=== PATIENT | female | born 1945 | race Caucasian/White ===

== ENCOUNTER 2020-11-26 17:57 | Inpatient (IN) ==
[2020-11-26] MEDS ORDERED: SODIUM CHLORIDE 0.9% 500 ML IV STA (19:08)
--- NOTE | 2020-11-26 19:15 | Emergency Department Note ---
Impression & Plan Abdominal pain, Diverticulitis, Colonic diverticular abscess, Perforated diverticulum ED Provider Note NAME: AWA ROMERO AGE: 75 SEX: F : 1945 ARRIVES VIA: Walk-In INFORMANT: Patient, ED PROVIDER(S): Ramana Quiñones MD Chief Complaint: Abdominal pain HPI: Patient does present concern for abdominal pain. The patient states that it might have began last evening but really seem to notice it this morning. The patient describes it in the lower abdomen as well as in the left lower quadrant achy in nature nonradiating. The patient denies any fevers or chills. The patient has any nausea or vomiting. The patient states that she had a bowel movement several days ago but denies any blood in the stools. The patient has been passing flatus. The patient did not take anything for pain at home. Patient denies any dysuria or hematuria. Patient denies history of kidney stones. The patient denies any recent surgeries or procedures. The patient does state that she has a prior history of diverticulitis and this does feel similar. ROS: See HPI for pertinent positives and negatives. A total of 10 systems were reviewed and otherwise negative. Past medical history: See below Surgical history: See below Social history: See below Physical Exam: GENERAL: Wearing a mask. NAD, non-toxic. EYE EXAM: Normal conjunctiva. PERRL, no anisocoria and EOM's grossly intact w/o pain. NECK: Supple, no nuchal rigidity, no adenopathy, non-tender. No signs of meningismus. LUNGS: Clear to auscultation. Normal chest wall mechanics. HEART: NSR, no MRG. ABDOMEN: Abdomen soft, lower abdominal discomfort most prominent in the left lower quadrant, no peritonitis, normo-active bowel sounds, no masses, no rebound or guarding. BACK: No CVA TTP. SKIN: No rashes and no bruising. UPPER EXTREMITIES: Upper extremities are grossly normal. LOWER EXTREMITIES: Grossly normal, no edema. NEURO EXAM: A&O x3, cranial nerves II-XII grossly intact, normal speech, moves all 4 extremities on command w/o issue. Differential diagnoses: Appendicitis, ovarian cyst, ovarian torsion, ectopic , TOA, PID, infections, diverticulitis, UTI, obstruction, mesenteric ischemia, aortic pathology, inflammatory bowel disease, renal colic, PUD, pancreatitis, biliary pathology, hernia, volvulus, constipation, as well as other pathologies. Course: Patient was seen and evaluated the bedside. Full history physical exam was p erformed. Imaging Studies: See below Cardiac monitoring: An order was placed for continuous cardiac monitoring. The monitor shows a rate of 82 with sinus rhythm. MDM: Patient was seen due to concern for abdominal pain. Blood work is obtained along with CT abdomen pelvis. Patient declined any pain medication. The patient does have a small diverticular abscess with associated diverticular per foration. The patient is not peritonitic afebrile with a normal white count. The patient was started on Zosyn and blood cultures were drawn. I did speak the on-call general surgeon Dr. Hernandez who did evaluate the patient the bedside. I did speak the on-call hospitalist Dr. Hager and the patient was admitted to the medicine service. Past Med/Surg History Medical History (Updated 11/26/20 @ 22:19 by Ramana Quiñones MD) Diverticulitis HX Pancreatitis HX Urinary tract infection HX Surgical History History of cholecystectomy History of colonoscopy History of esophagogastroduodenoscopy (EGD) History of right cataract surgery S/P tubal ligation Family History Mother Colon cancer Social History Smoking Status: Never smoker Second Hand Exposure: No; Hx Alcohol Use: No Hx Substance Use: No Preferred Language: Kazakh Communication Ability: Effective Pastry Mixer Required: No Beliefs That Will Affect Care: None Current Living Situation: Spouse Feels Safe at Home: Yes Assistive Devices: Glasses and Hearing Aid - Bilateral Allergies Allergies Allergy/AdvReac Type Severity Reaction Status Date / Time propoxyphene Allergy Unknown ITCHING,THROAT Verified 11/26/20 20:04 SWELLING oxycodone AdvReac Mild DROWSY Verified 11/26/20 20:04 Home Meds Home Medications Medication Instructions Recorded Confirmed dorzolamide-timolol 1 drp OPB BID #0 08/06/09 11/26/20 calcium carbonate 400 mg PO PM #0 02/11/15 11/26/20 cholecalciferol (vitamin D3) 1,000 unit PO PM #0 tab 02/11/15 11/26/20 docusate sodium [Dulcolax Stool 100 mg PO DAILY PRN #0 02/11/15 11/26/20 Softener (dss)] fluticasone propionate [24 Hour 2 spray INTRANASAL DAILY PRN 30 02/11/15 11/26/20 Allergy Relief] Days #16 g lysine 1,000 mg PO DAILY PRN #0 02/11/15 11/26/20 diclofenac sodium 1 g TOPICAL QID PRN 06/30/19 11/26/20 Results & Data (ED) Vital Signs Vital Signs - 24 hr 11/26/20 18:11 Temperature 37.3 C Temperature Source Oral Pulse Rate 82 Respiratory Rate 19 Respiratory Effort / Characteristics Non-Labored Respiratory Depth Normal Blood Pressure 165/88 H Blood Pressure Mean 113 Pulse Oximetry 96 Oxygen Delivery Method Room Air Sepsis Recent Fever Within 48 Hours No Sepsis New/Unexplained Change in Mental Status No Sepsis Action Taken by Nursing No Action Required Home Medications Current Medication List: was personally reviewed by me Laboratory Data Attestation: I reviewed the patient's lab results. Result diagrams: 11/26/20 19:16 11/26/20 19:16 Lab Results 11/26/20 11/26/20 11/26/20 Range/Units 19:16 19:16 19:16 WBC 10.42 (4.8-10.8) K/uL RBC 5.04 (4.2-5.4) M/uL Hgb 14.9 (12.0-16.0) g/dL Hct 44.3 (37-47) % MCV 87.9 (80-100) fL MCH 29.6 (25-34) pg MCHC 33.6 (32-36) g/dL RDW Std Deviation 44.4 (36.4-46.3) fL RDW Coeff of Adán 13.7 (11.5-14.5) % Plt Count 202 (130-400) K/uL MPV 10.3 (7.4-10.4) fL Immature Gran % (Auto) 0.2 % Neut % (Auto) 72.8 % Lymph % (Auto) 18.2 % [place] % (Auto) 8.4 % Eos % (Auto) 0.3 % Baso % (Auto) 0.1 % Neut # (Auto) 7.58 H (1.4-6.5) K/uL Lymph # (Auto) 1.90 (1.2-3.4) K/uL [place] # (Auto) 0.88 H (0.11-0.59) K/uL Eos # (Auto) 0.03 (0-0.5) K/uL Baso # (Auto) 0.01 (0-0.2) K/uL Immature Gran # (Auto) 0.02 (0.00-0.02) K/uL Sodium 142 (136-145) mmol/L Potassium 3.6 (3.5-5.1) mmol/L Chloride 109 H (98-107) mmol/L Carbon Dioxide 28 (21-32) mmol/L Anion Gap 5.0 (3-11) BUN 16 (7-18) mg/dl Creatinine 1.02 (0.6-1.2) mg/dl Est Cr Clr Drug Dosing 49.5 ml/min Est GFR ( Amer) 62.3 ml/min Est GFR (Non-Af Amer) 53.8 ml/min BUN/Creatinine Ratio 15.5 (10-20) Glucose 102 H (70-99) mg/dl Calcium 8.8 (8.5-10.1) mg/dl Total Bilirubin 1.8 H (0.2-1) mg/dl AST 18 (15-37) U/L ALT 20 (12-78) U/L Alkaline Phosphatase 68 (45-117) U/L Total Protein 7.8 (6.4-8.2) gm/dl Albumin 3.4 (3.4-5.0) gm/dl Globulin 4.4 H (2.5-4.0) gm/dl Albumin/Globulin Ratio 0.8 L (0.9-2) Lipase 118 (73-393) U/L Urine Color [place] Urine Appearance Clear (Clear) Urine pH 5.0 (4.5-7.5) Ur Specific [place] 1.023 (1.000-1.030) Urine Protein Negative (Negative) Urine Glucose (UA) Negative (Negative) Urine Ketones Trace H (Negative) Urine Blood 1+ H (Negative) Urine Nitrite Negative (Negative) Urine Bilirubin Negative (Negative) Urine Urobilinogen Negative (Negative) Ur Leukocyte Esterase Trace H (Negative) Urine WBC (Auto) 1-5 (0-5) /hpf Urine RBC (Auto) 0-4 (0-4) /hpf U Hyaline Cast (Auto) 1-5 (0-5) /lpf U Epithel Cells (Auto) 10-20 H (0-5) /lpf Urine Bacteria (Auto) Negative (Negative) COVID-19 Eval Order 11/26/20 Range/Units 21:37 WBC (4.8-10.8) K/uL RBC (4.2-5.4) M/uL Hgb (12.0-16.0) g/dL Hct (37-47) % MCV (80-100) fL MCH (25-34) pg MCHC (32-36) g/dL RDW Std Deviation (36.4-46.3) fL RDW Coeff of Adán (11.5-14.5) % Plt Count (130-400) K/uL MPV (7.4-10.4) fL Immature Gran % (Auto) % Neut % (Auto) % Lymph % (Auto) % [place] % (Auto) % Eos % (Auto) % Baso % (Auto) % Neut # (Auto) (1.4-6.5) K/uL Lymph # (Auto) (1.2-3.4) K/uL [place] # (Auto) (0.11-0.59) K/uL Eos # (Auto) (0-0.5) K/uL Baso # (Auto) (0-0.2) K/uL Immature Gran # (Auto) (0.00-0.02) K/uL Sodium (136-145) mmol/L Potassium (3.5-5.1) mmol/L Chloride (98-107) mmol/L Carbon Dioxide (21-32) mmol/L Anion Gap (3-11) BUN (7-18) mg/dl Creatinine (0.6-1.2) mg/dl Est Cr Clr Drug Dosing ml/min Est GFR ( Amer) ml/min Est GFR (Non-Af Amer) ml/min BUN/Creatinine Ratio (10-20) Glucose (70-99) mg/dl Calcium (8.5-10.1) mg/dl Total Bilirubin (0.2-1) mg/dl AST (15-37) U/L ALT (12-78) U/L Alkaline Phosphatase (45-117) U/L Total Protein (6.4-8.2) gm/dl Albumin (3.4-5.0) gm/dl Globulin (2.5-4.0) gm/dl Albumin/Globulin Ratio (0.9-2) Lipase (73-393) U/L Urine Color Urine Appearance (Clear) Urine pH (4.5-7.5) Ur Specific [place] (1.000-1.030) Urine Protein (Negative) Urine Glucose (UA) (Negative) Urine Ketones (Negative) Urine Blood (Negative) Urine Nitrite (Negative) Urine Bilirubin (Negative) Urine Urobilinogen (Negative) Ur Leukocyte Esterase (Negative) Urine WBC (Auto) (0-5) /hpf Urine RBC (Auto) (0-4) /hpf U Hyaline Cast (Auto) (0-5) /lpf U Epithel Cells (Auto) (0-5) /lpf Urine Bacteria (Auto) (Negative) COVID-19 Eval Order Covid19 at [facility] Administered Medications Discontinued Medications Sodium Chloride (Nss) 500 mls @ 999 mls/hr IV .Q31M STA Stop: 11/26/20 19:38 Last Infusion: 11/26/20 20:32 Dose: 0 mls/hr Documented by: [id number] Admin: 11/26/20 19:16 Dose: 999 mls/hr Documented by: [id number] Ioversol (Optiray 320 100ml) 87 ml IV ONCE ONE Stop: 11/26/20 20:31 Last Admin: 11/26/20 20:30 Dose: 87 ml Documented by: [id number] Imaging Data Radiologist's Impression: Abdomen/Pelvis CT 11/26/20 19:[address] WITH IV CONTRAST CT DOSE: 843.27 mGy.cm HISTORY: Left lower quadrant/lower abdominal pain. TECHNIQUE: Multiaxial CT images of the abdomen and pelvis were performed following the use of intravenous contrast. A dose lowering technique was utilized adhering to the principles of ALARA. COMPARISON STUDY: Abdomen and pelvis CT 08/26/2019. FINDINGS: Bibasilar linear densities consistent with subsegmental atelectasis. No suspicious lytic or blastic osseous lesions. Cholecystectomy. A 4 mm hypodense lesion within the left hepatic lobe. This remains stable and likely represents a cyst. The spleen, right adrenal gland, and pancreas are un remarkable. Stable subcentimeter hypodense lesions within the right kidney with the largest measuring 9 mm. These are technically too small to characterize. Stable 5.4 cm left renal cyst. Stable 1.3 cm left adrenal gland nodule. 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 Mild calcified plaque within the normal caliber abdominal aorta. Subcentimeter retroperitoneal lymph nodes do not meet CT criteria for pathologic involvement. The bladder is unremarkable. There are few punctate calcifications within the uterus, unchanged. Moderate thickening of the proximal sigmoid colon with an inflamed diverticulum and a small developing pericolonic absces s/microperforation. This measures 1.9 cm and is best seen on image 307. There is associated pericolonic fat stranding. Findings are consistent with an acute sigmoid diverticulitis. No bowel obstruction. Normal appendix. IMPRESSION: 1. Acute sigmoid diverticulitis with an associated 1.9 cm focal perforation/developing abscess. Follow-up colonoscopy recommended once the diverticulitis have resolved to exclude the less likely possibility of an un derlying colonic lesion. 2. No evidence for bowel obstruction. 3. Additional findings as described above. ACT 112: Negative or not required by law. Electronically signed by: Cj De La Vega M.D. 11/26/2020 8:50 PM Discharge Plan Visit Data Chief Complaint: GI Assessment Stated Complaint: DIVERTICULITIS ED Provider: Ramana Quiñones Discharge Problem: Abdominal pain, Diverticulitis, Colonic diverticular abscess, Perforated diverticulum Forms Stand Alone Forms: [employer] Prescriptions Prescriptions: No Action dorzolamide-timolol 22.3-6.8 mg/mL Drops 1 drp OPB BID Qty: 0 RF: 0 lysine 1,000 mg Tablet 1,000 mg PO DAILY PRN (Reason: Cold Sores) Qty: 0 RF: 0 calcium carbonate 400 mg calcium (1,000 mg) Tablet,Chewable 400 mg PO PM Qty: 0 RF: 0 docusate sodium [Dulcolax Stool Softener (dss)] 100 mg Capsule 100 mg PO DAILY PRN (Reason: Constipation) Qty: 0 RF: 0 fluticasone propionate [24 Hour Allergy Relief] 50 mcg/actuation Steward,Suspension 2 spray INTRANASAL DAILY PRN (Reason: Allergy Symptoms) 30 Days Qty: 16 RF: 5 cholecalciferol (vitamin D3) 1,000 unit Capsule 1,000 unit PO PM Qty: 0 RF: 0 diclofenac sodium 1 % gel 1 g TOPICAL QID PRN (Reason: Pain) RF: 0 Discharge Problem: Abdominal pain Qualifiers: Abdominal location: lower abdomen, unspecified Qualified Code(s): R10.30 - Lower abdominal pain, unspecified
[2020-11-26 19:31] LABS: Basophils # (auto) 0.01 K/uL (0-0.2); Basophils % (auto) 0.1 %; Eosinophils # (auto) 0.03 K/uL (0-0.5); Eosinophils % (auto) 0.3 %; Hematocrit (blood only) 44.3 % (37-47); Hemoglobin 14.9 g/dL (12.0-16.0); Immature Granulocytes # (auto) 0.02 K/uL (0.00-0.02); Immature Granulocytes % (auto) 0.2 %; Lymphocytes % (auto) 18.2 %; Mean Corpuscular Hemoglobin 29.6 pg (25-34); Mean Corpuscular Hgb Conc 33.6 g/dL (32-36); Mean Corpuscular Volume 87.9 fL (80-100); Mean Platelet Volume 10.3 fL (7.4-10.4); Monocytes # (auto) 0.88 K/uL (0.11-0.59); Monocytes % (auto) 8.4 %; Neutrophils # (auto) 7.58 K/uL (1.4-6.5); Neutrophils % (auto) 72.8 %; Platelet Count 202 K/uL (130-400); RDW Coefficient of Variation 13.7 % (11.5-14.5); RDW Standard Deviation 44.4 fL (36.4-46.3); Red Blood Count 5.04 M/uL (4.2-5.4); White Blood Count 10.42 K/uL (4.8-10.8)
[2020-11-26 19:35] LABS: Appearance Urine Clear (Clear); Bacteria Urine Automated Negative (Negative); Bilirubin Urine Negative (Negative); Blood Urine 1+ (Negative); Color Urine Orange; Glucose Urine UA Negative (Negative); Ketones Urine Trace (Negative); Leukocyte Esterase Urine Trace (Negative); Nitrite Urine Negative (Negative); Protein Urine Negative (Negative); RBC Urine Automated 0-4 /hpf (0-4); Specific Gravity Urine 1.023 (1.000-1.030); Urobilinogen Urine Negative (Negative)
[2020-11-26 19:44] LABS: Albumin Level 3.4 gm/dl (3.4-5.0); BUN Creatinine Ratio 15.5 (10-20); Calcium 8.8 mg/dl (8.5-10.1); Creatinine Clr Calc Pharmacy 49.5 ml/min; Est GFR (African American) 62.3 ml/min; Est GFR (Non-African American) 53.8 ml/min; Potassium 3.6 mmol/L (3.5-5.1)
[2020-11-26 19:47] LABS: Albumin Globulin Ratio 0.8 (0.9-2); Bilirubin,Total 1.8 mg/dl (0.2-1); Globulin 4.4 gm/dl (2.5-4.0); Total Protein 7.8 gm/dl (6.4-8.2)
[2020-11-26] MEDS ORDERED: OPTIRAY 320 100ml IV ONE (20:30)
--- NOTE | 2020-11-26 20:51 | CT Scan Report ---
ABDOMEN AND PELVIS CT WITH IV CONTRAST CT DOSE: 843.27 mGy.cm HISTORY: Left lower quadrant/lower abdominal pain. TECHNIQUE: Multiaxial CT images of the abdomen and pelvis were performed following the use of intrave nous contrast. A dose lowering technique was utilized adhering to the principles of ALARA. COMPARISON STUDY: Abdomen and pelvis CT 08/26/2019. FINDINGS: Bibasilar linear densities consistent with subsegmental atelectasis. No suspicious lytic or blastic osseous lesions. Cholecystectomy. A 4 mm hypodense lesion within the left hepatic lobe. This remains stable and likely represents a cyst. The spleen, right adrenal gland, and pancreas are unrem arkable. Stable subcentimeter hypodense lesions within the right kidney with the largest measuring 9 mm. These are technically too small to characterize. Stable 5.4 cm left renal cyst. Stable 1.3 cm lef t adrenal gland nodule. 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 Mild calcified plaque within the normal caliber abdominal aorta. Subcentimeter retro peritoneal lymph nodes do not meet CT criteria for pathologic involvement. The bladder is unremarkabl e. There are few punctate calcifications within the uterus, unchanged. Moderate thickening of the pro ximal sigmoid colon with an inflamed diverticulum and a small developing pericolonic abscess/microper foration. This measures 1.9 cm and is best seen on image 307. There is associated pericolonic fat str anding. Findings are consistent with an acute sigmoid diverticulitis. No bowel obstruction. Normal ap pendix. IMPRESSION: 1. Acute sigmoid diverticulitis with an associated 1.9 cm focal perforation/developing abscess. Follo w-up colonoscopy recommended once the diverticulitis have resolved to exclude the less likely possibi lity of an underlying colonic lesion. 2. No evidence for bowel obstruction. 3. Additional findings as described above. ACT 112: Negative or not required by law. Electronically signed by: Cj De La Vega M.D. 11/26/2020 8:50 PM
[2020-11-26] MEDS ORDERED: PIPERACILL/TAZOBAC CONSULT ACTIVE PRN (20:54)
[2020-11-26] MEDS ORDERED: PIPERACILLIN/TAZOBACTAM 4.5 GM in DEXTROSE 5% 100 ML IV ONE (20:54)
[2020-11-26] MEDS ORDERED: PIPERACILLIN/TAZOBACTAM 4.5 GM/120 ML BAG IV ONE (21:45)
--- NOTE | 2020-11-26 22:12 | Surgery Consultation ---
Date of Consultation November 26, 2020 Assessment & Plan (1) Diverticulitis of intestine with abscess: pt is a 75 year-old female who presents to Er with one day history abdominal pain, IMP: Acute sigmoid diverticulitis with an associated 1.9 cm focal perforation/developing abscess plan, no surgery indication now, recommend: medicine team will admit pt to hospital , conservative treatment first, NPO, IV fluid, iv antibiotic, control pain, repeat labs in morning, will F/U thanks, Present on Admission?: Yes History of Present Illness History of Present Illness Chief Complaint: Abdominal pain HPI: Patient does present concern for abdominal pain. The patient states that it might have began last evening but really seem to notice it this morning. The patient describes it in the lower abdomen as well as in the left lower quadrant achy in nature nonradiating. The patient denies any fevers or chills. The patient has any nausea or vomiting. The patient states that she had a bowel movement several days ago but denies any blood in the stools. The patient has been passing flatus. The patient did not take anything for pain at home. Patient denies any dysuria or hematuria. Patient denies history of kidney stones. The patient denies any recent surgeries or procedures. The patient does state that she has a prior history of diverticulitis and this does feel si milar. I ( Sharyn Hernandez MD ) got a call for consult diverticulitis, I reviewed pt's H/P, labs, CT scan with pt and her , pt has no significant abdominal pain now, ROS: See HPI for pertinent positives and negatives. A total of 10 systems were reviewed and otherwise negative. Past medical history: See below Surgical history: See below Social history: See below Allergies Allergy/AdvReac Type Severity Reaction Status Date / Time propoxyphene Allergy Unknown ITCHING,THROAT Verified 11/26/20 20:04 SWELLING oxycodone AdvReac Mild DROWSY Verified 11/26/20 20:04 Home Medications Medication Instructions Recorded Confirmed Type dorzolamide-timolol 1 drp OPB BID #0 08/06/09 11/26/20 History calcium carbonate 400 mg PO PM #0 02/11/15 11/26/20 History cholecalciferol (vitamin D3) 1,000 unit PO PM #0 tab 02/11/15 11/26/20 History docusate sodium [Dulcolax Stool 100 mg PO DAILY PRN #0 02/11/15 11/26/20 History Softener (dss)] fluticasone propionate [24 Hour 2 spray INTRANASAL DAILY PRN 30 02/11/15 11/26/20 History Allergy Relief] Days #16 g lysine 1,000 mg PO DAILY PRN #0 02/11/15 11/26/20 History diclofenac sodium 1 g TOPICAL QID PRN 06/30/19 11/26/20 History Patient History Medical History (Updated 11/26/20 @ 22:13 by Sharyn Hernandez MD) Diverticulitis HX Pancreatitis HX Urinary tract infection HX Surgical History History of cholecystectomy History of colonoscopy History of esophagogastroduodenoscopy (EGD) History of right cataract surgery S/P tubal ligation Family History Mother Colon cancer Social History Smoking Status: Never smoker Second Hand Exposure: No; Hx Alcohol Use: No Hx Substance Use: No Preferred Language: Wolof Communication Ability: Effective Water Resource Consultant Required: No Beliefs That Will Affect Care: None Current Living Situation: Spouse Feels Safe at Home: Yes Assistive Devices: Glasses and Hearing Aid - Bilateral Review of Systems Review of Systems: All systems reviewed & are unremarkable except as noted in HPI & below Constitutional: as per Subjective / HPI Eyes: as per Subjective / HPI Ear, Nose, Mouth, Throat: as per Subjective / HPI Respiratory: as per Subjective / HPI Cardiovascular: as per Subjective / HPI Gastrointestinal: as per Subjective / HPI diverticulitis, abdominal pain Genitourinary: as per Subjective / HPI S/P tube ligation, UTI Musculoskeletal: as per Subjective / HPI Integumentary: as per Subjective / HPI Neurologic: as per Subjective / HPI Psychiatric: as per Subjective / HPI Endocrine: as per Subjective / HPI Hematologic / Lymphatic: as per Subjective / HPI Physical Exam Constitutional: WD/WN, vitals as above well developed and well nourished Eyes: PERRL, conjunctivae normal, anicteric sclerae ENMT: external ear and nose normal, oropharynx normal Neck: trachea midline, no thyromegaly Respiratory: normal respiratory effort, lungs clear to auscultation normal respiratory effort Cardiovascular: RRR, no murmur, no edema Rate/Rhythm: regular rate and regular rhythm Gastrointestinal (Abdomen): normal bowel sounds, soft, nontender, no hepatosplenomegaly Percussion/Palpation: abdomen soft NT, ND, BS + Musculoskeletal: no cyanosis or clubbing, extremities motor strength 5/5 Skin: no rashes, warm and dry Neurologic: awake Psychiatric: Orientation: alert and oriented x 3 Results & Data ([facility]) Vital Signs (Past 12 Hours) Vital Signs Temp Pulse Resp BP Pulse Ox 11/26/20 18:11 37.3 C 82 19 165/88 H 96 Laboratory Results Abnormal lab results 11/26/20 11/26/20 11/26/20 Range/Units 19:16 19:16 19:16 Neut # (Auto) 7.58 H (1.4-6.5) K/uL [place] # (Auto) 0.88 H (0.11-0.59) K/uL Chloride 109 H (98-107) mmol/L Glucose 102 H (70-99) mg/dl Total Bilirubin 1.8 H (0.2-1) mg/dl Globulin 4.4 H (2.5-4.0) gm/dl Albumin/Globulin Ratio 0.8 L (0.9-2) Urine Ketones Trace H (Negative) Urine Blood 1+ H (Negative) Ur Leukocyte Esterase Trace H (Negative) U Epithel Cells (Auto) 10-20 H (0-5) /lpf Diagnostic Findings ABDOMEN AND PELVIS CT WITH IV CONTRAST CT DOSE: 843.27 mGy.cm HISTORY: Left lower quadrant/lower abdominal pain. TECHNIQUE: Multiaxial CT images of the abdomen and pelvis were performed following the use of intravenous contrast. A dose lowering technique was utilized adhering to the principles of ALARA. COMPARISON STUDY: Abdomen and pelvis CT 08/26/2019. FINDINGS: Bibasilar linear densities consistent with subsegmental atelectasis. No suspicious lytic or blastic osseous lesions. Cholecystectomy. A 4 mm hypodense lesion within the left hepatic lobe. This remains stable and likely represents a cyst. The spleen, right adrenal gland, and pancreas are unremarkable. Stable subcentimeter hypodense lesions within the right kidney with the largest measuring 9 mm. These are technically too small to characterize. Stable 5.4 cm left renal cyst. Stable 1.3 cm left adrenal gland nodule. 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 Mild calcified plaque within the normal caliber abdominal aorta. Subcentimeter retroperitoneal lymph nodes do not meet CT criteria for pathologic involvement. The bladder is unremarkable. There are few punctate calcifications within the uterus, unchanged. Moderate thickening of the proximal sigmoid colon with an inflamed diverticulum and a small developing pericolonic abscess/microperforation. This measures 1.9 cm and is best seen on image 307. There is associated pericolonic fat stranding. Findings are consistent with an acute sigmoid diverticulitis. No bowel obstruction. Normal appendix. IMPRESSION: 1. Acute sigmoid diverticulitis with an associated 1.9 cm focal perforation/developing abscess. Follow-up colonoscopy recommended once the diverticulitis have resolved to exclude the less likely possibility of an underlying colonic lesion. 2. No evidence for bowel obstruction. 3. Additional findings as described above.
[2020-11-27] MEDS ORDERED: DICLOFENAC SOD 1% GEL 100 GM TUBE EXT PRN (01:02)
[2020-11-27] MEDS ORDERED: MoRPHine SULFATE 2 MG/ML CARP IV PRN (01:02)
[2020-11-27] MEDS ORDERED: DOCUSATE SODIUM 100 MG CAP PO PRN (01:02)
[2020-11-27] MEDS ORDERED: ONDANSETRON INJ 2 MG/ML 2 ML VIAL IV PRN (01:02)
[2020-11-27] MEDS ORDERED: ACETAMINOPHEN 325 MG TAB PO PRN (01:02)
[2020-11-27] MEDS ORDERED: FLUTICASONE PROPIONATE NA SPR 16 GM BTL PRN (01:02)
[2020-11-27] MEDS: D5W AND NSS 1,000 ML IV SCH ×3 (01:48→16:36)
[2020-11-27] MEDS: PIPERACILLIN/TAZOBACTAM 3.375 GM in DEXTROSE 5% 100 ML IV SCH ×3 (03:55→20:26)
[2020-11-27 05:37] LABS: Basophils # (auto) 0.02 K/uL (0-0.2); Basophils % (auto) 0.3 %; Eosinophils # (auto) 0.04 K/uL (0-0.5); Eosinophils % (auto) 0.5 %; Hematocrit (blood only) 40.3 % (37-47); Hemoglobin 13.6 g/dL (12.0-16.0); Immature Granulocytes # (auto) 0.02 K/uL (0.00-0.02); Immature Granulocytes % (auto) 0.3 %; Lymphocytes # (auto) 1.95 K/uL (1.2-3.4); Lymphocytes % (auto) 26.5 %; Mean Corpuscular Hemoglobin 29.4 pg (25-34); Mean Corpuscular Hgb Conc 33.7 g/dL (32-36); Mean Platelet Volume 9.9 fL (7.4-10.4); Monocytes # (auto) 0.68 K/uL (0.11-0.59); Monocytes % (auto) 9.2 %; Neutrophils # (auto) 4.65 K/uL (1.4-6.5); Neutrophils % (auto) 63.2 %; Platelet Count 175 K/uL (130-400); RDW Coefficient of Variation 13.5 % (11.5-14.5); RDW Standard Deviation 43.3 fL (36.4-46.3); Red Blood Count 4.63 M/uL (4.2-5.4); White Blood Count 7.36 K/uL (4.8-10.8)
[2020-11-27 05:56] LABS: Calcium 8.1 mg/dl (8.5-10.1); Creatinine Clr Calc Pharmacy 45.1 ml/min; Est GFR (African American) 55.6 ml/min; Magnesium 2.2 mg/dl (1.8-2.4); Potassium 3.4 mmol/L (3.5-5.1)
--- NOTE | 2020-11-27 05:56 | History and Physical Report ---
DATE OF ADMISSION: 11/26/2020 CHIEF COMPLAINT: Abdominal pain. HISTORY OF PRESENT ILLNESS: This is a 75-year-old female with past medical history significant for hyperlipidemia, vitamin D deficiency, degenerative joint disease, primary open angle glaucoma, who presents with abdominal pain of 1-day duration and found to have diverticulitis. The patient says currently pain is under control. Denies any diarrhea, constipation, or blood in stools or black stools. No hematuria, no burning micturition. No chest pain, no shortness of breath. No cough. Has some runny nose today. No sore throat, no headache, no blurred vision, no ear aches. The patient had COVID vaccine and she was diagnosed with COVID today. Lives with her . Denies any COVID exposure. The patient is somewhat drowsy. ALLERGIES: DARVON, PERCOCET. PAST MEDICAL HISTORY: As mentioned above. PAST SURGICAL HISTORY: Colonoscopy, EGDs with endoscopic ultrasound, laparoscopic cholecystectomy, ligation of oviducts, drainage of the right breast cyst. MEDICATIONS: The patient is on calcium carbonate 400 mg p.o. p.m., vitamin D 1000 units p.o. p.m., diclofenac sodium 1 gram topically q.i.d. p.r.n., Dulcolax 100 mg p.o. daily p.r.n., dorzolamide, timolol 1 drop ophthalmic b.i.d., Flonase p.r.n., lysine 1000 mg p.o. daily p.r.n. FAMILY HISTORY: Significant for father had nasopharyngeal and lung cancer and heart disorder, mother had colon cancer. SOCIAL HISTORY: . No smoking. Alcohol socially. No drug use. REVIEW OF SYSTEMS: As per HPI. Rest of the review of systems negative. PHYSICAL EXAMINATION: GENERAL: The patient is of moderate build, not in acute distress. VITAL SIGNS: Temperature 37.1, pulse 86, respiratory rate 18, blood pressure 132/83, oxygen 90% on room air. HEENT: Pupils equal, round, and reactive to light. Oral mucosa moist. NECK: No JVD. No neck masses. CARDIOVASCULAR: S1, S2 heard, regular rate and rhythm. No murmur, no gallop. RESPIRATORY SYSTEM: Normal AP diameter. No accessory muscle use. No wheezing, no crackles. ABDOMEN: Soft, bowel sounds present, nontender. No distention. CENTRAL NERVOUS SYSTEM: Cranial nerves II-XII grossly intact, nonfocal. EXTREMITIES: No edema, no erythema. LABORATORY DATA: WBC 10.4, hemoglobin 14.9, hematocrit 44.3, platelets 202. Sodium 142, potassium 3.6, chloride 109, bicarbonate 28, BUN 16, creatinine 1.02, serum glucose 102, calcium 8.8, total bilirubin 1.8, AST 18, ALT 20, alkaline phosphatase 68, lipase 118. Urinalysis positive for trace blood. SARS-CoV-2 PCR positive. IMAGING DATA: CT of abdomen and pelvis, acute sigmoid colitis with an associated 1.9 cm focal perforation, developing abscess. Followup colonoscopy recommended. No evidence of bowel obstruction. ASSESSMENT AND PLAN: This is a 75-year-old female who presents with abdominal pain, found to have acute diverticulitis. 1. Acute sigmoid diverticulitis with possible developing abscess: Surgery was consulted. N.p.o., IV fluids, IV antiemetics, IV Zosyn, monitor in the medical floor. 2. COVID positive: The patient is currently asymptomatic, had COVID vaccine. Will follow chest x-ray, follow the labs and inflammatory markers. 3. Glaucoma: On eyedrops. 4. Deep venous thrombosis prophylaxis: We will place on Lovenox. DISPOSITION: Closely monitor in the medical floor. Level 1 full code. Expect to discharge home and follow up with family doctor. REANN
[2020-11-27 06:01] LABS: C Reactive Protein 7.17 mg/dl (0-0.29); Troponin I 0.039 ng/ml (0-0.045)
[2020-11-27 06:48] LABS: D Dimer 910 ug/L FEU (0-500)
[2020-11-27] MEDS ORDERED: POTASSIUM CHLORIDE CRTAB 20 MEQ TABCR PO STA (07:17)
[2020-11-27] MEDS: ENOXAPARIN INJ 40 MG/0.4 ML SYR SQ SCH (07:55)
[2020-11-27] MEDS: DORZOLAMIDE/TIMOLOL 22.3/6.8MG/ML 10 ML BTL OPB SCH ×2 (07:56→20:27)
--- NOTE | 2020-11-27 09:13 | XRay Report ---
SINGLE VIEW CHEST CLINICAL HISTORY: Covid. FINDINGS: An AP, portable, upright chest radiograph is compared to study dated 09/13/2014. Correlation is made with abdominal CT dated 11/26/2020. The heart is top normal for projection. There is mild ath erosclerotic calcification of the thoracic aorta. The pulmonary vasculature is noncongested. Scarring /atelectasis is noted at the lung bases. No airspace consolidation or large pleural effusion is ident ified. No pneumothorax is seen. The skeletal structures are osteopenic. The bony thorax is grossly in tact. IMPRESSION: No acute cardiopulmonary abnormality. ACT 112: Negative or not required by law. Electronically signed by: Gallo Luna M.D. 11/27/2020 9:12 AM
--- NOTE | 2020-11-27 10:20 | Hospitalist Progress Note ---
Date of Service November 27, 2020 Assessment & Plan (1) Colonic diverticular abscess: (2) Perforated diverticulum: (3) Diverticulitis of intestine with abscess: (4) Abdominal pain: (5) COVID-19 vaccine administered: Advance diet to full liquids, continue abx, COVID isolation, no Symptoms, DC IVFs, DDimer elevated, but not SOB and COVID Pos Labs Checked DC IVFs Home 1-2 days on PO abx when abd pain gone and tolerating diet ROS-No Headache, No Visual Changes, No Nausea, No Vomiting, No Fever, No Chills, No Neck Pain or Stiffness, No Chest Pain, No Palpitations, No SOB, No CALIXTO, No Cough, No Sputum, No Wheezing, No Abdominal Pain, No Diarrhea, No Hematemesis, N o Hemoptysis, No Unexpected Weight Loss, No Flank pain, No Melena, No Hematochezia, No Frequency, No Urgency, No Burning, No Hematuria, No Rashes, No Diaphoresis. Appetite is Normal Physical Exam Gen-AAO x 3, NAD, Afebrile Head-NCAT, EOMI, PERRLA, Anicteric Sclera, No Posterior Pharyngeal Erythema Neck-Supple, No JVD, No Thyromegaly, No Masses, No LAD, No Bruits Lungs-Clear to Auscultation Bilaterally, No Rales, No Rhonchi, No Wheezing, No Crepitus Chest-No S4, +S1, +S2, No S3, No Murmurs, No Rubs, No Gallops, No Ectopy Abdomen-Soft, Bowel Sounds Present, Non Tender, Non Distended, No Hepatomegaly, No Splenomegaly, No Palpable Masses, No Rebound, No Rigidity, No Guarding Musculoskeletal-Full Range of Motion Bilaterally, No CVAT Extremities-No Cyanosis, No Clubbing, No Edema Nuero-Cranial Nerves II-XII grossly intact, Motor WNL, DTRs WNL, Strength WNL, Non Focal Psych-Normal Mood Admission and Anticipated Discharge Date Admission Date: November 26, 2020 Results & Data Results & Data ([facility]) Vital Signs (Past 12 Hours) Vital Signs Temp Pulse Resp BP BP Pulse Ox 11/27/20 09:08 36.7 C 68 16 136/78 94 11/27/20 01:05 37.1 C 86 18 132/83 90
--- NOTE | 2020-11-27 11:31 | Progress Note ---
Date of Service F/U diverticulitis with abscess, pt is doing fine, no abdominal pain, no fever, no diarrhea, November 27, 2020 Assessment & Plan (1) Diverticulitis of intestine with abscess: pt is a 75 year-old female who presents to [facility] with one day history abdominal pain, IMP: Acute sigmoid diverticulitis with an associated 1.9 cm focal perforation/developing abscess plan, no surgery indication now, recommend: medicine team will admit pt to hospital , conservative treatment first, NPO, IV fluid, iv antibiotic, control pain, repeat labs in morning, will F/U thanks, 11/27/2020 11:29AM F/U diverticulitis with abscess, pt is doing fine, clear diet continue IV antibiotic, possible discharge tomorrow, if pt tolerated diet, pt needs to F/U GI doctor for colonoscopy if discharge pt, will F/u Admission and Anticipated Discharge Date Admission Date: November 26, 2020 Review of Systems Constitutional: as per Subjective / HPI Eyes: as per Subjective / HPI Ear, Nose, Mouth, Throat: as per Subjective / HPI Respiratory: as per Subjective / HPI Cardiovascular: as per Subjective / HPI Gastrointestinal: as per Subjective / HPI diverticulitis, abdominal pain Genitourinary: as per Subjective / HPI S/P tube ligation, UTI Musculoskeletal: as per Subjective / HPI Integumentary: as per Subjective / HPI Neurologic: as per Subjective / HPI Psychiatric: as per Subjective / HPI Endocrine: as per Subjective / HPI Hematologic / Lymphatic: as per Subjective / HPI Physical Exam Constitutional: WD/WN, vitals as above well developed and well nourished Eyes: PERRL, conjunctivae normal, anicteric sclerae ENMT: external ear and nose normal, oropharynx normal Neck: trachea midline, no thyromegaly Respiratory: normal respiratory effort, lungs clear to auscultation normal respiratory effort Cardiovascular: RRR, no murmur, no edema Rate/Rhythm: regular rate and regular rhythm Gastrointestinal (Abdomen): normal bowel sounds, soft, nontender, no hepatosplenomegaly Percussion/Palpation: abdomen soft Musculoskeletal: no cyanosis or clubbing, extremities motor strength 5/5 Skin: no rashes, warm and dry Neurologic: awake Psychiatric: Orientation: alert and oriented x 3 Results & Data ([facility]) Vital Signs (Past 12 Hours) Vital Signs Temp Pulse Resp BP BP Pulse Ox 11/27/20 09:08 36.7 C 68 16 136/78 94 11/27/20 01:05 37.1 C 86 18 132/83 90 Laboratory Results Abnormal lab results 11/26/20 11/26/20 11/26/20 Range/Units 19:16 19:16 19:16 Neut # (Auto) 7.58 H (1.4-6.5) K/uL [place] # (Auto) 0.88 H (0.11-0.59) K/uL D-Dimer (0-500) ug/L FEU Potassium (3.5-5.1) mmol/L Chloride 109 H (98-107) mmol/L Anion Gap (3-11) Glucose 102 H (70-99) mg/dl Calcium (8.5-10.1) mg/dl Total Bilirubin 1.8 H (0.2-1) mg/dl C-Reactive Protein (0-0.29) mg/dl Globulin 4.4 H (2.5-4.0) gm/dl Albumin/Globulin Ratio 0.8 L (0.9-2) Urine Ketones Trace H (Negative) Urine Blood 1+ H (Negative) Ur Leukocyte Esterase Trace H (Negative) U Epithel Cells (Auto) 10-20 H (0-5) /lpf SARS-CoV-2 (PCR) (Negative) 11/26/20 11/27/20 11/27/20 Range/Units 21:37 05:27 05:27 Neut # (Auto) (1.4-6.5) K/uL [place] # (Auto) 0.68 H (0.11-0.59) K/uL D-Dimer (0-500) ug/L FEU Potassium 3.4 L (3.5-5.1) mmol/L Chloride 112 H (98-107) mmol/L Anion Gap 1.0 L (3-11) Glucose 135 H (70-99) mg/dl Calcium 8.1 L (8.5-10.1) mg/dl Total Bilirubin (0.2-1) mg/dl C-Reactive Protein 7.17 H (0-0.29) mg/dl Globulin (2.5-4.0) gm/dl Albumin/Globulin Ratio (0.9-2) Urine Ketones (Negative) Urine Blood (Negative) Ur Leukocyte Esterase (Negative) U Epithel Cells (Auto) (0-5) /lpf SARS-CoV-2 (PCR) POSITIVE A* (Negative) 11/27/20 Range/Units 05:27 Neut # (Auto) (1.4-6.5) K/uL [place] # (Auto) (0.11-0.59) K/uL D-Dimer 910 H* (0-500) ug/L FEU Potassium (3.5-5.1) mmol/L Chloride (98-107) mmol/L Anion Gap (3-11) Glucose (70-99) mg/dl Calcium (8.5-10.1) mg/dl Total Bilirubin (0.2-1) mg/dl C-Reactive Protein (0-0.29) mg/dl Globulin (2.5-4.0) gm/dl Albumin/Globulin Ratio (0.9-2) Urine Ketones (Negative) Urine Blood (Negative) Ur Leukocyte Esterase (Negative) U Epithel Cells (Auto) (0-5) /lpf SARS-CoV-2 (PCR) (Negative)
[2020-11-27] MEDS ORDERED: CALCIUM CARBONATE 1250MG TAB PO SCH (21:00)
[2020-11-27] MEDS ORDERED: CHOLECALCIFEROL 1,000 UNITS 25 MCG TAB PO SCH (21:00)
[2020-11-28] MEDS: D5W AND NSS 1,000 ML IV SCH (00:17)
[2020-11-28] MEDS: PIPERACILLIN/TAZOBACTAM 3.375 GM in DEXTROSE 5% 100 ML IV SCH (04:50)
[2020-11-28 08:12] LABS: Hematocrit (blood only) 42.3 % (37-47); Hemoglobin 14.3 g/dL (12.0-16.0); Mean Corpuscular Hgb Conc 33.8 g/dL (32-36); Mean Corpuscular Volume 88.7 fL (80-100); Mean Platelet Volume 10.1 fL (7.4-10.4); Platelet Count 211 K/uL (130-400); RDW Coefficient of Variation 13.5 % (11.5-14.5); RDW Standard Deviation 44.5 fL (36.4-46.3); Red Blood Count 4.77 M/uL (4.2-5.4); White Blood Count 4.53 K/uL (4.8-10.8)
--- NOTE | 2020-11-28 08:42 | Discharge Summary ---
Date of Service November 28, 2020 Admission HPI Per Admitting Provider 75-year-old female with past medical history significant for hyperlipidemia, vitamin D deficiency, degenerative joint disease, primary open angle glaucoma, who presents with abdominal pain of 1-day duration and found to have diverticulitis. The patient says currently pain is under control. Denies any diarrhea, constipation, or blood in stools or black stools. No hematuria, no burning micturition. No chest pain, no shortness of breath. No cough. Has some runny nose today. No sore throat, no headache, no blurred vision, no ear aches. The patient had COVID vaccine and she was diagnosed with COVID today. Lives with her . Denies any COVID exposure. The patient is somewhat drowsy. Admission Exam Per Admitting Provider PHYSICAL EXAMINATION: GENERAL: The patient is of moderate build, not in acute distress. VITAL SIGNS: Temperature 37.1, pulse 86, respiratory rate 18, blood pressure 132/83, oxygen 90% on room air. HEENT: Pupils equal, round, and reactive to light. Oral mucosa moist. NECK: No JVD. No neck masses. CARDIOVASCULAR: S1, S2 heard, regular rate and rhythm. No murmur, no gallop. RESPIRATORY SYSTEM: Normal AP diameter. No accessory muscle use. No wheezing, no crackles. ABDOMEN: Soft, bowel sounds present, nontender. No distention. CENTRAL NERVOUS SYSTEM: Cranial nerves II-XII grossly intact, nonfocal. EXTREMITIES: No edema, no erythema. Principal Diagnosis (1) Colonic diverticular abscess: (2) Perforated diverticulum: (3) Diverticulitis of intestine with abscess: (4) Abdominal pain: (5) COVID-19 vaccine administered: Discharge Exam See Below Discharge Data Allergies Allergy/AdvReac Type Severity Reaction Status Date / Time propoxyphene Allergy Unknown ITCHING,THROAT Verified 11/26/20 20:04 SWELLING oxycodone AdvReac Mild DROWSY Verified 11/26/20 20:04 Consultations 11/26/20 20:59 ED Decision to Admit Stat 11/27/20 01:02 Consult General Surgery Routine Ordered Studies 11/26/20 19:08 CT abd pelvis IV con only Stat Current Diagnoses Diverticulitis of large intestine with perforation and abscess without bleeding (11/26/20) Diverticulitis of intestine, part unspecified, with perforation and abscess without bleeding (11/26/20) Unspecified abdominal pain (11/26/20) Encounter for immunization (11/26/20) Allergies propoxyphene Allergy (Unknown, Verified 11/26/20 20:04) ITCHING,THROAT SWELLING oxycodone Adverse Reaction (Mild, Verified 11/26/20 20:04) DROWSY Height/Weight/Isolation Height 5 ft 4 in Weight 82.4 kg Isolation Type COVID Precautions,Airborne Precautions Chemistry 11/26/20 11/27/20 19:16 05:27 Sodium 142 141 Potassium 3.6 3.4 L Chloride 109 H 112 H Carbon Dioxide 28 28 Anion Gap 5.0 1.0 L BUN 16 11 Creatinine 1.02 1.12 Glucose 102 H 135 H Urinalysis 11/26/20 19:16 Urine Color [place] Urine Appearance Clear Urine pH 5.0 Ur Specific [place] 1.023 Urine Protein Negative Urine Glucose (UA) Negative Urine Ketones Trace H Urine Blood 1+ H Urine Nitrite Negative Urine Bilirubin Negative Microbiology 11/26/20 21:35 Blood Aerobic Blood Culture - Preliminary No growth in Aerobic bottle after 24 hours. 11/26/20 21:35 Blood Anaerobic Blood Culture - Final 11/26/20 21:27 Blood Aerobic Blood Culture - Preliminary No growth in Aerobic bottle after 24 hours. 11/26/20 21:27 Blood Anaerobic Blood Culture - Preliminary No growth in Anaerobic bottle after 24 hours. Hospital Course (1) Colonic diverticular abscess: (2) Perforated diverticulum: (3) Diverticulitis of intestine with abscess: (4) Abdominal pain: (5) COVID-19 vaccine administered: Patient was on IV Zosyn, will DC today on Levaquin and Flagyl x 10 days Labs Checked Home today on PO abx ROS-No Headache, No Visual Changes, No Nausea, No Vomiting, No Fever, No Chills, No Neck Pain or Stiffness, No Chest Pain, No Palpitations, No SOB, No CALIXTO, No Cough, No Sputum, No Wheezing, Minimal Abdominal Pain, No Diarrhea, No Hematemesis, No Hemoptysis, No Unexpected Weight Loss, No Flank pain, No Melena, No Hematochezia, No Frequency, No Urgency, No Burning, No Hematuria, No Rashes, No Diaphoresis. Appetite is Normal Physical Exam Gen-AAO x 3, NAD, Afebrile Head-NCAT, EOMI, PERRLA, Anicteric Sclera, No Posterior Pharyngeal Erythema Neck-Supple, No JVD, No Thyromegaly, No Masses, No LAD, No Bruits Lungs-Clear to Auscultation Bilaterally, No Rales, No Rhonchi, No Wheezing, No Crepitus Chest-No S4, +S1, +S2, No S3, No Murmurs, No Rubs, No Gallops, No Ectopy Abdomen-Soft, Bowel Sounds Present, Non Tender, Non Distended, No Hepatomegaly, No Splenomegaly, No Palpable Masses, No Rebound, No Rigidity, No Guarding Musculoskeletal-Full Range of Motion Bilaterally, No CVAT Extremities-No Cyanosis, No Clubbing, No Edema Nuero-Cranial Nerves II-XII grossly intact, Motor WNL, DTRs WNL, Strength WNL, Non Focal Psych-Normal Mood Total Time Total Time Spent Total Time Spent (In Minutes): 45 mins Total Time Includes: Examination of the Patient, Discharge Planning, Medication Reconciliation and Communication With Other Providers Discharge Plan Discharge Items Patient Disposition: Home - Self-Care Reason For Visit: ABDOMINAL PAIN Discharge Diagnosis: (1) Colonic diverticular abscess: (2) Perforated diverticulum: (3) Diverticulitis of intestine with abscess: (4) Abdominal pain: (5) COVID-19 vaccine administered: Condition on Discharge: Good Health Concerns: Abd pain increasing, not keeping PO meds down Activity: Resume your previous activity Lifting: Gradually increase as tolerated Bathing: No limitations Sexual Activity: When tolerated Exercise/Sports: Gradually increase as tolerated Driving/Machine Use: No limitations Weightbearing: Full weightbearing Non-emergency contact: Primary Care Provider Call non-emergency contact if: you have any medication questions Follow-up/Referrals: Giovanni Torres DO [Primary Care Provider] - Diet: Regular Addtl Attending Provider Instructions: None Addtl Metal Forger'S Assistant Provider Instructions: General Surgery discharge instructions/Recommendations: You will need colonoscopy in 8 weeks after acute phase of diverticulitis has healed Recommend low fiber diet while in acute phase and then high fiber diet after colonoscopy Take entire course of antibiotics as directed Pending Studies at Discharge: No Stand-Alone Forms: My [employer], Smoking Cessation Medications and DC Order Prescriptions: New acetaminophen 325 mg Tablet 650 mg PO Q4H PRN (Reason: fever or pain) Qty: 90 RF: 0 metronidazole 500 mg tablet 500 mg PO BID 10 Days Qty: 20 RF: 0 ciprofloxacin HCl [Cipro] 500 mg tablet 500 mg PO Q12H Qty: 20 RF: 0 Continued dorzolamide-timolol 22.3-6.8 mg/mL Drops 1 drp OPB BID Qty: 0 RF: 0 lysine 1,000 mg Tablet 1,000 mg PO DAILY PRN (Reason: Cold Sores) Qty: 0 RF: 0 calcium carbonate 400 mg calcium (1,000 mg) Tablet,Chewable 400 mg PO PM Qty: 0 RF: 0 docusate sodium [Dulcolax Stool Softener (dss)] 100 mg Capsule 100 mg PO DAILY PRN (Reason: Constipation) Qty: 0 RF: 0 fluticasone propionate [24 Hour Allergy Relief] 50 mcg/actuation [place],Suspension 2 spray INTRANASAL DAILY PRN (Reason: Allergy Symptoms) 30 Days Qty: 16 RF: 5 cholecalciferol (vitamin D3) 1,000 unit Capsule 1,000 unit PO PM Qty: 0 RF: 0 diclofenac sodium 1 % gel 1 g TOPICAL QID PRN (Reason: Pain) RF: 0 Discharge Orders: Discharge Order (Routine); Ordered 11/28/20 Ordered By: Luis Camarillo Admission Data Admit Date/Time: 11/26/20 23:37 Attending Provider: Luis Camarillo Admit Provider: Juventino Hager Primary Care Provider: Giovanni Torres Other Providers: Juventino Hager ; Sharyn Hernandez
[2020-11-28] MEDS: DORZOLAMIDE/TIMOLOL 22.3/6.8MG/ML 10 ML BTL OPB SCH (08:52)
[2020-11-28] MEDS: ENOXAPARIN INJ 40 MG/0.4 ML SYR SQ SCH (08:52)
[2020-11-28 08:57] LABS: BUN Creatinine Ratio 7.1 (10-20); Calcium 8.9 mg/dl (8.5-10.1); Creatinine Clr Calc Pharmacy 48.1 ml/min; Est GFR (African American) 60.2 ml/min; Est GFR (Non-African American) 51.9 ml/min; Potassium 3.8 mmol/L (3.5-5.1)
== END 2020-11-28 11:29 | disposition home or self-care (01) | DRG 391 ==
LOC: ED 17:57 → 3W 23:37

== ENCOUNTER 2023-06-23 17:03 | Inpatient (IN) ==
[2023-06-23] MEDS ORDERED: SODIUM CHLORIDE 0.9% 1,000 ML IV ONE (17:34)
--- NOTE | 2023-06-23 17:45 | Emergency Department Note ---
Impression & Plan Hypoxia, Acute confusion, Nausea vomiting and diarrhea ED Provider Note NAME: AWA ROMERO AGE: 78 SEX: F : 1945 ARRIVES VIA: Ambulance INFORMANT: daughter ED PROVIDER(S): José Winston DO CHIEF COMPLAINT: weak HPI: Patient is a 78-year-old female who presents to the ER pleasantly demented with daughter at bedside for weakness. Patient denies any headache or change in vision. No chest pain or shortness of breath. No nausea, vomiting, or diarrhea. Patient was found by EMS to be hypoxic. She was having some nausea and vomiting earlier today. Daughter notes otherwise she is a little less interactive than usual. ADDITIONAL HISTORY OBTAINED: Per HPI Chronic Medical/Social Conditions Affecting Care: Per HPI PAST MEDICAL HISTORY:See Below PAST SURGICAL HISTORY:See Below FAMILY HISTORY:See Below SOCIAL HISTORY:See Below HOME MEDICATIONS:See Below ALLERGIES:See Below VITALS:See Below PHYSICAL EXAMINATION: GENERAL: Sitting up in bed, alert, well appearing, well nourished, no distress, non-toxic EYE EXAM: normal conjunctiva. PERRL and EOM's grossly intact. OROPHARYNX: no exudate, no erythema, lips, buccal mucosa, and tongue normal and mucous membranes are moist NECK: supple, no nuchal rigidity, no adenopathy, non-tender LUNGS: Clear to auscultation. Normal chest wall mechanics HEART: no murmurs, S1 normal and S2 normal ABDOMEN: abdomen soft, non-tender, normo-active bowel sounds, no masses, no rebound or guarding. BACK: Back is symmetrical on inspection and there is no deformity, no midline tenderness, no CVA tenderness. SKIN: no rashes and no bruising UPPER EXTREMITIES: upper extremities are grossly normal. LOWER EXTREMITIES: No pitting edema. NEURO EXAM: Oriented to person and place but not year, cranial nerves II-XII grossly intact, normal speech, no weakness of arms, no weakness of legs. No drift. Finger to nose intact. Gross sensation intact. MEDICAL DECISION MAKING: Patient is a 78-year-old female who presents ER for above-stated complaint. IV was established blood work was obtained. Labs show no significant leukocytosis or anemia. BMP was fairly unremarkable. LFTs bilirubin was unremarkable. Troponin was negative at 4.8. UA was unremarkable. Viral panel was negative. Chest x-ray with subtle opacities at the bases. CT abdomen pelvis showed no acute pathology but infectious versus pulmonary edema at the base of the lungs. With her history I do favor this likely pulmonary edema. I did cover with IV Rocephin. She was given a dose of Lasix. Discussed with family at bedside. She is DNR/DNI. She will be admitted for further workup. Patient remained on 2 L nasal cannula due to the hypoxia at 88% on room air while in the ER. Consults/Care Managements Discussions: Per MDM Triage Nursing notes reviewed. Limited review of prior medical records performed Vital Signs: reviewed and remarkable for htn Differential diagnosis: Differential diagnoses includes but is not limited to toxic, metabolic, infectious, traumatic, cardiac, neurologic, hematologic, psychiatric and inflammatory etiologies. ER treatment provided: See below Diagnostics interpreted by me include EKG and cardiac monitoring as listed below: -Cardiac Monitoring: An order was placed for continuous cardiac monitoring. The monitor shows a rate of 100 with [] rhythm. -ECG: Sinus rhythm rate of 93 PVC QTc 450 -Laboratory studies:Interpreted by me as stated above in MDM and shown below. Imaging studies: Xrays: As interpreted by me: Portable AP upright 1 view of the chest shows subtle bilateral infiltrates at the bases CTs show: CT abdomen pelvis was unremarkable Procedures:none Critical Care: I have personally spent 31 minutes of critical care time in the direct management of this patient. This includes bedside care, interpretation of diagnostic studies, and testing, discussion with consultants, patient, and family members, and other required patient management activities. This 31 minutes is in excess of all separately billable procedures. Past Med/Surg History Medical History (Updated 06/23/23 @ 22:14 by José Winston DO) Urinary tract infection HX Pancreatitis HX Diverticulitis HX Surgical History History of right cataract surgery History of esophagogastroduodenoscopy (EGD) History of colonoscopy History of cholecystectomy S/P tubal ligation Family History Mother Colon cancer Social History Smoking Status: Never smoker Second Hand Exposure: No; Do You Dip or Chew Tobacco: No; Hx Alcohol Use: No Hx Substance Use: No Preferred Language: Mexican Communication Ability: Effective Employment Counselor Required: No Beliefs That Will Affect Care: None Current Living Situation: Spouse Feels Safe at Home: Yes Assistive Devices: None Allergies Allergies Allergy/AdvReac Type Severity Reaction Status Date / Time propoxyphene Allergy Severe ITCHING,THROAT Verified 06/23/23 20:59 SWELLING oxycodone AdvReac Intermediate ITCHING/ARIA Verified 06/23/23 20:59 WSY Home Meds Home Medications Medication Instructions Recorded Confirmed dorzolamide 22.3 mg-timolol 6.8 1 drp OPB BID ##0 08/06/09 06/23/23 mg/mL eye drops fluticasone propionate 50 2 spray intranasal DAILY Allergy 02/11/15 06/23/23 mcg/actuation nasal Symptoms 30 days #16 grams spray,suspension (24 Hour Allergy Relief) diclofenac sodium 1 % topical gel 1 g topical BID PRN Pain 06/30/19 06/23/23 Lactobacil.acidophilus-Bifido.animalis 1 cap PO DAILY 06/23/23 06/23/23 5 billion cell sprinkle capsule (Probiotic) aripiprazole 2 mg tablet 2 mg PO QAM 06/23/23 06/23/23 azelastine 137 mcg (0.1 %) nasal 1 spray intranasal BID 06/23/23 06/23/23 spray aerosol benzonatate 100 mg capsule 200 mg PO TID PRN Cough 06/23/23 06/23/23 calcium carbonate 600 mg-vitamin 1 tab PO DAILY 06/23/23 06/23/23 D3 10 mcg (400 unit) tablet (Calcium 600 + D(3)) chlorhexidine gluconate 0.12 % 15 ml PO BID 06/23/23 06/23/23 mouthwash cyanocobalamin (vitamin B-12) 1,000 mcg sublingual DAILY 06/23/23 06/23/23 1,000 mcg sublingual tablet donepezil 10 mg tablet 10 mg PO QDD 06/23/23 06/23/23 doxycycline hyclate 100 mg capsule 100 mg PO BID 06/23/23 06/23/23 fluoride (sodium) 1.1 % dental 1 applic dental BID 06/23/23 06/23/23 cream (Sodium Fluoride 5000 Plus) furosemide 20 mg tablet (Lasix) 20 mg PO DAILY 06/23/23 06/23/23 loratadine 10 mg tablet (Claritin) 10 mg PO DAILY 06/23/23 06/23/23 lorazepam 0.5 mg tablet 0.5 mg PO TID PRN Agitation 06/23/23 06/23/23 lysine 500 mg tablet 500 mg PO DAILY 06/23/23 06/23/23 melatonin 1 mg/mL oral liquid 2 mg PO HS 06/23/23 06/23/23 memantine 10 mg tablet 10 mg PO BID 06/23/23 06/23/23 montelukast 10 mg tablet 10 mg PO DAILY 06/23/23 06/23/23 (Singulair) nystatin 100,000 unit/gram topical 1 applic topical TID 06/23/23 06/23/23 powder ondansetron HCl 4 mg tablet 4 mg PO Q6H PRN NAUSEA/VOMITING 06/23/23 06/23/23 oxybutynin chloride 10 mg 10 mg PO QAM 06/23/23 06/23/23 tablet,extended release 24 hr quetiapine 25 mg tablet 25 mg PO HS 06/23/23 06/23/23 Results & Data (ED) Vital Signs Vital Signs - 24 hr 06/23/23 17:10 06/23/23 17:10 06/23/23 17:10 Temperature 37.1 C 37.1 C Temperature Source Oral Oral Pulse Rate 100 H Pulse Rate [Apical] 100 H Respiratory Rate 21 21 Blood Pressure 147/87 H Blood Pressure [Right Arm] 147/87 H Blood Pressure Mean 107 Blood Pressure Mean [Right Arm] 107 Pulse Oximetry 88 L 88 L 92 Oxygen Delivery Method Room Air Room Air Nasal Cannula Oxygen Flow Rate 2 Sepsis Recent Fever Within 48 Hours No Sepsis New/Unexplained Change in Mental Status N/A Sepsis Action Taken by Nursing No Action Required Oxygen Flow Rate - Titration 2 Pulse Oximetry Post Tiitration 92 06/23/23 17:19 06/23/23 18:48 06/23/23 18:48 Temperature Temperature Source Pulse Rate 100 H 102 H Pulse Rate [Apical] 102 H Respiratory Rate 20 Blood Pressure Blood Pressure [Right Arm] Blood Pressure Mean Blood Pressure Mean [Right Arm] Pulse Oximetry 92 92 Oxygen Delivery Method Nasal Cannula Nasal Cannula Oxygen Flow Rate 2 2 Sepsis Recent Fever Within 48 Hours Sepsis New/Unexplained Change in Mental Status Sepsis Action Taken by Nursing Oxygen Flow Rate - Titration Pulse Oximetry Post Tiitration 06/23/23 20:20 06/23/23 21:18 06/23/23 22:00 Temperature Temperature Source Pulse Rate 96 H Pulse Rate [Apical] 99 H 63 Respiratory Rate 22 18 Blood Pressure Blood Pressure [Right Arm] 121/93 115/63 Blood Pressure Mean Blood Pressure Mean [Right Arm] 102 80 Pulse Oximetry 89 L 96 Oxygen Delivery Method Room Air Oxygen Flow Rate Sepsis Recent Fever Within 48 Hours Sepsis New/Unexplained Change in Mental Status Sepsis Action Taken by Nursing Oxygen Flow Rate - Titration Pulse Oximetry Post Tiitration Laboratory Data 06/23/23 17:12 06/23/23 18:28 Lab Results 06/23/23 06/23/23 06/23/23 Range/Units 17:12 18:28 18:51 WBC 5.74 (4.8-10.8) K/ul RBC 5.20 (4.20-5.40) M/uL Hgb 15.2 (12.0-16.0) g/dl Hct 46.1 (37.0-47.0) % MCV 88.7 (80.0-100.0) fL MCH 29.2 (25.0-34.0) pg MCHC 33.0 (32.0-36.0) g/dL RDW Std Deviation 49.1 H (36.4-46.3) fL RDW Coeff of Adán 15.1 H (11.5-14.5) % Plt Count 160 (130-400) K/uL MPV 11.1 (9.4-12.4) fL Immature Gran % (Auto) 0.5 % Neut % (Auto) 75.7 % Lymph % (Auto) 12.9 % Early % (Auto) 10.3 % Eos % (Auto) 0.3 % Baso % (Auto) 0.3 % Neut # (Auto) 4.34 (1.40-6.50) K/uL Lymph # (Auto) 0.74 L (1.20-3.40) K/uL Early # (Auto) 0.59 (0.11-0.59) K/uL Eos # (Auto) 0.02 (0.00-0.50) K/uL Baso # (Auto) 0.02 (0.00-0.20) K/uL Immature Gran # (Auto) 0.03 (0.01-0.20) K/uL Sodium 138 (136-145) mmol/L Potassium TNP 3.8 Chloride 107 (98-107) mmol/L Carbon Dioxide 22 (21-32) mmol/L Anion Gap 9 (3-11) BUN 29 H (6-23) mg/dl Creatinine 1.08 (0.6-1.2) mg/dl Est Cr Clr Drug Dosing 48.3 ml/min Est GFR ( Amer) 56.9 ml/min Est GFR (Non-Af Amer) 49.1 ml/min BUN/Creatinine Ratio 26.9 H (10-20) Glucose 115 H (70-99(Fasting)) mg/dl Calcium 8.5 L (8.6-10.3) mg/dl Total Bilirubin 0.9 (0.2-1.0) mg/dl AST TNP 18 ALT 13 (7-52) U/L Alkaline Phosphatase 50 (34-104) U/L Troponin I High Sens 4.8 (0-14) pg/ml Total Protein 7.1 (6.0-8.3) gm/dl Albumin 3.8 (3.4-5.0) gm/dl Globulin 3.3 (2.5-4.0) gm/dl Albumin/Globulin Ratio 1.2 (0.9-2) Lipase 41 (11-82) U/L Urine Color Dark Yellow Urine Appearance Clear (Clear) Urine pH 5.0 (4.5-7.5) Ur Specific Carlton 1.024 (1.000-1.030) Urine Protein Negative (Negative) Urine Glucose (UA) Negative (Negative) Urine Ketones Negative (Negative) Urine Blood Negative (Negative) Urine Nitrite Negative (Negative) Urine Bilirubin Negative (Negative) Urine Urobilinogen Negative (Negative) Ur Leukocyte Esterase Negative (Negative) Adenovirus (PCR) (NotDetected) B. pertussis DNA (PCR) (NotDetected) B.parapertussis DNA PCR (NotDetected) C. pneumoniae DNA (PCR) (NotDetected) Coronavirus OC43 (PCR) (NotDetected) Coronavirus HKU1 (PCR) (NotDetected) Coronavirus 229E (PCR) (NotDetected) SARS-CoV-2 (PCR) (NotDetected) Coronavirus NL63 (PCR) (NotDetected) Human Metapneumovir PCR (NotDetected) Influenza Type A (PCR) (NotDetected) Influenza Type B (PCR) (NotDetected) M. pneumoniae (PCR) (NotDetected) Parainfluenza 1 (PCR) (NotDetected) Parainfluenza 2 (PCR) (NotDetected) Parainfluenza 3 (PCR) (NotDetected) Parainfluenza 4 (PCR) (NotDetected) RSV (PCR) (NotDetected) Entero/Rhino (PCR) (NotDetected) 06/23/23 06/23/23 Range/Units 20:35 21:41 WBC (4.8-10.8) K/ul RBC (4.20-5.40) M/uL Hgb (12.0-16.0) g/dl Hct (37.0-47.0) % MCV (80.0-100.0) fL MCH (25.0-34.0) pg MCHC (32.0-36.0) g/dL RDW Std Deviation (36.4-46.3) fL RDW Coeff of Adán (11.5-14.5) % Plt Count (130-400) K/uL MPV (9.4-12.4) fL Immature Gran % (Auto) % Neut % (Auto) % Lymph % (Auto) % Early % (Auto) % Eos % (Auto) % Baso % (Auto) % Neut # (Auto) (1.40-6.50) K/uL Lymph # (Auto) (1.20-3.40) K/uL Early # (Auto) (0.11-0.59) K/uL Eos # (Auto) (0.00-0.50) K/uL Baso # (Auto) (0.00-0.20) K/uL Immature Gran # (Auto) (0.01-0.20) K/uL Sodium (136-145) mmol/L Potassium Chloride (98-107) mmol/L Carbon Dioxide (21-32) mmol/L Anion Gap (3-11) BUN (6-23) mg/dl Creatinine (0.6-1.2) mg/dl Est Cr Clr Drug Dosing ml/min Est GFR ( Amer) ml/min Est GFR (Non-Af Amer) ml/min BUN/Creatinine Ratio (10-20) Glucose (70-99(Fasting)) mg/dl Calcium (8.6-10.3) mg/dl Total Bilirubin (0.2-1.0) mg/dl AST ALT (7-52) U/L Alkaline Phosphatase (34-104) U/L Troponin I High Sens 5.1 (0-14) pg/ml Total Protein (6.0-8.3) gm/dl Albumin (3.4-5.0) gm/dl Globulin (2.5-4.0) gm/dl Albumin/Globulin Ratio (0.9-2) Lipase (11-82) U/L Urine Color Urine Appearance (Clear) Urine pH (4.5-7.5) Ur Specific Carlton (1.000-1.030) Urine Protein (Negative) Urine Glucose (UA) (Negative) Urine Ketones (Negative) Urine Blood (Negative) Urine Nitrite (Negative) Urine Bilirubin (Negative) Urine Urobilinogen (Negative) Ur Leukocyte Esterase (Negative) Adenovirus (PCR) Not Detected (NotDetected) B. pertussis DNA (PCR) Not Detected (NotDetected) B.parapertussis DNA PCR Not Detected (NotDetected) C. pneumoniae DNA (PCR) Not Detected (NotDetected) Coronavirus OC43 (PCR) Not Detected (NotDetected) Coronavirus HKU1 (PCR) Not Detected (NotDetected) Coronavirus 229E (PCR) Not Detected (NotDetected) SARS-CoV-2 (PCR) Not Detected (NotDetected) Coronavirus NL63 (PCR) Not Detected (NotDetected) Human Metapneumovir PCR Not Detected (NotDetected) Influenza Type A (PCR) Not Detected (NotDetected) Influenza Type B (PCR) Not Detected (NotDetected) M. pneumoniae (PCR) Not Detected (NotDetected) Parainfluenza 1 (PCR) Not Detected (NotDetected) Parainfluenza 2 (PCR) Not Detected (NotDetected) Parainfluenza 3 (PCR) Not Detected (NotDetected) Parainfluenza 4 (PCR) Not Detected (NotDetected) RSV (PCR) Not Detected (NotDetected) Entero/Rhino (PCR) Not Detected (NotDetected) Administered Medications Discontinued Medications Furosemide (Furosemide 40 Mg/4 Ml Vial) 40 mg IV NOW STA Stop: 06/23/23 22:16 Last Admin: 06/23/23 22:21 Dose: 40 mg Documented By: CEK Sodium Chloride (Nss) 1,000 mls @ 999 mls/hr IV .Q1H1M ONE Stop: 06/23/23 18:34 Last Infusion: 06/23/23 21:17 Dose: Infused Documented By: Admin: 06/23/23 18:23 Dose: 999 mls/hr Documented By: CPB Ceftriaxone Sodium (Rocephin) 2,000 mg in 50 mls @ 100 mls/hr IV NOW STA Stop: 06/23/23 21:28 Last Infusion: 06/23/23 21:51 Dose: Infused Documented By: Admin: 06/23/23 21:19 Dose: 100 mls/hr Documented By: Ioversol (Optiray 320 500ml) 82 ml IV ONCE ONE Stop: 06/23/23 19:58 Last Admin: 06/23/23 19:58 Dose: 82 ml Documented By: KELY Imaging Data Radiologist's Impression: Abdomen/Pelvis CT 06/23/23 17:34 Exam(s): CT ABDOMEN + PELVIS With Contrast IV Amt: 82 ml opti 320 EXAM: CT Abdomen and Pelvis With Intravenous Contrast CLINICAL HISTORY: Abdominal pain. TECHNIQUE: Axial computed tomography images of the abdomen and pelvis with intravenous contrast. Automated exposure control was utilized for the study. A dose lowering technique was utilized adhering to the principles of ALARA. CONTRAST: Patient received 82 ml opti 320 of IV contrast COMPARISON: CT abdomen and pelvis 11/26/2020. FINDINGS: Lung bases: Bibasilar airspace opacities are present. ABDOMEN: Liver: Unremarkable. No mass. Gallbladder and bile ducts: Cholecystectomy. No ductal dilation. Pancreas: Unremarkable. No mass. No ductal dilation. Spleen: Unremarkable. No splenomegaly. Adrenals: Stable 1.5 cm left adrenal lesion, no follow-up is needed given the stability. The right adrenal gland is unremarkable. Kidneys and ureters: Simple appearing bilateral renal cysts are present, no follow-up is needed. The kidneys are otherwise unremarkable. No hydronephrosis. Stomach and bowel: Nonspecific thickening of the sigmoid colon. No obstruction. PELVIS: Appendix: Normal appendix. Bladder: Unremarkable. No mass. Reproductive: Unremarkable as visualized. ABDOMEN and PELVIS: Intraperitoneal space: Unremarkable. No free air. No significant fluid collection. Bones/joints: No acute fracture. No dislocation. Soft tissues: Unremarkable. Vasculature: Mild atherosclerosis. No abdominal aortic aneurysm. Lymph nodes: Unremarkable. No enlarged lymph nodes. IMPRESSION: 1. Nonspecific thickening of the sigmoid colon. This could relate to diverticulitis as there are diverticula, however cannot exclude malignancy. 2. Bibasilar airspace opacities may represent pulmonary edema, atelectasis or atypical infection. Electronically signed by: Heavenly Rocha MD 06/23/23 20:52 PM Discharge Plan Visit Data Chief Complaint: Confusion Stated Complaint: [facility] ED Provider: José Winston Discharge Problem: Hypoxia, Acute confusion, Nausea vomiting and diarrhea Forms Stand Alone Forms: [facility] Prescriptions Prescriptions: No Action dorzolamide-timolol 22.3-6.8 mg/mL Drops 1 drp OPB BID Qty: 0 fluticasone propionate [24 Hour Allergy Relief] 50 mcg/actuation [place],Suspension 2 spray INTRANASAL DAILY 30 Days Qty: 16 diclofenac sodium 1 % gel 1 g TOPICAL BID PRN (Reason: Pain) quetiapine 25 mg tablet 25 mg PO HS Rx Instructions: MAY TAKE 12.5 MG QAM IF HAVING HALLUCINATIONS. doxycycline hyclate 100 mg capsule 100 mg PO BID Rx Instructions: STARTED 06/23/23 FOR 10 DAYS. oxybutynin chloride 10 mg tablet extended release 24hr 10 mg PO QAM donepezil 10 mg tablet 10 mg PO QDD ondansetron HCl 4 mg tablet 4 mg PO Q6H PRN (Reason: NAUSEA/VOMITING) lorazepam 0.5 mg Tablet 0.5 mg PO TID PRN (Reason: Agitation) benzonatate 100 mg Capsule 200 mg PO TID PRN (Reason: Cough) montelukast [Singulair] 10 mg Tablet 10 mg PO DAILY cyanocobalamin (vitamin B-12) [Vitamin B-12] 1,000 mcg Tablet, Sublingual 1,000 mcg SUBLINGUAL DAILY furosemide [Lasix] 20 mg Tablet 20 mg PO DAILY Rx Instructions: MAY TAKE SECOND DOSE AT NOON, IF NO RESULTS WITH AM DOSE. nystatin 100,000 unit/gram powder 1 applic TOPICAL TID Rx Instructions: UNDER BREASTS AND ABD FOLD azelastine 137 mcg (0.1 %) Aerosol,[place] 1 spray INTRANASAL BID Rx Instructions: administer into each nostril lysine 500 mg Tablet 500 mg PO DAILY loratadine [Claritin] 10 mg Tablet 10 mg PO DAILY memantine 10 mg tablet 10 mg PO BID fluoride (sodium) [Sodium Fluoride 5000 Plus] 1.1 % Cream 1 applic DENTAL BID chlorhexidine gluconate 0.12 % mouthwash 15 ml PO BID aripiprazole 2 mg tablet 2 mg PO QAM calcium carbonate-vitamin D3 [Calcium 600 + D(3)] 600 mg-10 mcg (400 unit) Tablet 1 tab PO DAILY melatonin 1 mg/mL Liquid 2 mg PO HS Probiotic 5 billion cell Capsule, Sprinkle 1 cap PO DAILY Referrals Referrals: Lauren Varela PA-C [Primary Care Provider] -
[2023-06-23 18:08] LABS: Basophils # (auto) 0.02 K/uL (0.00-0.20); Basophils % (auto) 0.3 %; Eosinophils # (auto) 0.02 K/uL (0.00-0.50); Eosinophils % (auto) 0.3 %; Hematocrit (blood only) 46.1 % (37.0-47.0); Hemoglobin 15.2 g/dl (12.0-16.0); Immature Granulocytes # (auto) 0.03 K/uL (0.01-0.20); Immature Granulocytes % (auto) 0.5 %; Lymphocytes # (auto) 0.74 K/uL (1.20-3.40); Lymphocytes % (auto) 12.9 %; Mean Corpuscular Hemoglobin 29.2 pg (25.0-34.0); Mean Corpuscular Volume 88.7 fL (80.0-100.0); Mean Platelet Volume 11.1 fL (9.4-12.4); Monocytes # (auto) 0.59 K/uL (0.11-0.59); Monocytes % (auto) 10.3 %; Neutrophils # (auto) 4.34 K/uL (1.40-6.50); Neutrophils % (auto) 75.7 %; Platelet Count 160 K/uL (130-400); RDW Coefficient of Variation 15.1 % (11.5-14.5); RDW Standard Deviation 49.1 fL (36.4-46.3); White Blood Count 5.74 K/ul (4.8-10.8)
[2023-06-23 18:22] LABS: Alanine Aminotransferase 13 U/L (7-52); Albumin Globulin Ratio 1.2 (0.9-2); Albumin Level 3.8 gm/dl (3.4-5.0); Alkaline Phosphatase 50 U/L (34-104); Anion Gap 9 (3-11); BUN Creatinine Ratio 26.9 (10-20); Bilirubin,Total 0.9 mg/dl (0.2-1.0); Blood Urea Nitrogen 29 mg/dl (6-23); Calcium 8.5 mg/dl (8.6-10.3); Carbon Dioxide 22 mmol/L (21-32); Chloride 107 mmol/L (98-107); Creatinine Clr Calc Pharmacy 48.3 ml/min; Est GFR (African American) 56.9 ml/min; Est GFR (Non-African American) 49.1 ml/min; Globulin 3.3 gm/dl (2.5-4.0); Glucose 115 mg/dl (70-99(Fasting)); Lipase 41 U/L (11-82); Sodium 138 mmol/L (136-145); Total Protein 7.1 gm/dl (6.0-8.3)
[2023-06-23 19:10] LABS: Appearance Urine Clear (Clear); Bilirubin Urine Negative (Negative); Blood Urine Negative (Negative); Color Urine Dark Yellow; Glucose Urine UA Negative (Negative); Ketones Urine Negative (Negative); Leukocyte Esterase Urine Negative (Negative); Nitrite Urine Negative (Negative); Protein Urine Negative (Negative); Specific Gravity Urine 1.024 (1.000-1.030); Urobilinogen Urine Negative (Negative)
[2023-06-23 19:14] LABS: Potassium 3.8 mmol/L (3.5-5.1)
[2023-06-23 19:23] LABS: Troponin I High Sensitivity 4.8 pg/ml (0-14)
[2023-06-23] MEDS ORDERED: OPTIRAY 320 500ml IV ONE (19:57)
--- NOTE | 2023-06-23 20:53 | CT Scan Report ---
Exam(s): CT ABDOMEN + PELVIS With Contrast IV Amt: 82 ml opti 320 EXAM: CT Abdomen and Pelvis With Intravenous Contrast CLINICAL HISTORY: Abdominal pain. TECHNIQUE: Axial computed tomography images of the abdomen and pelvis with intravenous contrast. Automated exposure control was utilized for the study. A dose lowering technique was utilized adhering to the principles of ALARA. CONTRAST: Patient received 82 ml opti 320 of IV contrast COMPARISON: CT abdomen and pelvis 11/26/2020. FINDINGS: Lung bases: Bibasilar airspace opacities are present. ABDOMEN: Liver: Unremarkable. No mass. Gallbladder and bile ducts: Cholecystectomy. No ductal dilation. Pancreas: Unremarkable. No mass. No ductal dilation. Spleen: Unremarkable. No splenomegaly. Adrenals: Stable 1.5 cm left adrenal lesion, no follow-up is needed given the stability. The right adrenal gland is unremarkable. Kidneys and ureters: Simple appearing bilateral renal cysts are present, no follow-up is needed. The kidneys are otherwise unremarkable. No hydronephrosis. Stomach and bowel: Nonspecific thickening of the sigmoid colon. No obstruction. PELVIS: Appendix: Normal appendix. Bladder: Unremarkable. No mass. Reproductive: Unremarkable as visualized. ABDOMEN and PELVIS: Intraperitoneal space: Unremarkable. No free air. No significant fluid collection. Bones/joints: No acute fracture. No dislocation. Soft tissues: Unremarkable. Vasculature: Mild atherosclerosis. No abdominal aortic aneurysm. Lymph nodes: Unremarkable. No enlarged lymph nodes. IMPRESSION: 1. Nonspecific thickening of the sigmoid colon. This could relate to diverticulitis as there are diverticula, however cannot exclude malignancy. 2. Bibasilar airspace opacities may represent pulmonary edema, atelectasis or atypical infection. Electronically signed by: Heavenly Rocha MD 06/23/23 20:52 PM
[2023-06-23] MEDS ORDERED: cefTRIAXone SODIUM 2,000 MG/50 ML BAG IV STA (20:59)
[2023-06-23 21:41] LABS: Adenovirus PCR Not Detected (NotDetected); Bordetella parapertussis PCR Not Detected (NotDetected); Bordetella pertussis PCR Not Detected (NotDetected); Chlamydia pneumoniae PCR Not Detected (NotDetected); Coronavirus 229E PCR Not Detected (NotDetected); Coronavirus CoV-2 (COVID19)PCR Not Detected (NotDetected); Coronavirus HKU1 PCR Not Detected (NotDetected); Coronavirus NL63 PCR Not Detected (NotDetected); Coronavirus OC43PCR Not Detected (NotDetected); Human Metapneumovirus PCR Not Detected (NotDetected); Influenza A PCR Not Detected (NotDetected); Influenza B PCR Not Detected (NotDetected); Mycoplasma pneumoniae PCR Not Detected (NotDetected); Parainfluenza Virus 1 PCR Not Detected (NotDetected); Parainfluenza Virus 2 PCR Not Detected (NotDetected); Parainfluenza Virus 3 PCR Not Detected (NotDetected); Parainfluenza Virus 4 PCR Not Detected (NotDetected); Respiratory Syncytial VirusPCR Not Detected (NotDetected); Rhinovirus/Enterovirus PCR Not Detected (NotDetected)
[2023-06-23] MEDS ORDERED: FUROSEMIDE 40 MG/4 ML VIAL IV STA (22:15)
--- NOTE | 2023-06-24 00:27 | History & Physical Report ---
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 Acute confusion Now seems back to baseline Had nausea vomiting and diarrhea Was hypoxic in the ER on presentation requiring [address] abdomen pelvis showing possible diverticulitis Hypoxia and diverticulitis could be cause of her confusion Will monitor Hypoxia Chest x-ray possible pulmonary congestion Recently in May she had echo because of her lower extremity edema and it showed normal EF and mild diastolic CHF She is currently on Lasix received a dose of IV Lasix in the ER Continue home dose Lasix for now and monitor We will follow repeat echo Possible acute diverticulitis History of diverticulitis in the past Starting on IV Zosyn N.p.o., gentle fluids Consult surgery in a.m. Lower extremity edema Continue home dose of Lasix Continue gentle fluids we will monitor Follow Dopplers Alzheimer's dementia with psychotic disturbance On donepezil, memantine, Seroquel and Ativan as needed Will monitor History of glaucoma Continue eyedrops DVT prophylaxis Lovenox Disposition Med//tele CODE STATUS DNR/DNI as per my discussion with the family Addendum: Lower extremity doppler showed DVT in b/l Peroneal veins. Started on iv heparin. Ordered ct chest PE study. Follow echo. 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 Patient has dementia she is oriented to name and place and can recognize family members but has some difficulty with the dates but yesterday she was more confused than her usual. There is no fever. Daughter states patient is much better now. Patient denies any headache. Denies chest pain or shortness of breath. No cough. No abdominal pain. Normal bowel bladder movements. No difficulty swallowing. Always has some runny nose. Currently resting comfortably and hemodynamically stable. Patient initially was hypoxic 88% on room air and currently on 2 L oxygen. Past medical history. As mentioned above. Past surgical history. Colonoscopy. EGD with endoscopic ultrasound. Laparoscopic cholecystectomy. Ligation of the oviduct. Right punctured breast cyst drainage. Social history. . No smoking. No alcohol. No drug use. Family history. Father had nasopharyngeal cancer. Heart disorder. Lung cancer. Mother had colon cancer. Allergies Allergy/AdvReac Type Severity Reaction Status Date / Time propoxyphene Allergy Severe ITCHING,THROAT Verified 06/23/23 20:59 SWELLING oxycodone AdvReac Intermediate ITCHING/ARIA Verified 06/23/23 20:59 WSY Home Medications Medication Instructions Recorded Confirmed Type dorzolamide 22.3 mg-timolol 6.8 1 drp OPB BID ##0 08/06/09 06/23/23 History mg/mL eye drops fluticasone propionate 50 2 spray intranasal DAILY Allergy 02/11/15 06/23/23 History mcg/actuation nasal Symptoms 30 days #16 grams spray,suspension (24 Hour Allergy Relief) diclofenac sodium 1 % topical gel 1 g topical BID PRN Pain 06/30/19 06/23/23 History Lactobacil.acidophilus-Bifido.animalis 1 cap PO DAILY 06/23/23 06/23/23 History 5 billion cell sprinkle capsule (Probiotic) aripiprazole 2 mg tablet 2 mg PO QAM 06/23/23 06/23/23 History azelastine 137 mcg (0.1 %) nasal 1 spray intranasal BID 06/23/23 06/23/23 History spray aerosol benzonatate 100 mg capsule 200 mg PO TID PRN Cough 06/23/23 06/23/23 History calcium carbonate 600 mg-vitamin 1 tab PO DAILY 06/23/23 06/23/23 History D3 10 mcg (400 unit) tablet (Calcium 600 + D(3)) chlorhexidine gluconate 0.12 % 15 ml PO BID 06/23/23 06/23/23 History mouthwash cyanocobalamin (vitamin B-12) 1,000 mcg sublingual DAILY 06/23/23 06/23/23 History 1,000 mcg sublingual tablet donepezil 10 mg tablet 10 mg PO QDD 06/23/23 06/23/23 History doxycycline hyclate 100 mg capsule 100 mg PO BID 06/23/23 06/23/23 History fluoride (sodium) 1.1 % dental 1 applic dental BID 06/23/23 06/23/23 History cream (Sodium Fluoride 5000 Plus) furosemide 20 mg tablet (Lasix) 20 mg PO DAILY 06/23/23 06/23/23 History loratadine 10 mg tablet (Claritin) 10 mg PO DAILY 06/23/23 06/23/23 History lorazepam 0.5 mg tablet 0.5 mg PO TID PRN Agitation 06/23/23 06/23/23 History lysine 500 mg tablet 500 mg PO DAILY 06/23/23 06/23/23 History melatonin 1 mg/mL oral liquid 2 mg PO HS 06/23/23 06/23/23 History memantine 10 mg tablet 10 mg PO BID 06/23/23 06/23/23 History montelukast 10 mg tablet 10 mg PO DAILY 06/23/23 06/23/23 History (Singulair) nystatin 100,000 unit/gram topical 1 applic topical TID 06/23/23 06/23/23 History powder ondansetron HCl 4 mg tablet 4 mg PO Q6H PRN NAUSEA/VOMITING 06/23/23 06/23/23 History oxybutynin chloride 10 mg 10 mg PO QAM 06/23/23 06/23/23 History tablet,extended release 24 hr quetiapine 25 mg tablet 25 mg PO HS 06/23/23 06/23/23 History Past Med/Surg History Medical History (Updated 06/23/23 @ 22:14 by José Winston DO) Urinary tract infection HX Pancreatitis HX Diverticulitis HX Surgical History History of right cataract surgery History of esophagogastroduodenoscopy (EGD) History of colonoscopy History of cholecystectomy S/P tubal ligation Family History Mother Colon cancer Social History Smoking Status: Never smoker Second Hand Exposure: No; Do You Dip or Chew Tobacco: No; Hx Alcohol Use: No Hx Substance Use: No Preferred Language: Upper Sorbian Communication Ability: Effective Sexologist Required: No Beliefs That Will Affect Care: None Current Living Situation: Personal Care Facility Current Living Situation Comment: Per ER - daniel from [facility], planning to transition to the [facility] Feels Safe at Home: Yes Safety Concerns: Feels Safe At This Time Assistive Devices: Walker Review of Systems Review of Systems: All systems reviewed & are unremarkable except as noted in HPI & below Physical Exam Physical Exam: General- Not in distress Head- atraumatic Eyes- PERRL. ENT- oropharynx clear Neck- supple, no JVD. Lungs- clear to auscultation, no wheezing or crackles. Heart- regular rhythm; no murmur, no gallop. Abdomen- normal bowel sounds, soft, nontender, no distension. Extremities- b/l lower extremity edema present. no erythema seen. Neuro- alert, and awake; PERRL, no facial palsy; no dysarthria; moves extremities. Skin- warm & dry Results & Data Results & Data Vital Signs (Past 12 Hours) Vital Signs Temp Pulse Pulse Resp BP BP Pulse Ox 06/23/23 22:00 63 18 115/63 96 06/23/23 21:18 96 H 06/23/23 20:20 99 H 22 121/93 89 L 06/23/23 18:48 102 H 20 92 06/23/23 18:48 102 H 92 06/23/23 17:19 100 H 06/23/23 17:10 37.1 C 100 H 21 147/87 H 92 06/23/23 17:10 88 L 06/23/23 17:10 37.1 C 100 H 21 147/87 H 88 L O2 Del Method O2 Flow Rate 06/23/23 22:00 06/23/23 21:18 06/23/23 20:20 Room Air 06/23/23 18:48 Nasal Cannula 2 06/23/23 18:48 Nasal Cannula 2 06/23/23 17:19 06/23/23 17:10 Nasal Cannula 2 06/23/23 17:10 Room Air 06/23/23 17:10 Room Air Diagnostic Findings Laboratory Results WBC 5.74 K/ul (4.8-10.8) 06/23/23 17:12 RBC 5.20 M/uL (4.20-5.40) 06/23/23 17:12 Hgb 15.2 g/dl (12.0-16.0) 06/23/23 17:12 Hct 46.1 % (37.0-47.0) 06/23/23 17:12 MCV 88.7 fL (80.0-100.0) 06/23/23 17:12 MCH 29.2 pg (25.0-34.0) 06/23/23 17:12 MCHC 33.0 g/dL (32.0-36.0) 06/23/23 17:12 RDW Std Deviation 49.1 fL (36.4-46.3) H 06/23/23 17:12 RDW Coeff of Adán 15.1 % (11.5-14.5) H 06/23/23 17:12 Plt Count 160 K/uL (130-400) 06/23/23 17:12 MPV 11.1 fL (9.4-12.4) 06/23/23 17:12 Immature Gran % (Auto) 0.5 % 06/23/23 17:12 Neut % (Auto) 75.7 % 06/23/23 17:12 Lymph % (Auto) 12.9 % 06/23/23 17:12 Craig % (Auto) 10.3 % 06/23/23 17:12 Eos % (Auto) 0.3 % 06/23/23 17:12 Baso % (Auto) 0.3 % 06/23/23 17:12 Neut # (Auto) 4.34 K/uL (1.40-6.50) 06/23/23 17:12 Lymph # (Auto) 0.74 K/uL (1.20-3.40) L 06/23/23 17:12 Craig # (Auto) 0.59 K/uL (0.11-0.59) 06/23/23 17:12 Eos # (Auto) 0.02 K/uL (0.00-0.50) 06/23/23 17:12 Baso # (Auto) 0.02 K/uL (0.00-0.20) 06/23/23 17:12 Immature Gran # (Auto) 0.03 K/uL (0.01-0.20) 06/23/23 17:12 Sodium 138 mmol/L (136-145) 06/23/23 17:12 Potassium 3.8 mmol/L (3.5-5.1) 06/23/23 18:28 Chloride 107 mmol/L (98-107) 06/23/23 17:12 Carbon Dioxide 22 mmol/L (21-32) 06/23/23 17:12 Anion Gap 9 (3-11) 06/23/23 17:12 BUN 29 mg/dl (6-23) H 06/23/23 17:12 Creatinine 1.08 mg/dl (0.6-1.2) 06/23/23 17:12 Est Cr Clr Drug Dosing 48.3 ml/min 06/23/23 17:12 Est GFR ( Amer) 56.9 ml/min 06/23/23 17:12 Est GFR (Non-Af Amer) 49.1 ml/min 06/23/23 17:12 BUN/Creatinine Ratio 26.9 (10-20) H 06/23/23 17:12 Glucose 115 mg/dl (70-99(Fasting)) H 06/23/23 17:12 Calcium 8.5 mg/dl (8.6-10.3) L 06/23/23 17:12 Total Bilirubin 0.9 mg/dl (0.2-1.0) 06/23/23 17:12 AST 18 U/L (13-39) 06/23/23 18:28 ALT 13 U/L (7-52) 06/23/23 17:12 Alkaline Phosphatase 50 U/L (34-104) 06/23/23 17:12 Troponin I High Sens 5.1 pg/ml (0-14) 06/23/23 21:41 Total Protein 7.1 gm/dl (6.0-8.3) 06/23/23 17:12 Albumin 3.8 gm/dl (3.4-5.0) 06/23/23 17:12 Globulin 3.3 gm/dl (2.5-4.0) 06/23/23 17:12 Albumin/Globulin Ratio 1.2 (0.9-2) 06/23/23 17:12 Lipase 41 U/L (11-82) 06/23/23 17:12 Urine Color Dark Yellow 06/23/23 18:51 Urine Appearance Clear (Clear) 06/23/23 18:51 Urine pH 5.0 (4.5-7.5) 06/23/23 18:51 Ur Specific [place] 1.024 (1.000-1.030) 06/23/23 18:51 Urine Protein Negative (Negative) 06/23/23 18:51 Urine Glucose (UA) Negative (Negative) 06/23/23 18:51 Urine Ketones Negative (Negative) 06/23/23 18:51 Urine Blood Negative (Negative) 06/23/23 18:51 Urine Nitrite Negative (Negative) 06/23/23 18:51 Urine Bilirubin Negative (Negative) 06/23/23 18:51 Urine Urobilinogen Negative (Negative) 06/23/23 18:51 Ur Leukocyte Esterase Negative (Negative) 06/23/23 18:51 Adenovirus (PCR) Not Detected (NotDetected) 06/23/23 20:35 B. pertussis DNA (PCR) Not Detected (NotDetected) 06/23/23 20:35 B.parapertussis DNA PCR Not Detected (NotDetected) 06/23/23 20:35 C. pneumoniae DNA (PCR) Not Detected (NotDetected) 06/23/23 20:35 Coronavirus OC43 (PCR) Not Detected (NotDetected) 06/23/23 20:35 Coronavirus HKU1 (PCR) Not Detected (NotDetected) 06/23/23 20:35 Coronavirus 229E (PCR) Not Detected (NotDetected) 06/23/23 20:35 SARS-CoV-2 (PCR) Not Detected (NotDetected) 06/23/23 20:35 Coronavirus NL63 (PCR) Not Detected (NotDetected) 06/23/23 20:35 Human Metapneumovir PCR Not Detected (NotDetected) 06/23/23 20:35 Influenza Type A (PCR) Not Detected (NotDetected) 06/23/23 20:35 Influenza Type B (PCR) Not Detected (NotDetected) 06/23/23 20:35 M. pneumoniae (PCR) Not Detected (NotDetected) 06/23/23 20:35 Parainfluenza 1 (PCR) Not Detected (NotDetected) 06/23/23 20:35 Parainfluenza 2 (PCR) Not Detected (NotDetected) 06/23/23 20:35 Parainfluenza 3 (PCR) Not Detected (NotDetected) 06/23/23 20:35 Parainfluenza 4 (PCR) Not Detected (NotDetected) 06/23/23 20:35 RSV (PCR) Not Detected (NotDetected) 06/23/23 20:35 Entero/Rhino (PCR) Not Detected (NotDetected) 06/23/23 20:35 Impressions Abdomen/Pelvis CT 06/23/23 17:34 Exam(s): CT ABDOMEN + PELVIS With Contrast IV Amt: 82 ml opti 320 EXAM: CT Abdomen and Pelvis With Intravenous Contrast CLINICAL HISTORY: Abdominal pain. TECHNIQUE: Axial computed tomography images of the abdomen and pelvis with intravenous contrast. Automated exposure control was utilized for the study. A dose lowering technique was utilized adhering to the principles of ALARA. CONTRAST: Patient received 82 ml opti 320 of IV contrast COMPARISON: CT abdomen and pelvis 11/26/2020. FINDINGS: Lung bases: Bibasilar airspace opacities are present. ABDOMEN: Liver: Unremarkable. No mass. Gallbladder and bile ducts: Cholecystectomy. No ductal dilation. Pancreas: Unremarkable. No mass. No ductal dilation. Spleen: Unremarkable. No splenomegaly. Adrenals: Stable 1.5 cm left adrenal lesion, no follow-up is needed given the stability. The right adrenal gland is unremarkable. Kidneys and ureters: Simple appearing bilateral renal cysts are present, no follow-up is needed. The kidneys are otherwise unremarkable. No hydronephrosis. Stomach and bowel: Nonspecific thickening of the sigmoid colon. No obstruction. PELVIS: Appendix: Normal appendix. Bladder: Unremarkable. No mass. Reproductive: Unremarkable as visualized. ABDOMEN and PELVIS: Intraperitoneal space: Unremarkable. No free air. No significant fluid collection. Bones/joints: No acute fracture. No dislocation. Soft tissues: Unremarkable. Vasculature: Mild atherosclerosis. No abdominal aortic aneurysm. Lymph nodes: Unremarkable. No enlarged lymph nodes. IMPRESSION: 1. Nonspecific thickening of the sigmoid colon. This could relate to diverticulitis as there are diverticula, however cannot exclude malignancy. 2. Bibasilar airspace opacities may represent pulmonary edema, atelectasis or atypical infection. Electronically signed by: Heavenly Rocha MD 06/23/23 20:52 PM ECG Additional Comments: ECG. Sinus rhythm with frequent PVCs at a rate of 93. No significant change was found Code Status & VTE Plan VTE Prophylaxis Plan VTE Prophylaxis will be ordered: Yes
[2023-06-24] MEDS ORDERED: LORazepam 0.5 MG TAB PO PRN (02:10)
[2023-06-24] MEDS ORDERED: NITROGLYCERIN SL 0.4 MG/TAB TAB SL PRN (02:10)
[2023-06-24] MEDS ORDERED: DICLOFENAC SOD 1% GEL 100 GM TUBE EXT PRN (02:10)
[2023-06-24] MEDS ORDERED: ONDANSETRON INJ 2 MG/ML 2 ML VIAL IV PRN (02:10)
[2023-06-24] MEDS ORDERED: BENZONATATE 100 MG CAPSULE PO PRN (02:10)
[2023-06-24] MEDS ORDERED: ACETAMINOPHEN 325 MG TAB PO PRN (02:10)
--- OUTSIDE RECORDS SUMMARY | 2023-06-24 03:11 | External Medical Summary | Summary of Care ---
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 0 Acti ve CALTRATE 600+D 600-400 MG-UNIT PO TABS Take by mouth. 0 Active LYSINE 500 MG PO TABS Take by mouth. 0 Active PROBIOTIC PO CAPS Take by mouth. 0 Act karine Loratadine 10 MG Oral TabletIndications :as needed Take 1 Tablet by mouth in the morning. 0 Active Sodium Fluoride 5000 PPM 1.1 % Dental Paste Take 1 Each by mouth every evening. Use pea sized amount. [place] twice a day with your normal toothpaste 0 07/06/2022 Active B-12-SL 1000 MCG Sublingual Tablet Sublingual (Cyanocobalamin)I ndications:B12 deficiency Place 1,000 mcg under the tongue in the morning. 90 Tablet 3 08/31/2022 Active Melatonin 1 MG/ML Oral LiquidIndications :owning 2 ml by mouth at 8 pm daily 60 mL 2 10/07/2022 Active Fluticasone Propionate 50 MCG/ACT Nasal Suspension (Flonase) ADMINISTER TWO SPRAYS INTO EACH NOSTRIL IN THE MORNING 48 g 0 11/01/2022 Active Diclofenac Sodium 1 % External Gel (Voltaren) APPLY TWO GRAMS TOPICALLY TO AFFECTED AREAS OF LEFT KNEE EVERY MORNING, AND TWO GRAMS BEFORE BEDTIME 400 g 0 08/25/2022 Active LORazepam 0.5 MG Oral Tablet (Ativan)Indicatio ns:Anxiety Take 1 Tablet by mouth 3 times a day as needed for Agitation. 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 May take 0.5-1 tablet with breakfast as needed for agitation. 60 Tablet 5 01/17/2023 Active Additional Information Patient taking differently: 25 mg Oral HS, Take 25 mg qhs plus 12.5-25 mg qAM prn hallucinations., Reported on 01/21/2023 Dorzolamide HCl 2 % Ophthalmic Solution Instill 1 Drop into both eyes in the morning and 1 Drop in the evening. 0 Active Memantine HCl 10 MG Oral Tablet (Namenda) Take 1 Tablet by mouth in the morning and 1 Tablet before bedtime. 180 Tablet 3 01/21/2023 Active Azelastine HCl 0.1 % Nasal Solution (Astelin) Administer 1 [place] into nostril in the morning and 1 [place] before bedtime. 30 mL 12 02/24/2023 Active Montelukast Sodium 10 MG Oral Tablet (Singulair)Indica tions:Nasal congestion Take 1 Tablet by mouth in the morning. 30 Tablet 5 02/24/2023 Active Molnupiravir 200 MG Oral CapsuleIndication s:COVID-19 virus infection Take 4 Capsules by mouth in the morning and 4 Capsules before bedtime. 40 Capsule 0 03/21/2023 Active ARIPiprazole 2 MG Oral Tablet (Abilify) Take 1 Tablet by mouth in the morning. 90 Tablet 3 03/23/2023 Active Benzonatate 100 MG Oral Capsule Take 2 Capsules by mouth 3 times a day as needed for Cough. 60 Capsule 1 03/29/2023 Active Petrolatum White External OintmentIndicatio ns:Pressure sore of left ischium, stage 1 Apply to ischeal tuberosities (between the buttocks), twice daily for two weeks. 60 g 0 05/14/2023 Active Furosemide 20 MG Oral Tablet (Lasix)Indication s:Bilateral leg edema Take one pill each morning for 30 days, for excess fluid. May take a second tablet at noon if no response to the morning dose. 60 Tablet 0 05/14/2023 Active Nystatin 578656 UNIT/GM External Powder (Nystop)Indicatio ns:Skin irritation Apply topically to affected area 3 times a day. 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 Take with largest meal of the day. PILL PACKS. 90 Tablet 3 06/15/2023 4 Active Oxybutynin Chloride ER 10 MG Oral Tablet Extended Release 24 Hour (Ditropan XL)Indications:Ur inary incontinence, nocturnal enuresis Take 1 Tablet by mouth in the morning. Do not cut, crush or chew. 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 Take with largest meal of the day.. 30 Tablet 1 04/25/2023 3 Discontinue d(Refill) documented as of this encounter (statuses as of 06/17/2023) Active Problems Problem Noted Date Diagnosed Date Severe late onset Alzheimer' s dementia with psychotic disturbance 03/22/2023 Major depressive disorder with single episode Age-related osteoporosis wit hout current pathological fracture 08/19/2022 Obesity, Class I, BMI 30.0-34.9 (see actual BMI) 06/13/2021 Diverticulosis of large intestine without hemorr andrei 01/15/2021 Primary open-angle glaucoma, unspecified eye, stage unspecified 08/29/2019 Vitamin D deficiency 11/29/2013 Dyslipidemia 07/07/2009 documented as of this encounter (statuses as of 06/17/2023) Resolved Problems Problem Noted Date Diagnosed Date Resolved Date Dementia without behavioral disturbance 12/24/2021 08/19/2022 Mild cognitive impairment 01/15/2021 History of nonmelanoma skin cancer 11/01/2017 09/19/2019 Overview: BCC right upper arm 2003 BCC left forearm 12/12 KA left forearm 12/13 Historical. Unspecified glaucoma 06/14/2016 020 Overview: More specific code in use. ICD-10 update of inactive term Abdominal pain, generalized 03/05/2016 12/28/2016 Back pain 03/05/2016 12/28/2016 Obstipation 03/05/2016 12/28/2016 Nevus 03/06/2015 12/28/2016 Microhematuria 09/09/2014 11/22/2018 Overview: Seems related to the infection. Also, dipstick hematuria without microscopic. Acute cystitis 08/20/2014 10/06/2014 Hematuria, gross 08/20/2014 09/09/2014 Sigmoid diverticulosis 07/02/201412/28 Recurrent abdominal pain 07/02/2014 Colon polyps 07/02/2014 12/28/2016 Right foot pain 07/02/2014 12/28/2016 Metatarsalgia of right foot 07/02/2014 12/28/2016 Sinus congestion 04/23/2014 12/28/2016 Allergic rhinitis 04/23/2014 11/22/2018 Sigmoid diverticulitis 11/29/201312/28 RLQ abdominal pain 11/29/2013 7 Hypokalemia 11/29/2013 12/28/2016 Achilles tendinosis 10/15/2011 12/29/19 17 Plantar fasciitis 10/15/2011 12/28/2016 Personal history of malignan t neoplasm of skin 12/07/2010 11/01/2017 Overview: R upper arm - BCC 2003, L forearm BCC 2010 Obesity, Class II, BMI 35-39 .9, isolated (see actual BMI) 12/15/2009 12/28/2016 Overview: Per Obesity Protocol, #19 DJD, RIGHT 5TH DIP 09/04/2008 1 Elevated blood pressure, situational 09/04/2008 02/26/2014 Toxic effect of venom 11/14/20072016 Overview: ICD-10 update of inactive term TICK BITE, RIGHT BUTTOCK 11/14/2007 SACRAL BACK PAIN (LYTIC LESION) 10/19/2007 11/22/2018 ADVANCE DIRECTIVE INFORMATION 07/12/2007 05/17/2017 Overview: Yes, Copy scanned at patient level in the electronic medical record.(Go to Action, Patient File to view) Patient aware they must notify their healthcare provider of changes. Other malignant neoplasm of skin of upper limb, including shoulder 02/08/2007 03/06/2015 FAMILY HX-GI MALIGNANCY 04/11/200612/03 Overview: Colonoscopy 03/23/06--diverticulosis--repeat 4 years Other eye problems influencing health status 5 12/28/2016 Other disorder of menstruati on and other abnormal bleeding from female genital tract 12/28/2016 Allergic rhinitis 09/19/2019 Overview: Acute. Cough 12/28/2016 Family history of GI malignancy 12/28/2016 Diverticulosis of colon 12/03 documented as of this encounter (statuses as of 06/17/2023) Immunizations Name Administration Dates Next Due COVID-19 mRNA, LNP-s, No Pre serve, 2-Dose Series (Moderna) 08/29/2020,07/31/2020 COVID-19, mRNA, LNP-s, PF, B ooster, 100mcg/0.5mg (Moderna) 12/03/2021,04/29/2021 Covid-19, Mrna, Lnp-s, Pf, B ivalent, 30 Mcg, IM, 12 yrs and above (Pfizer) 04/23/2022 H1N1 2009 Influenza, IM 07/07/2009 Hepatitis B, 20+ yrs 11/01/1992,09/16/18 93,04/15/1992,03/18 PPD 12/11/1992 Pneumococcal Conjugate Vacc, 13 Valent (Prevnar) 06/04/2016 Pneumococcal Polysaccharide PPV23 (Pneumovax) 03/08/2018,11/01/2008,06/07/2008,04/29 Season Influenza, Quad, PF, Adjuvanted, 65+ Yrs, IM (FLUAD) 03/12/2020 Seasonal Influenza Virus Vac cine, Unspecified Formulation 05/07/1998 Seasonal Influenza, PF, 6 M & above, IM , (FluLaval or Fluzone) 03/08/2018,04/01/2017 Seasonal Influenza, Quadriva lent Hd (Fluzone Hd) 04/16/2022,04/01/2021 Seasonal Influenza, Quadriva lent, No Preserve, IM 03/31/2016,03/31/2015 Seasonal Influenza, Split, I IV3, With Preserve, Inj 03/16/2014,03/17/2013,03/17/2013,03/18,03/22/2011,03/23/2010,04/02/2009 ,05/06/2008,04/26/2007,05/14/2006,02/2005,05/28/2003,04/29/2001, 9 Seasonal Influenza, Trivalen t, Adjuvanted, 65+ yrs 03/13/2019 TD - Tetanus/Diptheria (ADULT) 02/07/2006,1995,09/01/1993 TDAP (age 10 and older)(Boostrix) 03/16/2020, Varicella Zoster Vaccine (Adult) 03/19/2009 Zoster Vaccine Recombinant (Shingrix) 08/04/2019 ,04/10/2019 documented as of this encounter Social History Tobacco Use Types Packs/Day Years Used Date Smoking Tobacco: Never Smokeless Tobacco: Never Alcohol Use Standard Drinks/Week Comments Not Currently 0 (1 standard drink = 0.6 oz pur e alcohol) PHQ-2 Answer Date Recorded PHQ Adult Total Score 0 08/19/2022 Hunger Vital Sign Answer Date Recorded Within the past 12 months, y ou worried that your food would run out before you got the money to buy more. Never true 08/19/19 23 Ran Out of Food in the Last Year Not on file 08/19/2022 Sex and Gender Information Value Date Recorded Sex Assigned at Female 11/22/2018 7:04 AM EDT Gender Identity Female 11/22/2018 7:04 AM EDT Sexual Orientation Straight 11/22/2018 7: 04 AM EDT Job Start Date Occupation Industry Not on file Not on file Not on file documented as of this encounter Miscellaneous Notes * Telephone Encounter - Selma Valenzuela [facility] - 06/17/2023 10:50 AM EST Pharmacy states they did not receive transmitted script from 06/15/2023. Pharmacist resending again. Thank you, Selma Valenzuela [facility] Clinical Pharmacist Centralized Clinical Pharmacy Services (CCPS) (formerly Telepharmacy) 06/17/23 10:50 AM [phone] * Telephone Encounter - Ashley Boston CPhT - 06/17/2023 10:47 AM EST Please resend Rx to [facility] [address] [facility]. Confirmed pharmacydid not receive original prescription. Signed Prescriptions: Disp Refills Donepezil HCl 10 MG Oral Tablet (Aricept) 90 Tab*3 Sig: Take 1 Tablet by mouth in the morning. Take with largest meal of the day. PILL PACKS. Authorizing Provider: CLAIRE BOWMAN Last Visit: 01/21/2023 (in office), Visit date not found (telemedicine) 07/29/2023 If no future appointments scheduled, and last appointment is greater than a year ago, please schedule patient for a follow-up appointment Last date the medication was ordered: 06/15/2023 Patient Phone Numbers Labs: Lab Results Component Value Date/Time CREAT 1.1 (H) 05/14/2023 10:59 AM CREAT 1.0 06/12/2020 02:40 PM POTASSIUM 4.3 05/14/2023 10:59 AM POTASSIUM 3.3 (L) 06/12/2020 02:40 PM TSH 1.44 11/26/2022 11:56 AM TSH 0.90 06/12/2020 02:40 PM LDLCALC 94 11/20/2021 12:30 PM LDLCALC 92 05/23/2018 08:07 AM LDLDIRECT NOT APPLICABLE 03/23/2014 12:15 PM ALT 15 05/14/2023 10:59 AM ALT 19 06/12/2020 02:40 PM * Telephone Encounter - Claire Bowman DO - 06/15/2023 3:53 PM ESTSigned Prescriptions: Disp Refills Donepezil HCl 10 MG Oral Tablet (Aricept) 90 Tab*3 Sig: Take 1 Tablet by mouth in the morning. Take with largest meal of the day. PILL PACKS.Authorizing Provider: CLAIRE BOWMAN documented in this encounter Plan of Treatment Upcoming Encounters Date Type Department Care Team (Late st Contact Info) Description 07/11/2023 2:00 PM EST Imaging Radiology [facility] [address] [facility] [place] [address] 07/29/2023 1:20 PM EST Office Visit Neurology [facility] [place] [address] [facility] [place] [address] Cathy Allen, JEFFREY [address] [place] [address] 09/20/2023 1:20 PM EDT Office Visit [facility] [address] [place] [phone] Lauren Varela PA-C [address] [place] [address] 11/17/2023 11:30 AM EDT Office Visit Dermatology [facility] [address] [facility] [place] [address] Inga Maki MD [facility] [place] [address] Scheduled Procedures Name Priority Associated Diagnoses Date/Ti me COLONOSCOPY FLEXIBLE PROXIMA L DIAGNOSTIC Recall History of colonic polyps Health Maintenance Due Date Last Done Comments *BISPHONATE OR OTHER ACCEPTABLE MEDICATION NEEDED FOR OSTEOPOROSIS (REFER TO SMARTSET #1146) 08/21/2022 COVID-19 Vaccine ( season) 2023 04/23/2022, 12/03/2021, 04/29/2021, Additional history exists Influenza Vaccine (FLU shot) (#1) 2023 04/16/2022, 04/01/2021, 03/12/2020, Additional history exists DXA Scan 06/24/2023 06/24/2021, 07/04, 07/23/2010, Additional history exists Depression Screening 08/19/2023 08/19/2022 COLONOSCOPY-EVERY 3 YRS AGES 18-100 05/12/2024 05/12/2021, 05/12/2021, 08/12/2017, Additional history exists DTaP,Tdap,and Td Vaccines (3 - Td or Tdap) 03/16/2030 03/16/2020, 05/16/2013, 02/07/2006, Additional history exists Hepatitis B Completed 11/01/1992, 09/01, 04/15/1992, Additional history exists Pneumococcal Vaccine: 65+ Years Completed 03/08/2018, 06/04/2016, 11/01/2008, Additional history exists Zoster Vaccines Completed 08/04/2019, 02/2019, 03/19/2009 VITAMIN D LEVEL ONCE IN A LIFETIME-USE SMARTSET# 81273 Completed 11/26/2022, 11/20/2021, 05/11/2021, Additional history exists GARDASIL-HPV IMMUNIZATION SERIES Aged Out No longer eligible based on patient's age to complete this topic MENINGOCOCCAL (MENACTRA/MENVEO) Aged Out No longer eligible based on patient's age to complete this topic documented as of this encounter Medical Devices Not on filedocumented as of this encounter Visit Diagnoses Diagnosis 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
--- OUTSIDE RECORDS SUMMARY | 2023-06-24 03:11 | External Medical Summary | Summary of Care ---
Author Name Unknown Organization [facility] Address [address] [place] [address] Phone [phone] Care Team Providers Care Assembler Seat Name Role Phone Lauren Varela PA-C Primary Care Provider [phone] Encounter Details Date Type Department Care Team (Late st Contact Info) Description 06/17/2023 Refill [facility] [address] [place] [address] Lauren Varela PA-C [address] [place] [address] Urinary incontinence, nocturnal enuresis Allergies Active Allergy Reactions Criticality Noted Date [...] mouth every evening. Use pea sized amount. [place] twice a day with your normal toothpaste [...] GRAMS BEFORE BEDTIME 400 g 0 08/25/2022 4 Active LORazepam 0.5 MG Oral Tablet (Ativan)Indicatio [...] 0.1 % Nasal Solution (Astelin) Administer 1 [place] into nostril in the morning and 1 [place] before bedtime. 30 mL 12 02/24/2023 Active [...] dose. 60 Tablet 0 05/14/2023 Active Nystatin 508705 UNIT/GM External Powder (Nystop)Indicatio ns:Skin irritation Apply [...] PACKS. 90 Tablet 3 06/15/2023 4 Active oxyBUTYnin Chloride ER 10 MG Oral Tablet Extended Release 24 Hour (Ditropan XL)Indications:Ur inary incontinence, nocturnal enuresis Take 1 Tablet by mouth in the morning. Do not cut, crush or chew. 90 Tablet 1 06/17/2023 Active Oxybutynin Chloride ER 10 MG Oral Tablet Extended Release 24 Hour (Ditropan XL)Indications:Ur inary incontinence, nocturnal enuresis Take 1 Tablet by mouth in the morning. Do not cut, crush or chew. 90 Tablet 1 08/31/2022 3 Discontinue d(Refill) documented as of this [...] 7 Hypokalemia 11/29/2013 12/28/2016 Achilles tendinosis 10/15/2011 06/27/20 17 Plantar fasciitis 10/15/2011 12/28/2016 Personal history [...] Influenza, IM 07/07/2009 Hepatitis B, 20+ yrs 09/16/1992,04/15/1992,03/18 Pneumococcal Conjugate Vacc, 13 Valent (Prevnar) 06/04/2016 Pneumococcal Polysaccharide PPV23 (Pneumovax) 03/08/2018,11/01/2008,06/07/2008 Season Influenza, Quad, PF, Adjuvanted, 65+ Yrs, IM (FLUAD) 03/12/2020 Seasonal Influenza, PF, 6 M & above, IM , (FluLaval or Fluzone) 03/08/2018,04/01/2017 Seasonal Influenza, Quadriva lent Hd (Fluzone Hd) 04/16/2022,04/01/2021 Seasonal Influenza, Quadriva lent, No Preserve, IM 03/31/2016,03/31/2015 Seasonal Influenza, Split, I IV3, With Preserve, Inj 03/16/2014,03/17/2013,03/17/2013,03/18,03/22/2011,03/23/2010,04/02/2009 ,05/06/2008,04/26/2007,05/14/2006 Seasonal Influenza, Trivalen t, Adjuvanted, 65+ yrs 03/13/2019 TD - Tetanus/Diptheria (ADULT) 02/07/2006 TDAP (age 10 and older)(Boostrix) 03/16/2020, Varicella [...] encounter Miscellaneous Notes * Telephone Encounter - Lauren Varela PA-C - 06/17/2023 7:55 AM ESTSigned Prescriptions: Disp Refills oxyBUTYnin Chloride ER 10 MG Oral Tablet E*90 Tab*1 Sig: Take 1 Tablet by mouth in the morning. Do not cut, crush or chew.Authorizing Provider: LAUREN VARELA--- * Telephone Encounter - Claudia Herrera LPN - 06/17/2023 7:04 AM EST Did you pend patient's preferred pharmacy and medication before forwarding?yes Pharmacy: [facility] [address] Pending Prescriptions: Disp Refills oxyBUTYnin Chloride ER 10 MG Oral Tablet *90 Tab*1 Sig: Take 1 Tablet by mouth in the morning. Do not cut, crush or chew. Last Visit: 03/22/2023 (in office), Visit date not found (telemedicine) Next Visit: 09/20/2023 If no future appointments scheduled, and last appointment is greater than a year ago, please schedule patient for a follow-up appointment Last date the medication was ordered: 08/31/2022 Is this request for a controlled substance?No Urine Drug Screen:No results found for this or any previous visit. Patient Phone Numbers Labs: Lab Results Component [...] 10:59 AM ALT 19 06/12/2020 02:40 PM documented in this encounter Plan of Treatment Upcoming Encounters Date Type Department Care Team (Late st Contact Info) Description 07/11/2023 2:00 PM EST Imaging Radiology [address] 132 [facility] [place] [address] 07/29/2023 1:20 PM EST Office Visit Neurology [facility] [address] [facility] [place] [address] Cathy Allen CRNP [address] [place] [address] 09/20/2023 1:20 PM EDT Office Visit [facility] [address] [place] [phone] Lauren Varela PA-C [address] [place] [address] 11/17/2023 11:30 AM EDT Office Visit Dermatology [facility] [address] [facility] [place] [address] Inga Maki MD [address] [facility] [place] [address] Scheduled Procedures Name Priority Associated Diagnoses Date/Ti [...] D LEVEL ONCE IN A LIFETIME-USE SMARTSET# 33938 Completed 11/26/2022, 11/20/2021, 05/11/2021, Additional history exists GARDASIL-HPV IMMUNIZATION SERIES Aged Out No longer eligible based on patient's age to complete this topic MENINGOCOCCAL (MENACTRA/MENVEO) Aged Out No longer eligible based on patient's age to complete this topic documented as of this encounter Medical Devices Not on filedocumented as of this encounter Visit Diagnoses Diagnosis Urinary incontinence, nocturnal enuresis Nocturnal enuresis documented in this encounter Care Teams Assembler Seat Relationship Specialty Start Date End Date Lauren Varela [facility]-C [address] [facility] [place] [address] PCP - General Physician Construction Technician 05/11/21 documented as of this encounter
--- OUTSIDE RECORDS SUMMARY | 2023-06-24 03:11 | External Medical Summary | Summary of Care ---
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 Use pea sized amount. [place] twice a day with your normal toothpaste 0 07/06/2022 Active B-12-SL 1000 MCG Sublingual Tablet Sublingual (Cyanocobalamin)I ndications:B12 deficiency Place 1,000 mcg under the tongue in the morning. 90 Tablet 3 08/31/2022 Active Oxybutynin Chloride ER 10 MG Oral Tablet Extended Release 24 Hour (Ditropan XL)Indications:Ur inary incontinence, nocturnal enuresis Take 1 Tablet by mouth in the morning. Do not cut, crush or chew. 90 Tablet 1 08/31/2022 Active Melatonin 1 MG/ML Oral LiquidIndications [...] 0.1 % Nasal Solution (Astelin) Administer 1 [place] into nostril in the morning and 1 [place] before bedtime. 30 mL 12 02/24/2023 Active [...] dose. 60 Tablet 0 05/14/2023 Active Nystatin [id number] UNIT/GM External Powder (Nystop)Indicatio ns:Skin irritation Apply [...] PACKS. 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 Take with largest meal of the day.. 30 Tablet 1 04/25/2023 3 Discontinue d(Refill) documented as of this encounter (statuses as of 06/15/2023) Active Problems Problem Noted Date Diagnosed Date [...] as of this encounter (statuses as of 06/15/2023) Resolved Problems Problem Noted Date Diagnosed Date [...] as of this encounter (statuses as of 06/15/2023) Immunizations Name Administration Dates Next Due COVID-19 [...] encounter Miscellaneous Notes * Telephone Encounter - Claire Bowman DO [...] Description 07/11/2023 2:00 PM EST [facility] [address] [facility] [address] 07/29/2023 1:20 PM EST Office Visit Neurology [facility] [address] [facility] [place] [place] [address] Cathy Allen CRNP [address] [place] [address] 09/20/2023 1:20 PM EDT Office Visit [facility] [address] [place] [phone] Lauren Varela PA-C [address] [place] [address] 11/17/2023 11:30 AM EDT Office Visit [facility] [place] [address] Inga Maki MD 200 [facility] [place] [address] Scheduled Procedures Name Priority Associated Diagnoses Date/Ti [...] D LEVEL ONCE IN A LIFETIME-USE SMARTSET# [id number] Completed 11/26/2022, 11/20/2021, 05/11/2021, Additional history exists [...] (HCC) documented in this encounter Care Teams Head Of Physics Relationship Specialty Start Date End Date Lauren Varela PA-C [address] [facility] [place] [address] PCP - General Physician Investor Relations Associate 05/11/21 documented as of this encounter
--- OUTSIDE RECORDS SUMMARY | 2023-06-24 03:11 | External Medical Summary | Summary of Care ---
Author Name Unknown Organization [facility] Address [address] [place] [address] Phone [phone] Care Team Providers Care Community Outreach Specialist Name Role Phone Lauren Varela PA-C Primary Care Provider [phone] [phone] Reason for Visit * Reason Onset Date Comments Medication Refill 06/15/2023 Encounter Details Date Type Department Care Team (Late st Contact Info) Description 06/15/2023 Refill Neurology [facility] [address] [place] [address] Claire Bowman, DO [address] [place] [address] Severe late onset Alzheimer's dementia [...] mouth every evening. Use pea sized amount. [place] twice a day with your normal toothpaste [...] 0.1 % Nasal Solution (Astelin) Administer 1 [place] into nostril in the morning and 1 [place] before bedtime. 30 mL 12 02/24/2023 Active [...] dose. 60 Tablet 0 05/14/2023 Active Nystatin 841685 UNIT/GM External Powder (Nystop)Indicatio ns:Skin irritation Apply [...] the day. PILL PACKS. 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 Take with largest meal of the day. PILL PACKS. 90 Tablet 3 06/15/2023 Discontinue d(Refill) documented as of this encounter [...] as of this encounter Miscellaneous Notes * Addendum Note - Tammy Valenzuela RPh - 06/17/2023 10:51 AM ESTAddended by: TAMMY VALENZUELA on: 06/17/2023 10:51 AM Modules accepted: Orders * Telephone Encounter - Tammy Valenzuela RPh - 06/17/2023 10:50 AM EST Pharmacy states they did not receive transmitted script from 06/15/2023. Pharmacist resending again. Thank you, Tammy Valenzuela RPh Clinical Pharmacist [facility] ([facility]) (formerly Telepharmacy) 06/17/23 10:50 AM [phone] * Telephone Encounter - Ashley Boston CPhT - 06/17/2023 10:47 AM EST Please resend Rx to [facility] [address] [facility]. Confirmed pharmacydid not receive original prescription. Signed [...] 02:40 PM * Telephone Encounter - Claire Bowman, - 06/15/2023 3:53 PM ESTSigned Prescriptions: Disp Refills Donepezil HCl 10 MG Oral Tablet (Aricept) 90 Tab*3 Sig: Take 1 Tablet by mouth in the morning. Take with largest meal of the day. PILL PACKS.Authorizing Provider: CLAIRE BOWMAN documented in this encounter Plan of Treatment Upcoming Encounters Date Type Department Care Team (Late st Contact Info) Description 07/11/2023 2:00 PM EST Imaging Radiology [address] 132 [facility] [place] [address] 07/29/2023 1:20 PM EST Office Visit Neurology [facility] 200 [facility] [place] [address] Cathy Allen CRNP [address] [facility] [address] 09/20/2023 1:20 PM EDT Office Visit [facility] [address] [place] [address] Lauren Varela PA-C [address] [place] [address] 11/17/2023 11:30 AM EDT Office Visit Dermatology [facility] 200 [facility] [place] [address] Inga Maki MD 200 [facility] [place] [address] Scheduled Procedures Name Priority Associated Diagnoses Date/Ti me COLONOSCOPY FLEXIBLE PROXIMA L DIAGNOSTIC Recall History of colonic polyps Health Maintenance Due Date Last Done Comments *BISPHONATE OR OTHER ACCEPTABLE MEDICATION NEEDED FOR OSTEOPOROSIS (REFER TO SMARTSET #1146) 08/21/2022 COVID-19 Vaccine (2022- season) 2023 04/23/2022, 12/03/2021, 04/29/2021, Additional history [...] D LEVEL ONCE IN A LIFETIME-USE SMARTSET# 11625 Completed 11/26/2022, 11/20/2021, 05/11/2021, Additional history exists [...] (HCC) documented in this encounter Care Teams Community Outreach Specialist Relationship Specialty Start Date End Date Lauren Varela PA-C [address] [facility] [place] [address] PCP - General Physician Furnace Charging Machine Operator 05/11/21 documented as of this encounter
--- OUTSIDE RECORDS SUMMARY | 2023-06-24 03:11 | External Medical Summary | Summary of Care ---
Author Name Unknown Organization [facility] Address [address] [place] [address] Phone [phone] Care Team Providers Care Fat Purification Worker Name Role Phone Lauren Varela PA-C Primary Care Provider [phone] Reason for Visit * Reason Onset Date Comments Medication Refill 06/15/2023 Encounter Details Date Type Department Care Team (Late st Contact Info) Description 06/15/2023 Refill Neurology [facility] [address] [place] [address] Claire Bowamn, DO [address] [place] [address] Severe late onset Alzheimer's dementia [...] mouth every evening. Use pea sized amount. [place] twice a day with your normal toothpaste [...] 0.1 % Nasal Solution (Astelin) Administer 1 [place] into nostril in the morning and 1 [place] before bedtime. 30 mL 12 02/24/2023 Active [...] dose. 60 Tablet 0 05/14/2023 Active Nystatin 676729 UNIT/GM External Powder (Nystop)Indicatio ns:Skin irritation Apply [...] encounter Miscellaneous Notes * Telephone Encounter - Ashley Boston CPhT - 06/17/2023 10:47 AM EST Please resend Rx to [place] [address] [address] [facility]. Confirmed pharmacydid not receive original prescription. [...] Description 07/11/2023 2:00 PM EST [facility] [address] [facility] [address] 07/29/2023 1:20 PM EST Office Visit Neurology [facility] 200 [facility], [place] [address] Cathy Allen CRNP [address] [place] [address] 09/20/2023 1:20 PM EDT Office Visit [facility] [address] [place] [phone] Lauren Varela PA-C [address] [place] [address] 11/17/2023 11:30 AM EDT Office Visit [facility]ology [facility] [address] [place] [address] Inga Maki MD [facility] [place] [facility] [place] [address] Scheduled Procedures Name Priority Associated Diagnoses Date/Ti [...] D LEVEL ONCE IN A LIFETIME-USE SMARTSET# [id number] Completed 11/26/2022, 11/20/2021, 05/11/2021, Additional history exists [...] (HCC) documented in this encounter Care Teams Fat Purification Worker Relationship Specialty Start Date End Date Lauren Varela PA-C [address] [facility] [place] [address] PCP - General Physician Web Developer Programmer 05/11/21 documented as of this encounter
--- OUTSIDE RECORDS SUMMARY | 2023-06-24 03:11 | External Medical Summary | Summary of Care ---
Author Name Unknown Organization [facility] Address [address] [place] [address] Phone [phone] Care Team Providers Care Oil Burner Repairer Name Role Phone Lauren Varela PA-C Primary Care Provider [phone] [phone] Encounter Details Date Type Department Care Team (Late st Contact Info) Description 06/20/2023 Orders Only Outcomes Research Department [address] [place], [place] [id number] Maty Ochoa CHRA MyCode Research Other*[id number] Allergies Active Allergy Reactions Criticality Noted Date Comments Propoxyphene Hcl Itching 08/16/2000 Throat swelling Oxycodone-Acetaminophen Itching 11/10/2007 documented as of this encounter (statuses as of 06/20/2023) Medications Medication Sig Dispensed Refills Start Date End Date Status COSOPT 22.3-6.8 MG/ML OP SOLN Instill into eye. 0 Acti ve CALTRATE 600+D 600-400 MG-UNIT PO TABS Take by mouth. 0 Active LYSINE 500 MG PO TABS Take by mouth. 0 Active PROBIOTIC PO CAPS Take by mouth. 0 Act karine Loratadine 10 MG Oral TabletIndications: as needed Take 1 Tablet by mouth in the morning. 0 Active Sodium Fluoride 5000 PPM 1.1 % Dental Paste Take 1 Each by mouth every evening. Use pea sized amount. [place] twice a day with your normal toothpaste 0 07/06/2022 Active B-12-SL 1000 MCG Sublingual Tablet Sublingual (Cyanocobalamin)In dications:B12 deficiency Place 1,000 mcg under the tongue in the morning. 90 Tablet 3 08/31/2022 Active Melatonin 1 MG/ML Oral LiquidIndications: Sundowning 2 ml by mouth at 8 pm daily 60 mL 2 10/07/2022 Active Fluticasone Propionate 50 MCG/ACT Nasal Suspension (Flonase) ADMINISTER TWO SPRAYS INTO EACH NOSTRIL IN THE MORNING 48 g 0 11/01/2022 Active Diclofenac Sodium 1 % External Gel (Voltaren) APPLY TWO GRAMS TOPICALLY TO AFFECTED AREAS OF LEFT KNEE EVERY MORNING, AND TWO GRAMS BEFORE BEDTIME 400 g 0 08/25/2022 08/25/2023 Active LORazepam 0.5 MG Oral Tablet (Ativan)Indication s:Anxiety Take 1 Tablet by mouth 3 times a day as needed for Agitation. 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 30 mL 12 02/24/2023 Active Montelukast Sodium 10 MG Oral Tablet (Singulair)Indicat ions:Nasal congestion Take 1 Tablet by mouth in the morning. 30 Tablet 5 02/24/2023 Active Molnupiravir 200 MG Oral CapsuleIndications :COVID-19 virus infection Take 4 Capsules by mouth [...] Capsule 1 03/29/2023 Active Petrolatum White External OintmentIndication s:Pressure sore of left ischium, stage 1 Apply to ischeal tuberosities (between the buttocks), twice daily for two weeks. 60 g 0 05/14/2023 Active Furosemide 20 MG Oral Tablet (Lasix)Indications :Bilateral leg edema Take one pill each morning for 30 days, for excess fluid. May take a second tablet at noon if no response to the morning dose. 60 Tablet 0 05/14/2023 Active Nystatin 653583 UNIT/GM External Powder (Nystop)Indication s:Skin irritation Apply topically to affected area 3 times a day. Apply to skin folds under breasts and abdomen 180 g 1 06/03/2023 Active oxyBUTYnin Chloride ER 10 MG Oral Tablet Extended Release 24 Hour (Ditropan XL)Indications:Uri nary incontinence, nocturnal enuresis Take 1 Tablet by mouth in the morning. Do not cut, crush or chew. 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 Take with largest meal of the day. PILL PACKS. 90 Tablet 3 06/17/2023 Active documented as of this encounter (statuses as of 06/20/2023) Active Problems Problem Noted Date Diagnosed Date [...] as of this encounter (statuses as of 06/20/2023) Resolved Problems Problem Noted Date Diagnosed Date [...] as of this encounter (statuses as of 06/20/2023) Immunizations Name Administration Dates Next Due COVID-19 mRNA, LNP-s, No Pre serve, 2-Dose Series (Moderna) 08/29/2020,07/31/2020 COVID-19, mRNA, LNP-s, PF, B ooster, 100mcg/0.5mg (Moderna) 12/03/2021,04/29/2021 Covid-19, Mrna, Lnp-s, Pf, B ivalent, 30 Mcg, IM, 12 yrs and above ([facility]) 04/23/2022 H1N1 2009 Influenza, IM 07/07/2009 Hepatitis [...] on file documented as of this encounter Plan of Treatment Upcoming Encounters Date Type Department Care Team (Late st Contact Info) Description 07/11/2023 2:00 PM EST Imaging Radiology [address] [employer] [address] [place] [address] 07/29/2023 1:20 PM EST Office Visit Neurology [facility] 200 [facility] [place] [address] Cathy Allen CRNP [address] [place] [address] 09/20/2023 1:20 PM EDT Office Visit [facility] [address] [place] [phone] Lauren Varela PA-C [address] [place] [address] 11/17/2023 11:30 AM EDT Office Visit Dermatology [facility] 200 [facility] [place] [address] Inga Maki MD 200 [facility] [place] [address] Scheduled Orders Name Type Priority Associated Diagnoses Orde r Schedule MYCODE SUBSEQUENT ADULT Lab Routine MyCode Research Other*[id number] Every 6 Months for 2 Occurrences starting 06/20/2023 until 07/09/2024 Scheduled Procedures Name Priority Associated Diagnoses Date/Ti [...] D LEVEL ONCE IN A LIFETIME-USE SMARTSET# [id number] Completed 11/26/2022, 11/20/2021, 05/11/2021, Additional history exists GARDASIL-HPV IMMUNIZATION SERIES Aged Out No longer eligible based on patient's age to complete this topic MENINGOCOCCAL (MENACTRA/MENVEO) Aged Out No longer eligible based on patient's age to complete this topic documented as of this encounter Medical Devices Not on filedocumented as of this encounter Visit Diagnoses Diagnosis MyCode Research Other*[id number] documented in this encounter Care Teams Oil Burner Repairer Relationship Specialty Start Date End Date Lauren Varela PA-C [address] [facility] [place] [address] PCP - General Physician Tombstone Erector Helper 05/11/21 documented as of this encounter
--- OUTSIDE RECORDS SUMMARY | 2023-06-24 03:12 | External Medical Summary | Summary of Care ---
Author Name Unknown Organization [facility] Address [address] [place] [address] Phone [phone] Care Team Providers Care Parts Data Writer Name Role Phone Lauren Varela PA-C Primary Care Provider [phone] [phone] Encounter Details Date Type Department Care Team (Late st Contact Info) Description 06/02/2023 Result Scan Unspecified Department <No scans attached> Allergies Active Allergy Reactions Criticality Noted Date Comments Propoxyphene Hcl Itching 08/16/2000 Throat swelling Oxycodone-Acetaminophen Itching 11/10/2007 documented as of this encounter (statuses as of 06/03/2023) Medications Medication Sig Dispensed Refills Start Date [...] mouth every evening. Use pea sized amount. [place] twice a day with your normal toothpaste [...] 1 08/31/2022 Active Melatonin 1 MG/ML Oral LiquidIndications: [...] 0.1 % Nasal Solution (Astelin) Administer 1 [place] into nostril in the morning and 1 [place] before bedtime. 30 mL 12 02/24/2023 Active [...] for Cough. 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 Take with largest meal of the day.. 30 Tablet 1 04/25/2023 Active Petrolatum White External OintmentIndication s:Pressure sore [...] morning dose. 60 Tablet 0 05/14/2023 Active documented as of this encounter (statuses as of 06/03/2023) Active Problems Problem Noted Date Diagnosed Date [...] as of this encounter (statuses as of 06/03/2023) Resolved Problems Problem Noted Date Diagnosed Date [...] as of this encounter (statuses as of 06/03/2023) Immunizations Name Administration Dates Next Due COVID-19 mRNA, LNP-s, No Pre serve, 2-Dose Series (Moderna) 08/29/2020,07/31/2020 COVID-19, mRNA, LNP-s, PF, B ooster, 100mcg/0.5mg (Moderna) 12/03/2021,04/29/2021 Covid-19, Mrna, Lnp-s, Pf, B ivalent, 30 Mcg, IM, 12 yrs and above (Pfizer) 04/23/2022 H1N1 2009 Influenza, IM 07/07/2009 Hepatitis B, 20+ yrs 09/16/1992,04/15/1992,03/18 Pneumococcal Conjugate Vacc, 13 Valent (Prevnar) 06/04/2016 Pneumococcal Polysaccharide PPV23 (Pneumovax) 03/08/2018,11/01/2008,06/07/2008 SEASONAL INFLUENZA, PF, 6 M & Above, IM , (FLULAVAL or FLUZONE) 03/08/2018,04/01/2017 Season Influenza, Quad, PF, Adjuvanted, 65+ Yrs, IM (FLUAD) 03/12/2020 Seasonal Influenza, Quadriva lent Hd (Fluzone Hd) [...] to buy more. Never true 08/19/19 23 Within the past 12 months, t he food you bought just didn't last and you didn't have money to get more. Never true 08/19/2022 Sex and Gender Information Value Date [...] Description 07/11/2023 2:00 PM EST Imaging Radiology [facility]st [facility] 132 [facility] [place] [address] 07/29/2023 1:20 PM EST Office Visit Neurology [facility] [place] [address] [facility] [address] Cathy Allen CRNP [address] [place] [address] 09/20/2023 1:20 PM EDT Office Visit [facility] [place] [address] [place] [phone] Laurne Varela PA-C [address] [place] [address] 11/17/2023 11:30 AM EDT Office Visit Dermatology [facility] [place] 200 [place] [address] Inga Maki MD 200 [facility] [place] [address] Scheduled Procedures Name Priority Associated Diagnoses Date/Ti [...] D LEVEL ONCE IN A LIFETIME-USE SMARTSET# [id number] Completed 11/26/2022, 11/20/2021, 05/11/2021, Additional history exists GARDASIL-HPV IMMUNIZATION SERIES Aged Out No longer eligible based on patient's age to complete this topic MENINGOCOCCAL (MENACTRA/MENVEO) Aged Out No longer eligible based on patient's age to complete this topic documented as of this encounter Medical Devices Not on filedocumented as of this encounter Procedures Procedure Name Priority Date/Time Associated Diagnosis Comments OUTSIDE LAB RESULTS 06/02/2023 documented in this encounter Results * OUTSIDE LAB RESULTS (06/02/2023) 06/02/2023 No Physician Data Unknown LABORATORY documented in this encounter Care Teams Parts Data Writer Relationship Specialty Start Date End Date Lauren Varela PA-C [address] [facility] [place] [address] PCP - General Physician Principal Automation Engineer 05/11/21 documented as of this encounter
--- OUTSIDE RECORDS SUMMARY | 2023-06-24 03:12 | External Medical Summary | Summary of Care ---
Author Name Unknown Organization [facility] Address [address] [place] [address] Phone [phone] Care Team Providers Care Chicken Dresser Name Role Phone Lauren Varela PA-C Primary Care Provider [phone] Encounter Details Date Type Department Care Team (Late st Contact Info) Description 06/02/2023 Result Scan Unspecified Department David Oh MD [address] [place] [address] <No scans attached> Allergies Active Allergy Reactions Criticality Noted Date Comments Propoxyphene Hcl Itching 08/16/2000 Throat swelling Oxycodone-Acetaminophen Itching 11/10/2007 documented as of this encounter (statuses as of 06/06/2023) Medications Medication Sig Dispensed Refills Start Date [...] mouth every evening. Use pea sized amount. [place] twice a day with your normal toothpaste [...] 0.1 % Nasal Solution (Astelin) Administer 1 [place] into nostril in the morning and 1 [place] before bedtime. 30 mL 12 02/24/2023 Active [...] as of this encounter (statuses as of 06/06/2023) Active Problems Problem Noted Date Diagnosed Date [...] as of this encounter (statuses as of 06/06/2023) Resolved Problems Problem Noted Date Diagnosed Date Resolved Date Dementia without behavioral disturbance 12/24/2021 08/19/2022 Mild cognitive impairment 01/15/2021 History of nonmelanoma skin cancer 11/01/2017 09/19/2019 Overview: BCC right upper arm 2003 BCC left forearm 12/12 KA left forearm 12/13 Historical. Unspecified glaucoma 06/14/201609/18/ 020 Overview: More specific code in use. [...] as of this encounter (statuses as of 06/06/2023) Immunizations Name Administration Dates Next Due COVID-19 [...] Description 07/11/2023 2:00 PM EST Imaging Radiology [address], [address] [place] [address] 07/29/2023 1:20 PM EST Office Visit Neurology [facility] 200 [facility] [place], [place] [address] Cathy Allen CRNP [address] [facility] [place] [address] 09/20/2023 1:20 PM EDT Office Visit [facility] [address] [place] [address] Lauren Varela PA-C [address] [place] [address] 11/17/2023 11:30 AM EDT Office Visit Dermatology [facility] 200 [facility] [place] [address] Inga Maki MD 200 [facility] [place] [address] Scheduled Procedures Name Priority Associated Diagnoses Date/Ti [...] D LEVEL ONCE IN A LIFETIME-USE SMARTSET# [id number] Completed 11/26/2022, 11/20/2021, 05/11/2021, Additional history exists [...] Results * OUTSIDE LAB RESULTS (06/02/2023) 06/02/2023 David Oh MD LABORATORY documented in this encounter Care Teams Chicken Dresser Relationship Specialty Start Date End Date Lauren Varela PA-C [address] [place] [address] PCP - General Physician Associate Broker 05/11/21 documented as of this encounter
--- OUTSIDE RECORDS SUMMARY | 2023-06-24 03:12 | External Medical Summary | Summary of Care ---
Author Name Unknown Organization [facility] Address [address] [place] [address] Phone [phone] Care Team Providers Care Instructional Developer Name Role Phone Lauren Varela PA-C Primary Care Provider [phone] Reason for Visit * Reason Onset Date Comments Med Request 06/03/2023 Encounter Details Date Type Department Care Team (Late st Contact Info) Description 06/03/2023 Clam Bed Worker Telephone Care Coordination and Integration [address] [place] [address] Jennifer Trimble, MOHAN [address] [place] [address] Med Request Allergies Active Allergy Reactions Criticality Noted Date [...] mouth every evening. Use pea sized amount. [place] twice a day with your normal toothpaste [...] 08/31/2022 Active Melatonin 1 MG/ML Oral LiquidIndications: owning 2 ml by mouth at 8 pm [...] 0.1 % Nasal Solution (Astelin) Administer 1 [place] into nostril in the morning and 1 [place] before bedtime. 30 mL 12 02/24/2023 Active [...] dose. 60 Tablet 0 05/14/2023 Active Nystatin 886643 UNIT/GM External Powder (Nystop)Indication s:Skin irritation Apply topically to affected area 3 times a day. Apply to skin folds under breasts and abdomen 180 g 1 06/03/2023 Active documented as of this encounter (statuses [...] 30 Mcg, IM, 12 yrs and above ([facility]) 04/23/2022 H1N1 2009 Influenza, IM 07/07/2009 Hepatitis [...] Telephone Encounter - Lauren Varela PA-C - 06/03/2023 1:46 PM EST Sent Skin irritation (Primary) - Nystatin 815351 UNIT/GM External Powder (Nystop); Apply topically to affected area 3 times a day.Apply to skin folds under breasts and abdomen Lauren Varela PA-C 06/03/2023 1:46 PM * Telephone Encounter - Jennifer Trimble RN - 06/03/2023 1:[address] Oh/Lauren Rick, patient's calls in stating that his needs Nystatin Powder for her skin folds [facility]-please send to [facility] thanks Jennifer Trimble, RN documented in this encounter Plan of Treatment Upcoming Encounters Date Type Department Care Team (Late st Contact Info) Description 07/11/2023 2:00 PM EST Imaging Radiology [facility] 1st [facility] 132 [place] [address] 07/29/2023 1:20 PM EST Office Visit [facility] [address] [facility] [address] Cathy Allen CRNP [address] [place] [address] 09/20/2023 1:20 PM EDT Office Visit [facility] [address] [place] [phone] Lauren Varela PA-C [address] [place] [address] 11/17/2023 11:30 AM EDT Office Visit D[facility]ology [facility] [employer] 200 [facility] [place] [address] Inga Maki MD 200 [place] [address] Scheduled Procedures Name Priority Associated Diagnoses Date/Ti [...] D LEVEL ONCE IN A LIFETIME-USE SMARTSET# [id number] Completed 11/26/2022, 11/20/2021, 05/11/2021, Additional history exists GARDASIL-HPV IMMUNIZATION SERIES Aged Out No longer eligible based on patient's age to complete this topic MENINGOCOCCAL (MENACTRA/MENVEO) Aged Out No longer eligible based on patient's age to complete this topic documented as of this encounter Medical Devices Not on filedocumented as of this encounter Visit Diagnoses Diagnosis Skin irritation- Primary Unspecified disorder of skin and subcutaneous tissue documented in this encounter Care Teams Instructional Developer Relationship Specialty Start Date End Date Lauren Varela PA-C [address] [place] [address] PCP - General Physician Cardiopulmonary Technician And Eeg Tech 05/11/21 documented as of this encounter
--- OUTSIDE RECORDS SUMMARY | 2023-06-24 03:12 | External Medical Summary | Summary of Care ---
Author Name Unknown Organization [facility] Address [address] [place] [address] Phone [phone] Care Team Providers Care Donkey Engine Firer/Fireman Name Role Phone Lauren Varela PA-C Primary Care Provider [phone] Reason for Visit * Reason Onset Date Comments Advice 06/07/2023 Please see te order needs to be refaxed Encounter Details Date Type Department Care Team (Late st Contact Info) Description 06/07/2023 Telephone [facility] [address] [place] [address] Lauren Varela PA-C [address] [place] [address] Advice (Please see te 06/09/23 order needs ... Allergies Active Allergy Reactions Criticality Noted Date Comments Propoxyphene Hcl Itching 08/16/2000 Throat swelling Oxycodone-Acetaminophen Itching 11/10/2007 documented as of this encounter (statuses as of 06/09/2023) Medications Medication Sig Dispensed Refills Start Date [...] mouth every evening. Use pea sized amount. [place] twice a day with your normal toothpaste [...] 0.1 % Nasal Solution (Astelin) Administer 1 Delevan into nostril in the morning and 1 Delevan before bedtime. 30 mL 12 02/24/2023 Active [...] dose. 60 Tablet 0 05/14/2023 Active Nystatin 126591 UNIT/GM External Powder (Nystop)Indication s:Skin irritation Apply topically to affected area 3 times a day. Apply to skin folds under breasts and abdomen 180 g 1 06/03/2023 Active documented as of this encounter (statuses as of 06/09/2023) Active Problems Problem Noted Date Diagnosed Date [...] as of this encounter (statuses as of 06/09/2023) Resolved Problems Problem Noted Date Diagnosed Date [...] as of this encounter (statuses as of 06/09/2023) Immunizations Name Administration Dates Next Due COVID-19 mRNA, LNP-s, No Pre serve, 2-Dose Series (Moderna) 08/29/2020,07/31/2020 COVID-19, mRNA, LNP-s, PF, B ooster, 100mcg/0.5mg (Moderna) 12/03/2021,04/29/2021 Covid-19, Mrna, Lnp-s, Pf, B ivalent, 30 Mcg, IM, 12 yrs and above (Open Energi) 04/23/2022 H1N1 2009 Influenza, IM 07/07/2009 Hepatitis [...] encounter Miscellaneous Notes * Telephone Encounter - Claudette Chavarria LPN - 06/09/2023 2:19 PM EST [facility] * Telephone Encounter - Harika Cannon OSA - 06/09/2023 12:57 PM EST Rose Mary from [facility] calling to request officer fax order to [facility] first due to insurance * Telephone Encounter - Michelle Parker LPN - 06/09/2023 9:25 AM EST DME faxed to [facility] * Telephone Encounter - Lauren Varela PA-C - 06/07/2023 2:51 PM EST Done Please fax as below Balance disorder (Primary) - DURABLE MEDICAL EQUIPMENT 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 Name of Requesting Provider: Serge from [facility] Order Requested: Rolator walker with 4 wheels and a seat Diagnosis/Reason for Request: mobility issues/unsteady gait and lower extremity weakness. What location AND department does the patient wish to have their order completed at? [facility] Fax Number, if applicable: Call Back Number: [phone] If the caller is not a current patient, please advise the patient to call their current PCP to havethe order's prior to being seen in our office. The patient was informed that our providers would not order anything (medication, labs, etc.) prior to being seen. documented in this encounter Plan of Treatment Upcoming Encounters Date Type Department Care Team (Late st Contact Info) Description 07/11/2023 2:00 PM EST Imaging Radiology [address] [facility] [place] [address] 07/29/2023 1:20 PM EST Office Visit Neurology [facility] [address] [facility] [place] [address] Cathy Allen CRNP [address] [place] [address] 09/20/2023 1:20 PM EDT Office Visit [facility] [address] [place] [id number] Lauren Varela PA-C [address] [place] [address] 11/17/2023 11:30 AM EDT Office Visit Dermatology [facility] [address] [facility] [place] [address] Inga Maki MD [address] [facility] [place] [address] Scheduled Procedures Name Priority Associated Diagnoses Date/Ti [...] D LEVEL ONCE IN A LIFETIME-USE SMARTSET# [id number] Completed 11/26/2022, 11/20/2021, 05/11/2021, Additional history exists GARDASIL-HPV IMMUNIZATION SERIES Aged Out No longer eligible based on patient's age to complete this topic MENINGOCOCCAL (MENACTRA/MENVEO) Aged Out No longer eligible based on patient's age to complete this topic documented as of this encounter Medical Devices Not on filedocumented as of this encounter Visit Diagnoses Diagnosis Balance disorder- Primary Other symptoms involving nervous and musculoskeletal systems 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
--- OUTSIDE RECORDS SUMMARY | 2023-06-24 03:12 | External Medical Summary | Summary of Care ---
Author Name Unknown Organization [facility] Address [address] [place] [address] Phone [phone] Care Team Providers Care Media Consultant Name Role Phone Lauren Varela PA-C Primary Care Provider [phone] Encounter Details Date Type Department Care Team (Late st Contact Info) Description 06/08/2023 Manager Corporate Telephone Care Coordination and Integration [address], [place] [id number] Jennifer Trimble RN [address] [place] [address] Allergies Active Allergy Reactions Criticality Noted Date [...] mouth every evening. Use pea sized amount. [place] twice a day with your normal toothpaste [...] 0.1 % Nasal Solution (Astelin) Administer 1 [place] into nostril in the morning and 1 [place] before bedtime. 30 mL 12 02/24/2023 Active [...] dose. 60 Tablet 0 05/14/2023 Active Nystatin 608309 UNIT/GM External Powder (Nystop)Indication s:Skin irritation Apply [...] 30 Mcg, IM, 12 yrs and above (Serometrix) 04/23/2022 H1N1 2009 Influenza, IM 07/07/2009 Hepatitis [...] encounter Miscellaneous Notes * Telephone Encounter - Jennifer Trimble RN - 06/09/2023 1:29 PM EST Faxed to [facility] Jennifer Trimble RN * Telephone Encounter - Michelle Parker LPN - 06/09/2023 9:30 AM EST Was this faxed over? * Telephone Encounter - Lauren Varela PA-C - 06/08/2023 4:31 PM EST Done Omiguel ángel Varela PA-C 06/08/2023 4:31 PM * Telephone Encounter - Jennifer Trimble RN - 06/08/2023 3:36 PM EST Lauren, Patient's Prabhjot comes to the office stating that he is moving Cyndi from [facility] to [facility]. [facility] is asking for form to be completed, Adult Residential Licensing-documentation of Medical Evaluation. I have completed what I can, I will also print off her medication list. Can you please finish completing the form & sign & return to me & I will make sure it g ets to [facility] thanks Jennifer Trimble RN documented in this encounter Plan of Treatment Upcoming Encounters Date Type Department Care Team (Late st Contact Info) Description 07/11/2023 2:00 PM EST Imaging Radiology [address] [facility] [place] [address] 07/29/2023 1:20 PM EST Office Visit Neurology [facility] [address] [facility] [place] [address] Cathy Allen CRNP [address] [place] [address] 09/20/2023 1:20 PM EDT Office Visit [facility] [address] [place] [address] Lauren Varela PA-C [address] [place] [address] 11/17/2023 11:30 AM EDT Office Visit Dermatology [facility] [address] [facility] [place] [address] Inga Maki MD [address] [facility] [place] [address] Scheduled Procedures Name Priority Associated Diagnoses Date/Ti [...] D LEVEL ONCE IN A LIFETIME-USE SMARTSET# [id number] Completed 11/26/2022, 11/20/2021, 05/11/2021, Additional history exists GARDASIL-HPV IMMUNIZATION SERIES Aged Out No longer eligible based on patient's age to complete this topic MENINGOCOCCAL (MENACTRA/MENVEO) Aged Out No longer eligible based on patient's age to complete this topic documented as of this encounter Medical Devices Not on filedocumented as of this encounter Care Teams Media Consultant Relationship Specialty Start Date End Date Lauren Varela PA-C [address] [place] [address] PCP - General Physician Blocker And Cutter Contact Lens 05/11/21 documented as of this encounter
[2023-06-24] MEDS: PIPERACILLIN/TAZOBACTAM 4.5 GM in DEXTROSE 5% MINI-B 100 ML IV SCH ×3 (04:31→18:45)
[2023-06-24] MEDS: D5W AND NSS 1,000 ML IV SCH (04:31)
--- NOTE | 2023-06-24 06:37 | Ultrasound Report ---
BILATERAL LOWER EXTREMITY VENOUS DOPPLER HISTORY: b/l lower ext edema. dvt? COMPARISON STUDY: None. FINDINGS: The bilateral common femoral, superficial femoral, popliteal, anterior tibial, posterior ti bial veins are patent. Thrombus identified within the paired right peroneal veins and one of 2 left p eroneal veins. IMPRESSION: Deep vein thrombosis identified within the bilateral peroneal veins. ACT 112: Negative or not required by law. Electronically signed by: Cj De La Vega M.D. 06/24/2023 6:35 AM
[2023-06-24] MEDS ORDERED: Heparin IV Adult Wt-Based Standard *NO* INITIAL Bolus Protocol IV STA (06:47)
--- NOTE | 2023-06-24 07:02 | XRay Report ---
XR chest 1V portable HISTORY: hypoxic COMPARISON: Chest 11/27/2020. FINDINGS: There are low lung volumes. No pneumothorax. No pleural effusions. The heart remains mildly enlarged. There are bibasilar linear densities. This favors subsegmental atelectasis are scarring. O therwise, no new focal lung consolidations to suggest pneumonia. No evidence for pulmonary edema. The re are calcifications within the aortic knob. No acute fractures identified. IMPRESSION: Low lung volumes with bibasilar linear densities. This favors subsegmental atelectasis. ACT 112: Negative or not required by law. Electronically signed by: Cj De La Vega M.D. 06/24/2023 7:01 AM
[2023-06-24 07:58] LABS: Basophils # (auto) 0.01 K/uL (0.00-0.20); Basophils % (auto) 0.2 %; Eosinophils # (auto) 0.04 K/uL (0.00-0.50); Eosinophils % (auto) 0.7 %; Hematocrit (blood only) 45.2 % (37.0-47.0); Hemoglobin 14.7 g/dl (12.0-16.0); Immature Granulocytes # (auto) 0.02 K/uL (0.01-0.20); Immature Granulocytes % (auto) 0.3 %; Lymphocytes # (auto) 1.29 K/uL (1.20-3.40); Lymphocytes % (auto) 21.1 %; Mean Corpuscular Hemoglobin 28.9 pg (25.0-34.0); Mean Corpuscular Hgb Conc 32.5 g/dL (32.0-36.0); Mean Corpuscular Volume 88.8 fL (80.0-100.0); Mean Platelet Volume 10.6 fL (9.4-12.4); Monocytes # (auto) 0.68 K/uL (0.11-0.59); Monocytes % (auto) 11.1 %; Neutrophils # (auto) 4.07 K/uL (1.40-6.50); Neutrophils % (auto) 66.6 %; Platelet Count 134 K/uL (130-400); RDW Standard Deviation 49.3 fL (36.4-46.3); Red Blood Count 5.09 M/uL (4.20-5.40); White Blood Count 6.11 K/ul (4.8-10.8)
[2023-06-24 08:10] LABS: ANTI-Xa, UFH(UnfractionatedHep < 0.10 IU/ml (0.3-0.7); Partial Thromboplastin Time 27 Seconds (21-31); Prothrombin Time 11.2 Seconds (9.0-12.0)
[2023-06-24] MEDS ORDERED: OPTIRAY 320 125ml IV ONE (08:30)
[2023-06-24] MEDS: HEPARIN SODIUM/DEXTROSE 25,000 UNITS/500 ML BAG IV SCH (08:55)
[2023-06-24] MEDS ORDERED: NON-FORMULARY MEDICATION (Lysine 500 mg Tablet) PO SCH (09:00)
[2023-06-24] MEDS ORDERED: ENOXAPARIN INJ 40 MG/0.4 ML SYR SQ SCH (09:00)
[2023-06-24] MEDS: CYANOCOBALAMIN (B-12) 500 MCG TABLET PO SCH (09:03)
[2023-06-24] MEDS: CALCIUM 600MG + VIT D 400 IU TAB PO SCH (09:03)
[2023-06-24] MEDS: AZELASTINE HCL 0.1% NASAL 200 SPRAYS/27,400 MCG BTL SCH ×2 (09:03→20:48)
[2023-06-24] MEDS: ARIPIprazole 1 MG/ML ORAL SOLN 150 ML BTL PO SCH (09:03)
[2023-06-24] MEDS: DORZOLAMIDE/TIMOLOL 22.3/6.8MG/ML 10 ML BTL OPB SCH ×2 (09:03→20:48)
[2023-06-24] MEDS: LORATADINE 10 MG TAB PO SCH (09:04)
[2023-06-24] MEDS: FLUTICASONE PROPIONATE NA SPR 16 GM BTL SCH (09:04)
[2023-06-24] MEDS: FUROSEMIDE 20 MG TAB PO SCH (09:04)
[2023-06-24] MEDS: ADVANCED PROBIOTIC 1250 MG CAPSULE PO SCH (09:04)
[2023-06-24] MEDS: MICONAZOLE NITRATE POWDER 85 GM EXT SCH ×2 (09:04→20:50)
[2023-06-24] MEDS: MEMANTINE HCL 10 MG TAB PO SCH ×2 (09:04→20:49)
[2023-06-24] MEDS: OXYBUTYNIN CHLORIDE XL 5 MG TABCR PO SCH (09:05)
[2023-06-24] MEDS: MONTELUKAST SODIUM 10 MG TABLET PO SCH (09:05)
[2023-06-24] MEDS: CHLORHEXIDINE GLUCONATE 0.12% 480 ML MT SCH ×2 (09:13→20:50)
--- NOTE | 2023-06-24 09:15 | CT Scan Report ---
CHEST CTA for PULMONARY ARTERIES CT DOSE: 700.21 mGy.cm HISTORY: Hypoxia. History of DVT. TECHNIQUE: Multiaxial CT images of the chest were performed following the intravenous administration of contrast to evaluate the pulmonary arteries. 3D/Maximal intensity projection images were also obta ined. Sagittal and coronal reformations were also reviewed. A dose lowering technique was utilized a dhering to the principles of ALARA. COMPARISON STUDY: Abdomen and pelvis CT 06/23/2023. FINDINGS: Mild calcified plaque within the normal caliber thoracic aorta. No evidence for an aortic d issection. The heart is mildly enlarged. Severe coronary artery calcifications are noted. There is le ft ventricular hypertrophy. The bilateral lower lobe subsegmental pulmonary arteries or not well eval uated due to the respiratory motion artifact. Otherwise, the remaining pulmonary arteries show no carmela ling defects to suggest a pulmonary embolus. There is a 12 mm right thyroid nodule. This does not linda t CT criteria for follow-up. Limited views of the upper abdomen demonstrate a normal liver, spleen, a nd right adrenal gland. Stable left adrenal gland nodule which is partially visualized. There is a ti ny hiatus hernia. Normal caliber esophagus. No mediastinal or hilar lymphadenopathy. No pleural or pe ricardial effusions. No acute fractures within the chest. No pneumothorax. The central airways are pa tent. There is a punctate calcified granuloma within the lingula. No evidence for pulmonary edema. Bi basilar linear densities most pronounced within the lower lobes favor subsegmental atelectasis. A sup erimposed pneumonia would be difficult to exclude but is considered less likely. IMPRESSION: 1. No evidence for a pulmonary embolus with limitations as described above. 2. Bibasilar linear densities persist. This favors subsegmental atelectasis. A pneumonia could also h ave a similar appearance but is considered less likely. ACT 112: Negative or not required by law. Electronically signed by: Cj De La Vega M.D. 06/24/2023 9:13 AM
--- NOTE | 2023-06-24 12:37 | Surgery Consultation ---
Date of Consultation June 24, 2023 Assessment & Plan (1) Diverticulitis: no abdominal pain no fever or chills no active diverticulitis GI follow up more thickened sigmoid colon no need for abx will sign off Present on Admission?: Yes History of Present Illness Attending Physician: James Rodriguez MD History of Present Illness This is a 78-year-old female with past med significant for hypertension, vitamin D deficiency, history of diverticulitis, osteoporosis, severe late onset Alzheimer's dementia with psychotic disturbance, depression, currently living at personal-detention and is a plan to transfer to [place] as per the family was brought in because last night she had an episode of staring and confusion. She as also had some nausea and vomiting with diarrhea. She denies abdominal pain. Allergies Allergy/AdvReac Type Severity Reaction Status Date / Time propoxyphene Allergy Severe ITCHING,THROAT Verified 06/23/23 20:59 SWELLING oxycodone AdvReac Intermediate ITCHING/ARIA Verified 06/23/23 20:59 WSY Home Medications Medication Instructions Recorded Confirmed Type dorzolamide 22.3 mg-timolol 6.8 1 drp OPB BID ##0 08/06/09 06/23/23 History mg/mL eye drops fluticasone propionate 50 2 spray intranasal DAILY Allergy 02/11/15 06/23/23 History mcg/actuation nasal Symptoms 30 days #16 grams spray,suspension (24 Hour Allergy Relief) diclofenac sodium 1 % topical gel 1 g topical BID PRN Pain 06/30/19 06/23/23 History Lactobacil.acidophilus-Bifido.animalis 1 cap PO DAILY 06/23/23 06/23/23 History 5 billion cell sprinkle capsule (Probiotic) aripiprazole 2 mg tablet 2 mg PO QAM 06/23/23 06/23/23 History azelastine 137 mcg (0.1 %) nasal 1 spray intranasal BID 06/23/23 06/23/23 History spray aerosol benzonatate 100 mg capsule 200 mg PO TID PRN Cough 06/23/23 06/23/23 History calcium carbonate 600 mg-vitamin 1 tab PO DAILY 06/23/23 06/23/23 History D3 10 mcg (400 unit) tablet (Calcium 600 + D(3)) chlorhexidine gluconate 0.12 % 15 ml PO BID 06/23/23 06/23/23 History mouthwash cyanocobalamin (vitamin B-12) 1,000 mcg sublingual DAILY 06/23/23 06/23/23 History 1,000 mcg sublingual tablet donepezil 10 mg tablet 10 mg PO QDD 06/23/23 06/23/23 History doxycycline hyclate 100 mg capsule 100 mg PO BID 06/23/23 06/23/23 History fluoride (sodium) 1.1 % dental 1 applic dental BID 06/23/23 06/23/23 History cream (Sodium Fluoride 5000 Plus) furosemide 20 mg tablet (Lasix) 20 mg PO DAILY 06/23/23 06/23/23 History loratadine 10 mg tablet (Claritin) 10 mg PO DAILY 06/23/23 06/23/23 History lorazepam 0.5 mg tablet 0.5 mg PO TID PRN Agitation 06/23/23 06/23/23 History lysine 500 mg tablet 500 mg PO DAILY 06/23/23 06/23/23 History melatonin 1 mg/mL oral liquid 2 mg PO HS 06/23/23 06/23/23 History memantine 10 mg tablet 10 mg PO BID 06/23/23 06/23/23 History montelukast 10 mg tablet 10 mg PO DAILY 06/23/23 06/23/23 History (Singulair) nystatin 100,000 unit/gram topical 1 applic topical TID 06/23/23 06/23/23 History powder ondansetron HCl 4 mg tablet 4 mg PO Q6H PRN NAUSEA/VOMITING 06/23/23 06/23/23 History oxybutynin chloride 10 mg 10 mg PO QAM 06/23/23 06/23/23 History tablet,extended release 24 hr quetiapine 25 mg tablet 25 mg PO HS 06/23/23 06/23/23 History Patient History Medical History (Updated 06/23/23 @ 22:14 by José Winston DO) Urinary tract infection HX Pancreatitis HX Diverticulitis HX Surgical History History of right cataract surgery History of esophagogastroduodenoscopy (EGD) History of colonoscopy History of cholecystectomy S/P tubal ligation Family History Mother Colon cancer Social History Smoking Status: Never smoker Second Hand Exposure: No; Do You Dip or Chew Tobacco: No; Hx Alcohol Use: No Hx Substance Use: No Preferred Language: French Communication Ability: Effective Cash Office Worker Required: No Beliefs That Will Affect Care: None Current Living Situation: Personal Care Facility Current Living Situation Comment: Per ER - patinet from [facility], planning to transition to [facility] [place] Feels Safe at Home: Yes Safety Concerns: Feels Safe At This Time Assistive Devices: Walker Review of Systems Constitutional: + anorexia; no fever and no chills Eyes: no problem reported Ear, Nose, Mouth, Throat: no problem reported Respiratory: no cough and no dyspnea Cardiovascular: no chest pain Gastrointestinal: + nausea, + vomiting and + change in bow el habits; no abdominal pain Genitourinary: no dysuria Musculoskeletal: no problem reported Integumentary: no problem reported Neurologic: + confusion Psychiatric: no problem reported Hematologic / Lymphatic: no easy bleeding and no easy bruising Physical Exam Constitutional: well developed and well nourished Eyes: PERRL, conjunctivae normal, anicteric sclerae Neck: trachea midline Respiratory: normal respiratory effort, lungs clear to auscultation Cardiovascular: RRR, no murmur, no edema Gastrointestinal (Abdomen): Inspection/Auscultation: abdomen normal to inspection and normal bowel sounds; abdomen not distended Percussion/Palpation: abdomen soft; abdomen nontender, no guarding and abdomen not rigid Musculoskeletal: Head/Neck/Chest: normocephalic and head atraumatic Skin: no rashes, warm and dry Results & Data Vital Signs (Past 12 Hours) Vital Signs Temp Pulse Pulse Pulse Resp BP BP 06/24/23 12:03 36.8 C 80 18 152/86 H 06/24/23 08:24 36.7 C 78 18 129/79 06/24/23 08:00 76 06/24/23 04:00 36.6 C 79 18 127/73 06/24/23 02:30 75 06/24/23 02:10 36.3 C L 63 18 147/72 H 06/24/23 01:18 81 06/24/23 01:00 88 14 141/82 H Pulse Ox O2 Del Method 06/24/23 12:03 95 Room Air 12/22/23 08:24 94 Room Air 06/24/23 08:00 06/24/23 04:00 94 Room Air 06/24/23 02:30 06/24/23 02:10 98 Room Air 06/24/23 01:18 06/24/23 01:00 93 Diagnostic Findings Exam(s): CT ABDOMEN + PELVIS With Contrast IV Amt: 82 ml opti 320 EXAM: CT Abdomen and Pelvis With Intravenous Contrast CLINICAL HISTORY: Abdominal pain. TECHNIQUE: Axial computed tomography images of the abdomen and pelvis with intravenous contrast. Automated exposure control was utilized for the study. A dose lowering technique was utilized adhering to the principles of ALARA. CONTRAST: Patient received 82 ml opti 320 of IV contrast COMPARISON: CT abdomen and pelvis 11/26/2020. FINDINGS: Lung bases: Bibasilar airspace opacities are present. ABDOMEN: Liver: Unremarkable. No mass. Gallbladder and bile ducts: Cholecystectomy. No ductal dilation. Pancreas: Unremarkable. No mass. No ductal dilation. Spleen: Unremarkable. No splenomegaly. Adrenals: Stable 1.5 cm left adrenal lesion, no follow-up is needed given the stability. The right adrenal gland is unremarkable. Kidneys and ureters: Simple appearing bilateral renal cysts are present, no follow-up is needed. The kidneys are otherwise unremarkable. No hydronephrosis. Stomach and bowel: Nonspecific thickening of the sigmoid colon. No obstruction. PELVIS: Appendix: Normal appendix. Bladder: Unremarkable. No mass. Reproductive: Unremarkable as visualized. ABDOMEN and PELVIS: Intraperitoneal space: Unremarkable. No free air. No significant fluid collection. Bones/joints: No acute fracture. No dislocation. Soft tissues: Unremarkable. Vasculature: Mild atherosclerosis. No abdominal aortic aneurysm. Lymph nodes: Unremarkable. No enlarged lymph nodes. IMPRESSION: 1. Nonspecific thickening of the sigmoid colon. This could relate to diverticulitis as there are diverticula, however cannot exclude malignancy. 2. Bibasilar airspace opacities may represent pulmonary edema, atelectasis or atypical infection.
[2023-06-24 15:26] LABS: ANTI-Xa, UFH(UnfractionatedHep 0.47 IU/ml (0.3-0.7)
--- NOTE | 2023-06-24 17:00 | Hospitalist Progress Note ---
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 Acute confusion with history of dementia Now seems back to baseline Had nausea vomiting and diarrhea Was hypoxic in the ER on presentation requiring 2 L oxygen Hypoxia and diverticulitis could be cause of her confusion Acute confusion is resolved The patient has her baseline dementia Possible acute diverticulitis History of diverticulitis in the past CT abdomen pelvis showing possible diverticulitis Starting on IV Zosyn N.p.o., gentle fluids-started on clears orally Appreciate surgery input and recommended Clinically better without any acute abdomen Will continue current management Hypoxia Chest x-ray possible pulmonary congestion Recently in May she had echo because of her lower extremity edema and it showed normal EF and mild diastolic CHF She is currently on Lasix received a dose of IV Lasix in the ER Continue home dose Lasix for now and monitor Echo of the heart showed-concentric LVH, basal septum is thickened and angulated consistent with sigmoid septum, LV wall motion is normal, left ventricular systolic function is normal, LVEF is 55 to 60% and grade 1 diastolic dysfunction Bilateral DVTs Lower extremity edema Continue home dose of Lasix Continue gentle fluids we will monitor Started on intravenous heparin and will be given Eliquis/Coumadin on discharge CTA did not show any pulmonary embolism Alzheimer's dementia with psychotic disturbance On donepezil, memantine, Seroquel and Ativan as needed Will monitor Back to her baseline and does not have any acute delirium History of glaucoma Continue eyedrops DVT prophylaxis Lovenox Disposition Med//tele CODE STATUS DNR/DNI as per my discussion with the family Discussed with the family member Admission and Anticipated Discharge Date Admission Date: June 24, 2023 Subjective 06/24/2023 The patient was seen and examined in medical telemetry unit She has significant dementia and was admitted with abdominal pain and nausea Noted to have ongoing bilateral leg swelling with new DVT and also diverticulitis Has been feeling better and denies any acute symptoms Review of Systems Review of Systems: Unobtainable due to cognitive status Physical Exam Physical Exam: Lying in bed comfortably Constitutional: well developed, well nourished, + ill appearing and + obese Eyes: PERRL, conjunctivae normal, anicteric sclerae ENMT: external ear and nose normal, oropharynx normal Neck: trachea midline, no thyromegaly Respiratory: no respiratory distress Auscultation: + diminished lung sounds; no crackles Cardiovascular: Rate/Rhythm: regular rate and regular rhythm; not tachycardic Heart Sounds: normal S1 and normal S2; no murmur Extremities: + edema (1+ edema bilaterally) Gastrointestinal (Abdomen): Inspection/Auscultation: normal bowel sounds; abdomen not distended Percussion/Palpation: + abdomen tender (Only tender left lower quadrant) and abdomen soft Musculoskeletal: No acute arthritis involving any of the joint Neurologic: normal touch/pain/proprioception and moves all extremities; no focal motor deficits Lymphatic: no cervical or axillary lymphadenopathy Results & Data Results & Data Vital Signs (Past 12 Hours) Vital Signs Temp Pulse Pulse Resp BP Pulse Ox O2 Del Method 06/24/23 15:58 36.9 C 79 18 130/80 90 Room Air 06/24/23 15:00 99 H 06/24/23 12:03 36.8 C 80 18 152/86 H 95 Room Air 06/24/23 08:24 36.7 C 78 18 129/79 94 Room Air 06/24/23 08:00 Room Air 06/24/23 08:00 76 Laboratory Results Short CBC 06/23/23 06/24/23 Range/Units 17:12 07:19 WBC 5.74 6.11 (4.8-10.8) K/ul Hgb 15.2 14.7 (12.0-16.0) g/dl Hct 46.1 45.2 (37.0-47.0) % Plt Count 160 134 (130-400) K/uL BMP 06/23/23 06/23/23 17:12 18:28 Sodium 138 Potassium TNP 3.8 Chloride 107 Carbon Dioxide 22 BUN 29 H Creatinine 1.08 Glucose 115 H Calcium 8.5 L Liver Function 06/23/23 06/23/23 Range/Units 17:12 18:28 Total Bilirubin 0.9 (0.2-1.0) mg/dl AST TNP 18 ALT 13 (7-52) U/L Alkaline Phosphatase 50 (34-104) U/L Albumin 3.8 (3.4-5.0) gm/dl Urine 06/23/23 Range/Units 18:51 Urine Color Dark Yellow Urine Appearance Clear (Clear) Urine pH 5.0 (4.5-7.5) Ur Specific [place] 1.024 (1.000-1.030) Urine Protein Negative (Negative) Urine Glucose (UA) Negative (Negative) Medications Administered Current Inpatient Medications Acetaminophen (Acetaminophen 325 Mg Tab) 650 mg PO Q4H PRN PRN Reason: Pain or Fever Stop: 07/24/23 02:09 Aripiprazole (Aripiprazole 1 Mg/Ml Oral Soln 150 Ml Btl) 2 mg PO QAM [facility] Stop: 07/24/23 08:59 Last Admin: 06/24/23 09:03 Dose: 2 mg Azelastine HCl (Azelastine Hcl 0.1% Nasal 200 Sprays/27,400 Mcg Btl) 1 sprays NA BID [facility] Stop: 07/24/23 08:59 Last Admin: 06/24/23 09:03 Dose: 1 sprays Benzonatate (Benzonatate 100 Mg Capsule) 200 mg PO TID PRN PRN Reason: Cough Stop: 07/24/23 02:09 Calcium/Vitamin D (Calcium 600mg + Vit D 400 Iu Tab) 1 tab PO DAILY [facility] Stop: 07/24/23 08:59 Last Admin: 06/24/23 09:03 Dose: 1 tab Chlorhexidine Gluconate (Chlorhexidine Gluconate 0.12% 480 Ml) 15 ml MT BID [facility] Stop: 07/24/23 08:59 Last Admin: 06/24/23 09:13 Dose: 15 ml Cyanocobalamin (Cyanocobalamin (B-12) 500 Mcg Tablet) 1,000 mcg PO DAILY [facility] Stop: 07/24/23 08:59 Last Admin: 06/24/23 09:03 Dose: 1,000 mcg Diclofenac Sodium (Diclofenac Sod 1% Gel 100 Gm Tube) 1 gm EXT BID PRN; Protocol PRN Reason: Pain Stop: 07/24/23 02:09 Donepezil HCl (Donepezil Hcl 10 Mg Tab) 10 mg PO QDD [facility] Stop: 07/24/23 16:29 Dorzolamide/Timolol (Dorzolamide/Timolol 22.3/6.8mg/Ml 10 Ml Btl) 1 drops OPB BID [facility] Stop: 07/24/23 08:59 Last Admin: 06/24/23 09:03 Dose: 1 drops Fluticasone Propionate (Fluticasone Propionate Na Spr 16 Gm Btl) 2 sprays NA DAILY [facility] Stop: 07/24/23 08:59 Last Admin: 06/24/23 09:04 Dose: 2 sprays Furosemide (Furosemide 20 Mg Tab) 20 mg PO DAILY [facility] Stop: 07/24/23 08:59 Last Admin: 06/24/23 09:04 Dose: 20 mg Piperacillin Sod/Tazobactam (Sod 4.5 gm/ Dextrose) 100 mls @ 25 mls/hr IV Q8H [facility]; Protocol Stop: 07/04/23 02:59 Last Infusion: 06/24/23 14:50 Dose: Infused Dextrose/Sodium Chloride (D5w And Nss) 1,000 mls @ 50 mls/hr IV .Q20H [facility] Stop: 07/24/23 02:09 Last Admin: 06/24/23 04:31 Dose: 50 mls/hr Heparin Sodium/Dextrose (Heparin Sodium/Dextrose) 25,000 units in 500 mls @ 24 mls/hr IV .[id number] [facility]; Protocol Stop: 07/24/23 07:14 Last Admin: 06/24/23 08:55 Dose: 1,200 units/hr, 24 mls/hr Lactobacillus Acidophilus (Advanced Probiotic 1250 Mg Capsule) 2 cap PO DAILY [facility] Stop: 07/24/23 08:59 Last Admin: 06/24/23 09:04 Dose: 2 cap Loratadine (Loratadine 10 Mg Tab) 10 mg PO DAILY [facility] Stop: 07/24/23 08:59 Last Admin: 06/24/23 09:04 Dose: 10 mg Lorazepam (Lorazepam 0.5 Mg Tab) 0.5 mg PO TID PRN PRN Reason: Agitation Stop: 07/24/23 02:09 Melatonin (Melatonin 3 Mg Tab) 1.5 mg PO HS [facility] Stop: 07/24/23 20:59 Memantine (Memantine Hcl 10 Mg Tab) 10 mg PO BID [facility] Stop: 07/24/23 08:59 Last Admin: 06/24/23 09:04 Dose: 10 mg Miconazole Nitrate (Miconazole Nitrate Powder 85 Gm) 1 appln EXT BID [facility] Stop: 07/24/23 08:59 Last Admin: 06/24/23 09:04 Dose: 1 appln Montelukast Sodium (Montelukast Sodium 10 Mg Tablet) 10 mg PO DAILY [facility] Stop: 07/24/23 08:59 Last Admin: 06/24/23 09:05 Dose: 10 mg Nitroglycerin (Nitroglycerin Sl 0.4 Mg/Tab Tab) 0.4 mg SL Q5M PRN PRN Reason: Chest Pain Stop: 07/24/23 02:09 Ondansetron HCl (Ondansetron Inj 2 Mg/Ml 2 Ml Vial) 4 mg IV Q6H PRN PRN Reason: Nausea Stop: 07/24/23 02:09 Oxybutynin Chloride (Oxybutynin Chloride Xl 5 Mg Tabcr) 10 mg PO QAM [facility] Stop: 07/24/23 08:59 Last Admin: 06/24/23 09:05 Dose: 10 mg Quetiapine Fumarate (Quetiapine Fumarate 25 Mg Tablet) 25 mg PO HS [facility] Stop: 07/24/23 20:59
[2023-06-24] MEDS: DONEPEZIL HCL 10 MG TAB PO SCH (17:08)
[2023-06-24] MEDS: QUEtiapine FUMARATE 25 MG TABLET PO SCH (20:49)
[2023-06-24] MEDS: MELATONIN 3 MG TAB PO SCH (20:52)
[2023-06-25] MEDS: D5W AND NSS 1,000 ML IV SCH ×2 (01:42→22:09)
[2023-06-25] MEDS: PIPERACILLIN/TAZOBACTAM 4.5 GM in DEXTROSE 5% MINI-B 100 ML IV SCH (03:22)
[2023-06-25] MEDS: HEPARIN SODIUM/DEXTROSE 25,000 UNITS/500 ML BAG IV SCH (05:40)
[2023-06-25 06:08] LABS: Basophils # (auto) 0.02 K/uL (0.00-0.20); Basophils % (auto) 0.3 %; Eosinophils # (auto) 0.05 K/uL (0.00-0.50); Eosinophils % (auto) 0.8 %; Hematocrit (blood only) 41.5 % (37.0-47.0); Immature Granulocytes # (auto) 0.01 K/uL (0.01-0.20); Immature Granulocytes % (auto) 0.2 %; Lymphocytes # (auto) 1.47 K/uL (1.20-3.40); Mean Corpuscular Hemoglobin 29.3 pg (25.0-34.0); Mean Corpuscular Hgb Conc 33.7 g/dL (32.0-36.0); Mean Corpuscular Volume 86.8 fL (80.0-100.0); Mean Platelet Volume 10.6 fL (9.4-12.4); Monocytes # (auto) 0.72 K/uL (0.11-0.59); Monocytes % (auto) 11.3 %; Neutrophils # (auto) 4.11 K/uL (1.40-6.50); Neutrophils % (auto) 64.4 %; Platelet Count 125 K/uL (130-400); RDW Coefficient of Variation 14.9 % (11.5-14.5); RDW Standard Deviation 47.8 fL (36.4-46.3); Red Blood Count 4.78 M/uL (4.20-5.40); White Blood Count 6.38 K/ul (4.8-10.8)
[2023-06-25 06:13] LABS: Calcium 8.2 mg/dl (8.6-10.3); Creatinine Clr Calc Pharmacy 49.5 ml/min; Est GFR (African American) 62.5 ml/min; Est GFR (Non-African American) 53.9 ml/min; Potassium 3.1 mmol/L (3.5-5.1)
--- NOTE | 2023-06-25 06:16 | Electrocardiogram Report ---
Test Reason : Blood Pressure : / mmHG Vent. Rate : 099 BPM Atrial Rate : 099 BPM P-R Int : 194 ms QRS Dur : 082 ms QT Int : 348 ms P-R-T Axes : 047 -02 023 degrees QTc Int : 446 ms Sinus rhythm with frequent Premature ventricular complexes Otherwise normal ECG When compared with ECG of 13-SEP-2014 20:04, Premature ventricular complexes are now Present Vent. rate has increased BY 33 BPM Confirmed by Kwasi Foley ([id number]) on 06/25/2023 6:16:24 AM Referred By: REFERRED SELF Confirmed By:Kwasi Foley
--- NOTE | 2023-06-25 06:25 | Electrocardiogram Report ---
Test Reason : Blood Pressure : / mmHG Vent. Rate : 093 BPM Atrial Rate : 093 BPM P-R Int : 200 ms QRS Dur : 086 ms QT Int : 362 ms P-R-T Axes : 053 001 022 degrees QTc Int : 450 ms Sinus rhythm with frequent Premature ventricular complexes Otherwise normal ECG When compared with ECG of 23-JUN-2023 17:12, No significant change was found Confirmed by Kwasi Foley ([id number]) on 06/25/2023 6:25:10 AM Referred By: REFERRED SELF Confirmed By:Kwasi Foley
[2023-06-25] MEDS: FLUTICASONE PROPIONATE NA SPR 16 GM BTL SCH (08:40)
[2023-06-25] MEDS: CALCIUM 600MG + VIT D 400 IU TAB PO SCH (08:40)
[2023-06-25] MEDS: LORATADINE 10 MG TAB PO SCH (08:40)
[2023-06-25] MEDS: MEMANTINE HCL 10 MG TAB PO SCH ×2 (08:40→20:12)
[2023-06-25] MEDS: MONTELUKAST SODIUM 10 MG TABLET PO SCH (08:40)
[2023-06-25] MEDS: ADVANCED PROBIOTIC 1250 MG CAPSULE PO SCH (08:40)
[2023-06-25] MEDS: AZELASTINE HCL 0.1% NASAL 200 SPRAYS/27,400 MCG BTL SCH ×2 (08:40→20:12)
[2023-06-25] MEDS: OXYBUTYNIN CHLORIDE XL 5 MG TABCR PO SCH (08:40)
[2023-06-25] MEDS: ARIPIprazole 1 MG/ML ORAL SOLN 150 ML BTL PO SCH (08:40)
[2023-06-25] MEDS: CYANOCOBALAMIN (B-12) 500 MCG TABLET PO SCH (08:40)
[2023-06-25] MEDS: DORZOLAMIDE/TIMOLOL 22.3/6.8MG/ML 10 ML BTL OPB SCH ×2 (08:41→20:12)
[2023-06-25] MEDS: CHLORHEXIDINE GLUCONATE 0.12% 480 ML MT SCH ×2 (08:41→20:12)
[2023-06-25] MEDS: MICONAZOLE NITRATE POWDER 85 GM EXT SCH ×2 (08:44→20:13)
[2023-06-25] MEDS: FUROSEMIDE 20 MG TAB PO SCH (08:45)
[2023-06-25] MEDS ORDERED: cefTRIAXone SODIUM 1,000 MG in DEXTROSE 5 % MINI-B 50 ML IV SCH (09:45)
[2023-06-25] MEDS: cefTRIAXone SODIUM 2,000 MG in DEXTROSE 5 % MINI-B 50 ML IV SCH (11:26)
--- NOTE | 2023-06-25 14:07 | Hospitalist Progress Note ---
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 Acute metabolic and cephalopathy Acute confusion with history of dementia Now seems back to baseline Had nausea vomiting and diarrhea Was hypoxic in the ER on presentation requiring 2 L oxygen Has been saturating normally on room air Seems to be back to her baseline Hypoxia and diverticulitis could be cause of her confusion Acute confusion is resolved The patient has her baseline dementia Possible acute diverticulitis-acute diverticulitis has been ruled out History of diverticulitis in the past CT abdomen pelvis showing possible diverticulitis Starting on IV Zosyn N.p.o., gentle fluids-started on clears orally Appreciate surgery input and recommended Clinically better without any acute abdomen Will continue current management E. coli UTI Pansensitive Zosyn changed to ceftriaxone Will be continued with oral medicine on discharge Hypoxia Chest x-ray possible pulmonary congestion Recently in May she had echo because of her lower extremity edema and it showed normal EF and mild diastolic CHF She is currently on Lasix received a dose of IV Lasix in the ER Continue home dose Lasix for now and monitor Echo of the heart showed-concentric LVH, basal septum is thickened and angulated consistent with sigmoid septum, LV wall motion is normal, left ventricular systolic function is normal, LVEF is 55 to 60% and grade 1 diastolic dysfunction Has been saturating normally on room air Bilateral DVTs Lower extremity edema Continue home dose of Lasix Continue gentle fluids we will monitor Started on intravenous heparin and will be given Eliquis/Coumadin on discharge CTA did not show any pulmonary embolism Alzheimer's dementia with psychotic disturbance On donepezil, memantine, Seroquel and Ativan as needed Will monitor Back to her baseline and does not have any acute delirium History of glaucoma Continue eyedrops DVT prophylaxis Lovenox-intravenous Lovenox and will be changed to oral Eliquis on discharge Disposition Med//tele CODE STATUS DNR/DNI as per my discussion with the family Discussed with the family member Admission and Anticipated Discharge Date Admission Date: June 24, 2023 Subjective 06/24/2023 The patient was seen and examined in medical telemetry unit She has significant dementia and was admitted with abdominal pain and nausea Noted to have ongoing bilateral leg swelling with new DVT and also diverticulitis Has been feeling better and denies any acute symptoms 06/25/2023 The patient was seen and examined in medical telemetry unit She has been feeling much better Denies any significant symptoms Has been tolerating diet Review of Systems Review of Systems: All systems reviewed and are unremarkable except as noted below Physical Exam Physical Exam: Lying in bed comfortably Constitutional: well developed, well nourished, + ill appearing and + obese Eyes: PERRL, conjunctivae normal, anicteric sclerae ENMT: external ear and nose normal, oropharynx normal Neck: trachea midline, no thyromegaly Respiratory: no respiratory distress Auscultation: + diminished lung so unds; no crackles Cardiovascular: Rate/Rhythm: regular rate and regular rhythm; not tachycardic Heart Sounds: normal S1 and normal S2; no murmur Extremities: + edema (1+ edema bilaterally) Gastrointestinal (Abdomen): Inspection/Auscultation: normal bowel sounds; abdomen not distended Percussion/Palpation: + abdomen tender (Only tender left lower quadrant) and abdomen soft Neurologic: normal touch/pain/proprioception and moves all extremities; no focal motor deficits Lymphatic: no cervical or axillary lymphadenopathy Results & Data Results & Data Vital Signs (Past 12 Hours) Vital Signs Temp Pulse Pulse Resp BP Pulse Ox O2 Del Method 06/25/23 11:42 36.9 C 73 18 123/77 94 Room Air 06/25/23 10:32 Room Air 06/25/23 08:03 36.7 C 70 18 122/77 94 Room Air 06/25/23 07:27 72 06/25/23 04:56 36.6 C 68 18 145/79 H 95 Room Air Laboratory Results Short CBC 06/25/23 Range/Units 05:31 WBC 6.38 (4.8-10.8) K/ul Hgb 14.0 (12.0-16.0) g/dl Hct 41.5 (37.0-47.0) % Plt Count 125 L (130-400) K/uL BMP 06/25/23 05:31 Sodium 141 Potassium 3.1 L Chloride 109 H Carbon Dioxide 26 BUN 12 Creatinine 1.00 Glucose 129 H Calcium 8.2 L Medications Administered Current Inpatient Medications Acetaminophen (Acetaminophen 325 Mg Tab) 650 mg PO Q4H PRN PRN Reason: Pain or Fever Stop: 07/24/23 02:09 Aripiprazole (Aripiprazole 1 Mg/Ml Oral Soln 150 Ml Btl) 2 mg PO QAM [facility] Stop: 07/24/23 08:59 Last Admin: 06/25/23 08:40 Dose: 2 mg Azelastine HCl (Azelastine Hcl 0.1% Nasal 200 Sprays/27,400 Mcg Btl) 1 sprays NA BID [facility] Stop: 07/24/23 08:59 Last Admin: 06/25/23 08:40 Dose: 1 sprays Benzonatate (Benzonatate 100 Mg Capsule) 200 mg PO TID PRN PRN Reason: Cough Stop: 07/24/23 02:09 Calcium/Vitamin D (Calcium 600mg + Vit D 400 Iu Tab) 1 tab PO DAILY [facility] Stop: 07/24/23 08:59 Last Admin: 06/25/23 08:40 Dose: 1 tab Chlorhexidine Gluconate (Chlorhexidine Gluconate 0.12% 480 Ml) 15 ml MT BID [facility] Stop: 07/24/23 08:59 Last Admin: 06/25/23 08:41 Dose: 15 ml Cyanocobalamin (Cyanocobalamin (B-12) 500 Mcg Tablet) 1,000 mcg PO DAILY [facility] Stop: 07/24/23 08:59 Last Admin: 06/25/23 08:40 Dose: 1,000 mcg Diclofenac Sodium (Diclofenac Sod 1% Gel 100 Gm Tube) 1 gm EXT BID PRN; Protocol PRN Reason: Pain Stop: 07/24/23 02:09 Donepezil HCl (Donepezil Hcl 10 Mg Tab) 10 mg PO QDD [facility] Stop: 07/24/23 16:29 Last Admin: 06/24/23 17:08 Dose: 10 mg Dorzolamide/Timolol (Dorzolamide/Timolol 22.3/6.8mg/Ml 10 Ml Btl) 1 drops OPB BID [facility] Stop: 07/24/23 08:59 Last Admin: 06/25/23 08:41 Dose: 1 drops Fluticasone Propionate (Fluticasone Propionate Na Spr 16 Gm Btl) 2 sprays NA DAILY [facility] Stop: 07/24/23 08:59 Last Admin: 06/25/23 08:40 Dose: 2 sprays Furosemide (Furosemide 20 Mg Tab) 20 mg PO DAILY [facility] Stop: 07/24/23 08:59 Last Admin: 06/25/23 08:45 Dose: 20 mg Dextrose/Sodium Chloride (D5w And Nss) 1,000 mls @ 50 mls/hr IV .Q20H [facility] Stop: 07/24/23 02:09 Last Admin: 06/25/23 01:42 Dose: 50 mls/hr Heparin Sodium/Dextrose (Heparin Sodium/Dextrose) 25,000 units in 500 mls @ 24 mls/hr IV .[id number] [facility]; Protocol Stop: 07/24/23 07:14 Last Titration: 06/25/23 06:58 Dose: 1,200 units/hr, 24 mls/hr Ceftriaxone Sodium 2,000 mg/ (Dextrose) 50 mls @ 100 mls/hr IV Q24H [facility] Stop: 06/30/23 10:59 Last Infusion: 06/25/23 11:58 Dose: Infused Lactobacillus Acidophilus (Advanced Probiotic 1250 Mg Capsule) 2 cap PO DAILY [facility] Stop: 07/24/23 08:59 Last Admin: 06/25/23 08:40 Dose: 2 cap Loratadine (Loratadine 10 Mg Tab) 10 mg PO DAILY [facility] Stop: 07/24/23 08:59 Last Admin: 06/25/23 08:40 Dose: 10 mg Lorazepam (Lorazepam 0.5 Mg Tab) 0.5 mg PO TID PRN PRN Reason: Agitation Stop: 07/24/23 02:09 Melatonin (Melatonin 3 Mg Tab) 1.5 mg PO HS [facility] Stop: 07/24/23 20:59 Last Admin: 06/24/23 20:52 Dose: 1.5 mg Memantine (Memantine Hcl 10 Mg Tab) 10 mg PO BID [facility] Stop: 07/24/23 08:59 Last Admin: 06/25/23 08:40 Dose: 10 mg Miconazole Nitrate (Miconazole Nitrate Powder 85 Gm) 1 appln EXT BID [facility] Stop: 07/24/23 08:59 Last Admin: 06/25/23 08:44 Dose: 1 appln Montelukast Sodium (Montelukast Sodium 10 Mg Tablet) 10 mg PO DAILY [facility] Stop: 07/24/23 08:59 Last Admin: 06/25/23 08:40 Dose: 10 mg Nitroglycerin (Nitroglycerin Sl 0.4 Mg/Tab Tab) 0.4 mg SL Q5M PRN PRN Reason: Chest Pain Stop: 07/24/23 02:09 Ondansetron HCl (Ondansetron Inj 2 Mg/Ml 2 Ml Vial) 4 mg IV Q6H PRN PRN Reason: Nausea Stop: 07/24/23 02:09 Oxybutynin Chloride (Oxybutynin Chloride Xl 5 Mg Tabcr) [facility] Stop: 07/24/23 08:59 Last Admin: 06/25/23 08:40 Dose: 10 mg Quetiapine Fumarate (Quetiapine Fumarate 25 Mg Tablet) 25 mg PO HS [facility] Stop: 07/24/23 20:59 Last Admin: 06/24/23 20:49 Dose: 25 mg
[2023-06-25] MEDS ORDERED: Nursing to Pharmacy Communication SCH (16:00)
[2023-06-25] MEDS: DONEPEZIL HCL 10 MG TAB PO SCH (16:22)
[2023-06-25] MEDS: QUEtiapine FUMARATE 25 MG TABLET PO SCH (20:11)
[2023-06-25] MEDS: MELATONIN 3 MG TAB PO SCH (20:11)
[2023-06-26] MEDS: HEPARIN SODIUM/DEXTROSE 25,000 UNITS/500 ML BAG IV SCH (03:55)
[2023-06-26 08:16] LABS: ANTI-Xa, UFH(UnfractionatedHep 0.61 IU/ml (0.3-0.7)
[2023-06-26] MEDS: FUROSEMIDE 20 MG TAB PO SCH (08:30)
[2023-06-26] MEDS: AZELASTINE HCL 0.1% NASAL 200 SPRAYS/27,400 MCG BTL SCH ×2 (08:31→20:37)
[2023-06-26] MEDS: ARIPIprazole 1 MG/ML ORAL SOLN 150 ML BTL PO SCH (08:31)
[2023-06-26] MEDS: FLUTICASONE PROPIONATE NA SPR 16 GM BTL SCH (08:31)
[2023-06-26] MEDS: CHLORHEXIDINE GLUCONATE 0.12% 480 ML MT SCH ×2 (08:32→20:37)
[2023-06-26] MEDS: CALCIUM 600MG + VIT D 400 IU TAB PO SCH (08:32)
[2023-06-26] MEDS: ADVANCED PROBIOTIC 1250 MG CAPSULE PO SCH (08:33)
[2023-06-26] MEDS: DORZOLAMIDE/TIMOLOL 22.3/6.8MG/ML 10 ML BTL OPB SCH ×2 (08:33→20:37)
[2023-06-26] MEDS: CYANOCOBALAMIN (B-12) 500 MCG TABLET PO SCH (08:33)
[2023-06-26] MEDS: LORATADINE 10 MG TAB PO SCH (08:33)
[2023-06-26] MEDS: MONTELUKAST SODIUM 10 MG TABLET PO SCH (08:34)
[2023-06-26] MEDS: MICONAZOLE NITRATE POWDER 85 GM EXT SCH ×2 (08:34→20:38)
[2023-06-26] MEDS: MEMANTINE HCL 10 MG TAB PO SCH ×2 (08:34→20:33)
[2023-06-26] MEDS: OXYBUTYNIN CHLORIDE XL 5 MG TABCR PO SCH (08:35)
[2023-06-26] MEDS: POTASSIUM CHLORIDE CRTAB 20 MEQ TABCR PO SCH ×2 (10:05→20:38)
[2023-06-26] MEDS: cefTRIAXone SODIUM 2,000 MG in DEXTROSE 5 % MINI-B 50 ML IV SCH (10:49)
--- NOTE | 2023-06-26 13:14 | Hospitalist Progress Note ---
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 Acute metabolic and cephalopathy Acute confusion with history of dementia Now seems back to baseline Had nausea vomiting and diarrhea Was hypoxic in the ER on presentation requiring 2 L oxygen Has been saturating normally on room air Acute metabolic encephalopathy resolved and she is back to her baseline Hypoxia and diverticulitis could be cause of her confusion Acute confusion is resolved Has been saturating normally on room air Possible acute diverticulitis-acute diverticulitis has been ruled out History of diverticulitis in the past CT abdomen pelvis showing possible diverticulitis Starting on IV Zosyn N.p.o., gentle fluids-started on clears orally Appreciate surgery input and recommended Clinically better without any acute abdomen Will continue current management Antibiotics have been discontinued for diverticulitis Denies any abdominal pain E. coli UTI Pansensitive Zosyn changed to ceftriaxone Will be continued with oral medicine on discharge Hypoxia Chest x-ray possible pulmonary congestion Recently in May she had echo because of her lower extremity edema and it showed normal EF and mild diastolic CHF She is currently on Lasix received a dose of IV Lasix in the ER Continue home dose Lasix for now and monitor Echo of the heart showed-concentric LVH, basal septum is thickened and angulated consistent with sigmoid septum, LV wall motion is normal, left ventricular systolic function is normal, LVEF is 55 to 60% and grade 1 diastolic dysfunction Has been saturating normally on room air Bilateral DVTs Lower extremity edema Continue home dose of Lasix Continue gentle fluids we will monitor Started on intravenous heparin and will be given Eliquis/Coumadin on discharge CTA did not show any pulmonary embolism Will give her Eliquis on discharge Alzheimer's dementia with psychotic disturbance On donepezil, memantine, Seroquel and Ativan as needed Will monitor Back to her baseline and does not have any acute delirium History of glaucoma Continue eyedrops DVT prophylaxis Lovenox-intravenous Lovenox and will be changed to oral Eliquis on discharge Disposition Med//tele CODE STATUS DNR/DNI as per my discussion with the family Discussed with the family member Discussed with the daughter in detailed Admission and Anticipated Discharge Date Admission Date: June 24, 2023 Subjective 06/24/2023 The patient was seen and examined in medical telemetry unit She has significant dementia and was admitted with abdominal pain and nausea Noted to have ongoing bilateral leg swelling with new DVT and also diverticulitis Has been feeling better and denies any acute symptoms 06/25/2023 The patient was seen and examined in medical telemetry unit She has been feeling much better Denies any significant symptoms Has been tolerating diet 06/26/2023 The patient was seen and examined in medical telemetry unit She has been feeling much better and is out of bed on a chair Denies any acute symptoms Remains pleasantly confused from dementia Review of Systems Review of Systems: All systems reviewed and are unremarkable except as noted below Physical Exam Physical Exam: Sitting on a chair without any acute distress Constitutional: well developed, well nourished, + ill appearing and + obese Eyes: PERRL, conjunctivae normal, anicteric sclerae ENMT: external ear and nose normal, oropharynx normal Neck: trachea midline, no thyromegaly Respiratory: no respiratory distress Auscultation: + diminished lung sounds; no crackles Cardiovascular: Rate/Rhythm: regular rate and regular rhythm; not tachycardic Heart Sounds: normal S1 and normal S2; no murmur Extremities: + edema (1+ edema bilaterally) Gastrointestinal (Abdomen): Inspection/Auscultation: normal bowel sounds; abdomen not distended Percussion/Palpation: + abdomen tender (Only tender left lower quadrant) and abdomen soft Musculoskeletal: No acute arthritis involving any joint Neurologic: normal touch/pain/proprioception and moves all extremities; no focal motor deficits Lymphatic: no cervical or axillary lymphadenopathy Results & Data Results & Data Vital Signs (Past 12 Hours) Vital Signs Temp Pulse Pulse Resp BP Pulse Ox O2 Del Method 06/26/23 11:18 37.1 C 64 18 134/77 95 Room Air 06/26/23 07:58 Room Air 06/26/23 07:32 36.5 C 90 18 155/96 H 94 Room Air 06/26/23 06:00 63 06/26/23 02:14 36.5 C 81 18 132/82 93 Room Air Medications Administered Current Inpatient Medications Acetaminophen (Acetaminophen 325 Mg Tab) 650 mg PO Q4H PRN PRN Reason: Pain or Fever Stop: 07/24/23 02:09 Aripiprazole (Aripiprazole 1 Mg/Ml Oral Soln 150 Ml Btl) 2 mg PO QAM [facility] Stop: 07/24/23 08:59 Last Admin: 06/26/23 08:31 Dose: 2 mg Azelastine HCl (Azelastine Hcl 0.1% Nasal 200 Sprays/27,400 Mcg Btl) 1 sprays NA BID [facility] Stop: 07/24/23 08:59 Last Admin: 06/26/23 08:31 Dose: 1 sprays Benzonatate (Benzonatate 100 Mg Capsule) 200 mg PO TID PRN PRN Reason: Cough Stop: 07/24/23 02:09 Calcium/Vitamin D (Calcium 600mg + Vit D 400 Iu Tab) 1 tab PO DAILY [facility] Stop: 07/24/23 08:59 Last Admin: 06/26/23 08:32 Dose: 1 tab Chlorhexidine Gluconate (Chlorhexidine Gluconate 0.12% 480 Ml) 15 ml MT BID [facility] Stop: 07/24/23 08:59 Last Admin: 06/26/23 08:32 Dose: 15 ml Cyanocobalamin (Cyanocobalamin (B-12) 500 Mcg Tablet) 1,000 mcg PO DAILY [facility] Stop: 07/24/23 08:59 Last Admin: 06/26/23 08:33 Dose: 1,000 mcg Diclofenac Sodium (Diclofenac Sod 1% Gel 100 Gm Tube) 1 gm EXT BID PRN; Protocol PRN Reason: Pain Stop: 07/24/23 02:09 Donepezil HCl (Donepezil Hcl 10 Mg Tab) 10 mg PO QDD [facility] Stop: 07/24/23 16:29 Last Admin: 06/25/23 16:22 Dose: 10 mg Dorzolamide/Timolol (Dorzolamide/Timolol 22.3/6.8mg/Ml 10 Ml Btl) 1 drops OPB BID [facility] Stop: 07/24/23 08:59 Last Admin: 06/26/23 08:33 Dose: 1 drops Fluticasone Propionate (Fluticasone Propionate Na Spr 16 Gm Btl) 2 sprays NA DAILY [facility] Stop: 07/24/23 08:59 Last Admin: 06/26/23 08:31 Dose: 2 sprays Furosemide (Furosemide 20 Mg Tab) 20 mg PO DAILY [facility] Stop: 07/24/23 08:59 Last Admin: 06/26/23 08:30 Dose: 20 mg Dextrose/Sodium Chloride (D5w And Nss) 1,000 mls @ 50 mls/hr IV .Q20H [facility] Stop: 07/24/23 02:09 Last Infusion: 06/26/23 10:53 Dose: 0 mls/hr Heparin Sodium/Dextrose (Heparin Sodium/Dextrose) 25,000 units in 500 mls @ 24 mls/hr IV .[id number] [facility]; Protocol Stop: 07/24/23 07:14 Last Titration: 06/26/23 08:29 Dose: 1,200 units/hr, 24 mls/hr Ceftriaxone Sodium 2,000 mg/ (Dextrose) 50 mls @ 100 mls/hr IV Q24H [facility] Stop: 06/30/23 10:59 Last Infusion: 06/26/23 11:05 Dose: Infused Lactobacillus Acidophilus (Advanced Probiotic 1250 Mg Capsule) 2 cap PO DAILY [facility] Stop: 07/24/23 08:59 Last Admin: 06/26/23 08:33 Dose: 2 cap Loratadine (Loratadine 10 Mg Tab) 10 mg PO DAILY [facility] Stop: 07/24/23 08:59 Last Admin: 06/26/23 08:33 Dose: 10 mg Lorazepam (Lorazepam 0.5 Mg Tab) 0.5 mg PO TID PRN PRN Reason: Agitation Stop: 07/24/23 02:09 Melatonin (Melatonin 3 Mg Tab) 1.5 mg PO HS [facility] Stop: 07/24/23 20:59 Last Admin: 06/25/23 20:11 Dose: 1.5 mg Memantine (Memantine Hcl 10 Mg Tab) 10 mg PO BID [facility] Stop: 07/24/23 08:59 Last Admin: 06/26/23 08:34 Dose: 10 mg Miconazole Nitrate (Miconazole Nitrate Powder 85 Gm) 1 appln EXT BID [facility] Stop: 07/24/23 08:59 Last Admin: 06/26/23 08:34 Dose: 1 appln Montelukast Sodium (Montelukast Sodium 10 Mg Tablet) 10 mg PO DAILY [facility] Stop: 07/24/23 08:59 Last Admin: 06/26/23 08:34 Dose: 10 mg Nitroglycerin (Nitroglycerin Sl 0.4 Mg/Tab Tab) 0.4 mg SL Q5M PRN PRN Reason: Chest Pain Stop: 07/24/23 02:09 Ondansetron HCl (Ondansetron Inj 2 Mg/Ml 2 Ml Vial) 4 mg IV Q6H PRN PRN Reason: Nausea Stop: 07/24/23 02:09 Oxybutynin Chloride (Oxybutynin Chloride Xl 5 Mg Tabcr) 10 mg PO QAM [facility] Stop: 07/24/23 08:59 Last Admin: 06/26/23 08:35 Dose: 10 mg Potassium Chloride (Potassium Chloride Crtab 20 Meq Tabcr) 20 meq PO BID [facility] Stop: 07/26/23 09:29 Last Admin: 06/26/23 10:05 Dose: 20 meq Quetiapine Fumarate (Quetiapine Fumarate 25 Mg Tablet) 25 mg PO HS [facility] Stop: 07/24/23 20:59 Last Admin: 06/25/23 20:11 Dose: 25 mg
[2023-06-26] MEDS: DONEPEZIL HCL 10 MG TAB PO SCH (16:30)
[2023-06-26] MEDS ORDERED: Nursing to Pharmacy Communication SCH (16:30)
[2023-06-26] MEDS: QUEtiapine FUMARATE 25 MG TABLET PO SCH (20:33)
[2023-06-26] MEDS: MELATONIN 3 MG TAB PO SCH (20:34)
[2023-06-27] MEDS: HEPARIN SODIUM/DEXTROSE 25,000 UNITS/500 ML BAG IV SCH ×2 (01:41→19:57)
[2023-06-27 06:02] LABS: BUN Creatinine Ratio 9.8 (10-20); Calcium 8.5 mg/dl (8.6-10.3); Creatinine Clr Calc Pharmacy 48.8 ml/min; Est GFR (Non-African American) 52.6 ml/min; Potassium 3.5 mmol/L (3.5-5.1)
[2023-06-27 06:09] LABS: ANTI-Xa, UFH(UnfractionatedHep 0.58 IU/ml (0.3-0.7)
[2023-06-27] MEDS: CHLORHEXIDINE GLUCONATE 0.12% 480 ML MT SCH ×2 (09:22→21:15)
[2023-06-27] MEDS: AZELASTINE HCL 0.1% NASAL 200 SPRAYS/27,400 MCG BTL SCH ×2 (09:22→21:15)
[2023-06-27] MEDS: DORZOLAMIDE/TIMOLOL 22.3/6.8MG/ML 10 ML BTL OPB SCH ×2 (09:22→21:15)
[2023-06-27] MEDS: FLUTICASONE PROPIONATE NA SPR 16 GM BTL SCH (09:22)
[2023-06-27] MEDS: MEMANTINE HCL 10 MG TAB PO SCH ×2 (09:23→21:14)
[2023-06-27] MEDS: CALCIUM 600MG + VIT D 400 IU TAB PO SCH (09:23)
[2023-06-27] MEDS: POTASSIUM CHLORIDE CRTAB 20 MEQ TABCR PO SCH ×2 (09:23→21:14)
[2023-06-27] MEDS: ARIPIprazole 1 MG/ML ORAL SOLN 150 ML BTL PO SCH (09:23)
[2023-06-27] MEDS: CYANOCOBALAMIN (B-12) 500 MCG TABLET PO SCH (09:24)
[2023-06-27] MEDS: LORATADINE 10 MG TAB PO SCH (09:24)
[2023-06-27] MEDS: ADVANCED PROBIOTIC 1250 MG CAPSULE PO SCH (09:24)
[2023-06-27] MEDS: FUROSEMIDE 20 MG TAB PO SCH (09:24)
[2023-06-27] MEDS: MONTELUKAST SODIUM 10 MG TABLET PO SCH (09:24)
[2023-06-27] MEDS: OXYBUTYNIN CHLORIDE XL 5 MG TABCR PO SCH (09:25)
[2023-06-27] MEDS: MICONAZOLE NITRATE POWDER 85 GM EXT SCH ×2 (09:26→21:16)
[2023-06-27] MEDS: cefTRIAXone SODIUM 2,000 MG in DEXTROSE 5 % MINI-B 50 ML IV SCH (10:39)
--- NOTE | 2023-06-27 11:49 | Hospitalist Progress Note ---
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 Acute metabolic and cephalopathy Acute confusion with history of dementia Now seems back to baseline Had nausea vomiting and diarrhea Was hypoxic in the ER on presentation requiring 2 L oxygen Has been saturating normally on room air Acute metabolic encephalopathy resolved and she is back to her baseline Remains stable and no delirium Hypoxia and diverticulitis could be cause of her confusion Acute confusion is resolved Has been saturating normally on room air No respiratory symptoms Possible acute diverticulitis-acute diverticulitis has been ruled out History of diverticulitis in the past CT abdomen pelvis showing possible diverticulitis Starting on IV Zosyn N.p.o., gentle fluids-started on clears orally Appreciate surgery input and recommended Clinically better without any acute abdomen Will continue current management Antibiotics have been discontinued for diverticulitis Denies any abdominal pain E. coli UTI Pansensitive Zosyn changed to ceftriaxone Will be continued with oral medicine on discharge Hypoxia Chest x-ray possible pulmonary congestion Recently in May she had echo because of her lower extremity edema and it showed normal EF and mild diastolic CHF She is currently on Lasix received a dose of IV Lasix in the ER Continue home dose Lasix for now and monitor Echo of the heart showed-concentric LVH, basal septum is thickened and angulated consistent with sigmoid septum, LV wall motion is normal, left ventricular systolic function is normal, LVEF is 55 to 60% and grade 1 diastolic dysfunction Has been saturating normally on room air Bilateral DVTs Lower extremity edema Continue home dose of Lasix Continue gentle fluids we will monitor Started on intravenous heparin and will be given Eliquis/Coumadin on discharge CTA did not show any pulmonary embolism Will give her Eliquis on discharge Will start Eliquis from today Alzheimer's dementia with psychotic disturbance On donepezil, memantine, Seroquel and Ativan as needed Will monitor Back to her baseline and does not have any acute delirium History of glaucoma Continue eyedrops DVT prophylaxis Lovenox-intravenous Lovenox and will be changed to oral Eliquis on discharge Disposition Med//tele CODE STATUS DNR/DNI as per my discussion with the family Discussed with the family member Discussed with the daughter in detailed Admission and Anticipated Discharge Date Admission Date: June 24, 2023 Subjective 06/24/2023 The patient was seen and examined in medical telemetry unit She has significant dementia and was admitted with abdominal pain and nausea Noted to have ongoing bilateral leg swelling with new DVT and also diverticulitis Has been feeling better and denies any acute symptoms 06/25/2023 The patient was seen and examined in medical telemetry unit She has been feeling much better Denies any significant symptoms Has been tolerating diet 06/26/2023 The patient was seen and examined in medical telemetry unit She has been feeling much better and is out of bed on a chair Denies any acute symptoms Remains pleasantly confused from dementia 06/27/2023 The patient was seen and examined in medical telemetry unit She is out of bed on a chair and has been feeling a lot better Denies any significant symptoms Review of Systems Review of Systems: All systems reviewed and are unremarkable except as noted below Physical Exam Physical Exam: Sitting on a chair without any acute distress Constitutional: well developed, well nourished, + ill appearing and + obese Eyes: PERRL, conjunctivae normal, anicteric sclerae ENMT: external ear and nose normal, oropharynx normal Neck: trachea midline, no thyromegaly Respiratory: no respiratory distress Auscultation: + diminished lung sounds; no crackles Cardiovascular: Rate/Rhythm: regular rate and regular rhythm; not tachycardic Heart Sounds: normal S1 and normal S2; no murmur Extremities: + edema (1+ edema bilaterally) Gastrointestinal (Abdomen): Inspection/Auscultation: normal bowel sounds; abdomen not distended Percussion/Palpation: + abdomen tender (Only tender l eft lower quadrant) and abdomen soft Musculoskeletal: No acute arthritis involving any of the joint Neurologic: normal touch/pain/proprioception and moves all extremities; no focal motor deficits Lymphatic: no cervical or axillary lymphadenopathy Results & Data Results & Data Vital Signs (Past 12 Hours) Vital Signs Temp Pulse Pulse Resp BP BP Pulse Ox 06/27/23 11:34 36.6 C 63 16 112/72 94 06/27/23 07:39 36.8 C 56 L 16 131/81 93 06/27/23 06:00 70 06/27/23 04:47 36.9 C 62 18 129/83 92 06/27/23 00:44 36.7 C 74 20 123/67 93 O2 Del Method 06/27/23 11:34 Room Air 06/27/23 07:39 Room Air 06/27/23 06:00 06/27/23 04:47 Room Air 06/27/23 00:44 Room Air Laboratory Results [facility] 06/27/23 05:32 Sodium 143 Potassium 3.5 Chloride 110 H Carbon Dioxide 26 BUN 10 Creatinine 1.02 Glucose 99 Calcium 8.5 L Medications Administered Current Inpatient Medications Acetaminophen (Acetaminophen 325 Mg Tab) 650 mg PO Q4H PRN PRN Reason: Pain or Fever Stop: 07/24/23 02:09 Aripiprazole (Aripiprazole 1 Mg/Ml Oral Soln 150 Ml Btl) 2 mg PO QAM [facility] Stop: 07/24/23 08:59 Last Admin: 06/27/23 09:23 Dose: 2 mg Azelastine HCl (Azelastine Hcl 0.1% Nasal 200 Sprays/27,400 Mcg Btl) 1 sprays NA BID [facility] Stop: 07/24/23 08:59 Last Admin: 06/27/23 09:22 Dose: 1 sprays Benzonatate (Benzonatate 100 Mg Capsule) 200 mg PO TID PRN PRN Reason: Cough Stop: 07/24/23 02:09 Calcium/Vitamin D (Calcium 600mg + Vit D 400 Iu Tab) 1 tab PO DAILY [facility] Stop: 07/24/23 08:59 Last Admin: 06/27/23 09:23 Dose: 1 tab Chlorhexidine Gluconate (Chlorhexidine Gluconate 0.12% 480 Ml) 15 ml MT BID [facility] Stop: 07/24/23 08:59 Last Admin: 06/27/23 09:22 Dose: 15 ml Cyanocobalamin (Cyanocobalamin (B-12) 500 Mcg Tablet) 1,000 mcg PO DAILY [facility] Stop: 07/24/23 08:59 Last Admin: 06/27/23 09:24 Dose: 1,000 mcg Diclofenac Sodium (Diclofenac Sod 1% Gel 100 Gm Tube) 1 gm EXT BID PRN; Protocol PRN Reason: Pain Stop: 07/24/23 02:09 Donepezil HCl (Donepezil Hcl 10 Mg Tab) 10 mg PO QDD [facility] Stop: 07/24/23 16:29 Last Admin: 06/26/23 16:30 Dose: 10 mg Dorzolamide/Timolol (Dorzolamide/Timolol 22.3/6.8mg/Ml 10 Ml Btl) 1 drops OPB BID [facility] Stop: 07/24/23 08:59 Last Admin: 06/27/23 09:22 Dose: 1 drops Fluticasone Propionate (Fluticasone Propionate Na Spr 16 Gm Btl) 2 sprays NA DAILY [facility] Stop: 07/24/23 08:59 Last Admin: 06/27/23 09:22 Dose: 2 sprays Furosemide (Furosemide 20 Mg Tab) 20 mg PO DAILY [facility] Stop: 07/24/23 08:59 Last Admin: 06/27/23 09:24 Dose: 20 mg Heparin Sodium/Dextrose (Heparin Sodium/Dextrose) 25,000 units in 500 mls @ 24 mls/hr IV .[id number] [facility]; Protocol Stop: 07/24/23 07:14 Last Titration: 06/27/23 08:09 Dose: 1,200 units/hr, 24 mls/hr Ceftriaxone Sodium 2,000 mg/ (Dextrose) 50 mls @ 100 mls/hr IV Q24H [facility] Stop: 06/30/23 10:59 Last Infusion: 06/27/23 11:14 Dose: Infused Lactobacillus Acidophilus (Advanced Probiotic 1250 Mg Capsule) 2 cap PO DAILY [facility] Stop: 07/24/23 08:59 Last Admin: 06/27/23 09:24 Dose: 2 cap Loratadine (Loratadine 10 Mg Tab) 10 mg PO DAILY [facility] Stop: 07/24/23 08:59 Last Admin: 06/27/23 09:24 Dose: 10 mg Lorazepam (Lorazepam 0.5 Mg Tab) 0.5 mg PO TID PRN PRN Reason: Agitation Stop: 07/24/23 02:09 Melatonin (Melatonin 3 Mg Tab) 1.5 mg PO HS [facility] Stop: 07/24/23 20:59 Last Admin: 06/26/23 20:34 Dose: 1.5 mg Memantine (Memantine Hcl 10 Mg Tab) 10 mg PO BID [facility] Stop: 07/24/23 08:59 Last Admin: 06/27/23 09:23 Dose: 10 mg Miconazole Nitrate (Miconazole Nitrate Powder 85 Gm) 1 appln EXT BID [facility] Stop: 07/24/23 08:59 Last Admin: 06/27/23 09:26 Dose: 1 appln Montelukast Sodium (Montelukast Sodium 10 Mg Tablet) 10 mg PO DAILY [facility] Stop: 07/24/23 08:59 Last Admin: 06/27/23 09:24 Dose: 10 mg Nitroglycerin (Nitroglycerin Sl 0.4 Mg/Tab Tab) 0.4 mg SL Q5M PRN PRN Reason: Chest Pain Stop: 07/24/23 02:09 Ondansetron HCl (Ondansetron Inj 2 Mg/Ml 2 Ml Vial) 4 mg IV Q6H PRN PRN Reason: Nausea Stop: 07/24/23 02:09 Oxybutynin Chloride (Oxybutynin Chloride Xl 5 Mg Tabcr) 10 mg PO QAM [facility] Stop: 07/24/23 08:59 Last Admin: 06/27/23 09:25 Dose: 10 mg Potassium Chloride (Potassium Chloride Crtab 20 Meq Tabcr) 20 meq PO BID [facility] Stop: 07/26/23 09:29 Last Admin: 06/27/23 09:23 Dose: 20 meq Quetiapine Fumarate (Quetiapine Fumarate 25 Mg Tablet) 25 mg PO HS [facility] Stop: 07/24/23 20:59 Last Admin: 06/26/23 20:33 Dose: 25 mg
[2023-06-27] MEDS: DONEPEZIL HCL 10 MG TAB PO SCH (16:05)
[2023-06-27] MEDS: APIXABAN 5 MG TABLET PO SCH (21:13)
[2023-06-27] MEDS: QUEtiapine FUMARATE 25 MG TABLET PO SCH (21:14)
[2023-06-27] MEDS: MELATONIN 3 MG TAB PO SCH (21:17)
[2023-06-28 08:33] LABS: ANTI-Xa, UFH(UnfractionatedHep 1.28 IU/ml (0.3-0.7)
[2023-06-28] MEDS: APIXABAN 5 MG TABLET PO SCH ×2 (09:05→20:34)
[2023-06-28] MEDS: LORATADINE 10 MG TAB PO SCH (09:05)
[2023-06-28] MEDS: ARIPIprazole 1 MG/ML ORAL SOLN 150 ML BTL PO SCH (09:05)
[2023-06-28] MEDS: POTASSIUM CHLORIDE CRTAB 20 MEQ TABCR PO SCH ×2 (09:05→20:36)
[2023-06-28] MEDS: OXYBUTYNIN CHLORIDE XL 5 MG TABCR PO SCH (09:05)
[2023-06-28] MEDS: MEMANTINE HCL 10 MG TAB PO SCH ×2 (09:05→20:35)
[2023-06-28] MEDS: FUROSEMIDE 20 MG TAB PO SCH (09:06)
[2023-06-28] MEDS: ADVANCED PROBIOTIC 1250 MG CAPSULE PO SCH (09:06)
[2023-06-28] MEDS: CALCIUM 600MG + VIT D 400 IU TAB PO SCH (09:06)
[2023-06-28] MEDS: FLUTICASONE PROPIONATE NA SPR 16 GM BTL SCH (09:06)
[2023-06-28] MEDS: CHLORHEXIDINE GLUCONATE 0.12% 480 ML MT SCH ×2 (09:07→20:34)
[2023-06-28] MEDS: MONTELUKAST SODIUM 10 MG TABLET PO SCH (09:07)
[2023-06-28] MEDS: CYANOCOBALAMIN (B-12) 500 MCG TABLET PO SCH (09:07)
[2023-06-28] MEDS: DORZOLAMIDE/TIMOLOL 22.3/6.8MG/ML 10 ML BTL OPB SCH ×2 (09:07→20:35)
[2023-06-28] MEDS: AZELASTINE HCL 0.1% NASAL 200 SPRAYS/27,400 MCG BTL SCH ×2 (09:07→20:34)
[2023-06-28] MEDS: MICONAZOLE NITRATE POWDER 85 GM EXT SCH ×2 (09:07→20:36)
[2023-06-28] MEDS: cefTRIAXone SODIUM 2,000 MG in DEXTROSE 5 % MINI-B 50 ML IV SCH (10:49)
--- NOTE | 2023-06-28 12:51 | Hospitalist Progress Note ---
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 Acute metabolic and cephalopathy Acute confusion with history of dementia Now seems back to baseline Had nausea vomiting and diarrhea Was hypoxic in the ER on presentation requiring 2 L oxygen Has been saturating normally on room air Acute metabolic encephalopathy resolved and she is back to her baseline Remains stable and no delirium Has been stable to be transferred Hypoxia and diverticulitis could be cause of her confusion Acute confusion is resolved Has been saturating normally on room air No respiratory symptoms Has not been requiring any oxygen to maintain saturation Possible acute diverticulitis-acute diverticulitis has been ruled out History of diverticulitis in the past CT abdomen pelvis showing possible diverticulitis Starting on IV Zosyn N.p.o., gentle fluids-started on clears orally Appreciate surgery input and recommended Clinically better without any acute abdomen Will continue current management Antibiotics have been discontinued for diverticulitis Denies any abdominal pain E. coli UTI Pansensitive Zosyn changed to ceftriaxone Will be continued with oral medicine on discharge Clinically much better and will continue the course for 7 days Hypoxia Chest x-ray possible pulmonary congestion Recently in May she had echo because of her lower extremity edema and it showed normal EF and mild diastolic CHF She is currently on Lasix received a dose of IV Lasix in the ER Continue home dose Lasix for now and monitor Echo of the heart showed-concentric LVH, basal septum is thickened and angulated consistent with sigmoid septum, LV wall motion is normal, left ventricular systolic function is normal, LVEF is 55 to 60% and grade 1 diastolic dysfunction Has been saturating normally on room air Bilateral DVTs-likely provoked due to decreased mobility Lower extremity edema Continue home dose of Lasix Continue gentle fluids we will monitor Started on intravenous heparin and will be given Eliquis/Coumadin on discharge CTA did not show any pulmonary embolism Will give her Eliquis on discharge Will start Eliquis from today Has been getting Eliquis-10 mg twice daily for 7 days followed by 5 mg twice daily to continue Alzheimer's dementia with psychotic disturbance On donepezil, memantine, Seroquel and Ativan as needed Will monitor Back to her baseline and does not have any acute delirium History of glaucoma Continue eyedrops DVT prophylaxis IV heparin-intravenous heparin and will be changed to oral Eliquis on discharge Disposition Med//tele CODE STATUS DNR/DNI as per my discussion with the family Discussed with the family member Discussed with the daughter in detailed Awaiting placement Admission and Anticipated Discharge Date Admission Date: June 24, 2023 Subjective 06/24/2023 The patient was seen and examined in medical telemetry unit She has significant dementia and was admitted with abdominal pain and nausea Noted to have ongoing bilateral leg swelling with new DVT and also diverticulitis Has been feeling better and denies any acute symptoms 06/25/2023 The patient was seen and examined in medical telemetry unit She has been feeling much better Denies any significant symptoms Has been tolerating diet 06/26/2023 The patient was seen and examined in medical telemetry unit She has been feeling much better and is out of bed on a chair Denies any acute symptoms Remains pleasantly confused from dementia 06/27/2023 The patient was seen and examined in medical telemetry unit She is out of bed on a chair and has been feeling a lot better Denies any significant symptoms 06/28/2023 The patient was seen and examined in medical telemetry unit in presence of the family members She has been much better and denies any significant symptoms No more abdominal pain and no nausea no vomiting She has had physical therapy and recommended rehab Review of Systems Review of Systems: All systems reviewed and are unremarkable except as noted below Physical Exam Physical Exam: Sitting on a chair without any acute distress Constitutional: well developed, well nourished, + ill appearing and + obese Eyes: PERRL, conjunctivae normal, anicteric sclerae ENMT: external ear and nose normal, oropharynx normal Neck: trachea midline, no thyromegaly Respiratory: no respiratory distress Auscultation: + diminished lung sounds; no crackles Cardiovascular: Rate/Rhythm: regular rate and regular rhythm; not tachycardic Heart Sounds: normal S1 and normal S2; no murmur Extremities: + edema (1+ edema bilaterally) Gastrointestinal (Abdomen): Inspection/Auscultation: normal bowel sounds; abdomen not distended Percussion/Palpation: + abdomen tender (Only tender left lower quadrant) and abdomen soft Musculoskeletal: No acute arthritis in any joint Neurologic: normal touch/pain/proprioception and moves all extremities; no focal motor deficits Lymphatic: no cervical or axillary lymphadenopathy Results & Data Results & Data Vital Signs (Past 12 Hours) Vital Signs Temp Pulse Resp BP Pulse Ox O2 Del Method 06/28/23 12:02 Room Air 06/28/23 11:15 36.6 C 67 18 133/75 93 Room Air 06/28/23 07:51 36.5 C 72 18 129/81 92 Room Air 06/28/23 05:00 36.8 C 90 16 106/71 95 Room Air Medications Administered Current Inpatient Medications Acetaminophen (Acetaminophen 325 Mg Tab) 650 mg PO Q4H PRN PRN Reason: Pain or Fever Stop: 07/24/23 02:09 Apixaban (Apixaban 5 Mg Tablet) 10 mg PO BID [facility] Stop: 07/04/23 09:01 Last Admin: 06/28/23 09:05 Dose: 10 mg Aripiprazole (Aripiprazole 1 Mg/Ml Oral Soln 150 Ml Btl) 2 mg PO QAM [facility] Stop: 07/24/23 08:59 Last Admin: 06/28/23 09:05 Dose: 2 mg Azelastine HCl (Azelastine Hcl 0.1% Nasal 200 Sprays/27,400 Mcg Btl) 1 sprays NA BID [facility] Stop: 07/24/23 08:59 Last Admin: 06/28/23 09:07 Dose: 1 sprays Benzonatate (Benzonatate 100 Mg Capsule) 200 mg PO TID PRN PRN Reason: Cough Stop: 07/24/23 02:09 Calcium/Vitamin D (Calcium 600mg + Vit D 400 Iu Tab) 1 tab PO DAILY [facility] Stop: 07/24/23 08:59 Last Admin: 06/28/23 09:06 Dose: 1 tab Chlorhexidine Gluconate (Chlorhexidine Gluconate 0.12% 480 Ml) 15 ml MT BID [facility] Stop: 07/24/23 08:59 Last Admin: 06/28/23 09:07 Dose: 15 ml Cyanocobalamin (Cyanocobalamin (B-12) 500 Mcg Tablet) 1,000 mcg PO DAILY [facility] Stop: 07/24/23 08:59 Last Admin: 06/28/23 09:07 Dose: 1,000 mcg Diclofenac Sodium (Diclofenac Sod 1% Gel 100 Gm Tube) 1 gm EXT BID PRN; Protocol PRN Reason: Pain Stop: 07/24/23 02:09 Donepezil HCl (Donepezil Hcl 10 Mg Tab) 10 mg PO QDD [facility] Stop: 07/24/23 16:29 Last Admin: 06/27/23 16:05 Dose: 10 mg Dorzolamide/Timolol (Dorzolamide/Timolol 22.3/6.8mg/Ml 10 Ml Btl) 1 drops OPB BID [facility] Stop: 07/24/23 08:59 Last Admin: 06/28/23 09:07 Dose: 1 drops Fluticasone Propionate (Fluticasone Propionate Na Spr 16 Gm Btl) 2 sprays NA DAILY [facility] Stop: 07/24/23 08:59 Last Admin: 06/28/23 09:06 Dose: 2 sprays Furosemide (Furosemide 20 Mg Tab) 20 mg PO DAILY [facility] Stop: 07/24/23 08:59 Last Admin: 06/28/23 09:06 Dose: 20 mg Ceftriaxone Sodium 2,000 mg/ (Dextrose) 50 mls @ 100 mls/hr IV Q24H [facility] Stop: 06/30/23 10:59 Last Infusion: 06/28/23 11:28 Dose: Infused Lactobacillus Acidophilus (Advanced Probiotic 1250 Mg Capsule) 2 cap PO DAILY [facility] Stop: 07/24/23 08:59 Last Admin: 06/28/23 09:06 Dose: 2 cap Loratadine (Loratadine 10 Mg Tab) 10 mg PO DAILY [facility] Stop: 07/24/23 08:59 Last Admin: 06/28/23 09:05 Dose: 10 mg Lorazepam (Lorazepam 0.5 Mg Tab) 0.5 mg PO TID PRN PRN Reason: Agitation Stop: 07/24/23 02:09 Melatonin (Melatonin 3 Mg Tab) 1.5 mg PO HS [facility] Stop: 07/24/23 20:59 Last Admin: 06/27/23 21:17 Dose: 1.5 mg Memantine (Memantine Hcl 10 Mg Tab) 10 mg PO BID [facility] Stop: 07/24/23 08:59 Last Admin: 06/28/23 09:05 Dose: 10 mg Miconazole Nitrate (Miconazole Nitrate Powder 85 Gm) 1 appln EXT BID [facility] Stop: 07/24/23 08:59 Last Admin: 06/28/23 09:07 Dose: 1 appln Montelukast Sodium (Montelukast Sodium 10 Mg Tablet) 10 mg PO DAILY [facility] Stop: 07/24/23 08:59 Last Admin: 06/28/23 09:07 Dose: 10 mg Nitroglycerin (Nitroglycerin Sl 0.4 Mg/Tab Tab) 0.4 mg SL Q5M PRN PRN Reason: Chest Pain Stop: 07/24/23 02:09 Ondansetron HCl (Ondansetron Inj 2 Mg/Ml 2 Ml Vial) 4 mg IV Q6H PRN PRN Reason: Nausea Stop: 07/24/23 02:09 Oxybutynin Chloride (Oxybutynin Chloride Xl 5 Mg Tabcr) 10 mg PO QAM [facility] Stop: 07/24/23 08:59 Last Admin: 06/28/23 09:05 Dose: 10 mg Potassium Chloride (Potassium Chloride Crtab 20 Meq Tabcr) 20 meq PO BID [facility] Stop: 07/26/23 09:29 Last Admin: 06/28/23 09:05 Dose: 20 meq Quetiapine Fumarate (Quetiapine Fumarate 25 Mg Tablet) 25 mg PO HS [facility] Stop: 07/24/23 20:59 Last Admin: 06/27/23 21:14 Dose: 25 mg
[2023-06-28] MEDS: DONEPEZIL HCL 10 MG TAB PO SCH (17:37)
[2023-06-28] MEDS: QUEtiapine FUMARATE 25 MG TABLET PO SCH (20:33)
[2023-06-28] MEDS: MELATONIN 3 MG TAB PO SCH (20:37)
[2023-06-29 06:10] LABS: Basophils # (auto) 0.03 K/uL (0.00-0.20); Basophils % (auto) 0.7 %; Eosinophils # (auto) 0.16 K/uL (0.00-0.50); Eosinophils % (auto) 3.5 %; Hematocrit (blood only) 41.6 % (37.0-47.0); Hemoglobin 13.4 g/dl (12.0-16.0); Immature Granulocytes # (auto) 0.03 K/uL (0.01-0.20); Immature Granulocytes % (auto) 0.7 %; Lymphocytes # (auto) 1.88 K/uL (1.20-3.40); Mean Corpuscular Hemoglobin 28.3 pg (25.0-34.0); Mean Corpuscular Hgb Conc 32.2 g/dL (32.0-36.0); Mean Corpuscular Volume 87.8 fL (80.0-100.0); Mean Platelet Volume 10.8 fL (9.4-12.4); Monocytes # (auto) 0.42 K/uL (0.11-0.59); Monocytes % (auto) 9.2 %; Neutrophils # (auto) 2.06 K/uL (1.40-6.50); Neutrophils % (auto) 44.9 %; Platelet Count 180 K/uL (130-400); RDW Coefficient of Variation 14.6 % (11.5-14.5); RDW Standard Deviation 47.2 fL (36.4-46.3); Red Blood Count 4.74 M/uL (4.20-5.40); White Blood Count 4.58 K/ul (4.8-10.8)
[2023-06-29 06:26] LABS: BUN Creatinine Ratio 15.5 (10-20); Blood Urea Nitrogen 15 mg/dl (6-23); Calcium 9.1 mg/dl (8.6-10.3); Carbon Dioxide 26 mmol/L (21-32); Chloride 108 mmol/L (98-107); Creatinine Clr Calc Pharmacy 50.7 ml/min; Est GFR (African American) 64.8 ml/min; Est GFR (Non-African American) 55.9 ml/min; Glucose 91 mg/dl (70-99(Fasting))
[2023-06-29] MEDS: CYANOCOBALAMIN (B-12) 500 MCG TABLET PO SCH (09:33)
[2023-06-29] MEDS: APIXABAN 5 MG TABLET PO SCH ×2 (09:34→21:02)
[2023-06-29] MEDS: LORATADINE 10 MG TAB PO SCH (09:34)
[2023-06-29] MEDS: OXYBUTYNIN CHLORIDE XL 5 MG TABCR PO SCH (09:34)
[2023-06-29] MEDS: CALCIUM 600MG + VIT D 400 IU TAB PO SCH (09:34)
[2023-06-29] MEDS: MEMANTINE HCL 10 MG TAB PO SCH ×2 (09:34→21:05)
[2023-06-29] MEDS: MONTELUKAST SODIUM 10 MG TABLET PO SCH (09:34)
[2023-06-29] MEDS: ARIPIprazole 1 MG/ML ORAL SOLN 150 ML BTL PO SCH (09:35)
[2023-06-29] MEDS: CHLORHEXIDINE GLUCONATE 0.12% 480 ML MT SCH ×2 (09:35→21:03)
[2023-06-29] MEDS: AZELASTINE HCL 0.1% NASAL 200 SPRAYS/27,400 MCG BTL SCH ×2 (09:35→21:03)
[2023-06-29] MEDS: FUROSEMIDE 20 MG TAB PO SCH (09:35)
[2023-06-29] MEDS: ADVANCED PROBIOTIC 1250 MG CAPSULE PO SCH (09:35)
[2023-06-29] MEDS: POTASSIUM CHLORIDE CRTAB 20 MEQ TABCR PO SCH ×2 (09:35→21:04)
[2023-06-29] MEDS: FLUTICASONE PROPIONATE NA SPR 16 GM BTL SCH (09:36)
[2023-06-29] MEDS: DORZOLAMIDE/TIMOLOL 22.3/6.8MG/ML 10 ML BTL OPB SCH ×2 (09:36→21:06)
[2023-06-29] MEDS: MICONAZOLE NITRATE POWDER 85 GM EXT SCH ×2 (09:50→21:05)
[2023-06-29 11:08] LABS: Potassium 3.7 mmol/L (3.5-5.1)
[2023-06-29] MEDS: cefTRIAXone SODIUM 2,000 MG in DEXTROSE 5 % MINI-B 50 ML IV SCH (12:42)
--- NOTE | 2023-06-29 16:21 | Hospitalist Progress Note ---
Date of Service June 29, 2023 Assessment & Plan (1) Acute confusion: Plan: Patient is a 78 yr female with H/O Hypertension, vitamin D deficiency, history of diverticulitis, osteoporosis, severe late onset Alzheimer's dementia with psychotic disturbance, depression, [facility] and is a plan to transfer to [place] as per the family was brought in because last night she had nausea and vomiting today she had a few episodes of diarrhea and she seemed confused. Acute metabolic Encephalopathy Acute confusion in setting of dementia Likely due to UTI, hypoxia Mental status back to baseline Reorient frequently to minimize delirium UTI Urine culture grew pansensitive E. coli Zosyn transition to ceftriaxone Will complete antibiotic course tomorrow Bilateral DVTs-likely provoked due to decreased mobility Lower extremity edema --CTA showed no PE --Venous Doppler:Deep vein thrombosis identified within the bilateral peroneal veins. -- IV heparin transition to Eliquis Reduced dose of Eliquis as able Hypoxia Likely due to atelectasis --ECHO: Mild concentric LVH. Basal septum is thickened and angulated consistent with sigmoid septum. Left ventricle wall motion is normal. Left ventricle systolic pressure is normal. EF 50 to 60%. Grade 1 diastolic dysfunction. --CTA showed no PE. Findings suggestive of atelectasis. Continue home Lasix Monitor volume status Continue incentive spirometry Saturating well on room air currently Possible acute diverticulitis-ruled out H/O Diverticulitis in the past CT abdomen pelvis showing possible diverticulitis Initially was on IV Zosyn Appreciate surgery input Antibiotics have been discontinued for diverticulitis Denies any abdominal pain Alzheimer's dementia with psychotic disturbance On donepezil, memantine, Seroquel and Ativan as needed Monitor H/O Glaucoma Continue eyedrops DVT Px: Eliquis CODE STATUS DNR/DNI Disposition Awaiting Rehab placement Admission and Anticipated Discharge Date Admission Date: June 24, 2023 Subjective Patient is seen and examined at bedside Offers no complaints today Discussed with patient's family at bedside Patient waiting for rehab placement Denies any chest pain, dyspnea, dizziness, nausea, vomiting, abdominal pain Review of Systems Review of Systems: All systems reviewed & are unremarkable except as noted in Subjective Physical Exam Physical Exam: Physical Exam: Vitals signs as noted above General Appearance:Obese, no apparent distress Head: normocephalic, Atraumatic Eyes: normal inspection, EOMI Neck: supple, Trachea midline Respiratory/Chest: Decreased breath sounds, CTA, No accessory muscle use Cardiovascular: S1, S2, No murmur Abdomen/GI:Soft, Non tender, Bowel sounds present Extremities/Musculoskeletal:normal inspection, 1+ B/L pedal edema Neurologic/Psych:AAOX3, grossly no focal neurological deficits Skin: normal color, warm Results & Data Results & Data Vital Signs (Past 12 Hours) Vital Signs Temp Pulse Pulse Resp BP Pulse Ox O2 Del Method 06/29/23 15:40 36.6 C 66 18 114/78 94 Room Air 06/29/23 11:21 36.6 C 60 18 147/75 H 95 Room Air 06/29/23 10:38 57 L 06/29/23 07:37 Room Air Laboratory Results Short CBC 06/29/23 Range/Units 05:37 WBC 4.58 L (4.8-10.8) K/ul Hgb 13.4 (12.0-16.0) g/dl Hct 41.6 (37.0-47.0) % Plt Count 180 (130-400) K/uL BMP 06/29/23 06/29/23 05:37 10:30 Sodium TNP 143 Potassium TNP 3.7 Chloride 108 H Carbon Dioxide 26 BUN 15 Creatinine 0.97 Glucose 91 Calcium 9.1
[2023-06-29] MEDS: DONEPEZIL HCL 10 MG TAB PO SCH (17:49)
[2023-06-29] MEDS: QUEtiapine FUMARATE 25 MG TABLET PO SCH (21:04)
[2023-06-29] MEDS: MELATONIN 3 MG TAB PO SCH (21:07)
[2023-06-30 06:10] LABS: Hematocrit (blood only) 41.2 % (37.0-47.0); Hemoglobin 13.8 g/dl (12.0-16.0); Mean Corpuscular Hemoglobin 28.9 pg (25.0-34.0); Mean Corpuscular Hgb Conc 33.5 g/dL (32.0-36.0); Mean Corpuscular Volume 86.2 fL (80.0-100.0); Mean Platelet Volume 10.5 fL (9.4-12.4); Platelet Count 190 K/uL (130-400); RDW Coefficient of Variation 14.6 % (11.5-14.5); RDW Standard Deviation 46.4 fL (36.4-46.3); Red Blood Count 4.78 M/uL (4.20-5.40); White Blood Count 5.14 K/ul (4.8-10.8)
[2023-06-30 06:25] LABS: BUN Creatinine Ratio 18.2 (10-20); Creatinine Clr Calc Pharmacy 55.9 ml/min; Est GFR (African American) 72.9 ml/min; Est GFR (Non-African American) 62.9 ml/min; Potassium 3.9 mmol/L (3.5-5.1)
[2023-06-30] MEDS: FUROSEMIDE 20 MG TAB PO SCH (09:42)
[2023-06-30] MEDS: ARIPIprazole 1 MG/ML ORAL SOLN 150 ML BTL PO SCH (09:42)
[2023-06-30] MEDS: MONTELUKAST SODIUM 10 MG TABLET PO SCH (09:42)
[2023-06-30] MEDS: MEMANTINE HCL 10 MG TAB PO SCH ×2 (09:43→21:01)
[2023-06-30] MEDS: ADVANCED PROBIOTIC 1250 MG CAPSULE PO SCH (09:43)
[2023-06-30] MEDS: APIXABAN 5 MG TABLET PO SCH ×2 (09:43→21:01)
[2023-06-30] MEDS: OXYBUTYNIN CHLORIDE XL 5 MG TABCR PO SCH (09:43)
[2023-06-30] MEDS: CALCIUM 600MG + VIT D 400 IU TAB PO SCH (09:43)
[2023-06-30] MEDS: LORATADINE 10 MG TAB PO SCH (09:43)
[2023-06-30] MEDS: CYANOCOBALAMIN (B-12) 500 MCG TABLET PO SCH (09:44)
[2023-06-30] MEDS: POTASSIUM CHLORIDE CRTAB 20 MEQ TABCR PO SCH ×2 (09:44→21:00)
[2023-06-30] MEDS: FLUTICASONE PROPIONATE NA SPR 16 GM BTL SCH (09:44)
[2023-06-30] MEDS: AZELASTINE HCL 0.1% NASAL 200 SPRAYS/27,400 MCG BTL SCH ×2 (09:44→21:02)
[2023-06-30] MEDS: CHLORHEXIDINE GLUCONATE 0.12% 480 ML MT SCH ×2 (09:45→21:02)
[2023-06-30] MEDS: DORZOLAMIDE/TIMOLOL 22.3/6.8MG/ML 10 ML BTL OPB SCH ×2 (09:45→21:02)
[2023-06-30] MEDS: MICONAZOLE NITRATE POWDER 85 GM EXT SCH ×2 (09:45→21:02)
[2023-06-30] MEDS: DONEPEZIL HCL 10 MG TAB PO SCH (16:52)
--- NOTE | 2023-06-30 17:11 | Hospitalist Progress Note ---
Date of Service June 30, 2023 Assessment & Plan (1) Acute confusion: Plan: Patient is a 78 yr female with H/O Hypertension, vitamin D deficiency, history of diverticulitis, osteoporosis, severe late onset Alzheimer's dementia with psychotic disturbance, depression, currently living [facility] and is a plan to transfer to [place] as per the family was brought in because last night she had nausea and vomiting today she had a few episodes of diarrhea and she seemed confused. Acute metabolic Encephalopathy Acute confusion in setting of dementia Likely due to UTI, hypoxia Mental status back to baseline Reorient frequently to minimize delirium Waiting for rehab placement UTI Urine culture grew pansensitive E. coli Zosyn transition to ceftriaxone Completed antibiotic course Bilateral DVTs-likely provoked due to decreased mobility Lower extremity edema --CTA showed no PE --Venous Doppler:Deep vein thrombosis identified within the bilateral peroneal veins. -- IV heparin transition to Eliquis Reduced dose of Eliquis as able Hypoxia Likely due to atelectasis --ECHO: Mild concentric LVH. Basal septum is thickened and angulated consistent with sigmoid septum. Left ventricle wall motion is normal. Left ventricle systolic pressure is normal. EF 50 to 60%. Grade 1 diastolic dysfunction. --CTA showed no PE. Findings suggestive of atelectasis. Continue home Lasix Monitor volume status Continue incentive spirometry Saturating well on room air currently Possible acute diverticulitis-ruled out H/O Diverticulitis in the past CT abdomen pelvis showing possible diverticulitis Initially was on IV Zosyn Appreciate surgery input Antibiotics have been discontinued for diverticulitis Denies any abdominal pain Alzheimer's dementia with psychotic disturbance On donepezil, memantine, Seroquel and Ativan as needed Monitor H/O Glaucoma Continue eyedrops DVT Px: Eliquis CODE STATUS DNR/DNI Disposition Awaiting Rehab placement Admission and Anticipated Discharge Date Admission Date: June 24, 2023 Subjective Patient is seen and examined at bedside No new complaints Waiting for rehab placement Denies any chest pain, dyspnea, dizziness, nausea, vomiting, abdominal pain Review of Systems Review of Systems: All systems reviewed & are unremarkable except as noted in Subjective Physical Exam Physical Exam: Physical Exam: Vitals signs as noted above General Appearance:Obese, no apparent distress Head: normocephalic, Atraumatic Eyes: normal inspection, EOMI Neck: supple, Trachea midline Respiratory/Chest: Decreased breath sounds, CTA, No accessory muscle use Cardiovascular: S1, S2, No murmur Abdomen/GI:Soft, Non tender, Bowel sounds present Extremities/Musculoskeletal:normal inspection, 1+ B/L pedal edema Neurologic/Psych:AAOX3, grossly no focal neurological deficits Skin: normal color, warm Results & Data Results & Data Vital Signs (Past 12 Hours) Vital Signs Temp Pulse Pulse Resp BP Pulse Ox O2 Del Method 06/30/23 15:00 69 06/30/23 14:54 36.9 C 68 16 123/76 94 Room Air 06/30/23 10:49 36.4 C L 62 16 123/65 94 Room Air 06/30/23 10:38 90 06/30/23 06:54 36.5 C 73 16 132/86 92 Room Air Laboratory Results Short CBC 06/30/23 Range/Units 05:48 WBC 5.14 (4.8-10.8) K/ul Hgb 13.8 (12.0-16.0) g/dl Hct 41.2 (37.0-47.0) % Plt Count 190 (130-400) K/uL [facility] 06/30/23 05:48 Sodium 141 Potassium 3.9 Chloride 109 H Carbon Dioxide 26 BUN 16 Creatinine 0.88 Glucose 97 Calcium 9.0
[2023-06-30] MEDS: MELATONIN 3 MG TAB PO SCH (20:59)
[2023-06-30] MEDS: QUEtiapine FUMARATE 25 MG TABLET PO SCH (21:00)
[2023-07-01] MEDS: POTASSIUM CHLORIDE CRTAB 20 MEQ TABCR PO SCH (08:46)
[2023-07-01] MEDS: MEMANTINE HCL 10 MG TAB PO SCH (08:46)
[2023-07-01] MEDS: OXYBUTYNIN CHLORIDE XL 5 MG TABCR PO SCH (08:46)
[2023-07-01] MEDS: CALCIUM 600MG + VIT D 400 IU TAB PO SCH (08:46)
[2023-07-01] MEDS: APIXABAN 5 MG TABLET PO SCH (08:46)
[2023-07-01] MEDS: MONTELUKAST SODIUM 10 MG TABLET PO SCH (08:47)
[2023-07-01] MEDS: LORATADINE 10 MG TAB PO SCH (08:47)
[2023-07-01] MEDS: ADVANCED PROBIOTIC 1250 MG CAPSULE PO SCH (08:47)
[2023-07-01] MEDS: FUROSEMIDE 20 MG TAB PO SCH (08:47)
[2023-07-01] MEDS: CYANOCOBALAMIN (B-12) 500 MCG TABLET PO SCH (08:47)
[2023-07-01] MEDS: MICONAZOLE NITRATE POWDER 85 GM EXT SCH (08:48)
[2023-07-01] MEDS: ARIPIprazole 1 MG/ML ORAL SOLN 150 ML BTL PO SCH (08:48)
[2023-07-01] MEDS: AZELASTINE HCL 0.1% NASAL 200 SPRAYS/27,400 MCG BTL SCH (08:48)
[2023-07-01] MEDS: FLUTICASONE PROPIONATE NA SPR 16 GM BTL SCH (08:48)
[2023-07-01] MEDS: DORZOLAMIDE/TIMOLOL 22.3/6.8MG/ML 10 ML BTL OPB SCH (08:49)
[2023-07-01] MEDS: CHLORHEXIDINE GLUCONATE 0.12% 480 ML MT SCH (08:49)
--- NOTE | 2023-07-01 14:06 | Hospitalist Progress Note ---
Date of Service July 01, 2023 Assessment & Plan (1) Acute confusion: Plan: Patient is a 78 yr female with H/O Hypertension, vitamin D deficiency, history of diverticulitis, osteoporosis, severe late onset Alzheimer's dementia with psychotic disturbance, depression, currently living [facility] and is a plan to transfer to [place] as per the family was brought in because last night she had nausea and vomiting today she had a few episodes of diarrhea and she seemed confused. Acute metabolic Encephalopathy Acute confusion in setting of dementia Likely due to UTI, hypoxia Mental status back to baseline Reorient frequently to minimize delirium Plan to be discharged back to personal care facility today UTI Urine culture grew pansensitive E. coli Zosyn transition to ceftriaxone Completed antibiotic course Bilateral DVTs-likely provoked due to decreased mobility Lower extremity edema --CTA showed no PE --Venous Doppler:Deep vein thrombosis identified within the bilateral peroneal veins. -- IV heparin transition to Eliquis Reduced dose of Eliquis as able Hypoxia Likely due to atelectasis --ECHO: Mild concentric LVH. Basal septum is thickened and angulated consistent with sigmoid septum. Left ventricle wall motion is normal. Left ventricle systolic pressure is normal. EF 50 to 60%. Grade 1 diastolic dysfunction. --CTA showed no PE. Findings suggestive of atelectasis. Continue home Lasix Monitor volume status Continue incentive spirometry Saturating well on room air currently Possible acute diverticulitis-ruled out H/O Diverticulitis in the past CT abdomen pelvis showing possible diverticulitis Initially was on IV Zosyn Appreciate surgery input Antibiotics have been discontinued for diverticulitis Denies any abdominal pain Alzheimer's dementia with psychotic disturbance On donepezil, memantine, Seroquel and Ativan as needed Monitor H/O Glaucoma Continue eyedrops DVT Px: Eliquis CODE STATUS DNR/DNI Disposition PCF Admission and Anticipated Discharge Date Admission Date: June 24, 2023 Subjective Patient is seen and examined at bedside Sitting in chair comfortably during my encounter Offers no complaints Denies any chest pain, dyspnea, dizziness, nausea, vomiting, abdominal pain Plan to discharge back to personal care facility today Review of Systems Review of Systems: All systems reviewed & are unremarkable except as noted in Subjective Physical Exam Physical Exam: Physical Exam: Vitals signs as noted above General Appearance:Obese, no apparent distress Head: normocephalic, Atraumatic Eyes: normal inspection, EOMI Neck: supple, Trachea midline Respiratory/Chest: Decreased breath sounds, CTA, No accessory muscle use Cardiovascular: S1, S2, No murmur Abdomen/GI:Soft, Non tender, Bowel sounds present Extremities/Musculoskeletal:normal inspection, 1+ B/L pedal edema Neurologic/Psych:AAOX3, grossly no focal neurological deficits Skin: normal color, warm Results & Data Results & Data Vital Signs (Past 12 Hours) Vital Signs Temp Pulse Pulse Resp BP Pulse Ox O2 Del Method 07/01/23 11:18 36.4 C L 70 18 123/81 94 Room Air 07/01/23 09:00 Room Air 07/01/23 07:14 36.5 C 67 16 169/93 H 94 Room Air 07/01/23 06:59 63 07/01/23 03:30 36.4 C L 72 14 143/76 H 93 Room Air
--- NOTE | 2023-07-01 14:15 | Discharge Summary ---
Date of Service July 01, 2023 Admission HPI Per Admitting Provider 78-year-old female with past med history significant for hypertension, vitamin D deficiency, history of diverticulitis, osteoporosis, severe late onset Alzheimer's dementia with psychotic disturbance, depression, currently living [facility] and is a plan to transfer to [place] as per the family was brought in because last night she had nausea and vomiting today she had a few episodes of diarrhea and she seemed confused. Patient has dementia she is oriented to name and place and can recognize family members but has some difficulty with the dates but yesterday she was more confused than her usual. There is no fever. Daughter states patient is much better now. Patient denies any headache. Denies chest pain or shortness of breath. No cough. No abdominal pain. Normal bowel bladder movements. No difficulty swallowing. Always has some runny nose. Currently resting comfortably and hemodynamically stable. Patient initially was hypoxic 88% on room air and currently on 2 L oxygen. Past medical history. As mentioned above. Past surgical history. Colonoscopy. EGD with endoscopic ultrasound. Laparoscopic cholecystectomy. Ligation of the oviduct. Right punctured breast cyst drainage. Social history. . No smoking. No alcohol. No drug use. Family history. Father had nasopharyngeal cancer. Heart disorder. Lung cancer. Mother had colon cancer. Admission Exam Per Admitting Provider General- Not in distress Head- atraumatic Eyes- PERRL. ENT- oropharynx clear Neck- supple, no JVD. Lungs- clear to auscultation, no wheezing or crackles. Heart- regular rhythm; no murmur, no gallop. Abdomen- normal bowel sounds, soft, nontender, no distension. Extremities- b/l lower extremity edema present. no erythema seen. Neuro- alert, and awake; PERRL, no facial palsy; no dysarthria; moves extremities. Skin- warm & dry Principal Diagnosis Urinary tract infection Acute metabolic encephalopathy Bilateral lower extremity deep vein thrombosis Hypoxia Hypokalemia Discharge Data Allergies Allergy/AdvReac Type Severity Reaction Status Date / Time propoxyphene Allergy Severe ITCHING,THROAT Verified 06/23/23 20:59 SWELLING oxycodone AdvReac Intermediate ITCHING/ARIA Verified 06/23/23 20:59 WSY Consultations 06/23/23 21:06 ED Decision to Admit Stat 06/24/23 08:00 Consult General Surgery Routine Procedures Performed Laboratory Results WBC 5.14 K/ul (4.8-10.8) 06/30/23 05:48 RBC 4.78 M/uL (4.20-5.40) 06/30/23 05:48 Hgb 13.8 g/dl (12.0-16.0) 06/30/23 05:48 Hct 41.2 % (37.0-47.0) 06/30/23 05:48 MCV 86.2 fL (80.0-100.0) 06/30/23 05:48 MCH 28.9 pg (25.0-34.0) 06/30/23 05:48 MCHC 33.5 g/dL (32.0-36.0) 06/30/23 05:48 RDW Std Deviation 46.4 fL (36.4-46.3) H 06/30/23 05:48 RDW Coeff of Adán 14.6 % (11.5-14.5) H 06/30/23 05:48 Plt Count 190 K/uL (130-400) 06/30/23 05:48 MPV 10.5 fL (9.4-12.4) 06/30/23 05:48 Immature Gran % (Auto) 0.7 % 06/29/23 05:37 Neut % (Auto) 44.9 % 06/29/23 05:37 Lymph % (Auto) 41.0 % 06/29/23 05:37 Morgan % (Auto) 9.2 % 06/29/23 05:37 Eos % (Auto) 3.5 % 06/29/23 05:37 Baso % (Auto) 0.7 % 06/29/23 05:37 Neut # (Auto) 2.06 K/uL (1.40-6.50) 06/29/23 05:37 Lymph # (Auto) 1.88 K/uL (1.20-3.40) 06/29/23 05:37 Morgan # (Auto) 0.42 K/uL (0.11-0.59) 06/29/23 05:37 Eos # (Auto) 0.16 K/uL (0.00-0.50) 06/29/23 05:37 Baso # (Auto) 0.03 K/uL (0.00-0.20) 06/29/23 05:37 Immature Gran # (Auto) 0.03 K/uL (0.01-0.20) 06/29/23 05:37 PT 11.2 Seconds (9.0-12.0) 06/24/23 07:19 INR 1.0 (0.9-1.1) 06/24/23 07:19 APTT 27 Seconds (21-31) 06/24/23 07:19 PTT Ratio 1.0 06/24/23 07:19 Heparin Anti-Xa, Unfract 1.28 IU/ml (0.3-0.7) H* 06/28/23 07:14 Sodium 141 mmol/L (136-145) 06/30/23 05:48 Potassium 3.9 mmol/L (3.5-5.1) 06/30/23 05:48 Chloride 109 mmol/L (98-107) H 06/30/23 05:48 Carbon Dioxide 26 mmol/L (21-32) 06/30/23 05:48 Anion Gap 6 (3-11) 06/30/23 05:48 BUN 16 mg/dl (6-23) 06/30/23 05:48 Creatinine 0.88 mg/dl (0.6-1.2) 06/30/23 05:48 Est Cr Clr Drug Dosing 55.9 ml/min 06/30/23 05:48 Est GFR ( Amer) 72.9 ml/min 06/30/23 05:48 Est GFR (Non-Af Amer) 62.9 ml/min 06/30/23 05:48 BUN/Creatinine Ratio 18.2 (10-20) 06/30/23 05:48 Glucose 97 mg/dl (70-99(Fasting)) 06/30/23 05:48 Calcium 9.0 mg/dl (8.6-10.3) 06/30/23 05:48 Total Bilirubin 0.9 mg/dl (0.2-1.0) 06/23/23 17:12 AST 18 U/L (13-39) 06/23/23 18:28 ALT 13 U/L (7-52) 06/23/23 17:12 Alkaline Phosphatase 50 U/L (34-104) 06/23/23 17:12 Troponin I High Sens 5.1 pg/ml (0-14) 06/23/23 21:41 Total Protein 7.1 gm/dl (6.0-8.3) 06/23/23 17:12 Albumin 3.8 gm/dl (3.4-5.0) 06/23/23 17:12 Globulin 3.3 gm/dl (2.5-4.0) 06/23/23 17:12 Albumin/Globulin Ratio 1.2 (0.9-2) 06/23/23 17:12 Lipase 41 U/L (11-82) 06/23/23 17:12 Urine Color Dark Yellow 06/23/23 18:51 Urine Appearance Clear (Clear) 06/23/23 18:51 Urine pH 5.0 (4.5-7.5) 06/23/23 18:51 Ur Specific Hunter 1.024 (1.000-1.030) 06/23/23 18:51 Urine Protein Negative (Negative) 06/23/23 18:51 Urine Glucose (UA) Negative (Negative) 06/23/23 18:51 Urine Ketones Negative (Negative) 06/23/23 18:51 Urine Blood Negative (Negative) 06/23/23 18:51 Urine Nitrite Negative (Negative) 06/23/23 18:51 Urine Bilirubin Negative (Negative) 06/23/23 18:51 Urine Urobilinogen Negative (Negative) 06/23/23 18:51 Ur Leukocyte Esterase Negative (Negative) 06/23/23 18:51 Nasal Screen MRSA (PCR) Negative (Negative) 06/24/23 06:35 Adenovirus (PCR) Not Detected (NotDetected) 06/23/23 20:35 B. pertussis DNA (PCR) Not Detected (NotDetected) 06/23/23 20:35 B.parapertussis DNA PCR Not Detected (NotDetected) 06/23/23 20:35 C. pneumoniae DNA (PCR) Not Detected (NotDetected) 06/23/23 20:35 Coronavirus OC43 (PCR) Not Detected (NotDetected) 06/23/23 20:35 Coronavirus HKU1 (PCR) Not Detected (NotDetected) 06/23/23 20:35 Coronavirus 229E (PCR) Not Detected (NotDetected) 06/23/23 20:35 SARS-CoV-2 (PCR) Not Detected (NotDetected) 06/23/23 20:35 Coronavirus NL63 (PCR) Not Detected (NotDetected) 06/23/23 20:35 Human Metapneumovir PCR Not Detected (NotDetected) 06/23/23 20:35 Influenza Type A (PCR) Not Detected (NotDetected) 06/23/23 20:35 Influenza Type B (PCR) Not Detected (NotDetected) 06/23/23 20:35 M. pneumoniae (PCR) Not Detected (NotDetected) 06/23/23 20:35 Parainfluenza 1 (PCR) Not Detected (NotDetected) 06/23/23 20:35 Parainfluenza 2 (PCR) Not Detected (NotDetected) 06/23/23 20:35 Parainfluenza 3 (PCR) Not Detected (NotDetected) 06/23/23 20:35 Parainfluenza 4 (PCR) Not Detected (NotDetected) 06/23/23 20:35 RSV (PCR) Not Detected (NotDetected) 06/23/23 20:35 Entero/Rhino (PCR) Not Detected (NotDetected) 06/23/23 20:35 Impressions Abdomen/Pelvis CT 06/23/23 17:34 Exam(s): CT ABDOMEN + PELVIS With Contrast IV Amt: 82 ml opti 320 EXAM: CT Abdomen and Pelvis With Intravenous Contrast CLINICAL HISTORY: Abdominal pain. TECHNIQUE: Axial computed tomography images of the abdomen and pelvis with intravenous contrast. Automated exposure control was utilized for the study. A dose lowering technique was utilized adhering to the principles of ALARA. CONTRAST: Patient received 82 ml opti 320 of IV contrast COMPARISON: CT abdomen and pelvis 11/26/2020. FINDINGS: Lung bases: Bibasilar airspace opacities are present. ABDOMEN: Liver: Unremarkable. No mass. Gallbladder and bile ducts: Cholecystectomy. No ductal dilation. Pancreas: Unremarkable. No mass. No ductal dilation. Spleen: Unremarkable. No splenomegaly. Adrenals: Stable 1.5 cm left adrenal lesion, no follow-up is needed given the stability. The right adrenal gland is unremarkable. Kidneys and ureters: Simple appearing bilateral renal cysts are present, no follow-up is needed. The kidneys are otherwise unremarkable. No hydronephrosis. Stomach and bowel: Nonspecific thickening of the sigmoid colon. No obstruction. PELVIS: Appendix: Normal appendix. Bladder: Unremarkable. No mass. Reproductive: Unremarkable as visualized. ABDOMEN and PELVIS: Intraperitoneal space: Unremarkable. No free air. No significant fluid collection. Bones/joints: No acute fracture. No dislocation. Soft tissues: Unremarkable. Vasculature: Mild atherosclerosis. No abdominal aortic aneurysm. Lymph nodes: Unremarkable. No enlarged lymph nodes. IMPRESSION: 1. Nonspecific thickening of the sigmoid colon. This could relate to diverticulitis as there are diverticula, however cannot exclude malignancy. 2. Bibasilar airspace opacities may represent pulmonary edema, atelectasis or atypical infection. Electronically signed by: Heavenly Rocha MD 06/23/23 20:52 PM Chest X-Ray 06/23/23 20:12 XR chest 1V portable HISTORY: hypoxic COMPARISON: Chest 11/27/2020. FINDINGS: There are low lung volumes. No pneumothorax. No pleural effusions. The heart remains mildly enlarged. There are bibasilar linear densities. This favors subsegmental atelectasis are scarring. Otherwise, no new focal lung consolidations to suggest pneumonia. No evidence for pulmonary edema. There are calcifications within the aortic knob. No acute fractures identified. IMPRESSION: Low lung volumes with bibasilar linear densities. This favors subsegmental atelectasis. ACT 112: Negative or not required by law. Electronically signed by: Cj De La Vega M.D. 06/24/2023 7:01 AM Venous Doppler Study 06/24/23 02:10 BILATERAL LOWER EXTREMITY VENOUS DOPPLER HISTORY: b/l lower ext edema. dvt? COMPARISON STUDY: None. FINDINGS: The bilateral common femoral, superficial femoral, popliteal, anterior tibial, posterior tibial veins are patent. Thrombus identified within the paired right peroneal veins and one of 2 left peroneal veins. IMPRESSION: Deep vein thrombosis identified within the bilateral peroneal veins. ACT 112: Negative or not required by law. Electronically signed by: Cj DeL a Vega M.D. 06/24/2023 6:35 AM Chest CTA 06/24/23 06:47 CHEST CTA for PULMONARY ARTERIES CT DOSE: 700.21 mGy.cm HISTORY: Hypoxia. History of DVT. TECHNIQUE: Multiaxial CT images of the chest were performed following the intravenous administration of contrast to evaluate the pulmonary arteries. 3D/Maximal intensity projection images were also obtained. Sagittal and coronal reformations were also reviewed. A dose lowering technique was utilized adhering to the principles of ALARA. COMPARISON STUDY: Abdomen and pelvis CT 06/23/2023. FINDINGS: Mild calcified plaque within the normal caliber thoracic aorta. No evidence for an aortic dissection. The heart is mildly enlarged. Severe coronary artery calcifications are noted. There is left ventricular hypertrophy. The bilateral lower lobe subsegmental pulmonary arteries or not well evaluated due to the respiratory motion artifact. Otherwise, the remaining pulmonary arteries show no filling defects to suggest a pulmonary embolus. There is a 12 mm right thyroid nodule. This does not meet CT criteria for follow-up. Limited views of the upper abdomen demonstrate a normal liver, spleen, and right adrenal gland. Stable left adrenal gland nodule which is partially visualized. There is a tiny hiatus hernia. Normal caliber esophagus. No mediastinal or hilar lymphadenopathy. No pleural or pericardial effusions. No acute fractures within the chest. No pneumothorax. The central airways are patent. There is a punctate calcified granuloma within the lingula. No evidence for pulmonary edema. Bibasilar linear densities most pronounced within the lower lobes favor subsegmental atelectasis. A superimposed pneumonia would be difficult to exclude but is considered less likely. IMPRESSION: 1. No evidence for a pulmonary embolus with limitations as described above. 2. Bibasilar linear densities persist. This favors subsegmental atelectasis. A pneumonia could also have a similar appearance but is considered less likely. ACT 112: Negative or not required by law. Electronically signed by: Cj De La Vega M.D. 06/24/2023 9:13 AM Ordered Studies 06/23/23 17:34 CT Abd and Pelvis [CT abd pelvis IV con only] Stat 06/24/23 02:10 US venous doppler LE BI Stat 06/24/23 06:47 CT angio chest PE protocol Stat Hospital Course (1) Acute confusion: Patient is a 78 yr female with H/O Hypertension, vitamin D deficiency, history of diverticulitis, osteoporosis, severe late onset Alzheimer's dementia with psychotic disturbance, depression, currently living [facility] and is a plan to transfer to [place] as per the family was brought in because last night she had nausea and vomiting today she had a few episodes of diarrhea and she seemed confused. Acute metabolic Encephalopathy Acute confusion in setting of dementia Likely due to UTI, hypoxia Mental status back to baseline Reorient frequently to minimize delirium Plan to be discharged back to personal care facility today UTI Urine culture grew pansensitive E. coli Zosyn transition to ceftriaxone Completed antibiotic course Bilateral DVTs-likely provoked due to decreased mobility Lower extremity edema --CTA showed no PE --Venous Doppler:Deep vein thrombosis identified within the bilateral peroneal veins. -- IV heparin transition to Eliquis Reduced dose of Eliquis as able Hypoxia Likely due to atelectasis --ECHO: Mild concentric LVH. Basal septum is thickened and angulated consistent with sigmoid septum. Left ventricle wall motion is normal. Left ventricle systolic pressure is normal. EF 50 to 60%. Grade 1 diastolic dysfunction. --CTA showed no PE. Findings suggestive of atelectasis. Continue home Lasix Monitor volume status Continue incentive spirometry Saturating well on room air currently Possible acute diverticulitis-ruled out H/O Diverticulitis in the past CT abdomen pelvis showing possible diverticulitis Initially was on IV Zosyn Appreciate surgery input Antibiotics have been discontinued for diverticulitis Denies any abdominal pain Alzheimer's dementia with psychotic disturbance On donepezil, memantine, Seroquel and Ativan as needed Monitor H/O Glaucoma Continue eyedrops DVT Px: Eliquis CODE STATUS DNR/DNI Disposition PCF Total Time Total Time Spent Total Time Spent (In Minutes): 56 minutes Discharge Plan Discharge Items Patient Disposition: [facility] Reason For Visit: CONFUSION, HYPOXIA, DIVERTICULITIS Discharge Diagnosis: Urinary tract infection Acute metabolic encephalopathy Bilateral lower extremity deep vein thrombosis Hypoxia Hypokalemia Activity: Per Instructions section Exercise/Sports: Gradually increase as tolerated Non-emergency contact: Primary Care Provider Call non-emergency contact if: you have any medication questions, your symptoms worsen, your pain is concerning for you and you have a fever Follow-up/Referrals: Lauren Varela PA-C [Primary Care Provider] - (Date & Time 07/08/2023 2:00 PM Provider Lauren Varela PA-C Department [facility] ) Diet: Heart Healthy Addtl Attending Provider Instructions: Follow-up with your primary care physician Lauren Varela PA-C on 07/08/2023 2:00 PM -- Continue apixaban 10 mg twice a day for 3 more days (till July 04, 2023), then take apixaban 5 mg 2 times a day starting Jul 05, 2023. Seek immediate medical attention if your symptoms reoccur or worsen Please take all medications as instructed on discharge list below. Please call if you have any questions or problems. You can reach a [facility] hospitalist on duty at [facility] 24 hours a day by calling [phone] Pending Studies at Discharge: No Stand-Alone Forms: My [facility] VSS Monitoring, Smoking Cessation Skilled Items Patient informed of condition?: Yes DNR: Yes Discharge Level of Care: Other Communicable Disease: No Discharge Prognosis: Stable Lines: None Urinary Catheter: No Medications and DC Order Prescriptions: New Eliquis 5 mg Tablet 5 mg PO UD Qty: 66 1RF Rx Instructions: Take Apixaban 10 mg twice a day for 3 more days (till July 04, 2023), then take apixaban 5 mg 2 times a day starting Jul 05, 2023. potassium chloride 20 mEq Tablet,Er Particles/Crystals 20 meq PO DAILY Qty: 7 0RF Continued dorzolamide-timolol 22.3-6.8 mg/mL Drops 1 drp OPB BID Qty: 0 fluticasone propionate [24 Hour Allergy Relief] 50 mcg/actuation [place],Suspension 2 spray INTRANASAL DAILY 30 Days Qty: 16 diclofenac sodium 1 % gel 1 g TOPICAL BID PRN (Reason: Pain) quetiapine 25 mg tablet 25 mg PO HS Rx Instructions: MAY TAKE 12.5 MG QAM IF HAVING HALLUCINATIONS. oxybutynin chloride 10 mg tablet extended release 24hr 10 mg PO QAM donepezil 10 mg tablet 10 mg PO QDD ondansetron HCl 4 mg tablet 4 mg PO Q6H PRN (Reason: NAUSEA/VOMITING) lorazepam 0.5 mg Tablet 0.5 mg PO TID PRN (Reason: Agitation) benzonatate 100 mg Capsule 200 mg PO TID PRN (Reason: Cough) montelukast [Singulair] 10 mg Tablet 10 mg PO DAILY cyanocobalamin (vitamin B-12) [Vitamin B-12] 1,000 mcg Tablet, Sublingual 1,000 mcg SUBLINGUAL DAILY furosemide [Lasix] 20 mg Tablet 20 mg PO DAILY Rx Instructions: MAY TAKE SECOND DOSE AT NOON, IF NO RESULTS WITH AM DOSE. nystatin 100,000 unit/gram powder 1 applic TOPICAL TID Rx Instructions: UNDER BREASTS AND ABD FOLD azelastine 137 mcg (0.1 %) Aerosol,[place] 1 spray INTRANASAL BID Rx Instructions: administer into each nostril lysine 500 mg Tablet 500 mg PO DAILY loratadine [Claritin] 10 mg Tablet 10 mg PO DAILY memantine 10 mg tablet 10 mg PO BID fluoride (sodium) [Sodium Fluoride 5000 Plus] 1.1 % Cream 1 applic DENTAL BID chlorhexidine gluconate 0.12 % mouthwash 15 ml PO BID aripiprazole 2 mg tablet 2 mg PO QAM calcium carbonate-vitamin D3 [Calcium 600 + D(3)] 600 mg-10 mcg (400 unit) Tablet 1 tab PO DAILY melatonin 1 mg/mL Liquid 2 mg PO HS Probiotic 5 billion cell Capsule, Sprinkle 1 cap PO DAILY Discontinued doxycycline hyclate 100 mg capsule 100 mg PO BID Rx Instructions: STARTED 06/23/23 FOR 10 DAYS. Discharge Orders: Discharge Order (Routine); Ordered 07/01/23 Ordered By: Lisandro Matt Admission Data Admit Date/Time: 06/24/23 00:09 Attending Provider: Lisandro Matt Admit Provider: Juventino Hager Primary Care Provider: Lauren Varela Other Providers: Juventino Hager; Jim Jauregui; Jono Mike; Patricia Vo; James Pineda; Mikhail Jaeger; Yanni Camejo; Zehra Castellanos; Roberto Carlos Ace Jr; Sharyn Hernandez; Willie Riojas; Gladis Alvarez; [facility]; [facility]
== END 2023-07-01 16:00 | disposition home or self-care (01) | DRG 689 ==
LOC: ED 17:03 → SUATTDRO 06-24 00:09 → 2N 06-24 00:09

== ENCOUNTER 2023-08-03 19:52 | Inpatient (IN) ==
[2023-08-03 21:44] LABS: Alanine Aminotransferase 16 U/L (7-52); Albumin Globulin Ratio 1.1 (0.9-2); Albumin Level 4.2 gm/dl (3.4-5.0); Alkaline Phosphatase 47 U/L (34-104); Bilirubin,Total 0.8 mg/dl (0.2-1.0); Blood Urea Nitrogen 27 mg/dl (6-23); Calcium 9.5 mg/dl (8.6-10.3); Carbon Dioxide 26 mmol/L (21-32); Chloride 107 mmol/L (98-107); Est GFR (African American) 68.2 ml/min; Est GFR (Non-African American) 58.9 ml/min; Globulin 3.8 gm/dl (2.5-4.0); Glucose 98 mg/dl (70-99(Fasting))
[2023-08-03 21:51] LABS: Basophils # (auto) 0.03 K/uL (0.00-0.20); Basophils % (auto) 0.4 %; Eosinophils # (auto) 0.06 K/uL (0.00-0.50); Eosinophils % (auto) 0.8 %; Hematocrit (blood only) 46.3 % (37.0-47.0); Hemoglobin 15.8 g/dl (12.0-16.0); Immature Granulocytes # (auto) 0.02 K/uL (0.01-0.20); Immature Granulocytes % (auto) 0.3 %; Lymphocytes # (auto) 2.32 K/uL (1.20-3.40); Lymphocytes % (auto) 32.1 %; Mean Corpuscular Hemoglobin 29.5 pg (25.0-34.0); Mean Corpuscular Hgb Conc 34.1 g/dL (32.0-36.0); Mean Corpuscular Volume 86.4 fL (80.0-100.0); Mean Platelet Volume 11.2 fL (9.4-12.4); Monocytes # (auto) 0.68 K/uL (0.11-0.59); Monocytes % (auto) 9.4 %; Neutrophils # (auto) 4.11 K/uL (1.40-6.50); Platelet Count 207 K/uL (130-400); RDW Coefficient of Variation 14.5 % (11.5-14.5); RDW Standard Deviation 45.8 fL (36.4-46.3); Red Blood Count 5.36 M/uL (4.20-5.40); White Blood Count 7.22 K/ul (4.8-10.8)
[2023-08-03] MEDS: SODIUM CHLORIDE 0.9% 1,000 ML IV SCH (21:56)
--- NOTE | 2023-08-03 22:01 | Emergency Department Note ---
Impression & Plan AMS (altered mental status), Dehydration, Dementia, Hypokalemia ED Provider Note ED Provider Note NAME: AWA ROMERO AGE:78 SEX: Female : 1945 ARRIVES VIA: EMS INFORMANT: Family ED PROVIDER(s): Veronica Dyer DO CHIEF COMPLAINT: Increased confusion, dehydration HPI: This is a 78-year-old female with a history of dementia brought in by EMS from a local facility. Daughter provides history and states staff they are concerned that she has been refusing to eat anything over the last 2 days and they were concerned for dehydration. They also states she began toileting and other areas that were not the bathroom. Patient denies any pain, and states she is eating regularly. Daughter at bedside states she has had increased confusion in the past during times of acute illness and has previously had UTIs. 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 She states only medication change was made back in June and that was a medication being removed after she saw neurology. PAST MEDICAL HISTORY:See Below PAST SURGICAL HISTORY:See Below FAMILY HISTORY:See Below SOCIAL HISTORY:See Below HOME MEDICATIONS:See Below ALLERGIES:See Below VITALS:See Below PHYSICAL EXAMINATION: GENERAL: alert, well appearing, well nourished, no distress, non-toxic EYE EXAM: normal conjunctiva, PERRL and EOM's grossly intact OROPHARYNX: no exudate, no erythema, lips, buccal mucosa, and tongue normal and mucous membranes are dry NECK: supple, no nuchal rigidity, no adenopathy, non-tender LUNGS: Clear to auscultation. Normal chest wall mechanics, no w/r/r HEART: no murmurs, S1 normal and S2 normal ABDOMEN: abdomen soft, non-tender, normo-active bowel sounds, no masses, no rebound or guarding. BACK: Back is symmetrical on inspection and there is no deformity, no midline tenderness, no CVA tenderness. SKIN: no rashes, petechiae, orbruising UPPER EXTREMITIES: upper extremities are grossly normal. FROM, nml pulses b/l. LOWER EXTREMITIES: No pitting edema. FROM, nml pulses b/l. NEURO EXAM: Pleasantly confused, cranial nerves II-XII grossly intact, normal speech, no facial droop,nogross weakness of arms, no gross weakness of legs. Gross sensation intact. No ataxia. Vital Signs: reviewed and remarkable Differential Diagnosis: Dehydration, CECILE, CVA, ICH, UTI, dysrhythmia, electrolyte abnormality, pneumonia, viral syndrome, medication ADR, worsening dementia, as well as others organs MEDICAL DECISION MAKING: This is a 78 yo female who presents to the ER via EMS with family for altered mental status and decreased intake. Patient with hx of dementia. VS stable and patient afebrile. Labs drawn and sent, IV established, EKG and CXR performed and interpreted at bedside, and patient placed on telemetry. She was sent for CT head which was reassuring. UA did not reveal UTI. She was cautiously rehydrated with IVF. No ectopy or dyshrythmia noted. Mild hypokalemia noted and patient given oral potassium repletion. I discussed results with family and given unclear etiology and acute onset of her symptoms, and that patient lives at a personal care facility the case was discussed with the hospitalist for additional evaluation and treatment. Consultation(s): 0035: Discussed with Dr. Hager, [facility] hospitalist, for additional evaluation/treatment. ER Treatment Provided: See below Diagnostics Interpreted By Me: -ECG: NSR at 79, nml axis, nml intervals, no acute ST/T wave changes -Cardiac Monitoring: An order was placed for continuous cardiac monitoring. The monitor shows a rate of 66 with normal sinus rhythm. -Laboratory studies: As stated above and show below. -Imaging studies: X-ray Chest: A single view study of the chest was reviewed and was negative for cardiomegaly, focal infiltrate, effusion, pulmonary edema, or wide mediastinum. Triage Nursing Note Reviewed Prior/Outside Records Reviewed - prior urine culture Past Med/Surg History Medical History Ambulatory dysfunction Urinary tract infection HX Pancreatitis HX Diverticulitis HX Surgical History History of right cataract surgery History of esophagogastroduodenoscopy (EGD) History of colonoscopy History of cholecystectomy S/P tubal ligation Family History Mother Colon cancer Social History Smoking Status: Never smoker Second Hand Exposure: No; Do You Dip or Chew Tobacco: No; Hx Alcohol Use: No Hx Substance Use: No Preferred Language: Algerian Communication Ability: Effective Leadership Program Associate Required: No Beliefs That Will Affect Care: None Current Living Situation: Snf Current Living Situation Comment: Per ELLE sanchez from [facility], planning to transition to [facility] Feel Safe at Home: Yes Assistive Devices: Walker Allergies Allergies Allergy/AdvReac Type Severity Reaction Status Date / Time propoxyphene Allergy Severe ITCHING,THROAT Verified 08/04/23 00:00 SWELLING oxycodone AdvReac Intermediate ITCHING/ARIA Verified 08/04/23 00:00 WSY Home Meds Home Medications Medication Instructions Recorded Confirmed fluticasone propionate 50 2 spray intranasal DAILY Allergy 02/11/15 08/04/23 mcg/actuation nasal Symptoms 30 days #16 grams spray,suspension (24 Hour Allergy Relief) Lactobacil.acidophilus-Bifido.animalis 1 cap PO DAILY 06/23/23 08/04/23 5 billion cell sprinkle capsule (Probiotic) aripiprazole 2 mg tablet 2 mg PO BID 06/23/23 08/04/23 azelastine 137 mcg (0.1 %) nasal 1 spray intranasal BID 06/23/23 08/04/23 spray aerosol benzonatate 100 mg capsule 200 mg PO TID PRN Cough 06/23/23 08/04/23 calcium carbonate 600 mg-vitamin 1 tab PO DAILY 06/23/23 08/04/23 D3 10 mcg (400 unit) tablet (Calcium 600 + D(3)) chlorhexidine gluconate 0.12 % 15 ml PO BID PRN ORAL CARE 06/23/23 08/04/23 mouthwash cyanocobalamin (vitamin B-12) 1,000 mcg sublingual DAILY 06/23/23 08/04/23 1,000 mcg sublingual tablet donepezil 10 mg tablet 10 mg PO QDD 06/23/23 08/04/23 furosemide 20 mg tablet (Lasix) 20 mg PO DAILY PRN EDEMA IN LEGS 06/23/23 08/04/23 loratadine 10 mg tablet (Claritin) 10 mg PO DAILY 06/23/23 08/04/23 melatonin 1 mg/mL oral liquid 2 mg PO HS 06/23/23 08/04/23 memantine 10 mg tablet 10 mg PO BID 06/23/23 08/04/23 montelukast 10 mg tablet 10 mg PO DAILY 06/23/23 08/04/23 (Singulair) nystatin 100,000 unit/gram topical 1 applic topical TID PRN Skin 06/23/23 08/04/23 powder Irritation acetaminophen 500 mg tablet 500 mg PO Q4H PRN Pain 08/04/23 08/04/23 (Tylenol Extra Strength) apixaban 5 mg tablet (Eliquis) 5 mg PO BID 08/04/23 08/04/23 cholecalciferol (vitamin D3) 25 25 mcg PO DAILY 08/04/23 08/04/23 mcg (1,000 unit) capsule (Vitamin D3) colloidal oatmeal 1 % topical 1 applic topical DIRECTED PRN 08/04/23 08/04/23 cream (Eucerin Eczema Relief) ECZEMA AREA docusate sodium 100 mg capsule 100 mg PO DAILY PRN Constipation 08/04/23 08/04/23 emollient combination no.[id number] 1 applic topical DIRECTED PRN 08/04/23 08/04/23 (Eucerin Advanced Repair Hand Dry Skin topical cream) loperamide 2 mg capsule See Rx Instructions .Route 08/04/23 08/04/23 .COMPLEX PRN Diarrhea Results & Data (ED) Vital Signs Vital Signs - 24 hr 08/03/23 19:56 08/03/23 21:22 08/03/23 21:23 Temperature 36.8 C Temperature Source Oral Pulse Rate 83 75 71 Pulse Rate from SpO2 Sensor 74 Respiratory Rate 18 14 Respiratory Effort / Characteristics Non-Labored Spontaneous Respiratory Depth Normal Respiratory Pattern Regular Blood Pressure 162/94 H Blood Pressure Mean 116 Blood Pressure Position Sitting Pulse Oximetry 93 92 Oxygen Delivery Method Room Air Sepsis Recent Fever Within 48 Hours No Sepsis New/Unexplained Change in Mental Status N/A Sepsis Action Taken by Nursing No Action Required 08/03/23 21:30 08/03/23 21:36 08/03/23 21:51 Temperature Temperature Source Pulse Rate 74 69 Pulse Rate from SpO2 Sensor 74 70 Respiratory Rate 24 18 Respiratory Effort / Characteristics Respiratory Depth Respiratory Pattern Blood Pressure Blood Pressure Mean Blood Pressure Position Pulse Oximetry 92 91 Oxygen Delivery Method Room Air Sepsis Recent Fever Within 48 Hours Sepsis New/Unexplained Change in Mental Status Sepsis Action Taken by Nursing 08/03/23 21:59 08/03/23 21:59 08/03/23 22:00 Temperature Temperature Source Pulse Rate 71 Pulse Rate from SpO2 Sensor 69 Respiratory Rate 16 Respiratory Effort / Characteristics Respiratory Depth Respiratory Pattern Blood Pressure 170/89 H 166/89 H Blood Pressure Mean 106 114 Blood Pressure Position Pulse Oximetry 92 Oxygen Delivery Method Sepsis Recent Fever Within 48 Hours Sepsis New/Unexplained Change in Mental Status Sepsis Action Taken by Nursing 08/03/23 22:00 08/03/23 22:10 08/03/23 22:20 Temperature Temperature Source Pulse Rate 69 71 70 Pulse Rate from SpO2 Sensor 68 71 69 Respiratory Rate 15 17 14 Respiratory Effort / Characteristics Respiratory Depth Respiratory Pattern Blood Pressure Blood Pressure Mean Blood Pressure Position Pulse Oximetry 92 92 92 Oxygen Delivery Method Sepsis Recent Fever Within 48 Hours Sepsis New/Unexplained Change in Mental Status Sepsis Action Taken by Nursing 08/03/23 22:30 08/03/23 22:30 08/03/23 22:40 Temperature Temperature Source Pulse Rate 74 68 Pulse Rate from SpO2 Sensor 73 70 Respiratory Rate 13 16 Respiratory Effort / Characteristics Respiratory Depth Respiratory Pattern Blood Pressure 156/102 H Blood Pressure Mean 132 Blood Pressure Position Pulse Oximetry 93 93 Oxygen Delivery Method Sepsis Recent Fever Within 48 Hours Sepsis New/Unexplained Change in Mental Status Sepsis Action Taken by Nursing 08/03/23 22:50 08/03/23 23:00 08/03/23 23:00 Temperature Temperature Source Pulse Rate 73 73 Pulse Rate from SpO2 Sensor 69 75 Respiratory Rate 15 15 Respiratory Effort / Characteristics Respiratory Depth Respiratory Pattern Blood Pressure 158/100 H Blood Pressure Mean 111 Blood Pressure Position Pulse Oximetry 93 94 Oxygen Delivery Method Sepsis Recent Fever Within 48 Hours Sepsis New/Unexplained Change in Mental Status Sepsis Action Taken by Nursing 08/03/23 23:10 08/03/23 23:20 08/03/23 23:30 Temperature Temperature Source Pulse Rate 73 75 75 Pulse Rate from SpO2 Sensor 72 74 73 Respiratory Rate 18 15 14 Respiratory Effort / Characteristics Respiratory Depth Respiratory Pattern Blood Pressure Blood Pressure Mean Blood Pressure Position Pulse Oximetry 92 93 93 Oxygen Delivery Method Sepsis Recent Fever Within 48 Hours Sepsis New/Unexplained Change in Mental Status Sepsis Action Taken by Nursing 08/03/23 23:30 08/03/23 23:42 Temperature Temperature Source Pulse Rate 63 Pulse Rate from SpO2 Sensor Respiratory Rate 19 Respiratory Effort / Characteristics Respiratory Depth Respiratory Pattern Blood Pressure 159/107 H Blood Pressure Mean 132 Blood Pressure Position Pulse Oximetry Oxygen Delivery Method Sepsis Recent Fever Within 48 Hours Sepsis New/Unexplained Change in Mental Status Sepsis Action Taken by Nursing Laboratory Data 08/05/23 06:32 08/05/23 06:32 Lab Results 08/03/23 08/03/23 08/03/23 Range/Units 20:30 22:37 23:43 WBC 7.22 (4.8-10.8) K/ul RBC 5.36 (4.20-5.40) M/uL Hgb 15.8 (12.0-16.0) g/dl Hct 46.3 (37.0-47.0) % MCV 86.4 (80.0-100.0) fL MCH 29.5 (25.0-34.0) pg MCHC 34.1 (32.0-36.0) g/dL RDW Std Deviation 45.8 (36.4-46.3) fL RDW Coeff of Adán 14.5 (11.5-14.5) % Plt Count 207 (130-400) K/uL MPV 11.2 (9.4-12.4) fL Immature Gran % (Auto) 0.3 % Neut % (Auto) 57.0 % Lymph % (Auto) 32.1 % Martin % (Auto) 9.4 % Eos % (Auto) 0.8 % Baso % (Auto) 0.4 % Neut # (Auto) 4.11 (1.40-6.50) K/uL Lymph # (Auto) 2.32 (1.20-3.40) K/uL Martin # (Auto) 0.68 H (0.11-0.59) K/uL Eos # (Auto) 0.06 (0.00-0.50) K/uL Baso # (Auto) 0.03 (0.00-0.20) K/uL Immature Gran # (Auto) 0.02 (0.01-0.20) K/uL Sodium TNP 142 Potassium TNP 3.4 L Chloride 107 (98-107) mmol/L Carbon Dioxide 26 (21-32) mmol/L Anion Gap TNP BUN 27 H (6-23) mg/dl Creatinine 0.93 (0.6-1.2) mg/dl Est Cr Clr Drug Dosing Not Reportable Est GFR ( Amer) 68.2 ml/min Est GFR (Non-Af Amer) 58.9 ml/min BUN/Creatinine Ratio 29.0 H (10-20) Glucose 98 (70-99(Fasting)) mg/dl Calcium 9.5 (8.6-10.3) mg/dl Magnesium Cancelled 2.0 Total Bilirubin 0.8 (0.2-1.0) mg/dl AST TNP 17 ALT 16 (7-52) U/L Alkaline Phosphatase 47 (34-104) U/L Troponin I High Sens Cancelled 5.3 Total Protein 8.0 (6.0-8.3) gm/dl Albumin 4.2 (3.4-5.0) gm/dl Globulin 3.8 (2.5-4.0) gm/dl Albumin/Globulin Ratio 1.1 (0.9-2) TSH Cancelled 1.552 Urine Color Yellow Urine Appearance Clear (Clear) Urine pH 5.0 (4.5-7.5) Ur Specific [place] 1.025 (1.000-1.030) Urine Protein Negative (Negative) Urine Glucose (UA) Negative (Negative) Urine Ketones Trace H (Negative) Urine Blood Negative (Negative) Urine Nitrite Negative (Negative) Urine Bilirubin Negative (Negative) Urine Urobilinogen Negative (Negative) Ur Leukocyte Esterase Negative (Negative) Adenovirus (PCR) (NotDetected) B. pertussis DNA (PCR) (NotDetected) B.parapertussis DNA PCR (NotDetected) C. pneumoniae DNA (PCR) (NotDetected) Coronavirus OC43 (PCR) (NotDetected) Coronavirus HKU1 (PCR) (NotDetected) Coronavirus 229E (PCR) (NotDetected) SARS-CoV-2 (PCR) (NotDetected) Coronavirus NL63 (PCR) (NotDetected) Human Metapneumovir PCR (NotDetected) Influenza Type A (PCR) (NotDetected) Influenza Type B (PCR) (NotDetected) M. pneumoniae (PCR) (NotDetected) Parainfluenza 1 (PCR) (NotDetected) Parainfluenza 2 (PCR) (NotDetected) Parainfluenza 3 (PCR) (NotDetected) Parainfluenza 4 (PCR) (NotDetected) RSV (PCR) (NotDetected) Entero/Rhino (PCR) (NotDetected) 08/04/23 Range/Units 00:07 WBC (4.8-10.8) K/ul RBC (4.20-5.40) M/uL Hgb (12.0-16.0) g/dl Hct (37.0-47.0) % MCV (80.0-100.0) fL MCH (25.0-34.0) pg MCHC (32.0-36.0) g/dL RDW Std Deviation (36.4-46.3) fL RDW Coeff of Adán (11.5-14.5) % Plt Count (130-400) K/uL MPV (9.4-12.4) fL Immature Gran % (Auto) % Neut % (Auto) % Lymph % (Auto) % Martin % (Auto) % Eos % (Auto) % Baso % (Auto) % Neut # (Auto) (1.40-6.50) K/uL Lymph # (Auto) (1.20-3.40) K/uL Martin # (Auto) (0.11-0.59) K/uL Eos # (Auto) (0.00-0.50) K/uL Baso # (Auto) (0.00-0.20) K/uL Immature Gran # (Auto) (0.01-0.20) K/uL Sodium Potassium Chloride (98-107) mmol/L Carbon Dioxide (21-32) mmol/L Anion Gap BUN (6-23) mg/dl Creatinine (0.6-1.2) mg/dl Est Cr Clr Drug Dosing Est GFR ( Amer) ml/min Est GFR (Non-Af Amer) ml/min BUN/Creatinine Ratio (10-20) Glucose (70-99(Fasting)) mg/dl Calcium (8.6-10.3) mg/dl Magnesium Total Bilirubin (0.2-1.0) mg/dl AST ALT (7-52) U/L Alkaline Phosphatase (34-104) U/L Troponin I High Sens Total Protein (6.0-8.3) gm/dl Albumin (3.4-5.0) gm/dl Globulin (2.5-4.0) gm/dl Albumin/Globulin Ratio (0.9-2) TSH Urine Color Urine Appearance (Clear) Urine pH (4.5-7.5) Ur Specific [place] (1.000-1.030) Urine Protein (Negative) Urine Glucose (UA) (Negative) Urine Ketones (Negative) Urine Blood (Negative) Urine Nitrite (Negative) Urine Bilirubin (Negative) Urine Urobilinogen (Negative) Ur Leukocyte Esterase (Negative) Adenovirus (PCR) Not Detected (NotDetected) B. pertussis DNA (PCR) Not Detected (NotDetected) B.parapertussis DNA PCR Not Detected (NotDetected) C. pneumoniae DNA (PCR) Not Detected (NotDetected) Coronavirus OC43 (PCR) Not Detected (NotDetected) Coronavirus HKU1 (PCR) Not Detected (NotDetected) Coronavirus 229E (PCR) Not Detected (NotDetected) SARS-CoV-2 (PCR) Not Detected (NotDetected) Coronavirus NL63 (PCR) Not Detected (NotDetected) Human Metapneumovir PCR Not Detected (NotDetected) Influenza Type A (PCR) Not Detected (NotDetected) Influenza Type B (PCR) Not Detected (NotDetected) M. pneumoniae (PCR) Not Detected (NotDetected) Parainfluenza 1 (PCR) Not Detected (NotDetected) Parainfluenza 2 (PCR) Not Detected (NotDetected) Parainfluenza 3 (PCR) Not Detected (NotDetected) Parainfluenza 4 (PCR) Not Detected (NotDetected) RSV (PCR) Not Detected (NotDetected) Entero/Rhino (PCR) Not Detected (NotDetected) Administered Medications Discontinued Medications Apixaban (Apixaban 5 Mg Tablet) 5 mg PO BID [facility] Stop: 09/03/23 08:59 Last Admin: 08/05/23 08:27 Dose: 5 mg Documented By: Admin: 08/04/23 20:13 Dose: 5 mg Documented By: Admin: 08/04/23 08:24 Dose: 5 mg Documented By: VIANEYM Aripiprazole (Aripiprazole 1 Mg/Ml Oral Soln 150 Ml Btl) 2 mg PO BID [facility] Stop: 09/03/23 08:59 Last Admin: 08/05/23 08:27 Dose: 2 mg Documented By: Admin: 08/04/23 20:14 Dose: 2 mg Documented By: Admin: 08/04/23 08:24 Dose: 2 mg Documented By: RONIT Azelastine HCl (Azelastine Hcl 0.1% Nasal 200 Sprays/27,400 Mcg Btl) 1 sprays BEE BID [facility] Stop: 09/03/23 08:59 Last Admin: 08/05/23 08:29 Dose: 1 sprays Documented By: Admin: 08/04/23 20:12 Dose: 1 sprays Documented By: Admin: 08/04/23 08:22 Dose: 1 sprays Documented By: RONIT Calcium/Vitamin D (Calcium 600mg + Vit D 400 Iu Tab) 1 tab PO DAILY [facility] Stop: 09/03/23 08:59 Last Admin: 08/05/23 08:28 Dose: 1 tab Documented By: Admin: 08/04/23 08:23 Dose: 1 tab Documented By: RONIT Cyanocobalamin (Cyanocobalamin (B-12) 500 Mcg Tablet) 1,000 mcg PO DAILY [facility] Stop: 09/03/23 08:59 Last Admin: 08/05/23 08:27 Dose: 1,000 mcg Documented By: Admin: 08/04/23 08:23 Dose: 1,000 mcg Documented By: RONIT Donepezil HCl (Donepezil Hcl 10 Mg Tab) 10 mg PO QDD [facility] Stop: 09/03/23 16:29 Last Admin: 08/04/23 16:10 Dose: 10 mg Documented By: RONIT Fluticasone Propionate (Fluticasone Propionate Na Spr 16 Gm Btl) 2 sprays NA DAILY [facility] Stop: 09/03/23 08:59 Last Admin: 08/05/23 08:28 Dose: 2 sprays Documented By: Admin: 08/04/23 08:22 Dose: 2 sprays Documented By: RONIT Sodium Chloride (Nss) 1,000 mls @ 250 mls/hr IV .Q4H [facility] Stop: 09/02/23 21:44 Last Infusion: 08/04/23 03:29 Dose: Infused Documented By: Admin: 08/04/23 01:08 Dose: 250 mls/hr Documented By: Infusion: 02/01/24 01:08 Dose: Infused Documented By: Admin: 08/03/23 21:56 Dose: 250 mls/hr Documented By: DAVID Dextrose/Sodium Chloride (D5w And 1/2nss) 1,000 mls @ 125 mls/hr IV .Q8H [facility] Stop: 09/03/23 03:25 Last Infusion: 08/04/23 08:26 Dose: Infused Documented By: Admin: 08/04/23 03:48 Dose: 125 mls/hr Documented By: PEREZ Lactobacillus Acidophilus (Advanced Probiotic 1250 Mg Capsule) 2 cap PO DAILY [facility] Stop: 09/03/23 08:59 Last Admin: 08/05/23 08:28 Dose: 2 cap Documented By: Admin: 08/04/23 08:23 Dose: 2 cap Documented By: RONIT Loratadine (Loratadine 10 Mg Tab) 10 mg PO DAILY [facility] Stop: 09/03/23 08:59 Last Admin: 08/05/23 08:28 Dose: 10 mg Documented By: Admin: 08/04/23 08:23 Dose: 10 mg Documented By: RONIT Melatonin (Melatonin 3 Mg Tab) 3 mg PO HSZ PRN PRN Reason: Sleep Stop: 09/03/23 03:35 Last Admin: 08/04/23 23:32 Dose: 3 mg Documented By: MARICRUZ Memantine (Memantine Hcl 10 Mg Tab) 10 mg PO BID [facility] Stop: 09/03/23 08:59 Last Admin: 08/05/23 08:27 Dose: 10 mg Documented By: Admin: 08/04/23 20:14 Dose: 10 mg Documented By: Admin: 08/04/23 08:23 Dose: 10 mg Documented By: RONIT Montelukast Sodium (Montelukast Sodium 10 Mg Tablet) 10 mg PO DAILY [facility] Stop: 09/03/23 08:59 Last Admin: 08/05/23 08:28 Dose: 10 mg Documented By: Admin: 08/04/23 08:24 Dose: 10 mg Documented By: RONIT Potassium Chloride (Potassium Chloride Crtab 20 Meq Tabcr) 40 meq PO NOW STA Stop: 08/04/23 00:38 Last Admin: 08/04/23 00:59 Dose: 40 meq Documented By: DAVID Vitamin D (Cholecalciferol 1,000 Units 25 Mcg Tab) 1,000 mcg PO DAILY [facility] Stop: 09/03/23 08:59 Last Admin: 08/04/23 08:23 Dose: 1,000 units Documented By: RONIT Vitamin D (Cholecalciferol 1,000 Units 25 Mcg Tab) 25 mcg PO DAILY [facility] Stop: 09/04/23 08:59 Last Admin: 08/05/23 08:28 Dose: 25 mcg Documented By: [facility] Imaging Data Radiologist's Impression: Head CT 08/03/23 21:33 Exam(s): CT HEAD Without Contrast EXAM: CT Head Without Intravenous Contrast CLINICAL HISTORY: Reason for exam: ams. TECHNIQUE: Axial computed tomography images of the head/brain without intravenous contrast. CTDI is 38.64 mGy and DLP is 547.75 mGy-cm. Automated exposure control was utilized for the study. A dose lowering technique was utilized adhering to the principles of ALARA. COMPARISON: No relevant prior studies available. FINDINGS: No acute intracranial hemorrhage. No midline shift or mass effect. The territorial davis-white matter differentiation is maintained throughout. Age-related cerebral volume loss. Periventricular and subcortical white matter hypoattenuation, consistent with chronic microangiopathy. The visualized orbits appear grossly unremarkable. The calvarium is intact. The visualized paranasal sinuses and mastoid air cells are grossly clear. IMPRESSION: No acute intracranial hemorrhage, midline shift, or mass effect. Electronically signed by: Avel Johnson MD 08/03/23 22:32 PM Discharge Plan Visit Data Chief Complaint: Confusion Stated Complaint: DEMENTIA, VERY CONFUSED, BLOOD CLOTS, DEHYRADTION ED Provider: Veronica Dyer Discharge Problem: AMS (altered mental status), Dehydration, Dementia, Hypokalemia Patient Disposition: Admitted As Inpatient Condition: Good Discharge Instructions Interventions: ED Discharge Assessment Last Done: 08/04/23 02:38
--- NOTE | 2023-08-03 22:33 | CT Scan Report ---
Exam(s): CT HEAD Without Contrast EXAM: CT Head Without Intravenous Contrast CLINICAL HISTORY: Reason for exam: ams. TECHNIQUE: Axial computed tomography images of the head/brain without intravenous contrast. CTDI is 38.64 mGy and DLP is 547.75 mGy-cm. Automated exposure control was utilized for the study. A dose lowering technique was utilized adhering to the principles of ALARA. COMPARISON: No relevant prior studies available. FINDINGS: No acute intracranial hemorrhage. No midline shift or mass effect. The territorial davis-white matter differentiation is maintained throughout. Age-related cerebral volume loss. Periventricular and subcortical white matter hypoattenuation, consistent with chronic microangiopathy. The visualized orbits appear grossly unremarkable. The calvarium is intact. The visualized paranasal sinuses and mastoid air cells are grossly clear. IMPRESSION: No acute intracranial hemorrhage, midline shift, or mass effect. Electronically signed by: Avel Johnson MD 08/03/23 22:32 PM
[2023-08-03 23:09] LABS: Potassium 3.4 mmol/L (3.5-5.1)
[2023-08-03 23:17] LABS: Troponin I High Sensitivity 5.3 pg/ml (0-14)
[2023-08-03 23:26] LABS: Thyroid Stimulating Hormone 1.552 uIu/ml (0.300-4.500)
[2023-08-03 23:50] LABS: Appearance Urine Clear (Clear); Bilirubin Urine Negative (Negative); Blood Urine Negative (Negative); Color Urine Yellow; Glucose Urine UA Negative (Negative); Ketones Urine Trace (Negative); Leukocyte Esterase Urine Negative (Negative); Nitrite Urine Negative (Negative); Protein Urine Negative (Negative); Specific Gravity Urine 1.025 (1.000-1.030); Urobilinogen Urine Negative (Negative)
[2023-08-04] MEDS ORDERED: POTASSIUM CHLORIDE CRTAB 20 MEQ TABCR PO STA (00:37)
[2023-08-04 01:05] LABS: Adenovirus PCR Not Detected (NotDetected); Bordetella parapertussis PCR Not Detected (NotDetected); Bordetella pertussis PCR Not Detected (NotDetected); Chlamydia pneumoniae PCR Not Detected (NotDetected); Coronavirus 229E PCR Not Detected (NotDetected); Coronavirus CoV-2 (COVID19)PCR Not Detected (NotDetected); Coronavirus HKU1 PCR Not Detected (NotDetected); Coronavirus NL63 PCR Not Detected (NotDetected); Coronavirus OC43PCR Not Detected (NotDetected); Human Metapneumovirus PCR Not Detected (NotDetected); Influenza A PCR Not Detected (NotDetected); Influenza B PCR Not Detected (NotDetected); Mycoplasma pneumoniae PCR Not Detected (NotDetected); Parainfluenza Virus 1 PCR Not Detected (NotDetected); Parainfluenza Virus 2 PCR Not Detected (NotDetected); Parainfluenza Virus 3 PCR Not Detected (NotDetected); Parainfluenza Virus 4 PCR Not Detected (NotDetected); Respiratory Syncytial VirusPCR Not Detected (NotDetected); Rhinovirus/Enterovirus PCR Not Detected (NotDetected)
[2023-08-04] MEDS: SODIUM CHLORIDE 0.9% 1,000 ML IV SCH (01:08)
--- NOTE | 2023-08-04 02:03 | History & Physical Report ---
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 As per daughter since she got discharged recently she was doing fine until last 2 days ago. Since last two days she is getting more confused ,poor oral intake and having weakness. Patient keeps staring. She also had a bowel movement in her pants which is unusual for her. In the ER after fluids her mental status seem to be improved. No recent fevers. No cough. Currently resting comfortably and hemodynamic stable. Patient is alert and oriented to name and place. Difficult with the dates. Talked with daughter on the phone. Daughter states she has very bad dementia and she is not current with the dates. As per daughter she does not remember what she ate 5 minutes ago. Ambulates with a walker. No difficulty swallowing. Patient denies any headache. No runny nose or sore throat. No chest pain or shortness of breath. No nausea. No abdominal pain. Patient was recently in the hospital in June with hypoxia and confusion. At that time confusion thought to be from hypoxia and initially from diverticulitis. But surgery ruled out diverticulitis. And she also found to have UTI. Treated with antibiotics. Currently patient denies any abdominal pain. UA came back unremarkable. Bio fire came back unremarkable. Last admission she also found of bilateral DVTs but CTA chest showed no PE. Currently she is on Eliquis. Altered mental status Patient has dementia More confused than baseline Seems to be improved now after fluids Seems to have dehydration Labs look okay UA unremarkable and BioFire unremarkable CT head unremarkable No signs of diverticulitis but if any concern will get CT abdomen pelvis Will continue with IV fluids Monitor in the hospital History of bilateral DVT On Eliquis Alzheimer's dementia with psychotic disturbance On donezepil, memantine and Ativan as needed Lower extremity edema On Lasix as needed DVT prophylaxis On Eliquis Disposition Med/tele CODE STATUS DNR/DNI as per my discussion with the daughter History of Present Illness Chief Complaint: Confusion Primary Care Provider: Lauren Varela PA-C 78-year-old female with past med history significant for hypertension, vitamin D deficiency, history of diverticulitis, osteoporosis, 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 As per daughter since she got discharged recently she was doing fine until last 2 days ago. Since last two days she is getting more confused ,poor oral intake and having weakness. Patient keeps staring. She also had a bowel movement in her pants which is unusual for her. In the ER after fluids her mental status seem to be improved. No recent fevers. No cough. Currently resting comfortably and hemodynamic stable. Patient is alert and oriented to name and place. Difficult with the dates. Talked with daughter on the phone. Daughter states she has very bad dementia and she is not current with the dates. As per daughter she does not remember what she ate 5 minutes ago. Ambulates with a walker. No difficulty swallowing. Patient denies any headache. No runny nose or sore throat. No chest pain or shortness of breath. No nausea. No abdominal pain. Patient was recently in the hospital in June with hypoxia and confusion. At that time confusion thought to be from hypoxia and initially from diverticulitis. But surgery ruled out diverticulitis. And she also found to have UTI. Treated with antibiotics. Currently patient denies any abdominal pain. UA came back unremarkable. Bio fire came back unremarkable. Last admission she also found of bilateral DVTs but CTA chest showed no PE. Currently she is on Eliquis. Past medical history. As mentioned above. Past surgical history. Colonoscopy. EGD with endoscopic ultrasound. Laparoscopic cholecystectomy. Ligation of the oviduct. Right punctured breast cyst drainage. Social history. . No smoking. No alcohol. No drug use. Family history. Father had nasopharyngeal cancer. Heart disorder. Lung cancer. Mother had colon cancer. Allergies Allergy/AdvReac Type Severity Reaction Status Date / Time propoxyphene Allergy Severe ITCHING,THROAT Verified 08/04/23 00:00 SWELLING oxycodone AdvReac Intermediate ITCHING/ARIA Verified 08/04/23 00:00 WSY Home Medications Medication Instructions Recorded Confirmed Type fluticasone propionate 50 2 spray intranasal DAILY Allergy 02/11/15 08/04/23 History mcg/actuation nasal Symptoms 30 days #16 grams spray,suspension (24 Hour Allergy Relief) Lactobacil.acidophilus-Bifido.animalis 1 cap PO DAILY 06/23/23 08/04/23 History 5 billion cell sprinkle capsule (Probiotic) aripiprazole 2 mg tablet 2 mg PO BID 06/23/23 08/04/23 History azelastine 137 mcg (0.1 %) nasal 1 spray intranasal BID 06/23/23 08/04/23 History spray aerosol benzonatate 100 mg capsule 200 mg PO TID PRN Cough 06/23/23 08/04/23 History calcium carbonate 600 mg-vitamin 1 tab PO DAILY 06/23/23 08/04/23 History D3 10 mcg (400 unit) tablet (Calcium 600 + D(3)) chlorhexidine gluconate 0.12 % 15 ml PO BID PRN ORAL CARE 06/23/23 08/04/23 History mouthwash cyanocobalamin (vitamin B-12) 1,000 mcg sublingual DAILY 06/23/23 08/04/23 History 1,000 mcg sublingual tablet donepezil 10 mg tablet 10 mg PO QDD 06/23/23 08/04/23 History furosemide 20 mg tablet (Lasix) 20 mg PO DAILY PRN EDEMA IN LEGS 06/23/23 08/04/23 History loratadine 10 mg tablet (Claritin) 10 mg PO DAILY 06/23/23 08/04/23 History lorazepam 0.5 mg tablet 0.5 mg PO TID PRN Agitation 06/23/23 08/04/23 History melatonin 1 mg/mL oral liquid 2 mg PO HS 06/23/23 08/04/23 History memantine 10 mg tablet 10 mg PO BID 06/23/23 08/04/23 History montelukast 10 mg tablet 10 mg PO DAILY 06/23/23 08/04/23 History (Singulair) nystatin 100,000 unit/gram topical 1 applic topical TID PRN Skin 06/23/23 08/04/23 History powder Irritation acetaminophen 500 mg tablet 500 mg PO Q4H PRN Pain 08/04/23 08/04/23 History (Tylenol Extra Strength) apixaban 5 mg tablet (Eliquis) 5 mg PO BID 08/04/23 08/04/23 History cholecalciferol (vitamin D3) 25 25 mcg PO DAILY 08/04/23 08/04/23 History mcg (1,000 unit) capsule (Vitamin D3) colloidal oatmeal 1 % topical 1 applic topical DIRECTED PRN 08/04/23 08/04/23 History cream (Eucerin Eczema Relief) ECZEMA AREA docusate sodium 100 mg capsule 100 mg PO DAILY PRN Constipation 08/04/23 08/04/23 History emollient combination no.117 1 applic topical DIRECTED PRN 08/04/23 08/04/23 History (Eucerin Advanced Repair Hand Dry Skin topical cream) loperamide 2 mg capsule See Rx Instructions .Route 08/04/23 08/04/23 History .COMPLEX PRN Diarrhea Past Med/Surg History Medical History (Updated 08/03/23 @ 22:01 by Veronica Dyer, DO) Ambulatory dysfunction Urinary tract infection HX Pancreatitis HX Diverticulitis HX Surgical History (Updated 07/03/23 @ 00:08 by Izaiah Valdez) History of right cataract surgery History of esophagogastroduodenoscopy (EGD) History of colonoscopy History of cholecystectomy S/P tubal ligation Family History Mother Colon cancer Social History Smoking Status: Never smoker Second Hand Exposure: No; Do You Dip or Chew Tobacco: No; Hx Alcohol Use: No Hx Substance Use: No Preferred Language: Angolan Communication Ability: Effective Qm Nurse Required: No Beliefs That Will Affect Care: None Current Living Situation: Long Term Current Living Situation Comment: Per [facility] - daniel from [facility], planning to transition to [facility] Other Information That Helps Us Care for You: No Feels Safe at Home: Yes Safety Concerns: Feels Safe At This Time Assistive Devices: Walker Review of Systems Review of Systems: All systems reviewed & are unremarkable except as noted in HPI & below Physical Exam Physical Exam: General- Not in distress Head- atraumatic Eyes- PERRL. ENT- oropharynx clear Neck- supple, no JVD. Lungs- clear to auscultation no wheezing or crackles Heart- regular rhythm; no murmur, no gallop. Abdomen- normal bowel sounds, soft, nontender, no distension Extremities- mild pretibial edema, no erythema seen. Neuro- alert, oriented x 2; PERRL,no facial palsy; no dysarthria; moves extremities Skin- warm & dry Results & Data Results & Data Vital Signs (Past 12 Hours) Vital Signs Temp Pulse Resp BP Pulse Ox O2 Del Method 08/04/23 01:19 67 08/03/23 23:42 63 19 08/03/23 23:30 159/107 H 08/03/23 23:30 75 14 93 08/03/23 23:20 75 15 93 08/03/23 23:10 73 18 92 08/03/23 23:00 73 15 94 08/03/23 23:00 158/100 H 08/03/23 22:50 73 15 93 08/03/23 22:40 68 16 93 08/03/23 22:30 156/102 H 08/03/23 22:30 74 13 93 08/03/23 22:20 70 14 92 08/03/23 22:10 71 17 92 08/03/23 22:00 69 15 92 08/03/23 22:00 166/89 H 08/03/23 21:59 170/89 H 08/03/23 21:59 71 16 92 08/03/23 21:51 69 18 91 08/03/23 21:36 Room Air 08/03/23 21:30 74 24 92 08/03/23 21:23 71 08/03/23 21:22 75 14 92 08/03/23 19:56 36.8 C 83 18 162/94 H 93 Room Air Diagnostic Findings Laboratory Results WBC 7.22 K/ul (4.8-10.8) 08/03/23 20:30 RBC 5.36 M/uL (4.20-5.40) 08/03/23 20:30 Hgb 15.8 g/dl (12.0-16.0) 08/03/23 20:30 Hct 46.3 % (37.0-47.0) 08/03/23 20:30 MCV 86.4 fL (80.0-100.0) 08/03/23 20:30 MCH 29.5 pg (25.0-34.0) 08/03/23 20:30 MCHC 34.1 g/dL (32.0-36.0) 08/03/23 20:30 RDW Std Deviation 45.8 fL (36.4-46.3) 08/03/23 20:30 RDW Coeff of Adán 14.5 % (11.5-14.5) 08/03/23 20:30 Plt Count 207 K/uL (130-400) 08/03/23 20:30 MPV 11.2 fL (9.4-12.4) 08/03/23 20:30 Immature Gran % (Auto) 0.3 % 08/03/23 20:30 Neut % (Auto) 57.0 % 08/03/23 20:30 Lymph % (Auto) 32.1 % 08/03/23 20:30 Sherman % (Auto) 9.4 % 08/03/23 20:30 Eos % (Auto) 0.8 % 08/03/23 20:30 Baso % (Auto) 0.4 % 08/03/23 20:30 Neut # (Auto) 4.11 K/uL (1.40-6.50) 08/03/23 20:30 Lymph # (Auto) 2.32 K/uL (1.20-3.40) 08/03/23 20:30 Sherman # (Auto) 0.68 K/uL (0.11-0.59) H 08/03/23 20:30 Eos # (Auto) 0.06 K/uL (0.00-0.50) 08/03/23 20:30 Baso # (Auto) 0.03 K/uL (0.00-0.20) 08/03/23 20:30 Immature Gran # (Auto) 0.02 K/uL (0.01-0.20) 08/03/23 20:30 Sodium 142 mmol/L (136-145) 08/03/23 22:37 Potassium 3.4 mmol/L (3.5-5.1) L 08/03/23 22:37 Chloride 107 mmol/L (98-107) 08/03/23 20:30 Carbon Dioxide 26 mmol/L (21-32) 08/03/23 20:30 Anion Gap TNP 08/03/23 20:30 BUN 27 mg/dl (6-23) H 08/03/23 20:30 Creatinine 0.93 mg/dl (0.6-1.2) 08/03/23 20:30 Est Cr Clr Drug Dosing Not Reportable 08/03/23 20:30 Est GFR ( Amer) 68.2 ml/min 08/03/23 20:30 Est GFR (Non-Af Amer) 58.9 ml/min 08/03/23 20:30 BUN/Creatinine Ratio 29.0 (10-20) H 08/03/23 20:30 Glucose 98 mg/dl (70-99(Fasting)) 08/03/23 20:30 Calcium 9.5 mg/dl (8.6-10.3) 08/03/23 20:30 Magnesium 2.0 mg/dl (1.7-2.4) 08/03/23 22:37 Total Bilirubin 0.8 mg/dl (0.2-1.0) 08/03/23 20:30 AST 17 U/L (13-39) 08/03/23 22:37 ALT 16 U/L (7-52) 08/03/23 20:30 Alkaline Phosphatase 47 U/L (34-104) 08/03/23 20:30 Troponin I High Sens 5.3 pg/ml (0-14) 08/03/23 22:37 Total Protein 8.0 gm/dl (6.0-8.3) 08/03/23 20:30 Albumin 4.2 gm/dl (3.4-5.0) 08/03/23 20:30 Globulin 3.8 gm/dl (2.5-4.0) 08/03/23 20:30 Albumin/Globulin Ratio 1.1 (0.9-2) 08/03/23 20:30 TSH 1.552 uIu/ml (0.300-4.500) 08/03/23 22:37 Urine Color Yellow 08/03/23 23:43 Urine Appearance Clear (Clear) 08/03/23 23:43 Urine pH 5.0 (4.5-7.5) 08/03/23 23:43 Ur Specific [place] 1.025 (1.000-1.030) 08/03/23 23:43 Urine Protein Negative (Negative) 08/03/23 23:43 Urine Glucose (UA) Negative (Negative) 08/03/23 23:43 Urine Ketones Trace (Negative) H 08/03/23 23:43 Urine Blood Negative (Negative) 08/03/23 23:43 Urine Nitrite Negative (Negative) 08/03/23 23:43 Urine Bilirubin Negative (Negative) 08/03/23 23:43 Urine Urobilinogen Negative (Negative) 08/03/23 23:43 Ur Leukocyte Esterase Negative (Negative) 08/03/23 23:43 Adenovirus (PCR) Not Detected (NotDetected) 08/04/23 00:07 B. pertussis DNA (PCR) Not Detected (NotDetected) 08/04/23 00:07 B.parapertussis DNA PCR Not Detected (NotDetected) 08/04/23 00:07 C. pneumoniae DNA (PCR) Not Detected (NotDetected) 08/04/23 00:07 Coronavirus OC43 (PCR) Not Detected (NotDetected) 08/04/23 00:07 Coronavirus HKU1 (PCR) Not Detected (NotDetected) 08/04/23 00:07 Coronavirus 229E (PCR) Not Detected (NotDetected) 08/04/23 00:07 SARS-CoV-2 (PCR) Not Detected (NotDetected) 08/04/23 00:07 Coronavirus NL63 (PCR) Not Detected (NotDetected) 08/04/23 00:07 Human Metapneumovir PCR Not Detected (NotDetected) 08/04/23 00:07 Influenza Type A (PCR) Not Detected (NotDetected) 08/04/23 00:07 Influenza Type B (PCR) Not Detected (NotDetected) 08/04/23 00:07 M. pneumoniae (PCR) Not Detected (NotDetected) 08/04/23 00:07 Parainfluenza 1 (PCR) Not Detected (NotDetected) 08/04/23 00:07 Parainfluenza 2 (PCR) Not Detected (NotDetected) 08/04/23 00:07 Parainfluenza 3 (PCR) Not Detected (NotDetected) 08/04/23 00:07 Parainfluenza 4 (PCR) Not Detected (NotDetected) 08/04/23 00:07 RSV (PCR) Not Detected (NotDetected) 08/04/23 00:07 Entero/Rhino (PCR) Not Detected (NotDetected) 08/04/23 00:[address] 08/03/23 21:33 Exam(s): CT HEAD Without Contrast EXAM: CT Head Without Intravenous Contrast CLINICAL HISTORY: Reason for exam: ams. TECHNIQUE: Axial computed tomography images of the head/brain without intravenous contrast. CTDI is 38.64 mGy and DLP is 547.75 mGy-cm. Automated exposure control was utilized for the study. A dose lowering technique was utilized adhering to the principles of ALARA. COMPARISON: No relevant prior studies available. FINDINGS: No acute intracranial hemorrhage. No midline shift or mass effect. The territorial davis-white matter differentiation is maintained throughout. Age-related cerebral volume loss. Periventricular and subcortical white matter hypoattenuation, consistent with chronic microangiopathy. The visualized orbits appear grossly unremarkable. The calvarium is intact. The visualized paranasal sinuses and mastoid air cells are grossly clear. IMPRESSION: No acute intracranial hemorrhage, midline shift, or mass effect. Electronically signed by: Avel Johnson MD 08/03/23 22:32 PM ECG Additional Comments: ECG. Normal sinus rhythm with rate of 79. No acute ST changes seen. Code Status & VTE Plan VTE Prophylaxis Plan VTE Prophylaxis will be ordered: Yes
[2023-08-04] MEDS ORDERED: NITROGLYCERIN SL 0.4 MG/TAB TAB SL PRN (03:26)
[2023-08-04] MEDS ORDERED: CHLORHEXIDINE GLUCONATE 0.12% 480 ML MT PRN (03:26)
[2023-08-04] MEDS ORDERED: POLYETHYLENE (MIRALAX) 17 GM PACK PO PRN (03:26)
[2023-08-04] MEDS ORDERED: ACETAMINOPHEN 325 MG TAB PO PRN (03:26)
[2023-08-04] MEDS ORDERED: DOCUSATE SODIUM 100 MG CAP PO PRN (03:26)
[2023-08-04] MEDS ORDERED: D5W AND 1/2NSS 1,000 ML IV SCH (03:26)
[2023-08-04] MEDS ORDERED: BENZONATATE 100 MG CAPSULE PO PRN (03:26)
[2023-08-04] MEDS ORDERED: FUROSEMIDE 20 MG TAB PO PRN (03:26)
[2023-08-04] MEDS ORDERED: LORazepam 0.5 MG TAB PO PRN (03:26)
[2023-08-04] MEDS ORDERED: MELATONIN 3 MG TAB PO PRN (03:36)
[2023-08-04] MEDS ORDERED: EUCERIN CR 120 GM JAR EXT PRN (03:38)
--- NOTE | 2023-08-04 06:56 | XRay Report ---
XR chest 1V not portable CLINICAL HISTORY: confusion TECHNIQUE: Single frontal radiograph of the chest was obtained. Comparison: Comparison is made to chest radiograph 06/23/2023 FINDINGS: No lines and tubes are seen. The cardiomediastinal silhouette is normal. The lungs are clear. No evid ence of pleural effusion or pneumothorax. IMPRESSION: No acute chest disease. ACT 112: Negative or not required by law. Electronically signed by: Ariel Luo M.D. 08/04/2023 6:54 AM
[2023-08-04 07:13] LABS: Basophils # (auto) 0.03 K/uL (0.00-0.20); Basophils % (auto) 0.5 %; Eosinophils # (auto) 0.08 K/uL (0.00-0.50); Eosinophils % (auto) 1.4 %; Hematocrit (blood only) 41.9 % (37.0-47.0); Hemoglobin 13.9 g/dl (12.0-16.0); Immature Granulocytes # (auto) 0.01 K/uL (0.01-0.20); Immature Granulocytes % (auto) 0.2 %; Lymphocytes # (auto) 2.45 K/uL (1.20-3.40); Lymphocytes % (auto) 41.5 %; Mean Corpuscular Hgb Conc 33.2 g/dL (32.0-36.0); Mean Corpuscular Volume 87.3 fL (80.0-100.0); Mean Platelet Volume 10.5 fL (9.4-12.4); Monocytes # (auto) 0.59 K/uL (0.11-0.59); Neutrophils # (auto) 2.75 K/uL (1.40-6.50); Neutrophils % (auto) 46.4 %; Platelet Count 178 K/uL (130-400); RDW Coefficient of Variation 14.3 % (11.5-14.5); RDW Standard Deviation 45.9 fL (36.4-46.3); White Blood Count 5.91 K/ul (4.8-10.8)
[2023-08-04 07:31] LABS: BUN Creatinine Ratio 23.6 (10-20); Calcium 8.8 mg/dl (8.6-10.3); Creatinine Clr Calc Pharmacy 55.4 ml/min; Est GFR (African American) 71.9 ml/min; Est GFR (Non-African American) 62.1 ml/min; Magnesium 1.9 mg/dl (1.7-2.4); Potassium 3.8 mmol/L (3.5-5.1)
[2023-08-04] MEDS: FLUTICASONE PROPIONATE NA SPR 16 GM BTL SCH (08:22)
[2023-08-04] MEDS: AZELASTINE HCL 0.1% NASAL 200 SPRAYS/27,400 MCG BTL NAE SCH ×2 (08:22→20:12)
[2023-08-04] MEDS: ADVANCED PROBIOTIC 1250 MG CAPSULE PO SCH (08:23)
[2023-08-04] MEDS: LORATADINE 10 MG TAB PO SCH (08:23)
[2023-08-04] MEDS: MEMANTINE HCL 10 MG TAB PO SCH ×2 (08:23→20:14)
[2023-08-04] MEDS: CALCIUM 600MG + VIT D 400 IU TAB PO SCH (08:23)
[2023-08-04] MEDS: CYANOCOBALAMIN (B-12) 500 MCG TABLET PO SCH (08:23)
[2023-08-04] MEDS: MONTELUKAST SODIUM 10 MG TABLET PO SCH (08:24)
[2023-08-04] MEDS: APIXABAN 5 MG TABLET PO SCH ×2 (08:24→20:13)
[2023-08-04] MEDS: ARIPIprazole 1 MG/ML ORAL SOLN 150 ML BTL PO SCH ×2 (08:24→20:14)
[2023-08-04] MEDS ORDERED: CHOLECALCIFEROL 25 MCG (1000 UNITS) TAB PO SCH (09:00)
--- NOTE | 2023-08-04 11:51 | Hospitalist Progress Note ---
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 Altered mental status Dementia Patient was brought to the hospital with confusion and poor appetite She appears to be at baseline mentation CBC and CMP reviewed; no acute finding UA unremarkable and BioFire unremarkable CT head personally reviewed; no acute finding EKG personally reviewed; sinus rhythm; no ST or T wave changes Continue oral hydration PT OT evaluation Frequent reorientation to minimize delirium. History of bilateral DVT On Eliquis Alzheimer's dementia with psychotic disturbance On donezepil, memantine, continue Lower extremity edema On Lasix as needed DVT prophylaxis On Eliquis Disposition Med/tele. PT OT ordered for evaluation. CODE STATUS DNR/DNI as per my discussion with the daughter Please note the above document was generated using voice recognition software. It may contain grammatical, syntax or spelling errors. Any formal questions or concerns about the content, text or information contained within the body of this dictation should be directly addressed to the provider for clarification Admission and Anticipated Discharge Date Admission Date: August 04, 2023 Subjective Patient seen and examined at bedside. She is oriented to self, date of . She needs frequent redirection's. Review of Systems Review of Systems: All systems reviewed & are unremarkable except as noted in Subjective Physical Exam Physical Exam: General- Not in distress Lungs- clear to auscultation no wheezing or crackles Heart- regular rhythm; no murmur, no gallop. Abdomen- normal bowel sounds, soft, nontender, no distension Extremities- mild pretibial edema, no erythema seen. Neuro- alert, oriented x self and date of ; PERRL,no facial palsy; no dysarthria; moves extremities Skin- warm & dry Results & Data Results & Data Vital Signs (Past 12 Hours) Vital Signs Temp Pulse Pulse Resp BP BP Pulse Ox 08/04/23 10:50 36.4 C L 72 17 135/79 93 08/04/23 07:32 58 L 08/04/23 06:58 36.9 C 70 18 175/85 H 93 08/04/23 03:04 71 08/04/23 03:02 36.3 C L 64 18 158/91 H 94 08/04/23 02:30 59 L 08/04/23 02:20 62 15 08/04/23 02:10 66 13 08/04/23 02:00 157/85 H 08/04/23 02:00 67 17 08/04/23 01:50 81 19 08/04/23 01:40 84 19 08/04/23 01:30 79 18 08/04/23 01:30 157/78 H 08/04/23 01:20 76 14 08/04/23 01:19 67 08/04/23 01:10 68 15 08/04/23 01:00 155/94 H 08/04/23 01:00 80 11 L 08/04/23 00:50 76 16 08/04/23 00:40 68 18 08/04/23 00:30 163/84 H 08/04/23 00:30 72 19 08/04/23 00:20 63 16 08/04/23 00:10 67 16 08/04/23 00:00 71 14 08/04/23 00:00 162/94 H O2 Del Method 08/04/23 10:50 Room Air 08/04/23 07:32 08/04/23 06:58 Room Air 08/04/23 03:04 08/04/23 03:02 Room Air 08/04/23 02:30 08/04/23 02:20 08/04/23 02:10 08/04/23 02:00 08/04/23 02:00 08/04/23 01:50 08/04/23 01:40 08/04/23 01:30 08/04/23 01:30 08/04/23 01:20 08/04/23 01:19 08/04/23 01:10 08/04/23 01:00 08/04/23 01:00 08/04/23 00:50 08/04/23 00:40 08/04/23 00:30 08/04/23 00:30 08/04/23 00:20 08/04/23 00:10 08/04/23 00:00 08/04/23 00:00
--- NOTE | 2023-08-04 11:54 | Electrocardiogram Report ---
Test Reason : Blood Pressure : / mmHG Vent. Rate : 079 BPM Atrial Rate : 079 BPM P-R Int : 186 ms QRS Dur : 082 ms QT Int : 390 ms P-R-T Axes : 054 -01 016 degrees QTc Int : 447 ms Normal sinus rhythm Normal ECG When compared with ECG of 23-JUN-2023 22:23, Premature ventricular complexes are no longer Present Confirmed by Devon Rome ([id number]) on 08/04/2023 11:54:00 AM Referred By: REFERRED SELF Confirmed By:Devon Rome
--- OUTSIDE RECORDS SUMMARY | 2023-08-04 14:07 | External Medical Summary | Summary of Care ---
Author Name Unknown Organization [facility] Address [address] [place] [address] Phone [phone] Care Team Providers Care Design Teacher Name Role Phone Lauren Varela PA-C Primary Care Provider [phone] Reason for Visit * Reason Onset Date Comments Advice 08/02/2023 Medication anna fication Encounter Details Date Type Department Care Team (Late st Contact Info) Description 08/02/2023 Telephone Neurology, [place] [address] [place] [address] Services, [facility] [address] [place] [address] Advice (Medication clarification ) Allergies Active Allergy Reactions Criticality Noted Date Comments Oxycodone High 11/26/2020 Other Reaction(s): DROWSY, ITCHING/DROWSY Oxycodone-Acetaminophen Itching 11/10/2007 Propoxyphene Hcl High 11/26/2020 Other Reaction(s): ITCHING,THROAT SWELLING documented as of this encounter (statuses as of 08/03/2023) Medications Medication Sig Dispensed Refills Start Date End Date Status CALTRATE 600+D 600-400 MG-UNIT PO TABS Take by mouth. 0 Active PROBIOTIC PO CAPS Take by mouth. 0 Act karine Loratadine 10 MG Oral TabletIndications: as needed Take 1 Tablet by mouth in the morning. 0 Active B-12-SL 1000 MCG Sublingual Tablet Sublingual [...] THE MORNING 48 g 0 11/01/2022 Active LORazepam 0.5 MG Oral Tablet (Ativan)Indication s:Anxiety Take 1 Tablet by mouth 3 times a day as needed for Agitation. 9 Tablet 0 01/11/2023 Active Dorzolamide HCl 2 % Ophthalmic Solution Instill 1 Drop into both eyes in the morning and 1 Drop in the evening. 0 Active Memantine HCl 10 MG Oral Tablet (Namenda) Take 1 Tablet by mouth in the morning and 1 Tablet before bedtime. 180 Tablet 3 01/21/2023 Active Azelastine HCl 0.1 % Nasal Solution (Astelin) Administer 1 Viola into nostril in the morning and 1 Viola before bedtime. 30 mL 12 02/24/2023 Active Benzonatate 100 MG Oral Capsule Take [...] dose. 60 Tablet 0 05/14/2023 Active Nystatin 166191 UNIT/GM External Powder (Nystop)Indication s:Skin irritation Apply [...] PILL PACKS. 90 Tablet 3 06/17/2023 Active Apixaban 5 MG Oral Tablet (Eliquis)Indicatio ns:Acute deep vein thrombosis (DVT) of both peroneal veins (HCC) Take 1 Tablet by mouth in the morning and 1 Tablet before bedtime. Stop on 09/30/23.. 60 Tablet 2 07/11/2023 09/30/2023 Active Montelukast Sodium 10 MG Oral Tablet (Singulair)Indicat ions:Nasal congestion Take 1 Tablet by mouth in the morning. 90 Tablet 3 07/14/2023 Active Calcium Carb-Cholecalcifer ol 600-20 MG-MCG Oral Tablet Take by mouth. 0 Active Vitamin D 25 MCG (1000 UT) Oral Tablet Take by mouth. 0 Active Acetaminophen 500 MG Oral Tablet (Tylenol Extra Strength) Take 1 Tablet by mouth every 6 hours as needed. 0 Active ARIPiprazole 2 MG Oral Tablet (Abilify) Take 1 Tablet by mouth in the morning and 1 Tablet in the evening. 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 03/22/2023 Major depressive disorder with single episode Age-related osteoporosis wit hout current pathological fracture 08/19/2022 Obesity, Class I, BMI 30.0-34.9 (see actual BMI) 06/13/2021 Diverticulosis of large intestine without hemorr andrei 01/15/2021 Primary open-angle glaucoma, unspecified eye, stage unspecified 08/29/2019 Vitamin D deficiency 11/29/2013 Dyslipidemia 07/07/2009 documented as of this encounter (statuses as of 08/03/2023) Resolved Problems Problem Noted Date Diagnosed Date [...] as of this encounter (statuses as of 08/03/2023) Immunizations Name Administration Dates Next Due COVID-19 [...] Seasonal Influenza, Quadriva lent Hd (Fluzone Hd) 07/11/2023,04/16/2022,04/01/2021 Seasonal Influenza, Quadriva lent, No Preserve, IM 03/31/2016,03/31/2015 Seasonal Influenza, Split, I IV3, With Preserve, Inj 03/16/2014,03/17/2013,03/17/2013,03/18,03/22/2011,03/23/2010,04/02/2009 ,05/06/2008,04/26/2007,05/14/2006 Seasonal Influenza, Trivalen t, Adjuvanted, 65+ yrs 03/13/2019 TD - Tetanus/Diptheria (ADULT) 02/07/2006 TD, Preservative Free 02/07/2006,08/04/1995,07/1993 TDAP (age 10 and older)(Boostrix) 03/16/2020, Varicella [...] encounter Miscellaneous Notes * Telephone Encounter - Brandy Quinonez OSA - 08/02/2023 4:28 PM EST Neuroscience Phone Call Form- Clinic has 24-48 hours to respond to caller If caller is calling back before that timeframe- There is no need to send another message to the pool, update current [facility] Neurology Pool- All messages go through the [facility] Peds Neuro [place]- [id number] Neurology Pool Numbers- [place] and [place] patients - follow normal process Ops req C Neurology ([place])- [id number] Ops req NE Neurology ([place]- [facility] and [facility] clinics Only)- [id number] Neurosurgery Pool Numbers- [place] patients- follow normal process Ops req Neurosurgery [facility] [place])- [id number] Ops req Neurosurgery [facility] ([place] Only) [id number] Requested Information from caller: Who is calling facility name: [facility] Provider patient is established with: Dr. Trevizo What is the concern or issue they are having: needing clarification on medications from todays appt. How long has the issue been going on: n.a Any additional details to add: yes: Clarification on use of Lorazepam and is it is to be discontinued send a fax stating that. Needs a new script for Trusopt as she did not have one. Pts phone number for nurse to call back: Please fax all above info to [phone] Please make sure you verify pharmacy for anything medication related. Form to be used for established patients only (not new patients) documented in this encounter Plan of Treatment Upcoming Encounters Date Type Department Care Team (Late st Contact Info) Description 09/20/2023 1:20 PM EDT Office Visit [facility] [address] [place] [id number] Lauren Varela PA-C [address] [place] [address] 11/17/2023 11:30 AM EDT Office Visit D[facility] [address] [place] [address] Inga Maki MD [address] [facility] [place] [address] 02/03/2024 2:40 PM EDT [facility] [address] [place] [address] Cathy Allen CRNP [address] [place] [address] Scheduled Procedures Name Priority Associated Diagnoses Date/Ti me COLONOSCOPY FLEXIBLE PROXIMA L DIAGNOSTIC Recall History of colonic polyps Health Maintenance Due Date Last Done Comments *BISPHONATE OR OTHER ACCEPTABLE MEDICATION NEEDED FOR OSTEOPOROSIS (REFER TO SMARTSET #1146) 08/21/2022 COVID-19 Vaccine ( season) 2023 04/23/2022, 12/03/2021, 04/29/2021, Additional history exists DXA Scan 06/24/2023 06/24/2021, [...] D LEVEL ONCE IN A LIFETIME-USE SMARTSET# 82211 Completed 11/26/2022, 11/20/2021, 05/11/2021, Additional history exists Influenza Vaccine (FLU shot) Completed 02/2024, 04/16/2022, 04/01/2021, Additional history exists GARDASIL-HPV IMMUNIZATION SERIES Aged Out No longer eligible based on patient's age to complete this topic MENINGOCOCCAL (MENACTRA/MENVEO) Aged Out No longer eligible based on patient's age to complete this topic documented as of this encounter Medical Devices Not on filedocumented as of this encounter Care Teams Design Teacher Relationship Specialty Start Date End Date Lauren Varela PA-C [address] [facility] [place] [address] PCP - General Physician Rn Patient Services 05/11/21 documented as of this encounter
--- OUTSIDE RECORDS SUMMARY | 2023-08-04 14:08 | External Medical Summary | Summary of Care ---
Author Name Unknown Organization [facility] Address [address] [place] [address] Phone [phone] Care Team Providers Care Press Cleaner Name Role Phone Lauren Varela PA-C Primary Care Provider [phone] Reason for Visit * Reason Onset Date Comments Hospital Follow-Up If medication is needed today it will go through [facility] in [place] if it can wait a couple days please sent to [facility]; Hospital Follow-Up 07/11/2023 Encounter Details Date Type Department Care Team (Late st Contact Info) Description 07/11/2023 11:00 AM EST Office Visit [place] [address] [place] [address] Irene Shaw MD [address] [place] [address] Hospital discharge follow-up*; Acute deep vein thrombosis (DVT) of both peroneal veins (HCC); Venous insufficiency; 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); Obesity, Class I, BMI 30.0-34.9 (see actual BMI); Urinary incontinence, nocturnal enuresis Allergies Active Allergy Reactions Criticality Noted Date Comments Oxycodone High 11/26/2020 Other Reaction(s): DROWSY, ITCHING/DROWSY Oxycodone-Acetaminophen Itching 11/10/2007 Propoxyphene Hcl High 11/26/2020 Other Reaction(s): ITCHING,THROAT SWELLING documented as of this encounter (statuses as of 07/11/2023) Medications Medication Sig Dispensed Refills Start Date [...] mouth every evening. Use pea sized amount. Shelby twice a day with your normal toothpaste 0 07/06/2022 Active B-12-SL 1000 MCG Sublingual Tablet Sublingual (Cyanocobalamin)I ndications:B12 deficiency Place 1,000 mcg under the tongue in the morning. 90 Tablet 3 08/31/2022 Active Melatonin 1 MG/ML Oral LiquidIndications :Sundowning 2 ml by mouth at 8 pm [...] 0.1 % Nasal Solution (Astelin) Administer 1 [place] into nostril in the morning and 1 [place] before bedtime. 30 mL 12 02/24/2023 Active Montelukast Sodium 10 MG Oral Tablet (Singulair)Indica tions:Nasal congestion Take 1 Tablet by mouth in the morning. 30 Tablet 5 02/24/2023 Active Additional Information Patient not taking.Reported on 07/11/2023 Molnupiravir 200 MG Oral CapsuleIndication s:COVID-19 virus [...] for Cough. 60 Capsule 1 03/29/2023 Active Additional Information Patient not taking.Reported on 07/11/2023 Petrolatum White External OintmentIndicatio ns:Pressure sore of [...] morning dose. 60 Tablet 0 05/14/2023 Active Additional Information Patient not taking.Reported on 07/11/2023 Nystatin [id number] UNIT/GM External Powder (Nystop)Indicatio ns:Skin irritation Apply [...] PILL PACKS. 90 Tablet 3 06/17/2023 Active Ondansetron HCl 4 MG Oral Tablet Take 1 Tablet by mouth every 6 hours as needed for Nausea. 30 Tablet 0 06/23/2023 Active Additional Information Patient not taking.Reported on 07/11/2023 Apixaban 5 MG Oral Tablet (Eliquis)Indicati ons:Acute deep vein thrombosis (DVT) of both peroneal veins (HCC) Take 1 Tablet by mouth in the morning and 1 Tablet before bedtime. Stop on 09/30/23.. 60 Tablet 2 07/11/2023 4 Active Apixaban 5 MG Oral Tablet (Eliquis) 1 Tablet. 0 07/01/2023 4 Discontinue d(Refill) documented as of this encounter (statuses as of 07/11/2023) Active Problems Problem Noted Date Diagnosed Date [...] as of this encounter (statuses as of 07/11/2023) Resolved Problems Problem Noted Date Diagnosed Date Resolved Date Dementia without behavioral disturbance 12/24/2021 08/19/2022 Mild cognitive impairment 01/15/2021 History of nonmelanoma skin cancer 11/01/2017 09/19/2019 Overview: BCC right upper arm 2003 BCC left forearm 12/12 KA left forearm 12/13 Historical. Unspecified glaucoma 06/14/2016 03/ 020 Overview: More specific code in use. [...] as of this encounter (statuses as of 07/11/2023) Immunizations Name Administration Dates Next Due COVID-19 [...] Date Smoking Tobacco: Never Smokeless Tobacco: Never Tobacco Cessation:Counseling Given: Not Answered Alcohol Use Standard Drinks/Week Comments Not Currently [...] on file documented as of this encounter Last Filed Vital Signs Vital Sign Reading Time Taken Comments Blood Pressure 112/74 07/11/2023 11:11 AM EST Pulse 74 07/11/2023 11:11 AM EST Temperature 36.7 C (98 F) 07/11/2023 11:11 AM EST Respiratory Rate 17 07/11/2023 11:11 AM EST Oxygen Saturation 91% 07/11/2023 11:11 AM EST Inhaled Oxygen Concentration - - Weight 89.9 kg (198 lb 4.8 oz) 07/11/2023 11:11 AM EST Height - - Body Mass Index 34.02 05/14/2023 9:56 AM EST documented in this encounter Patient Instructions * Patient Instructions* Irene Shaw MD - 07/11/2023 12:07 PM EST Drink 60-70 oz water daily Wear compression stockings daily Elevate legs at night Wear depends daily - helps to keep away UTI's Last day to take eliquis for your DVT's will be 09/30/23. documented in this encounter Progress Notes * Irene Shaw MD - 07/11/2023 11:32 AM EST ASSESSMENT / PLAN: Cyndi Morris is a 78 year old female with PMHx HLD / vit D def / diverticulosis / osteoporosis / glaucoma / depression / severe alzheimer' s w behavioral disturbance / MDD - Here for CYNTHIA - admitted at [facility] the following dates 06/24 - 07/01 Presented with: altered mental status, N/V, hypoxia 88% on RA Diagnosis: UTI, altered mental status, bilateral DVT Diagnostics: No anemia, no kidney damage, normal trop, biofire neg Urine cx + pansensitive e coli - zosyn -> cef, completed abx CT a/p + diverticulitis US bailey dup ++DVTs in b/l peroneal veins Chest CTA NEG for PE Hospital stay complicated by: 1- none Treatments / Consultation(s): 1- surgical consult - zosyn completed, no further abx given "possible" diverticulitis Changes to chronic medications: 1 - completed abx course for UTI 2- eliquis (reduced dose) for b/l DVT in LE We reviewed hospital stay and patient instructions thoroughly Recommend 3 months of eliquis as this is her first episode of DVT and was isolated to extremities. To complete eliquis on 09/30/23. Check-out note: Keep f/u w PCP Hospital discharge follow-up (Primary) - DISCH MED RECON CUR MED LIS Acute deep vein thrombosis (DVT) of both peroneal veins (HCC) - DISCH MED RECON CUR MED LIS - Apixaban 5 MG Oral Tablet (Eliquis); Take 1 Tablet by mouth in the morning and 1 Tablet before bedtime. Stop on 09/30/23.. Venous insufficiency 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) Obesity, Class I, BMI 30.0-34.9 (see actual BMI) Urinary incontinence, nocturnal enuresis Other orders - INFLUENZA VACC, QUAD, HIGH DOSE (FLUZONE HD) Check-out note: Keep f/u w PCP If needed, prefers contact by: Ok to leave message on phone: SUBJECTIVE: Nursing Notes: Michelle Parker LPN 07/11/23 1124 Signed The patient has been properly identified by confirmation of name and date of . Chief Complaint Patient presents with Hospital Follow-Up If medication is needed today it will go through [facility] in [place] if it can wait a couple days [facility]; HPI: Cyndi Morris is a 78 year old female. Here with her who helps provide history. They havequestions as to how UTI's come about, should she wear her depends daily, compression stockings. Denies history of previous DVT Leg swelling is apparently chronic, but is worse currently Adherent with medications Patient Active Problem List Diagnosis Code Dyslipidemia E78.5 Vitamin D deficiency E55.9 Primary open-angle glaucoma, unspecified eye, stage unspecified H40.1190 Diverticulosis of large intestine without hemorrhage K57.30 Obesity, Class I, BMI 30.0-34.9 (see actual BMI) E66.9 Age-related osteoporosis without current pathological fracture M81.0 Major depressive disorder with single episode F32.9 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) G30.1, F02.C2 Venous insufficiency I87.2 Acute deep vein thrombosis (DVT) of both peroneal veins (HCC) I82.453 Urinary incontinence, nocturnal enuresis N39.44 Current Outpatient Medications Medication Sig Dispense Refill COSOPT 22.3-6.8 MG/ML OP SOLN Instill into eye. CALTRATE 600+D 600-400 MG-UNIT PO TABS Take by mouth. LYSINE 500 MG PO TABS Take by mouth. PROBIOTIC PO CAPS Take by mouth. Loratadine 10 MG Oral Tablet Take 1 Tablet by mouth in the morning. Sodium Fluoride 5000 PPM 1.1 % Dental Paste Take 1 Each by mouth every evening. Use pea sized amount. Shelby twice a day with your normal toothpaste B-12-SL 1000 MCG Sublingual Tablet Sublingual (Cyanocobalamin) Place 1,000 mcg under the tongue in the morning. 90 Tablet 3 Melatonin 1 MG/ML Oral Liquid 2 ml by mouth at 8 pm daily 60 mL 2 Fluticasone Propionate 50 MCG/ACT Nasal Suspension (Flonase) ADMINISTER TWO SPRAYS INTO EACH NOSTRIL IN THE MORNING 48 g 0 Diclofenac Sodium 1 % External Gel (Voltaren) APPLY TWO GRAMS TOPICALLY TO AFFECTED AREAS OF LEFT KNEE EVERY MORNING, AND TWO GRAMS BEFORE BEDTIME 400 g 0 LORazepam 0.5 MG Oral Tablet (Ativan) Take 1 Tablet by mouth 3 times a day as needed for Agitation.9 Tablet 0 QUEtiapine Fumarate 25 MG Oral Tablet (SEROquel) Take one tablet nightly for agitation. May take 0.5-1 tablet with breakfast as needed for agitation. (Patient taking differently: Take 1 Tablet by mouth at bedtime. Take 25 mg qhs plus 12.5-25 mg qAM prn hallucinations.) 60 Tablet 5 Dorzolamide HCl 2 % Ophthalmic Solution Instill 1 Drop into both eyes in the morning and 1 Drop in the evening. Memantine HCl 10 MG Oral Tablet (Namenda) Take 1 Tablet by mouth in the morning and 1 Tablet beforebedtime. 180 Tablet 3 Azelastine HCl 0.1 % Nasal Solution (Astelin) Administer 1 [place] into nostril in the morning and 1 [place] before bedtime. 30 mL 12 Molnupiravir 200 MG Oral Capsule Take 4 Capsules by mouth in the morning and 4 Capsules before bedtime. 40 Capsule 0 ARIPiprazole 2 MG Oral Tablet (Abilify) Take 1 Tablet by mouth in the morning. 90 Tablet 3 Nystatin 237264 UNIT/GM External Powder (Nystop) Apply topically to affected area 3 times a day. Apply to skin folds under breasts and abdomen 180 g 1 oxyBUTYnin Chloride ER 10 MG Oral Tablet Extended Release 24 Hour (Ditropan XL) Take 1 Tablet by mouth in the morning. Do not cut, crush or chew. 90 Tablet 1 Donepezil HCl 10 MG Oral Tablet (Aricept) Take 1 Tablet by mouth in the morning. Take with largest meal of the day. PILL PACKS. 90 Tablet 3 Apixaban 5 MG Oral Tablet (Eliquis) Take 1 Tablet by mouth in the morning and 1 Tablet before bedtime. Stop on 09/30/23.. 60 Tablet 2 Montelukast Sodium 10 MG Oral Tablet (Singulair) Take 1 Tablet by mouth in the morning. (Patient not taking: Reported on 07/11/2023) 30 Tablet 5 Benzonatate 100 MG Oral Capsule Take 2 Capsules by mouth 3 times a day as needed for Cough. (Patient not taking: Reported on 07/11/2023) 60 Capsule 1 Petrolatum White External Ointment Apply to ischeal tuberosities (between the buttocks), twice daily for two weeks. 60 g 0 Furosemide 20 MG Oral Tablet (Lasix) Take one pill each morning for 30 days, for excess fluid. May take a second tablet at noon if no response to the morning dose. (Patient not taking: Reported on 07/11/2023) 60 Tablet 0 Ondansetron HCl 4 MG Oral Tablet Take 1 Tablet by mouth every 6 hours as needed for Nausea. (Patient not taking: Reported on 07/11/2023) 30 Tablet 0 No current facility-administered medications for this visit. OBJECTIVE: BP 112/74 | Pulse 74 | Temp 36.7 C (98 F) | Resp 17 | Wt 89.9 kg (198 lb 4.8 oz) | SpO2 91% | BMI 34.02 kg/m | BSA 2.02 m Vitals reviewed and is normotensive / afebrile / and not tachycardic General: No acute distress. Neuro: Alert Pleasant & interactive. Respiratory: Good inspiratory effort, no labored breathing. CTAB CV: RRR no M R G MSK: bilateral lower extremity edema is evident, 1-2+edema to mid villasenor bilaterally. No erythema or tenderness. Skin is dry. HEENT: Conjunctivae appear clear. No swelling noted face or lips. Skin: No rash visible on exposed skin areas, normal coloration & appears dry. Psych: Normal affect. Fluent speech. I spent a total of 40-54 minutes (exact time 40 mins) on the date of service in preparation, delivery, and documentation of the care provided to Cyndi Morris excluding any time spent in the performanceof separately billed services. Irene Shaw MD [place] [address] [facility] [address] Patient Instructions Drink 60-70 oz water daily Wear compression stockings daily Elevate legs at night Wear depends daily - helps to keep away UTI's Last day to take eliquis for your DVT's will be 09/30/23. documented in this encounter Nursing Notes * Michelle Parker LPN - 07/11/2023 11:24 AM EST The patient has been properly identified by confirmation of name and date of . Chief Complaint Patient presents with Hospital Follow-Up If medication is needed today it will go through [facility] in [place] if it can wait a couple days please sent to [facility]; documented in this encounter Plan of Treatment Upcoming Encounters Date Type Department Care Team (Late st Contact Info) Description 07/29/2023 1:20 PM EST Office Visit Neurology [address] [place] [address] Cathy Allen CRNP [address] [place] [address] 09/20/2023 1:20 PM EDT Office Visit [place] [address] [place] [address] Lauren Varela PA-C [address] [place] [address] 11/17/2023 11:30 AM EDT Office Visit Dermatology [facility] [address] [facility] [place] [address] Inga Maki MD [address] [facility] [place] [address] Scheduled Procedures Name Priority Associated Diagnoses Date/Ti [...] D LEVEL ONCE IN A LIFETIME-USE SMARTSET# [id number] Completed 11/26/2022, 11/20/2021, 05/11/2021, Additional history exists [...] as of this encounter Visit Diagnoses Diagnosis Hospital discharge follow-up- Primary Other follow-up examination Acute deep vein thrombosis (DVT) of both peroneal veins (HCC) Venous insufficiency Unspecified venous (peripheral) insufficiency 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) Obesity, Class I, BMI 30.0-34.9 (see actual BMI) Obesity, unspecified Urinary incontinence, nocturnal enuresis Nocturnal enuresis documented in this encounter Care Teams Press Cleaner Relationship Specialty Start Date End Date Lauren Varela PA-C [address] [place] [address] PCP - General Physician Body Coverer 05/11/21 documented as of this encounter
--- OUTSIDE RECORDS SUMMARY | 2023-08-04 14:08 | External Medical Summary | Summary of Care ---
Author Name Unknown Organization [facility] Address [address] [place] [address] Phone [phone] Care Team Providers Care Tape Duplicator Name Role Phone Lauren Varela PA-C Primary Care Provider [phone] Reason for Visit * Reason Onset Date Comments Med Request 06/23/2023 Encounter Details Date Type Department Care Team (Late st Contact Info) Description 06/23/2023 Telephone [facility] [address] [place] [address] Lauren Varela PA-C [address] [place] [address] Med Request Allergies Active Allergy Reactions Criticality Noted Date Comments Propoxyphene Hcl Itching 08/16/2000 Throat swelling Oxycodone-Acetaminophen Itching 11/10/2007 documented as of this encounter (statuses as of 07/01/2023) Medications Medication Sig Dispensed Refills Start Date [...] every evening. Use pea sized amount. [place] twice a day with your normal toothpaste [...] 0.1 % Nasal Solution (Astelin) Administer 1 [place] into nostril in the morning and 1 [place] before bedtime. 30 mL 12 02/24/2023 Active [...] dose. 60 Tablet 0 05/14/2023 Active Nystatin 941809 UNIT/GM External Powder (Nystop)Indication s:Skin irritation Apply [...] for Nausea. 30 Tablet 0 06/23/2023 Active documented as of this encounter (statuses as of 07/01/2023) Active Problems Problem Noted Date Diagnosed Date [...] as of this encounter (statuses as of 07/01/2023) Resolved Problems Problem Noted Date Diagnosed Date [...] 12/07/2010 11/01/2017 Overview: R upper arm - [facility] 2003, L forearm [facility] 2010 Obesity, Class II, BMI 35-39 .9, [...] as of this encounter (statuses as of 07/01/2023) Immunizations Name Administration Dates Next Due COVID-19 [...] encounter Miscellaneous Notes * Telephone Encounter - Michelle Parker LPN - 06/23/2023 3:44 PM EST Contacted [facility], Zehra is not in the office and was told to call back in the morning around 8am. Please advise of the below message. * Telephone Encounter - Ivette Dhaliwal DO - 06/23/2023 10:16 AM EST Sent in Zofran. If develops diarrhea and has a stomach flu , I would hold on imodium as this can make her illness lastlonger If unable to keep food and fluid down over 24 hrs to report to the ER. * Telephone Encounter - Yessenia Sanders CPhT - 06/23/2023 8:36 AM EST Zehra from [facility] called to request Zofran and Imodium, patient has vomiting and nausea , requesting Imodium if Diarrhea starts this will need to be ordered at [facility] and faxed to [facility]aa @ [phone] Thank you, Yessenia Sanders Director Sales And Trade Marketing II [facility] ([facility] (formerly Telepharmacy) 06/23/2023 8:48 AM documented in this encounter Plan of Treatment Upcoming Encounters Date Type Department Care Team (Late st Contact Info) Description 07/11/2023 2:00 PM EST Imaging Radiology [address] [place] [id number] 07/29/2023 1:20 PM EST Office Visit Neurology [facility] [address] [place] [address] Cathy Allen CRNP [address] [place] [address] 09/20/2023 1:20 PM EDT Office Visit [facility] [address] [place] [id number] Lauren Varela PA-C [address] [place] [address] 11/17/2023 11:30 AM EDT Office Visit Dermatology [facility] [address] [place] [address] Inga Maki MD [address] [place] [address] Scheduled Procedures Name Priority Associated Diagnoses Date/Ti [...] D LEVEL ONCE IN A LIFETIME-USE SMARTSET# [id number] Completed 11/26/2022, 11/20/2021, 05/11/2021, Additional history exists GARDASIL-HPV IMMUNIZATION SERIES Aged Out No longer eligible based on patient's age to complete this topic MENINGOCOCCAL (MENACTRA/MENVEO) Aged Out No longer eligible based on patient's age to complete this topic documented as of this encounter Medical Devices Not on filedocumented as of this encounter Care Teams Tape Duplicator Relationship Specialty Start Date End Date Lauren Varela PA-C [address] [place] [address] PCP - General Physician Exhaust And Muffler Fitter 05/11/21 documented as of this encounter
--- OUTSIDE RECORDS SUMMARY | 2023-08-04 14:08 | External Medical Summary | Summary of Care ---
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) Requires continuous supervision for activities of daily living (ADL) Pressure sore of left ischium, stage 1 Bilateral leg edema 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 [facility] Documentation of Trhd-ax-Kdoo Encounter Addendum Patient Name: Cyndi Morris I certify that this patient is under my care and that I, or a nurse practitioner or physician's administrative sales assistant working with me, had a [id number] encounter that meets the physician ujyw-lk-unoc encounter requirements with this patient on: seen at [facility] 07/01/2023 The encounter with the patient was in whole, or in part, for the following medical condition, which is the primary reason for home health care (List medical condition): Convalescence from acute illness I certify that, based on my findings, the following services are medically necessary home health services: Nursing and Physical Therapy To provide the following care/treatments: (All hospitalists not following the patient after discharge should complete this section): Primary Care Physician to follow home care plan of care after discharge: Lauren Varela My clinical findings support the need for the above services because: patient has dementia, homebound, unable to drive or care for herself Further, I certify that my clinical findings support that this patient is homebound (i.e. Absences from home require considerable and taxing effort and are for medical reasons or jehovah's witness services or infrequently or of short duration when for other reason) because: Physician Signature: Date of Signature: Physician Printed Name: Vianey Sosa LPN Reason for Visit * Reason Onset Date Comments Referral 07/05/2023 Encounter Details Date Type Department Care Team (Late st Contact Info) Description 07/05/2023 Telephone [facility] [address] [place] [address] Lauren Varela PA-C [address] [place] [address] Referral Allergies Active Allergy Reactions Criticality Noted Date Comments Propoxyphene Hcl Itching 08/16/2000 Throat swelling Oxycodone-Acetaminophen Itching 11/10/2007 documented as of this encounter (statuses as of 07/06/2023) Medications Medication Sig Dispensed Refills Start Date [...] mouth every evening. Use pea sized amount. [place] twice a day with your normal toothpaste [...] 0.1 % Nasal Solution (Astelin) Administer 1 [place] into nostril in the morning and 1 [place] before bedtime. 30 mL 12 02/24/2023 Active [...] dose. 60 Tablet 0 05/14/2023 Active Nystatin [id number] UNIT/GM External Powder (Nystop)Indication s:Skin irritation Apply [...] as of this encounter (statuses as of 07/06/2023) Active Problems Problem Noted Date Diagnosed Date [...] as of this encounter (statuses as of 07/06/2023) Resolved Problems Problem Noted Date Diagnosed Date [...] as of this encounter (statuses as of 07/06/2023) Immunizations Name Administration Dates Next Due COVID-19 [...] encounter Miscellaneous Notes * Telephone Encounter - Puja Emerson OSA - 07/06/2023 4:46 PM EST Patient scheduled for TuesdayJul 11 at 11AM. [facility] only has one person doing transportation. [facility] cannot transport patient they will call to reschedule. [facility] DC papers and Home Health Referral faxed to [facility]. 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 They are requesting to resume her home health - they were seeing her for home health before she went to the hospital Requesting orders for fci & PT Pt is now at the [facility]. No longer at [facility] Discharge summary from 07/01 will need sent with the order since pt has not followed up from hospital yet Scheduling - please assist with rescheduling hospital follow up * Telephone Encounter - Viri Espinoza OSA - 07/05/2023 12:13 PM EST .Has the patient been seen for this problem? (Y/N)?: no If No, an appt needs to be scheduled before a referral will be placed (exception: proceed with referral request if referral request is for a yearly routine appointment with speciality) Patient Name: Cyndi Morris Patient Primary care provider: Lauren Varela PA-C Does this need to be an insurance referral (Y/N)?: no If Yes, does the insurance referral need to be placed into the [facility] system? Name of preferred specialist: n/a Type of specialist: n/a Location of specialist: n/a Specialist's Phone #: n/a Specialist's Fax #: n/a Reason for visit: n/a Date of visit: n/a documented in this encounter Plan of Treatment Upcoming Encounters Date Type Department Care Team (Late st Contact Info) Description 07/11/2023 11:00 AM EST Office Visit [facility] [address] [address] Irene Shaw MD [address] [address] 07/29/2023 1:20 PM EST Office Visit Neurology [facility] [address] [place] [address] Cathy Allen CRNP [address] [place] [address] 09/20/2023 1:20 PM EDT Office Visit [facility] [address] [place] [address] Lauren Varela PA-C [address], [place] [id number] 11/17/2023 11:30 AM EDT Office Visit Dermatology [facility] [address] [place] [address] Inga Maki MD [address] [place] [address] Scheduled Procedures Name Priority Associated Diagnoses Date/Ti me COLONOSCOPY FLEXIBLE PROXIMA L DIAGNOSTIC Recall History of colonic polyps Scheduled Referrals Name Type Priority Associated Diagnoses Orde r Schedule HOME HEALTH REFERRAL OP Referral Within 30 days (routine) Balance disorder 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) Requires continuous supervision for activities of daily living (ADL) Pressure sore of left ischium, stage 1 Bilateral leg edema 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) Bladder problem Loss of weight Hallucination, visual Delusions (HCC) Medication noncompliance due to cognitive impairment Depression, unspecified depression type Ordered: 07/05/2023 Health Maintenance Due Date Last Done Comments [...] D LEVEL ONCE IN A LIFETIME-USE SMARTSET# [id number] Completed 11/26/2022, 11/20/2021, 05/11/2021, Additional history exists [...] supervision for activities of daily living (ADL) Pressure sore of left ischium, stage 1 Bilateral leg edema Edema 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 [place] [address] PCP - General Physician Meat Blender 05/11/21 documented as of this encounter
--- OUTSIDE RECORDS SUMMARY | 2023-08-04 14:08 | External Medical Summary | Summary of Care ---
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 Name Role Phone Lauren Varela PA-C Primary Care Provider [phone] Reason for Visit * Reason Comments Return Neuro Encounter Details Date Type Department Care Team (Late st Contact Info) Description 07/29/2023 1:20 PM EST Office Visit Neurology [facility] [address], [place] [id number] Cathy Allen CRNP [address] [place] [address] Severe dementia with psychotic disturbance, unspecified dementia type (HCC)*; At risk for long QT syndrome; Polypharmacy Allergies Active Allergy Reactions Criticality Noted Date Comments Oxycodone High 11/26/2020 Other Reaction(s): DROWSY, ITCHING/DROWSY Oxycodone-Acetaminophen Itching 11/10/2007 Propoxyphene Hcl High 11/26/2020 Other Reaction(s): ITCHING,THROAT SWELLING documented as of this encounter (statuses as of 07/29/2023) Medications Medication Sig Dispensed Refills Start Date End Date Status CALTRATE 600+D 600-400 MG-UNIT PO TABS Take by mouth. 0 Active PROBIOTIC PO CAPS Take by mouth. 0 Active Loratadine 10 MG Oral TabletIndicatio ns:as needed Take 1 Tablet by mouth in the morning. 0 Active B-12-SL 1000 MCG Sublingual Tablet Sublingual (Cyanocobalamin )Indications:B1 [address] 1,000 mcg under the tongue in the morning. 90 Tablet 3 3 Active Melatonin 1 MG/ML Oral LiquidIndicatio ns:Sundowning 2 ml by mouth at 8 pm daily 60 mL 2 3 Active Fluticasone Propionate 50 MCG/ACT Nasal Suspension (Flonase) ADMINISTER TWO SPRAYS INTO EACH NOSTRIL IN THE MORNING 48 g 0 3 Active LORazepam 0.5 MG Oral Tablet (Ativan)Indicat ions:Anxiety Take 1 Tablet by mouth 3 times a day as needed for Agitation. 9 Tablet 0 3 Active Dorzolamide HCl 2 % Ophthalmic Solution Instill 1 Drop into both eyes in the morning and 1 Drop in the evening. 0 Active Memantine HCl 10 MG Oral Tablet (Namenda) Take 1 Tablet by mouth in the morning and 1 Tablet before bedtime. 180 Tablet 3 3 Active Azelastine HCl 0.1 % Nasal Solution (Astelin) Administer 1 [place] into nostril in the morning and 1 [place] before bedtime. 30 mL 12 3 Active Benzonatate 100 MG Oral Capsule Take 2 Capsules by mouth 3 times a day as needed for Cough. 60 Capsule 1 3 Active Petrolatum White External OintmentIndicat ions:Pressure sore of left ischium, stage 1 Apply to ischeal tuberosities (between the buttocks), twice daily for two weeks. 60 g 0 3 Active Furosemide 20 MG Oral Tablet (Lasix)Indicati ons:Bilateral leg edema Take one pill each morning for 30 days, for excess fluid. May take a second tablet at noon if no response to the morning dose. 60 Tablet 0 3 Active Nystatin 371205 UNIT/GM External Powder (Nystop)Indicat ions:Skin irritation Apply topically to affected area 3 times a day. 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 Take with largest meal of the day. PILL PACKS. 90 Tablet 3 3 Active Apixaban 5 MG Oral Tablet (Eliquis)Indica tions:Acute deep vein thrombosis (DVT) of both peroneal veins (HCC) Take 1 Tablet by mouth in the morning and 1 Tablet before bedtime. Stop on 09/30/23.. 60 Tablet 2 4 09/30/19 24 Active Montelukast Sodium 10 MG Oral Tablet (Singulair)Janeen cations:Nasal congestion Take 1 Tablet by mouth in the morning. 90 Tablet 3 4 Active Calcium Carb-Cholecalci ferol 600-20 MG-MCG Oral Tablet Take by mouth. [...] Tablet in the evening. 60 Tablet 5 4 Active COSOPT 22.3-6.8 MG/ML OP SOLN Instill into eye. 0 07/29/19 24 Discontinued LYSINE 500 MG PO TABS Take by mouth. 0 07/29/19 24 Discontinued Sodium Fluoride 5000 PPM 1.1 % Dental Paste Take 1 Each by mouth every evening. Use pea sized amount. [place] twice a day with your normal toothpaste 0 3 07/29/19 24 Discontinued Diclofenac Sodium 1 % External Gel (Voltaren) APPLY TWO GRAMS TOPICALLY TO AFFECTED AREAS OF LEFT KNEE EVERY MORNING, AND TWO GRAMS BEFORE BEDTIME 400 g 0 3 07/29/19 24 Discontinued QUEtiapine Fumarate 25 MG Oral Tablet (SEROquel)Indic ations:Agitatio n due to dementia (HCC) Take one tablet nightly for agitation. May take 0.5-1 tablet with breakfast as needed for agitation. 60 Tablet 5 3 07/29/19 24 Discontinued(End of Procedure) Molnupiravir 200 MG Oral CapsuleIndicati ons:COVID-19 virus infection Take 4 Capsules by mouth in the morning and 4 Capsules before bedtime. 40 Capsule 0 3 07/29/19 24 Discontinued ARIPiprazole 2 MG Oral Tablet (Abilify) Take 1 Tablet by mouth in the morning. 90 Tablet 3 3 07/29/19 24 Discontinued(Ref ill) oxyBUTYnin Chloride ER 10 MG Oral Tablet Extended Release 24 Hour (Ditropan XL)Indications: Urinary incontinence, nocturnal enuresis Take 1 Tablet by mouth in the morning. Do not cut, crush or chew. 90 Tablet 1 3 07/29/19 24 Discontinued Ondansetron HCl 4 MG Oral Tablet Take 1 Tablet by mouth every 6 hours as needed for Nausea. 30 Tablet 0 3 07/29/19 24 Discontinued documented as of this encounter (statuses as of 07/29/2023) Active Problems Problem Noted Date Diagnosed Date [...] as of this encounter (statuses as of 07/29/2023) Resolved Problems Problem Noted Date Diagnosed Date [...] as of this encounter (statuses as of 07/29/2023) Immunizations Name Administration Dates Next Due COVID-19 [...] Sign Reading Time Taken Comments Blood Pressure 132/80 07/29/2023 1:35 PM EST Pulse 83 07/29/2023 1:35 PM EST Temperature 36.9 C (98.4 F) 07/29/2023 1:35 PM ES T Respiratory Rate 16 07/29/2023 1:35 PM EST Oxygen Saturation 95% 07/29/2023 1:35 PM EST Inhaled Oxygen Concentration - - Weight 87.7 kg (193 lb 4.8 oz) 07/29/2023 1:35 P M EST Height - - Body Mass Index 33.16 05/14/2023 9:56 AM EST documented in this encounter Patient Instructions * Patient Instructions* JoselineSkylermerary Rama, - 07/29/2023 1:06 PM EST Stopped taking quetiapine 25 mg at nighttime and stop prn quetiapine. We are increasing aripiprazole from 2 mg at 8 am to 2 mg twice daily instead. PLEASE STOP OXYBUTYNIN RECOMMENDED PREVIOUSLY, BECAUSE IT IS BRAIN IMPAIRING. Also avoid benzodiazepine such as lorazepam. Avoid the following types of medications that have anti-cholinergic effects: For overactive bladder Ones that have been shown to increase cognitive impairment: Oxybutynin, solifenacin, tolterodine Ones that have been shown to cause little to no cognitive impairment: Trospium, darifenacin, fesoterodine First generation antihistamines Brompheniramine, carbinoxamine, chlorpheniramine, clemastine, cyproheptadine, dimenhydrinate, diphenhydramine, doxepin, doxylamine, hydroxyzine, meclizine, triprolidine, others Anti-parkinson Benztropine, trihexyphenidyl Opioids Codeine, hydrocodone, fentanyl, meperidine, methadone, morphine, oxycodone, tramadol Muscle relaxants Orphenadrine, tizanidine, cyclobenzaprine (Flexeril) baclofen, methocarbamol Psychotropicss First generation antipsychotics *Especially first generation antipsychotics: First generation: Haloperidol, perphenazine, chlorpromazine, fluphenazine, loxapine, methotrimeprazine (levomepromazine), thioridazine, trifluoperazine Second generation antipsychotics: Clozapine Benzodiazapine Lorazepam, diazepam, clonazepam, temazepam, triazolam, chlordiazepoxide Tricyclic antidepressants Amitriptyline, clomipramine, desipramine, doxepin, imipramine, nortriptyline SSRI Paroxetine (other SSRIs have much lower anticholinergic effects) Other medications that have less potent anti-cholinergic effects (need monitoring): Second generation antihistamines: fexofenadine, cetirizine*, loratadine, desloratadine, levocetirizine GI: Domperidone, loperamide, prochlorperazine Neurologic :Carbamazepine, lithium, nefazodone, oxcarbazepine, phenelzine, trazodone Second generation antipsychotics: quetiapine, iloperidone, risperidone Anti-parkinson: Amantadine, bromocriptine, entacapone Reference: 1. Christin Quiros et al. "Cognitive and mood side effects of lower urinary tract medication." Expert Opinion on Drug Safety 18.10 (2019): 915-923. 2. Guillermina Munoz et al. "A systematic review of neurocognitive dysfunction with overactive bladder medications." International Urogynecology Journal 32.10 (2020): 7193-0436. 3. Jadiel Toscano, Natan Escalera, and Tavares Belcher. "Cognitive function and urologic medications for lower urinary tract symptoms." International Neurourology Journal 24.3 (2020): 231. For urinary urgency, may try trospium (even though an anticholinergic, has been shown not to cross the blood-brain barrier, does not brain impairing) or Myrbetriq. documented in this encounter Progress Notes * Andrea Trevizo DO - 07/29/2023 1:20 PM EST Images from the original note were not included. [facility] Memory and Cognition Program Return Visit Patient: Cyndi Morris Visit date: 07/29/2023 I last saw the patient on 01/21/2023. She is accompanied by her . Due to long check-in line, patient arrival was delayed by 20 minute HISTORY OF PRESENT ILLNESS Ms. Cyndi Morris is a 78 year old right handed female with high school level education presenting for f/u for severe dementia (onset late 2021: memory/cognition and functional decline that was insidious onset, rapidly progressive), with agitation and depressed mood, and recently developed delusion and hallucination. Etiology likely Alzheimer's (supported by rapid forgetting), cannot rule out vascular dementia (supported by moderate cerebrovascular disease as seen in 06/2020) or DLB ( supported by early vivid VH but no other associated symptoms). Contributing factor to cognitive impairment include hearing impairment and medication side effects (oxybutynin and aripiprazole) +/- B12 deficiency (was low and not supplemented) She has a history significant for obesity, medication and therapy noncompliance. As of 01/2023: She moved into SNF. Still depressed, cries daily. Ongoing delusion, hallucination has resolved per . On quetiapine 25 mg in the morning, +12.5-25 mg p.r.n., unclear how much she has been getting. At the same time she also gets lorazepam TID p.r.n. anxiety, and oxybutynin. 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 Wean off Ativan slowly to prevent withdrawal Continue donepezil 10 mg daily Consider SSRI or SNRI except for paroxetine for anxiety and depression. Patient is again tearful, and cries on a daily basis. Start memantine, titrate up slowly from 5 mg daily to 10 mg twice daily. This will likely help with mood disturbances as well. For psychosis: May increase quetiapine. Monitor QTC, and avoid use if QTC longer than 500 milliseconds. RTC 6 months via video when I am in [place] due to no available appointments person [place] in that time frame. Interval history: Has relocated to [facility] in late 06/2023. She likes it there. visits her every day. She likes having him visit. lives at home ED visits or hospitalizations? Yes. Has a UTI and DVT in 06/2023. Eliquis was prescribed. New diagnosis? Yes Medication changes? Yes Falls? No FUNCTIONAL ASSESSMENT: From caregiver/family Comments [place] iADLs Using the Telephone intact Shopping impaired Food preparation impaired Housekeeping impaired Laundry impaired Transportation impaired Medication management impaired Finances impaired Jorge ADLs: Bathing intact Dressing intact Toileting intact Transferring (bed to chair) intact Continence intact Feeding intact Calendar events/appointments: Impaired Appetite and weight: Good appetite. Stable weight GI function: Diarrhea yesterday Activities: Plays bingo, table tennis pong, ice social, and watches movies Sleep: Denies issues Mood: very good per Psychiatric and behavior symptoms: No reported hallucination, paranoia or delusions by . Current neuropsychiatric medications: Aripiprazole 2 mg q.a.m. (11/2021- ) Quetiapine 25 mg q.h.s. +12.5-25 mg mg q.a.m. p.r.n. agitation Donepezil 10 mg daily (11/2021- ) Memantine 10 mg twice daily (01/21/23-, prescribed by nm) Lorazepam 0.5 mg three times daily p.r.n. (12/21/22- ) Melatonin to mg oral liquid and 8:00 p.m. daily Oxybutynin ER 10 mg daily (07/2021- ) Previous neuropsychiatric medications: Zolpidem 2005 I reviewed her medication administration record for this month. She has not received any prn lorazepam or quetiapine! :) OBJECTIVE Medical history, surgical history, social history, allergies and medications remains unchanged. Past Medical History: Diagnosis Date Allergic rhinitis Benign neoplasm of colon 03/17/2010 6 polyps, diverticulosis, adenomatous tissue repeat 3 yrs Diverticulosis of colon Family history of GI malignancy mother Irritable bowel syndrome resolved Moderate dementia with psychotic disturbance (HCC) 10/08/2022 Obesity, Class I, BMI 30.0-34.9 (see actual BMI) 06/13/2021 Other malignant neoplasm of other specified sites of skin basal cell-Dr. Machado Other specified glaucoma Past Surgical History: Procedure Laterality Date COLONOSCOPY 2002. repeat 2005 COLONOSCOPY W/ LESION REMOVAL, SNARE 03/17/2010 6 polyps, diverticulosis, adenomatous tissue repeat 3 yrs COLONOSCOPY, DIAGNOSTIC (RECTUM) 06/04/2013 COLONOSCOPY FLEXIBLE PROXIMAL DIAGNOSTIC performed by Devon Núñez MD at ENDOSCOPY [facility] COLONOSCOPY, DIAGNOSTIC (RECTUM) 06/06/2014 adenomatous polyps, diverticulosis, repeat 3 yrs/COLONOSCOPY FLEXIBLE PROXIMAL DIAGNOSTIC performedby Rama Joseph DO at ENDOSCOPY [facility] COLONOSCOPY, DIAGNOSTIC (RECTUM) 08/12/2017 adenomatous polyps, diverticulosis, repeat 3 yrs/COLONOSCOPY FLEXIBLE PROXIMAL DIAGNOSTIC performedby Rama Joseph DO at ENDOSCOPY [facility] COLONOSCOPY, DIAGNOSTIC (RECTUM) 05/12/2021 diverticulosis sigmoid colon/recall 3 years/COLONOSCOPY FLEXIBLE PROXIMAL DIAGNOSTIC performed by Rama Joseph DO at ENDOSCOPY [facility] COLONOSCOPY, GI REFERRAL OP 03/23/2006 diverticulosis--repeat 4 years EGD, W/ENDOSCOPIC US 12/06/2014 GB sludge, H pylori/ESOPHAGOGASTRODUODENOSCOPY (EGD), FLEXIBLE, TRANSORAL, ENDOSCOPIC ULTRASOUND performed by Jv Mukherjee MD at ENDOSCOPY [facility] IOF CT GUIDED NEEDLE BIOPSY 09/20/2007 CT GUIDED NEEDLE ASPIRATION BIOPSY performed by ROBERT JUAREZ at RAD[facility]OLOGY [facility] LAPAROSCOPY; CHOLECYSTECTOMY 02/24/2015 laparascopic cholecystectomy [facility] by Dr. 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 Tobacco Use Smoking status: Never Smokeless tobacco: Never Vaping Use Vaping Use: Never used Substance and Sexual Activity Alcohol use: Not Currently Drug use: No Sexual activity: Not on file Other Topics Concern Not on file Social History Narrative Not on file Social Determinants of Health Financial Resource Strain: Not on file Food Insecurity: Unknown (08/19/2022) Hunger Vital Sign Worried About Running Out of Food in the Last Year: Never true Ran Out of Food in the Last Year: Not on file Transportation Needs: Not on file Physical Activity: Not on file Stress: Not on file Social Connections: Not on file Intimate Partner Violence: Not on file Housing Stability: Not on file Family History Problem Relation Age of Onset Colon cancer Mother Cancer Father Nasopharyngeal cancer Heart Disorder Father pvd Lung cancer Father Review of patient's allergies indicates: Allergen Reactions Oxycodone Other Reaction(s): DROWSY, ITCHING/DROWSY Propoxyphene Hcl Other Reaction(s): ITCHING,THROAT SWELLING Percocet [Oxycodone-Acetaminophen] Itching Current Outpatient Medications Medication Sig Dispense Refill Acetaminophen 500 MG Oral Tablet (Tylenol Extra Strength) Take 1 Tablet by mouth every 6 hours as needed. Apixaban 5 MG Oral Tablet (Eliquis) Take 1 Tablet by mouth in the morning and 1 Tablet before bedtime. Stop on 09/30/23.. 60 Tablet 2 ARIPiprazole 2 MG Oral Tablet (Abilify) Take 1 Tablet by mouth in the morning and 1 Tablet in the evening. 60 Tablet 5 Azelastine HCl 0.1 % Nasal Solution (Astelin) Administer 1 [place] into nostril in the morning and 1 [place] before bedtime. 30 mL 12 B-12-SL 1000 MCG Sublingual Tablet Sublingual (Cyanocobalamin) Place 1,000 mcg under the tongue in the morning. 90 Tablet 3 Benzonatate 100 MG Oral Capsule Take 2 Capsules by mouth 3 times a day as needed for Cough. 60 Capsule 1 Calcium Carb-Cholecalciferol 600-20 MG-MCG Oral Tablet Take by mouth. CALTRATE 600+D 600-400 MG-UNIT PO TABS Take by mouth. Donepezil HCl 10 MG Oral Tablet (Aricept) Take 1 Tablet by mouth in the morning. Take with largest meal of the day. PILL PACKS. 90 Tablet 3 Dorzolamide HCl 2 % Ophthalmic Solution Instill 1 Drop into both eyes in the morning and 1 Drop in the evening. Fluticasone Propionate 50 MCG/ACT Nasal Suspension (Flonase) ADMINISTER TWO SPRAYS INTO EACH NOSTRIL IN THE MORNING 48 g 0 Furosemide 20 MG Oral Tablet (Lasix) Take one pill each morning for 30 days, for excess fluid. May take a second tablet at noon if no response to the morning dose. 60 Tablet 0 Loratadine 10 MG Oral Tablet Take 1 Tablet by mouth in the morning. LORazepam 0.5 MG Oral Tablet (Ativan) Take 1 Tablet by mouth 3 times a day as needed for Agitation.9 Tablet 0 Melatonin 1 MG/ML Oral Liquid 2 ml by mouth at 8 pm daily 60 mL 2 Memantine HCl 10 MG Oral Tablet (Namenda) Take 1 Tablet by mouth in the morning and 1 Tablet beforebedtime. 180 Tablet 3 Montelukast Sodium 10 MG Oral Tablet (Singulair) Take 1 Tablet by mouth in the morning. 90 Tablet 3 Nystatin 909151 UNIT/GM External Powder (Nystop) Apply topically to affected area 3 times a day. Apply to skin folds under breasts and abdomen 180 g 1 Petrolatum White External Ointment Apply to ischeal tuberosities (between the buttocks), twice daily for two weeks. 60 g 0 PROBIOTIC PO CAPS Take by mouth. Vitamin D 25 MCG (1000 UT) Oral Tablet Take by mouth. No current facility-administered medications for this visit. LABS: Latest Reference Range & Units 03/19/23 15:09 SARS-CoV-2 (COVID-19) Result Negative Positive ! !: Data is abnormal Results for orders placed or performed in visit on 05/14/23 CBC Result Value Ref Range WBC 6.50 4.00 - 10.80 K/uL RBC 5.01 3.85 - 5.15 M/uL HGB 14.5 12.0 - 15.3 g/dL HCT 46.8 (H) 36.0 - 45.2 % MCV 93.4 81.5 - 97.5 fL MCH 28.9 27.0 - 34.0 pg MCHC 31.0 32.0 - 36.0 g/dL RDW 14.8 11.5 - 15.5 % PLT 198 140 - 400 K/uL MPV 10.8 6.6 - 11.1 fL nRBCs 0 <=0 /100 WBCs Results for orders placed or performed in visit on 04/18/20 BASIC METAB PANEL, BMP Result Value Ref Range BUN 20 6 - 20 mg/dL Creatinine 0.9 0.5 - 1.0 mg/dL Estimated Glomerular Filtration Rate >60.0 >60 Sodium 143 135 - 146 mmol/L Potassium 5.2 (H) 3.5 - 5.1 mmol/L Chloride 110 (H) 98 - 107 mmol/L CO2 24 22 - 32 mmol/L Anion Gap 9 7 - 15 mmol/L Glucose 103 70 - 120 mg/dL Calcium 9.2 8.4 - 10.2 mg/dL Latest Reference Range & Units 05/14/23 10:59 Albumin 3.8 - 5.0 g/dL 4.2 AST 10 - 35 U/L 19 ALT 10 - 35 U/L 15 Alkaline Phosphatase 35 - 130 U/L 64 Bilirubin, Total <=1.2 mg/dL 0.6 Results for orders placed or performed in visit on 11/20/21 LIPID PANEL WITH DIRECT LDL IF TG IS HIGH Result Value Ref Range Triglycerides 96 <=174 mg/dL Cholesterol 166 <200 mg/dL HDL Cholesterol 53 >49 mg/dL Non-HDL Cholesterol 113 <=159 mg/dL LDL Cholesterol 94 <=129 mg/dL No results found for: "HEMOGLOBIN A1C" Lab Results Component Value Date/Time TSH - [facility] 1.44 11/26/2022 11:56 AM TSH - [facility] 1.03 11/20/2021 12:30 PM TSH - [facility] 2.45 05/11/2021 07:57 AM TSH - [facility] 0.90 06/12/2020 02:40 PM TSH - [facility] 1.42 05/23/2018 08:07 AM TSH - [facility] 1.02 06/04/2016 03:33 PM No results found for: "CHUCKIE" Hepatitis C Antibody Date Value Ref Range Status 02/06/2019 NEGATIVE NEG Final Lyme Disease Antibody Screen Date Value Ref Range Status 11/20/2021 Negative Negative Final Comment: Lyme screen negative, per CDC guidelines Western blot testing not ordered. No results found for: "RPR" No results found for: "FTA-ABS" No results found for: "VDRL" Results for orders placed or performed in visit on 11/26/22 VITAMIN B12 Result Value Ref Range Vitamin B12 781 232 - 1,245 pg/mL 25OH VITAMIN D TOTAL (ng/mL) Date Value 03/23/2014 33.7 11/29/2013 25.8 (L) 07/27/2013 18.8 (L) 25-Hydroxy Vitamin D (ng/mL) Date Value 11/26/2022 42 11/20/2021 41 05/11/2021 31 Vitamin D Level Interpretation deficient: <20 ng/ml insufficient: 20-30 ng/ml normal: 31-100 ng/ml TTE, 05/17/23: IMAGING STUDIES: No new brain imaging PHYSICAL EXAM Vital signs: BP 132/80 | Pulse 83 | Temp 36.9 C (98.4 F) (Tympanic) | Resp 16 | Wt 87.7 kg (193lb 4.8 oz) | SpO2 95% | BMI 33.16 kg/m | BSA 1.99 m General: Well nourished. Appears as stated age. No acute distress. HEENT: normocephalic, atraumatic. Mood and affect: Flat. Decreased eye blink, stares Reaction/processing speed: Decreased Mental status: Orientation intact to season. Very close to month. Impaired to date, next holiday, and name of the hospital. Impaired to her age, even with multiple choice Has good sense of humor: answers "Old" to " how old are you?" Speech: Short phrases. No dysarthria. Cranial nerves: Grossly intact extraocular movements. No facial asymmetry. Reflexes: Frontal release sign positive for grasp ASSESSMENT & PLAN Cyndi Morris is a 78 year old right handed female with high school level education presenting for f/u for severe dementia (onset late 2021: memory/cognition and functional decline that was insidious onset, rapidly progressive), with agitation and depressed mood, and recently developed delusion and hallucination. Etiology likely Alzheimer's (supported by rapid forgetting), cannot rule out vascular dementia (supported by moderate cerebrovascular disease as seen in 06/2020) or DLB ( supported by early vivid VH but no other associated symptoms). Contributing factor to cognitive impairmentinclude hearing impairment and medication side effects (oxybutynin and aripiprazole) +/- B12 deficiency (was low and not supplemented) Since the last visit on 01/21/2023, her mood and psychosis and psychotic symptoms seem well controlled on Abilify 2 mg in the morning, quetiapine 25 mg at night. Has not been receiving any p.r.n. lorazepam or quetiapine. However she continues to receive oxybutynin despite I previously recommended for it to stop. She has relocated to the [place] since late 06/2023. She likes it there. visits her daily. Appetite and sleep reportedly good. Had diarrhea yesterday, but not the norm. Code status is DNR Plan Severe dementia with psychotic disturbance, unspecified dementia type Polypharmacy - DC oxybutynin, and avoid any other anticholinergic, antihistamine and medications that impair cognition further. - continue to avoid lorazepam, currently ordered p.r.n. but she has not received. Instead of using both Abilify and quetiapine, consolidate into Abilify only: 2 mg twice daily, DC quetiapine 25 mg at night. At risk for long QT syndrome - EKG; Future -> completed in office today. QTC 441 milliseconds. Other orders - ARIPiprazole 2 MG Oral Tablet (Abilify); Take 1 Tablet by mouth in the morning and 1 Tablet in the evening. Follow Up: Return in about 6 months (around 01/27/2024) for Clinic Visit. | For: Clinic Visit | Check-out note: # Follow up with Cathy Allen in [facility] in-person. Patient Instructions Patient Instructions Stopped taking quetiapine 25 mg at nighttime and stop prn quetiapine. We are increasing aripiprazole from 2 mg at 8 am to 2 mg twice daily instead. PLEASE STOP OXYBUTYNIN RECOMMENDED PREVIOUSLY, BECAUSE IT IS BRAIN IMPAIRING. Also avoid benzodiazepine such as lorazepam. Avoid the following types of medications that have anti-cholinergic effects: For overactive bladder Ones that have been shown to increase cognitive impairment: Oxybutynin, solifenacin, tolterodine Ones that have been shown to cause little to no cognitive impairment: Trospium, darifenacin, fesoterodine First generation antihistamines Brompheniramine, carbinoxamine, chlorpheniramine, clemastine, cyproheptadine, dimenhydrinate, diphenhydramine, doxepin, doxylamine, hydroxyzine, meclizine, triprolidine, others Anti-parkinson Benztropine, trihexyphenidyl Opioids Codeine, hydrocodone, fentanyl, meperidine, methadone, morphine, oxycodone, tramadol Muscle relaxants Orphenadrine, tizanidine, cyclobenzaprine (Flexeril) baclofen, methocarbamol Psychotropicss First generation antipsychotics *Especially first generation antipsychotics: First generation: Haloperidol, perphenazine, chlorpromazine, fluphenazine, loxapine, methotrimeprazine (levomepromazine), thioridazine, trifluoperazine Second generation antipsychotics: Clozapine Benzodiazapine Lorazepam, diazepam, clonazepam, temazepam, triazolam, chlordiazepoxide Tricyclic antidepressants Amitriptyline, clomipramine, desipramine, doxepin, imipramine, nortriptyline SSRI Paroxetine (other SSRIs have much lower anticholinergic effects) Other medications that have less potent anti-cholinergic effects (need monitoring): Second generation antihistamines: fexofenadine, cetirizine*, loratadine, desloratadine, levocetirizine GI: Domperidone, loperamide, prochlorperazine Neurologic :Carbamazepine, lithium, nefazodone, oxcarbazepine, phenelzine, trazodone Second generation antipsychotics: quetiapine, iloperidone, risperidone Anti-parkinson: Amantadine, bromocriptine, entacapone Reference: 1. Christin Quiros et al. "Cognitive and mood side effects of lower urinary tract medication." Expert Opinion on Drug Safety 18.10 (2019): 915-923. 2. Guillermina Munoz et al. "A systematic review of neurocognitive dysfunction with overactive bladder medications." International Urogynecology Journal 32.10 (2020): 6558-1762. 3. Jadiel Toscano, Natan Escalera, and Tavares Belcher. "Cognitive function and urologic medications for lower urinary tract symptoms." International Neurourology Journal 24.3 (2020): 231. For urinary urgency, may try trospium (even though an anticholinergic, has been shown not to cross the blood-brain barrier, does not brain impairing) or Myrbetriq. Attestation: I spent a total of 51 minutes coordinating, documenting, and providing care for this patient excluding time spent in the performance of separately billed services or time spent by another provider/QHP. This note was completed using the dictation program Fluency Direct. As such, there may be misspellings, word substitutions, or other variations that should not change the essence of the clinical content of this encounter note.If there is need for further clarification, please direct questions to me. Andrea Trevizo DO Cognitive and Behavioral Neurology [facility] 07/29/2023 documented in this encounter Nursing Notes * Brittnee Perez MED ASSIST - 07/29/2023 1:34 PM EST Chief Complaint Patient presents with Return Neuro documented in this encounter Plan of Treatment Upcoming Encounters Date Type Department Care Team (Late st Contact Info) Description 09/20/2023 1:20 PM EDT Office Visit [address] [place] [address] Lauren Varela PA-C [address] [place] [address] 11/17/2023 11:30 AM EDT Office Visit Dermatology [facility] [address] [place] [address] Inga Maki MD [address] [place] [address] 02/03/2024 2:40 PM EDT Office Visit Neurology [facility] [address] [place] [address] Cathy Allen CRNP [address], [place] [id number] Scheduled Orders Name Type Priority Associated Diagnoses Orde r Schedule EKG EKG Routine At risk for long QT syndrome Expected: 07/29/2023 (Approximate), Expires: 08/29/2024 Scheduled Procedures Name Priority Associated Diagnoses Date/Ti [...] D LEVEL ONCE IN A LIFETIME-USE SMARTSET# 61726 Completed 11/26/2022, 11/20/2021, 05/11/2021, Additional history exists [...] of this encounter Visit Diagnoses Diagnosis Severe dementia with psychotic disturbance, unspecified dementia type (HCC)- Primary At risk for long QT syndrome Polypharmacy Encounter for long-term (current) use of other medications documented in this encounter Care Teams Bending Roll Operator Relationship Specialty Start Date End Date Lauren Varela PA-C [address] [facility] [place] [address] PCP - General Physician Neon Glass Bender 05/11/21 documented as of this encounter
--- OUTSIDE RECORDS SUMMARY | 2023-08-04 14:08 | External Medical Summary | Summary of Care ---
Author Name Unknown Organization [facility] Address [address] [place] [address] Phone [phone] Care Team Providers Care Production Material Handler Name Role Phone Lauren Varela PA-C Primary Care Provider [phone] Reason for Visit * Reason Onset Date Comments Medication Refill 07/13/2023 Encounter Details Date Type Department Care Team (Late st Contact Info) Description 07/13/2023 Refill [facility] [address] [place] [address] Lauren Varela PA-C [address] [place] [address] Nasal congestion Allergies Active Allergy Reactions Criticality Noted Date Comments Oxycodone High 11/26/2020 Other Reaction(s): DROWSY, ITCHING/DROWSY Oxycodone-Acetaminophen Itching 11/10/2007 Propoxyphene Hcl High 11/26/2020 Other Reaction(s): ITCHING,THROAT SWELLING documented as of this encounter (statuses as of 07/14/2023) Medications Medication Sig Dispensed Refills Start Date [...] mouth every evening. Use pea sized amount. [place] twice a day with your normal toothpaste [...] 0.1 % Nasal Solution (Astelin) Administer 1 [place] into nostril in the morning and 1 [place] before bedtime. 30 mL 12 02/24/2023 Active Molnupiravir 200 MG Oral CapsuleIndication [...] Information Patient not taking.Reported on 07/11/2023 Nystatin 840250 UNIT/GM External Powder (Nystop)Indicatio ns:Skin irritation Apply [...] 09/30/23.. 60 Tablet 2 07/11/2023 4 Active Montelukast Sodium 10 MG Oral Tablet (Singulair)Indica tions:Nasal congestion Take 1 Tablet by mouth in the morning. 90 Tablet 3 07/14/2023 Active Montelukast Sodium 10 MG Oral Tablet (Singulair)Indica tions:Nasal congestion Take 1 Tablet by mouth in the morning. 30 Tablet 5 02/24/2023 4 Discontinue d(Refill) documented as of this encounter (statuses as of 07/14/2023) Active Problems Problem Noted Date Diagnosed Date [...] as of this encounter (statuses as of 07/14/2023) Resolved Problems Problem Noted Date Diagnosed Date [...] as of this encounter (statuses as of 07/14/2023) Immunizations Name Administration Dates Next Due COVID-19 [...] - Tetanus/Diptheria (ADULT) 02/07/2006 TD, Preservative Free 02/07/2006,08/04/1995,03/07/1993 TDAP (age 10 and older)(Boostrix) 03/16/2020, Varicella [...] encounter Miscellaneous Notes * Telephone Encounter - Ava Hinojosa RPh - 07/14/2023 11:21 AM ESTSigned Prescriptions: Disp Refills Montelukast Sodium 10 MG Oral Tablet (Sing*90 Tab*3 Sig: Take 1 Tablet by mouth in the morning. Authorizing Provider: LAUREN VARELA Ordering User: AVA HINOJOSA * Telephone Encounter - Qing Pham CPhT - 07/13/2023 4:33 PM EST Did you pend patient's preferred pharmacy and medication before forwarding?yes [facility] [address] [facility] Pending Prescriptions: Disp Refills Montelukast Sodium 10 MG Oral Tablet (Sin*30 Tab*5 Sig: Take 1 Tablet by mouth in the morning. Last Visit: 07/11/2023 (in office), Visit date not found (telemedicine) Next Visit: 09/20/2023 If no future appointments scheduled, and last appointment is greater than a year ago, please schedule patient for a follow-up appointment Last date the medication was ordered: 02/24/2023 Is this request for a controlled substance?No Urine Drug Screen:No results found. However, due to the size of the patient record, not all encounters were searched. Please check Results Review for a complete set of results. Patient Phone Numbers Labs: Lab Results Component [...] Upcoming Encounters Date Type Department Care Team ([facility] st Contact Info) Description 07/29/2023 1:20 PM EST Office Visit [facility]rology [facility] [place] [address] [facility] [address] Cathy Allen CRNP [address] [place] [address] 09/20/2023 1:20 PM EDT Office Visit [facility] [place] [address] [place] [phone] Lauren Varela PA-C [address] [place] [address] 11/17/2023 11:30 AM EDT Office [facility] [address] [facility] [place] [address] Inga Maki MD [address] [facility] [place] [address] Scheduled Procedures Name Priority Associated Diagnoses Date/Ti [...] D LEVEL ONCE IN A LIFETIME-USE SMARTSET# [id number] Completed 11/26/2022, 11/20/2021, 05/11/2021, Additional history exists [...] as of this encounter Visit Diagnoses Diagnosis Nasal congestion Other diseases of nasal cavity and sinuses documented in this encounter Care Teams Production Material Handler Relationship Specialty Start Date End Date Lauren Varela PA-C [address] [place] [address] PCP - General Physician Sports Announcer 05/11/21 documented as of this encounter
--- OUTSIDE RECORDS SUMMARY | 2023-08-04 15:33 | External Medical Summary | Summary of Care ---
Author Name Unknown Organization [facility] Address [address] [place] [address] Phone [phone] Care Team Providers Care Body Press Operator Name Role Phone Lauren Varela PA-C Primary Care Provider [phone] Reason for Visit * Reason Onset Date Comments Advice 08/02/2023 Medication anna fication Encounter Details Date Type Department Care Team (Late st Contact Info) Description 08/02/2023 Telephone Neurology, [place] [address] [place] [address] [facility], [facility] [address] [place] [address] Advice (Medication clarification ) Allergies Active Allergy [...] PO CAPS Take by mouth. 0 Act kairne Loratadine 10 MG Oral TabletIndications: as needed [...] 0.1 % Nasal Solution (Astelin) Administer 1 [place] into nostril in the morning and 1 [place] before bedtime. 30 mL 12 02/24/2023 Active [...] dose. 60 Tablet 0 05/14/2023 Active Nystatin 320700 UNIT/GM External Powder (Nystop)Indication s:Skin irritation Apply [...] 30 Mcg, IM, 12 yrs and above ([place]) 04/23/2022 H1N1 2009 Influenza, IM 07/07/2009 Hepatitis [...] yrs 03/13/2019 TD - Tetanus/Diptheria (ADULT) 02/07/2006,1995,09/01/1993 TD, Preservative Free 02/07/2006,08/04/1995,07/1993 TDAP (age 10 [...] encounter Miscellaneous Notes * Telephone Encounter - Cathy Allen CRNP - 08/03/2023 4:31 PM EST Truspot is not a medication we manage in Neurology. It's an eye drop used for glaucoma and that prescription will need to come from her opthalmologic. * Telephone Encounter - Brandy Quinonez OSA - 08/02/2023 4:28 PM EST Neuroscience Phone Call Form- Clinic has 24-48 hours to respond to caller If caller is calling back before that timeframe- There is no need to send another message to the pool, update current TE [facility] Neurology Pool- All messages go through the [facility] Neuro Respiratory Director- [id number] Neurology Pool Numbers- [place] and [place] patients - follow normal process Ops req [facility] ([place])- [id number] Ops req [place] Neurology ([place]- [place] and [facility] clinics Only)- [id number] Neurosurgery Pool Numbers- [place] patients- follow normal process Ops req Neurosurgery [facility] ([place])- [id number] Ops req Neurosurgery [facility] ([place] Only) [id number] Requested Information from caller: Who is calling facility name: [facility] Provider patient is established with: Dr. Trevizo What is the concern or issue they are having: needing clarification on medications from [facility] appt. How long has the issue been going on: n.a Any additional details to add: yes: Clarification on use of Lorazepam and is it is to be discontinued send a fax stating that. Needs a new script for Trusopt as she did not have one. Pts phone number for nurse to call back: Please fax all above info to [phone] Please make sure you verify pharmacy for anything medication related. Form to be used for established patients only (not new patients) documented in this encounter Plan of Treatment Upcoming Encounters Date Type Department Care Team (Late st Contact Info) Description 09/20/2023 1:20 PM EDT Office Visit [facility] [address] [place] [phone] Lauren Varela PA-C [address] [place] [address] 11/17/2023 11:30 AM EDT Office Visit Dermatology [facility] [address] [facility] [place] [address] Inga Maki MD [address] [facility] [place] [address] 02/03/2024 2:40 PM EDT Office Visit Neurology [facility] [address] [facility] [place] [address] Cathy Allen CRNP [address] [place] [address] Scheduled Procedures Name Priority Associated Diagnoses Date/Ti me COLONOSCOPY FLEXIBLE PROXIMA L DIAGNOSTIC Recall History of colonic polyps Health Maintenance Due Date Last Done Comments *BISPHONATE OR OTHER ACCEPTABLE MEDICATION NEEDED FOR OSTEOPOROSIS (REFER TO SMARTSET #1146) 08/21/2022 COVID-19 Vaccine ( season) 2023 04/23/2022, 12/03/2021, 04/29/2021, Additional history exists DXA Scan 06/24/2023 06/24/2021, 06/04, 07/17/2013, Additional history exists Depression Screening 08/19/2023 08/19/2022 [...] D LEVEL ONCE IN A LIFETIME-USE SMARTSET# [id number] Completed 11/26/2022, 11/20/2021, 05/11/2021, Additional history exists [...] filedocumented as of this encounter Care Teams Body Press Operator Relationship Specialty Start Date End Date Lauren Varela PA-C [address] [place] [facility] [place] [address] PCP - General Physician Child Nutrition Manager 05/11/21 documented as of this encounter
--- OUTSIDE RECORDS SUMMARY | 2023-08-04 15:33 | External Medical Summary | Summary of Care ---
Author Name Unknown Organization [facility] Address [address] [place] [address] Phone [phone] Care Team Providers Care Chief Power Dispatcher Name Role Phone Lauren Varela PA-C Primary Care Provider [phone] Reason for Visit * Reason Onset Date Comments Advice 08/02/2023 Medication anna fication Encounter Details Date Type Department Care Team (Late st Contact Info) Description 08/02/2023 Telephone Neurology, [place] [address] [place] [address] Services, [facility] [address] [place] [address] Advice (Medication clarification ) Allergies Active Allergy [...] 0.1 % Nasal Solution (Astelin) Administer 1 [place] into nostril in the morning and 1 [place] before bedtime. 30 mL 12 02/24/2023 Active [...] dose. 60 Tablet 0 05/14/2023 Active Nystatin 959272 UNIT/GM External Powder (Nystop)Indication s:Skin irritation Apply [...] 30 Mcg, IM, 12 yrs and above ([place]) 04/23/2022 H1N1 2009 Influenza, IM 07/07/2009 Hepatitis [...] prescription will need to come from her ob scrub tech. * Telephone Encounter - Brandy Quinonez OSA - 08/02/2023 4:28 PM EST Neuroscience Phone Call Form- Clinic has 24-48 hours to respond to caller If caller is calling back before that timeframe- There is no need to send another message to the pool, update current TE [facility] Neurology Pool- All messages go through the [facility] Neuro Instrumentation Engineering Technician- [id number] Neurology Pool Numbers- [place] and [facility] patients - follow normal process Ops req [facility] ([place])- [id number] Ops req [place] Neurology ([place]- [place] and [facility] Only)- [id number] Neurosurgery Pool Numbers- [place] patients- follow normal process Ops req Neurosurgery [facility] [place])- [id number] Ops req Neurosurgery [facility] ([place] Only) [id number] Requested Information from caller: Who is calling facility name: [facility] Provider patient is established with: Dr. Trevizo [...] back: Please fax all above info to [phone] Please make sure you verify pharmacy for anything medication related. Form to be used for established patients only (not new patients) documented in this encounter Plan of Treatment Upcoming Encounters Date Type Department Care Team (Late st Contact Info) Description 09/20/2023 1:20 PM EDT [facility] [address] [place] [address] Lauren Varela PA-C [address] [place] [address] 11/17/2023 11:30 AM EDT Office Visit Dermatology [facility] [address] [place] [address] Inga Maki MD [address] [facility] [place] [address] 02/03/2024 2:40 PM EDT Office Visit Neurology [facility] [address] [facility] [place] [address] Cathy Allen CRNP [address] [place] [address] Scheduled Procedures Name Priority Associated [...] D LEVEL ONCE IN A LIFETIME-USE SMARTSET# [id number] Completed 11/26/2022, 11/20/2021, 05/11/2021, Additional history exists [...] filedocumented as of this encounter Care Teams Chief Power Dispatcher Relationship Specialty Start Date End Date Lauren Varela PA-C [address] [place] [address] PCP - General Physician Recreational Resort Manager 05/11/21 documented as of this encounter
[2023-08-04] MEDS ORDERED: DONEPEZIL HCL 10 MG TAB PO SCH (16:30)
[2023-08-05 06:59] LABS: Basophils # (auto) 0.02 K/uL (0.00-0.20); Basophils % (auto) 0.4 %; Eosinophils # (auto) 0.06 K/uL (0.00-0.50); Eosinophils % (auto) 1.1 %; Hematocrit (blood only) 44.8 % (37.0-47.0); Hemoglobin 14.3 g/dl (12.0-16.0); Immature Granulocytes # (auto) 0.02 K/uL (0.01-0.20); Immature Granulocytes % (auto) 0.4 %; Lymphocytes % (auto) 33.7 %; Mean Corpuscular Hemoglobin 28.1 pg (25.0-34.0); Mean Corpuscular Hgb Conc 31.9 g/dL (32.0-36.0); Mean Corpuscular Volume 88.2 fL (80.0-100.0); Mean Platelet Volume 10.5 fL (9.4-12.4); Monocytes # (auto) 0.55 K/uL (0.11-0.59); Monocytes % (auto) 10.3 %; Neutrophils # (auto) 2.89 K/uL (1.40-6.50); Neutrophils % (auto) 54.1 %; Platelet Count 183 K/uL (130-400); RDW Coefficient of Variation 14.2 % (11.5-14.5); RDW Standard Deviation 45.7 fL (36.4-46.3); Red Blood Count 5.08 M/uL (4.20-5.40); White Blood Count 5.34 K/ul (4.8-10.8)
[2023-08-05 07:34] LABS: BUN Creatinine Ratio 16.2 (10-20); Calcium 9.4 mg/dl (8.6-10.3); Creatinine Clr Calc Pharmacy 49.8 ml/min; Est GFR (African American) 63.3 ml/min; Est GFR (Non-African American) 54.6 ml/min; Potassium 3.8 mmol/L (3.5-5.1)
[2023-08-05] MEDS: APIXABAN 5 MG TABLET PO SCH (08:27)
[2023-08-05] MEDS: MEMANTINE HCL 10 MG TAB PO SCH (08:27)
[2023-08-05] MEDS: ARIPIprazole 1 MG/ML ORAL SOLN 150 ML BTL PO SCH (08:27)
[2023-08-05] MEDS: CYANOCOBALAMIN (B-12) 500 MCG TABLET PO SCH (08:27)
[2023-08-05] MEDS: ADVANCED PROBIOTIC 1250 MG CAPSULE PO SCH (08:28)
[2023-08-05] MEDS: MONTELUKAST SODIUM 10 MG TABLET PO SCH (08:28)
[2023-08-05] MEDS: LORATADINE 10 MG TAB PO SCH (08:28)
[2023-08-05] MEDS: CALCIUM 600MG + VIT D 400 IU TAB PO SCH (08:28)
[2023-08-05] MEDS: FLUTICASONE PROPIONATE NA SPR 16 GM BTL SCH (08:28)
[2023-08-05] MEDS: AZELASTINE HCL 0.1% NASAL 200 SPRAYS/27,400 MCG BTL NAE SCH (08:29)
[2023-08-05] MEDS ORDERED: CHOLECALCIFEROL 25 MCG (1000 UNITS) TAB PO SCH (09:00)
--- NOTE | 2023-08-05 12:21 | Discharge Summary ---
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 As per daughter since she got discharged recently she was doing fine until last 2 days ago. Since last two days she is getting more confused ,poor oral intake and having weakness. Patient keeps staring. She also had a bowel movement in her pants which is unusual for her. In the ER after fluids her mental status seem to be improved. No recent fevers. No cough. Currently resting comfortably and hemodynamic stable. Patient is alert and oriented to name and place. Difficult with the dates. Talked with daughter on the phone. Daughter states she has very bad dementia and she is not current with the dates. As per daughter she does not remember what she ate 5 minutes ago. Ambulates with a walker. No difficulty swallowing. Patient denies any headache. No runny nose or sore throat. No chest pain or shortness of breath. No nausea. No abdominal pain. Patient was recently in the hospital in June with hypoxia and confusion. At that time confusion thought to be from hypoxia and initially from diverticulitis. But surgery ruled out diverticulitis. And she also found to have UTI. Treated with antibiotics. Currently patient denies any abdominal pain. UA came back unremarkable. Bio fire came back unremarkable. Last admission she also found of bilateral DVTs but CTA chest showed no PE. C urrently she is on Eliquis. Past medical history. As mentioned above. Past surgical history. Colonoscopy. EGD with endoscopic ultrasound. Laparoscopic cholecystectomy. Ligation of the oviduct. Right punctured breast cyst drainage. Social history. . No smoking. No alcohol. No drug use. Family history. Father had nasopharyngeal cancer. Heart disorder. Lung cancer. Mother had colon cancer. Admission Exam Per Admitting Provider General- Not in distress Head- atraumatic Eyes- PERRL. ENT- oropharynx clear Neck- supple, no JVD. Lungs- clear to auscultation no wheezing or crackles Heart- regular rhythm; no murmur, no gallop. Abdomen- normal bowel sounds, soft, nontender, no distension Extremities- mild pretibial edema, no erythema seen. Neuro- alert, oriented x 2; PERRL,no facial palsy; no dysarthria; moves extremities Skin- warm & dry Principal Diagnosis Altered mental status likely due to medications Discharge Exam General- Not in distress Lungs- clear to auscultation no wheezing or crackles Heart- regular rhythm; no murmur, no gallop. Abdomen- normal bowel sounds, soft, nontender, no distension Extremities- mild pretibial edema, no erythema seen. Neuro- alert, oriented x self and date of ; PERRL,no facial palsy; no dysarthria; moves extremities Skin- warm & dry Discharge Data Allergies Allergy/AdvReac Type Severity Reaction Status Date / Time propoxyphene Allergy Severe ITCHING,THROAT Verified 08/04/23 00:00 SWELLING oxycodone AdvReac Intermediate ITCHING/ARIA Verified 08/04/23 00:00 WSY Consultations 08/04/23 00:37 ED Decision to Admit Stat Ordered Studies 08/03/23 21:33 CT head/brain wo con Stat Hospital Course (1) AMS (altered mental status): 78-year-old female with past med history significant for hypertension, vitamin D deficiency, history of diverticulitis, osteoporosis, severe late onset Alzheimer's dementia with psychotic disturbance, depression, currently living at [facility] was brought in because of confusion and poor appetite. CBC and CMP reviewed; no acute finding UA unremarkable and BioFire unremarkable CT head personally reviewed; no acute finding EKG personally reviewed; sinus rhythm; no ST or T wave changes Patient mentation was at baseline. Lab work was within normal limits, vital stable. Discussion was done with at bedside; plan to discharge back to [facility] today. Stopped Ativan at discharge that it can contribute to altered mental status. Please note the above document was generated using voice recognition software. It may contain grammatical, syntax or spelling errors. Any formal questions or concerns about the content, text or information contained within the body of this dictation should be directly addressed to the provider for clarification Total Time Total Time Spent Total Time Spent (In Minutes): 35 Total Time Includes: Examination of the Patient, Discharge Planning, Medication Reconciliation, Communication With Other Providers and Other Discharge Plan Discharge Items Patient Disposition: Personal Long-Term Reason For Visit: CONFUSION Discharge Diagnosis: Altered mental status Dementia with behavioral disorder. Condition on Discharge: Good Activity: Resume your previous activity Non-emergency contact: Primary Care Provider Call non-emergency contact if: you have any medication questions and your symptoms worsen Follow-up/Referrals: Lauren Varela PA-C [Primary Care Provider] - (Date & Time 08/10/2023 2:40 PM Provider Lauren Varela PA-C Department [facility] ) Diet: Regular Addtl Attending Provider Instructions: You were admitted to the hospital due to confusion. Workup during the hospitalization did not show any acute findings. Please follow-up with your primary care doctor. Ativan is stopped as it can cause altered mental status and delirium. Pending Studies at Discharge: No Stand-Alone Forms: My [facility], Smoking Cessation Skilled Items Patient informed of condition?: No DNR: Yes Discharge Level of Care: Skilled Communicable Disease: No Discharge Prognosis: Stable Lines: None Urinary Catheter: No Medications and DC Order Prescriptions: Continued fluticasone propionate [24 Hour Allergy Relief] 50 mcg/actuation [place],Suspension 2 spray INTRANASAL DAILY 30 Days Qty: 16 donepezil 10 mg tablet 10 mg PO QDD benzonatate 100 mg Capsule 200 mg PO TID PRN (Reason: Cough) montelukast [Singulair] 10 mg Tablet 10 mg PO DAILY cyanocobalamin (vitamin B-12) 1,000 mcg Tablet, Sublingual 1,000 mcg SUBLINGUAL DAILY furosemide [Lasix] 20 mg Tablet 20 mg PO DAILY PRN (Reason: EDEMA IN LEGS) nystatin 100,000 unit/gram powder 1 applic TOPICAL TID PRN (Reason: Skin Irritation) Rx Instructions: UNDER BREASTS AND ABD FOLD azelastine 137 mcg (0.1 %) Aerosol,[place] 1 spray INTRANASAL BID Rx Instructions: administer into each nostril loratadine [Claritin] 10 mg Tablet 10 mg PO DAILY memantine 10 mg tablet 10 mg PO BID chlorhexidine gluconate 0.12 % mouthwash 15 ml PO BID PRN (Reason: ORAL CARE) aripiprazole 2 mg tablet 2 mg PO BID calcium carbonate-vitamin D3 [Calcium 600 + D(3)] 600 mg-10 mcg (400 unit) Tablet 1 tab PO DAILY melatonin 1 mg/mL Liquid 2 mg PO HS Probiotic 5 billion cell Capsule, Sprinkle 1 cap PO DAILY loperamide 2 mg Capsule See Rx Instructions .ROUTE .COMPLEX MDD 16 MG/24 HOURS PRN (Reason: Diarrhea) Rx Instructions: TAKE 4 MG AT ONSET OF DIARRHEA, THEN 2 MG AFTER EACH LOOSE STOOL. MAX 16 MG/24 HOURS. acetaminophen [Tylenol Extra Strength] 500 mg Tablet 500 mg PO Q4H PRN (Reason: Pain) Eucerin Eczema Relief 1 % Cream 1 applic TOPICAL DIRECTED PRN (Reason: ECZEMA AREA) docusate sodium 100 mg Capsule 100 mg PO DAILY PRN (Reason: Constipation) cholecalciferol (vitamin D3) [Vitamin D3] 25 mcg (1,000 unit) Capsule 25 mcg PO DAILY Eucerin Advanced Repair Hand Cream 1 applic TOPICAL DIRECTED PRN (Reason: Dry Skin) Eliquis 5 mg tablet 5 mg PO BID Discontinued lorazepam 0.5 mg Tablet 0.5 mg PO TID PRN (Reason: Agitation) Discharge Orders: Discharge Order (Routine); Ordered 08/05/23 Ordered By: Nato Lea Admission Data Admit Date/Time: 08/04/23 01:49 Attending Provider: Nato Lea Admit Provider: Juventino Hager Primary Care Provider: Lauren Varela Other Providers: Juventino Hager
== END 2023-08-05 13:17 | disposition home or self-care (01) | DRG 641 ==
LOC: ED 19:52 → 2N 08-04 01:49

== ENCOUNTER 2023-08-05 18:21 | Inpatient (IN) ==
--- NOTE | 2023-08-05 18:32 | ED Triage Note ---
Date of Service August 05, 2023 Provider in Triage Author: Ling Hare History of Present Illness This patient was briefly evaluated while in triage. An abbreviated physical exam was performed. This patient is a 78-year-old Female who presents to the ED for evaluation of confusion. Pt was seen here two days ago. Family reports there was a medication change and they are concerned this is what is the cause of her symptoms. Pt is able to answer questions of orientation in triage, oriented to place and year. States she was removed from her seroquel with symptoms beginning immediately after. The patient lives at the [facility], won't eat or drink, is no defecting herself, and is agitated. Family reports patient walked out of the [facility] today. Physical Exam CONSTITUTIONAL: in no acute pain or distress, resting comfortably SKIN: pink, warm, dry CARDIAC: regular rate and rhythm RESPIRATORY: in no respiratory distress, lungs clear to auscultation ABDOMEN: no TTP MSK: 5/5 strength throughout NEURO: cognitively impaired from baseline dementia. Alert to person and place. Initial orders for labs and / or imaging were placed and patient was placed in the waiting area until a bed is available. Please see further documentation for the full ED course.
[2023-08-05 19:17] LABS: Basophils # (auto) 0.02 K/uL (0.00-0.20); Basophils % (auto) 0.3 %; Eosinophils # (auto) 0.03 K/uL (0.00-0.50); Eosinophils % (auto) 0.5 %; Hematocrit (blood only) 46.5 % (37.0-47.0); Hemoglobin 15.6 g/dl (12.0-16.0); Immature Granulocytes # (auto) 0.01 K/uL (0.01-0.20); Immature Granulocytes % (auto) 0.2 %; Lymphocytes # (auto) 1.78 K/uL (1.20-3.40); Lymphocytes % (auto) 27.6 %; Mean Corpuscular Hemoglobin 28.9 pg (25.0-34.0); Mean Corpuscular Hgb Conc 33.5 g/dL (32.0-36.0); Mean Corpuscular Volume 86.3 fL (80.0-100.0); Mean Platelet Volume 10.6 fL (9.4-12.4); Monocytes # (auto) 0.57 K/uL (0.11-0.59); Monocytes % (auto) 8.8 %; Neutrophils # (auto) 4.05 K/uL (1.40-6.50); Neutrophils % (auto) 62.6 %; Platelet Count 196 K/uL (130-400); RDW Coefficient of Variation 14.3 % (11.5-14.5); RDW Standard Deviation 44.8 fL (36.4-46.3); Red Blood Count 5.39 M/uL (4.20-5.40); White Blood Count 6.46 K/ul (4.8-10.8)
--- NOTE | 2023-08-05 19:33 | Emergency Department Note ---
Impression & Plan Dementia with agitation ED Provider Note Name: AWA ROMERO Age: 78 Sex: Female Arrives Via: Walk-In Informant: Patient (poor historian), daughter, ED Provider: Farhan Jones MD Chief Complaint: Agitation Impression: As per impressions above Medical Decision Makin-year-old female arrived to the ER for evaluation of agitation. Patient was recently discharged a few hours ago from this facility after being admitted for 2 days due to agitation and worsening dementia. Since getting back to nursing facility patient has been quite agitated and even was able to escape. Family is not comfortable with her that location and so she is a better state of mind. Daughter is convinced that the cessation of Seroquel last week has resulted in her severe worsening. Medically she looks well labs are unremarkable. Given no safe disposition on a Tuesday evening I opted to consult hospitalist for further management. Family is on board with this plan. Patient did recently have a CT scan of the head there is been no fall or injury. I do not feel that repeat neuroimaging is necessary quite at this time. Triage/Nursing Notes reviewed by Me Differential:Dementia, mood disorder, infection, dehydration, metabolic abnormality, hypo/hyperglycemia, electrolyte disturbance, anemia, hypoxia, cardiac sources, intracerebral event, toxicologic, neurologic, as well as other pathologies. Vital Signs: reviewed and remarkable for no significant abnormalities Labs:ED labs Reviewed by me and remarkable for no significant abnormalities Consults:Dr. Hager of the [facility] hospitalist service Plan: Disposition:Hospitalization. Condition: Good History of Present Illness: 78-year-old female arrives for evaluation of confusion. Patient apparently according to family was pretty much her normal self until about a month ago when she had a UTI and a DVT. She had 3 covered quite quickly. She had been seen by neurology a week ago and they were concerned about her Seroquel use and stopped it. Apparently since then patient is exhibited significant dementia issues. Patient with confusion agitation, meandering. She spent the last 48 hours in the hospital with no clear findings including a negative CT head. She was discharged back to the [facility] this afternoon. On arriving there patient was agitated and ended up walking off. Per family she and was got to the [place]. They are very concerned that she is unable to be in assisted living at this time and that she needs to be back on her Seroquel or other medications. Past Medical History:See Below Home Medications:See Below Allergies:Propoxyphene, oxycodone Vitals:Blood Pressure: 146/88, Pulse 87, RR 18, T 36.8C, O2 92% on RA Physical Exam: GENERAL: Patient is elderly appearing and in no acute distress. Patient with slow response consistent with dementia RESPIRATORY: No dyspnea. Clear to auscultation and equal bilaterally. CARDIOVASCULAR: Regular rate and rhythm.No murmur appreciated. EXTREMITIES: Normal motion all extremities, no cyanosis, no edema. NEUROLOGIC: Patient with somewhat flat affect. No focal neurologic deficits appreciated SKIN: No rash, no jaundice, no diaphoresis. PSYCH: Denies suicidal homicidal ideation GCS: 15 ED Course: Times/Reassessments: Patient is in no distress she is stable Farhan Jones MD Past Med/Surg History Medical History Ambulatory dysfunction Urinary tract infection HX Pancreatitis HX Diverticulitis HX Surgical History History of right cataract surgery History of esophagogastroduodenoscopy (EGD) History of colonoscopy History of cholecystectomy S/P tubal ligation Family History Mother Colon cancer Social History Smoking Status: Never smoker Second Hand Exposure: No; Do You Dip or Chew Tobacco: No; Hx Alcohol Use: No Hx Substance Use: No Preferred Language: Polish Communication Ability: Effective Snow Technician Required: No Beliefs That Will Affect Care: None Current Living Situation: Personal Care Facility Current Living Situation Comment[facility] Other Information That Helps Us Care for You: No Feels Safe at Home: Yes Safety Concerns: Feels Safe At This Time Assistive Devices: None Allergies Allergies Allergy/AdvReac Type Severity Reaction Status Date / Time propoxyphene Allergy Severe ITCHING,THROAT Verified 08/05/23 20:56 SWELLING oxycodone AdvReac Intermediate ITCHING/ARIA Verified 08/05/23 20:56 WSY Home Meds Home Medications Medication Instructions Recorded Confirmed apixaban 5 mg tablet (Eliquis) 5 mg PO BID 08/05/23 08/05/23 aripiprazole 2 mg tablet 2 mg PO BID 08/05/23 08/05/23 azelastine 137 mcg (0.1 %) nasal 1 spray intranasal BID 08/05/23 08/05/23 spray aerosol benzonatate 100 mg capsule 200 mg PO TID PRN Cough 08/05/23 08/05/23 calcium carbonate 600 mg-vitamin 1 tab PO DAILY 08/05/23 08/05/23 D3 20 mcg (800 unit) tablet donepezil 10 mg tablet 10 mg PO HS 08/05/23 08/05/23 dorzolamide 22.3 mg-timolol 6.8 1 drp OPB BID 08/05/23 08/05/23 mg/mL eye drops furosemide 20 mg tablet 20 mg PO DAILY 08/05/23 08/05/23 loperamide 2 mg capsule 2 mg PO DAILY PRN Diarrhea 08/05/23 08/05/23 loratadine 10 mg tablet 10 mg PO DAILY 08/05/23 08/05/23 lorazepam 0.5 mg tablet 0.5 mg PO TID PRN Agitation 08/05/23 08/05/23 memantine 10 mg tablet 10 mg PO BID 08/05/23 08/05/23 montelukast 10 mg tablet 10 mg PO DAILY 08/05/23 08/05/23 Results & Data (ED) Vital Signs Vital Signs - 24 hr 08/05/23 19:28 08/05/23 19:29 08/05/23 19:30 Pulse Rate 72 77 Pulse Rate [Apical] 77 Respiratory Rate 19 18 Respiratory Effort / Characteristics Non-Labored Spontaneous Respiratory Depth Normal Respiratory Pattern Regular Blood Pressure Blood Pressure [Right Arm] 144/84 H Blood Pressure Mean Blood Pressure Mean [Right Arm] 104 Pulse Oximetry 95 Oxygen Delivery Method Room Air 08/05/23 19:30 08/05/23 20:00 Pulse Rate 77 71 Pulse Rate [Apical] Respiratory Rate 17 16 Respiratory Effort / Characteristics Respiratory Depth Respiratory Pattern Blood Pressure 144/84 H 143/89 H Blood Pressure [Right Arm] Blood Pressure Mean 104 107 Blood Pressure Mean [Right Arm] Pulse Oximetry 94 93 Oxygen Delivery Method Laboratory Data 08/06/23 06:04 08/06/23 06:04 Lab Results 08/05/23 Range/Units 18:56 WBC 6.46 (4.8-10.8) K/ul RBC 5.39 (4.20-5.40) M/uL Hgb 15.6 (12.0-16.0) g/dl Hct 46.5 (37.0-47.0) % MCV 86.3 (80.0-100.0) fL MCH 28.9 (25.0-34.0) pg MCHC 33.5 (32.0-36.0) g/dL RDW Std Deviation 44.8 (36.4-46.3) fL RDW Coeff of Adán 14.3 (11.5-14.5) % Plt Count 196 (130-400) K/uL MPV 10.6 (9.4-12.4) fL Immature Gran % (Auto) 0.2 % Neut % (Auto) 62.6 % Lymph % (Auto) 27.6 % [place]ston % (Auto) 8.8 % Eos % (Auto) 0.5 % Baso % (Auto) 0.3 % Neut # (Auto) 4.05 (1.40-6.50) K/uL Lymph # (Auto) 1.78 (1.20-3.40) K/uL [place]ston # (Auto) 0.57 (0.11-0.59) K/uL Eos # (Auto) 0.03 (0.00-0.50) K/uL Baso # (Auto) 0.02 (0.00-0.20) K/uL Immature Gran # (Auto) 0.01 (0.01-0.20) K/uL Sodium 141 (136-145) mmol/L Potassium 3.8 (3.5-5.1) mmol/L Chloride 108 H (98-107) mmol/L Carbon Dioxide 26 (21-32) mmol/L Anion Gap 7 (3-11) BUN 21 (6-23) mg/dl Creatinine 1.06 (0.6-1.2) mg/dl Est Cr Clr Drug Dosing Not Reportable Est GFR ( Amer) 58.2 ml/min Est GFR (Non-Af Amer) 50.3 ml/min BUN/Creatinine Ratio 19.8 (10-20) Glucose 101 H (70-99(Fasting)) mg/dl Calcium 9.3 (8.6-10.3) mg/dl Total Bilirubin 0.8 (0.2-1.0) mg/dl AST 19 (13-39) U/L ALT 13 (7-52) U/L Alkaline Phosphatase 47 (34-104) U/L Total Protein 7.3 (6.0-8.3) gm/dl Albumin 4.1 (3.4-5.0) gm/dl Globulin 3.2 (2.5-4.0) gm/dl Albumin/Globulin Ratio 1.3 (0.9-2) Administered Medications Apixaban (Apixaban 5 Mg Tablet) 5 mg PO BID ABRAHAM Stop: 09/04/23 23:06 Last Admin: 08/06/23 09:06 Dose: 5 mg Documented By: Admin: 08/06/23 00:25 Dose: 5 mg Documented By: KASIA Azelastine HCl (Azelastine Hcl 0.1% Nasal 200 Sprays/27,400 Mcg Btl) 1 sprays NA BID ABRAHAM Stop: 09/04/23 23:06 Last Admin: 08/06/23 09:07 Dose: 1 sprays Documented By: Admin: 08/06/23 00:24 Dose: 1 sprays Documented By: KASIA Calcium/Vitamin D (Calcium 600mg + Vit D 400 Iu Tab) 1 tab PO DAILY ABRAHAM Stop: 09/05/23 08:59 Last Admin: 08/06/23 09:06 Dose: 1 tab Documented By: TAY Donepezil HCl (Donepezil Hcl 10 Mg Tab) 10 mg PO HS ABRAHAM Stop: 09/04/23 23:06 Last Admin: 08/06/23 00:25 Dose: 10 mg Documented By: KASIA Dorzolamide/Timolol (Dorzolamide/Timolol 22.3/6.8mg/Ml 10 Ml Btl) 1 drops OPB BID ABRAHAM Stop: 09/04/23 23:06 Last Admin: 08/06/23 09:07 Dose: 1 drops Documented By: Admin: 08/06/23 00:24 Dose: 1 drops Documented By: KASIA Furosemide (Furosemide 20 Mg Tab) 20 mg PO DAILY ABRAHAM Stop: 09/05/23 08:59 Last Admin: 08/06/23 09:06 Dose: 20 mg Documented By: TAY Loratadine (Loratadine 10 Mg Tab) 10 mg PO DAILY ABRAHAM Stop: 09/05/23 08:59 Last Admin: 08/06/23 09:05 Dose: 10 mg Documented By: TAY Memantine (Memantine Hcl 10 Mg Tab) 10 mg PO BID [facility] Stop: 09/04/23 23:06 Last Admin: 08/06/23 09:06 Dose: 10 mg Documented By: Admin: 08/06/23 00:25 Dose: 10 mg Documented By: KASIA Montelukast Sodium (Montelukast Sodium 10 Mg Tablet) 10 mg PO DAILY ABRAHAM Stop: 09/05/23 08:59 Last Admin: 08/06/23 09:07 Dose: 10 mg Documented By: TAY Oxybutynin Chloride (Oxybutynin Chloride Xl 5 Mg Tabcr) 5 mg PO QAM [facility] Stop: 09/05/23 16:29 Last Admin: 08/06/23 17:36 Dose: 5 mg Documented By: TAY Discontinued Medications Aripiprazole (Aripiprazole 1 Mg/Ml Oral Soln 150 Ml Btl) 2 mg PO BID [facility] Stop: 09/04/23 23:06 Last Admin: 08/06/23 09:06 Dose: 2 mg Documented By: Admin: 08/06/23 00:24 Dose: 2 mg Documented By: KASIA Diphenhydramine HCl (Diphenhydramine Hcl 25 Mg/10 Ml Udc) 12.5 mg PO NOW ONE Stop: 08/05/23 20:17 Last Admin: 08/05/23 20:57 Dose: 12.5 mg Documented By: MAC Discharge Plan Visit Data Chief Complaint: Confusion Stated Complaint: DEMNTIA/CONFUSED ED Provider: Farhan Jones Discharge Problem: Dementia with agitation Patient Disposition: Admitted As Inpatient Discharge Instructions Interventions: ED Discharge Assessment Last Done: 08/05/23 22:09 Discharge Problem: Dementia with agitation Qualifiers: Dementia type: Alzheimer's Alzheimer's disease onset: unspecified onset D ementia severity: moderate Qualified Code(s): G30.9 - Alzheimer's disease, unspecified; F02.B11 - Dementia in other diseases classified elsewhere, moderate, with agitation
[2023-08-05 19:36] LABS: Alanine Aminotransferase 13 U/L (7-52); Albumin Globulin Ratio 1.3 (0.9-2); Albumin Level 4.1 gm/dl (3.4-5.0); Alkaline Phosphatase 47 U/L (34-104); Anion Gap 7 (3-11); Aspartate Aminotransferase 19 U/L (13-39); BUN Creatinine Ratio 19.8 (10-20); Bilirubin,Total 0.8 mg/dl (0.2-1.0); Blood Urea Nitrogen 21 mg/dl (6-23); Calcium 9.3 mg/dl (8.6-10.3); Carbon Dioxide 26 mmol/L (21-32); Chloride 108 mmol/L (98-107); Est GFR (African American) 58.2 ml/min; Est GFR (Non-African American) 50.3 ml/min; Globulin 3.2 gm/dl (2.5-4.0); Glucose 101 mg/dl (70-99(Fasting)); Potassium 3.8 mmol/L (3.5-5.1); Sodium 141 mmol/L (136-145); Total Protein 7.3 gm/dl (6.0-8.3)
[2023-08-05] MEDS: diphenhydrAMINE HCL 25 MG/10 ML UDC PO ONE (20:57)
--- NOTE | 2023-08-05 22:16 | History & Physical Report ---
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 Patient was admitted couple of days ago with the same confusion improved with the fluids and discharged back today to [facility] was brought in because she is agitated and she was found wandering out of the facility. Daughter and in the room. Currently patient is able to tell her name, knows that she is in the hospital but does not know the name of the hospital ,knows current month and year. No fevers. States has some headache. Denies any chest pain or shortness of breath. No cough. No nausea. No abdominal pain. Not eating much per family. Hemodynamically stable. Daughter is concerned that recent change of her medications may be having effect on her as recently she was seen by neurology and her medications have been adjusted , her Seroquel has been discontinued and Abilify dose was increased and to reduce polypharmacy oxybutynin was DC'd and neurology recommended to avoid lorazepam. Daughter is concerned about patient wandering today. 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 Patient was admitted couple of days ago with the same confusion improved with the fluids and discharged back today to [facility] was brought in because she is agitated and she was found wandering out of the facility. Daughter and in the room. Currently patient is able to tell her name, knows that she is in the hospital but does not know the name of the hospital ,knows current month and year. No fevers. States has some headache. Denies any chest pain or shortness of breath. No cough. No nausea. No abdominal pain. Not eating much per family. Hemodynamically stable. Daughter is concerned that recent change of her medications may be having effect on her as recently she was seen by neurology and her medications have been adjusted , her Seroquel has been discontinued and Abilify dose was increased and to reduce polypharmacy oxybutynin was DC'd and neurology recommended to avoid lorazepam. Daughter is concerned about patient wandering today Past medical history. As mentioned above. Past surgical history. Colonoscopy. EGD with endoscopic ultrasound. Laparoscopic cholecystectomy. Ligation of the oviduct. Right punctured breast cyst drainage. Social history. . No smoking. No alcohol. No drug use. Family history. Father had nasopharyngeal cancer. Heart disorder. Lung cancer. Mother had colon cancer. Allergies Allergy/AdvReac Type Severity Reaction Status Date / Time propoxyphene Allergy Severe ITCHING,THROAT Verified 08/05/23 20:56 SWELLING oxycodone AdvReac Intermediate ITCHING/ARIA Verified 08/05/23 20:56 WSY Home Medications Medication Instructions Recorded Confirmed Type apixaban 5 mg tablet (Eliquis) 5 mg PO BID 08/05/23 08/05/23 History aripiprazole 2 mg tablet 2 mg PO BID 08/05/23 08/05/23 History azelastine 137 mcg (0.1 %) nasal 1 spray intranasal BID 08/05/23 08/05/23 History spray aerosol benzonatate 100 mg capsule 200 mg PO TID PRN Cough 08/05/23 08/05/23 History calcium carbonate 600 mg-vitamin 1 tab PO DAILY 08/05/23 08/05/23 History D3 20 mcg (800 unit) tablet donepezil 10 mg tablet 10 mg PO HS 08/05/23 08/05/23 History dorzolamide 22.3 mg-timolol 6.8 1 drp OPB BID 08/05/23 08/05/23 History mg/mL eye drops furosemide 20 mg tablet 20 mg PO DAILY 08/05/23 08/05/23 History loperamide 2 mg capsule 2 mg PO DAILY PRN Diarrhea 08/05/23 08/05/23 History loratadine 10 mg tablet 10 mg PO DAILY 08/05/23 08/05/23 History lorazepam 0.5 mg tablet 0.5 mg PO TID PRN Agitation 08/05/23 08/05/23 History memantine 10 mg tablet 10 mg PO BID 08/05/23 08/05/23 History montelukast 10 mg tablet 10 mg PO DAILY 08/05/23 08/05/23 History Past Med/Surg History Medical History Ambulatory dysfunction Urinary tract infection HX Pancreatitis HX Diverticulitis HX Surgical History History of right cataract surgery History of esophagogastroduodenoscopy (EGD) History of colonoscopy History of cholecystectomy S/P tubal ligation Family History Mother Colon cancer Social History Smoking Status: Never smoker Second Hand Exposure: No; Do You Dip or Chew Tobacco: No; Hx Alcohol Use: No Hx Substance Use: No Preferred Language: Peruvian Communication Ability: Effective Institutional Asset Manager Required: No Beliefs That Will Affect Care: None Current Living Situation: Personal Care Facility Current Living Situation Comment: [facility] Other Information That Helps Us Care for You: No Feels Safe at Home: Yes Safety Concerns: Feels Safe At This Time Assistive Devices: Walker Review of Systems Review of Systems: Unobtainable due to cognitive status Physical Exam Physical Exam: General- Not in distress Head- atraumatic Eyes- PERRL. ENT- oropharynx clear Neck- supple, no JVD. Lungs- clear to auscultation no wheezing or crackles. Heart- regular rhythm; no murmur, no gallop. Abdomen- normal bowel sounds, soft, nontender, no distension. Extremities- b/l lower extremity edema present, no erythema seen. Neuro- alert, oriented x 3; PERRL, no facial palsy; no dysarthria; moves extremities. Skin- warm & dry Results & Data Results & Data Vital Signs (Past 12 Hours) Vital Signs Temp Pulse Pulse Resp BP BP Pulse Ox 08/05/23 19:30 77 18 144/84 H 95 08/05/23 19:28 72 08/05/23 18:28 36.8 C 87 18 146/88 H 92 O2 Del Method 08/05/23 19:30 Room Air 08/05/23 19:28 08/05/23 18:28 Room Air Diagnostic Findings Laboratory Results WBC 6.46 K/ul (4.8-10.8) 08/05/23 18:56 RBC 5.39 M/uL (4.20-5.40) 08/05/23 18:56 Hgb 15.6 g/dl (12.0-16.0) 08/05/23 18:56 Hct 46.5 % (37.0-47.0) 08/05/23 18:56 MCV 86.3 fL (80.0-100.0) 08/05/23 18:56 MCH 28.9 pg (25.0-34.0) 08/05/23 18:56 MCHC 33.5 g/dL (32.0-36.0) 08/05/23 18:56 RDW Std Deviation 44.8 fL (36.4-46.3) 08/05/23 18:56 RDW Coeff of Adán 14.3 % (11.5-14.5) 08/05/23 18:56 Plt Count 196 K/uL (130-400) 08/05/23 18:56 MPV 10.6 fL (9.4-12.4) 08/05/23 18:56 Immature Gran % (Auto) 0.2 % 08/05/23 18:56 Neut % (Auto) 62.6 % 08/05/23 18:56 Lymph % (Auto) 27.6 % 08/05/23 18:56 Ramsey % (Auto) 8.8 % 08/05/23 18:56 Eos % (Auto) 0.5 % 08/05/23 18:56 Baso % (Auto) 0.3 % 08/05/23 18:56 Neut # (Auto) 4.05 K/uL (1.40-6.50) 08/05/23 18:56 Lymph # (Auto) 1.78 K/uL (1.20-3.40) 08/05/23 18:56 Ramsey # (Auto) 0.57 K/uL (0.11-0.59) 08/05/23 18:56 Eos # (Auto) 0.03 K/uL (0.00-0.50) 08/05/23 18:56 Baso # (Auto) 0.02 K/uL (0.00-0.20) 08/05/23 18:56 Immature Gran # (Auto) 0.01 K/uL (0.01-0.20) 08/05/23 18:56 Sodium 141 mmol/L (136-145) 08/05/23 18:56 Potassium 3.8 mmol/L (3.5-5.1) 08/05/23 18:56 Chloride 108 mmol/L (98-107) H 08/05/23 18:56 Carbon Dioxide 26 mmol/L (21-32) 08/05/23 18:56 Anion Gap 7 (3-11) 08/05/23 18:56 BUN 21 mg/dl (6-23) 08/05/23 18:56 Creatinine 1.06 mg/dl (0.6-1.2) 08/05/23 18:56 Est Cr Clr Drug Dosing Not Reportable 08/05/23 18:56 Est GFR ( Amer) 58.2 ml/min 08/05/23 18:56 Est GFR (Non-Af Amer) 50.3 ml/min 08/05/23 18:56 BUN/Creatinine Ratio 19.8 (10-20) 08/05/23 18:56 Glucose 101 mg/dl (70-99(Fasting)) H 08/05/23 18:56 Calcium 9.3 mg/dl (8.6-10.3) 08/05/23 18:56 Total Bilirubin 0.8 mg/dl (0.2-1.0) 08/05/23 18:56 AST 19 U/L (13-39) 08/05/23 18:56 ALT 13 U/L (7-52) 08/05/23 18:56 Alkaline Phosphatase 47 U/L (34-104) 08/05/23 18:56 Total Protein 7.3 gm/dl (6.0-8.3) 08/05/23 18:56 Albumin 4.1 gm/dl (3.4-5.0) 08/05/23 18:56 Globulin 3.2 gm/dl (2.5-4.0) 08/05/23 18:56 Albumin/Globulin Ratio 1.3 (0.9-2) 08/05/23 18:56 ECG Additional Comments: ECG. Sinus rhythm with occasional PVCs at a rate of 86. No acute ST changes seen. Code Status & VTE Plan VTE Prophylaxis Plan VTE Prophylaxis will be ordered: Yes
[2023-08-05] MEDS ORDERED: ACETAMINOPHEN 325 MG TAB PO PRN (23:07)
[2023-08-05] MEDS ORDERED: POLYETHYLENE (MIRALAX) 17 GM PACK PO PRN (23:07)
[2023-08-05] MEDS ORDERED: OLANZapine 10 MG/2.1 ML SDV IM PRN (23:07)
[2023-08-05] MEDS ORDERED: BENZONATATE 100 MG CAPSULE PO PRN (23:07)
[2023-08-05] MEDS ORDERED: LORazepam 0.5 MG TAB PO PRN (23:07)
[2023-08-06] MEDS: AZELASTINE HCL 0.1% NASAL 200 SPRAYS/27,400 MCG BTL SCH (00:24)
[2023-08-06] MEDS: ARIPIprazole 1 MG/ML ORAL SOLN 150 ML BTL PO SCH (00:24)
[2023-08-06] MEDS: DORZOLAMIDE/TIMOLOL 22.3/6.8MG/ML 10 ML BTL OPB SCH (00:24)
[2023-08-06] MEDS: DONEPEZIL HCL 10 MG TAB PO SCH (00:25)
[2023-08-06] MEDS: APIXABAN 5 MG TABLET PO SCH (00:25)
[2023-08-06] MEDS: MEMANTINE HCL 10 MG TAB PO SCH (00:25)
[2023-08-06 06:35] LABS: Basophils # (auto) 0.04 K/uL (0.00-0.20); Basophils % (auto) 0.7 %; Eosinophils # (auto) 0.06 K/uL (0.00-0.50); Eosinophils % (auto) 1.1 %; Hematocrit (blood only) 43.3 % (37.0-47.0); Hemoglobin 14.4 g/dl (12.0-16.0); Immature Granulocytes # (auto) 0.02 K/uL (0.01-0.20); Immature Granulocytes % (auto) 0.4 %; Lymphocytes # (auto) 1.96 K/uL (1.20-3.40); Lymphocytes % (auto) 34.8 %; Mean Corpuscular Hemoglobin 28.9 pg (25.0-34.0); Mean Corpuscular Hgb Conc 33.3 g/dL (32.0-36.0); Mean Corpuscular Volume 86.8 fL (80.0-100.0); Mean Platelet Volume 10.5 fL (9.4-12.4); Monocytes # (auto) 0.49 K/uL (0.11-0.59); Monocytes % (auto) 8.7 %; Neutrophils # (auto) 3.06 K/uL (1.40-6.50); Neutrophils % (auto) 54.3 %; Platelet Count 184 K/uL (130-400); RDW Coefficient of Variation 14.5 % (11.5-14.5); RDW Standard Deviation 45.9 fL (36.4-46.3); Red Blood Count 4.99 M/uL (4.20-5.40); White Blood Count 5.63 K/ul (4.8-10.8)
[2023-08-06 06:48] LABS: Calcium 8.9 mg/dl (8.6-10.3); Creatinine Clr Calc Pharmacy 53.7 ml/min; Est GFR (African American) 69.1 ml/min; Est GFR (Non-African American) 59.6 ml/min; Magnesium 2.1 mg/dl (1.7-2.4); Potassium 3.5 mmol/L (3.5-5.1)
--- OUTSIDE RECORDS SUMMARY | 2023-08-06 08:28 | External Medical Summary | Summary of Care ---
Author Name Unknown Organization [facility] Address [address] [place] [address] Phone [phone] Care Team Providers Care Trimming Press Operator Name Role Phone Lauren Varela PA-C Primary Care Provider [phone] Reason for Visit * Reason Onset Date Comments Advice 08/02/2023 Medication anna fication Encounter Details Date Type Department Care Team (Late st Contact Info) Description 08/02/2023 Telephone Neurology, [place] [address] [place] [address] Services, Formerly [facility] [address] [place] [address] Advice (Medication clarification ) Allergies Active Allergy Reactions Criticality Noted Date Comments Oxycodone High 11/26/2020 Other Reaction(s): DROWSY, ITCHING/DROWSY Oxycodone-Acetaminophen Itching 11/10/2007 Propoxyphene Hcl High 11/26/2020 Other Reaction(s): ITCHING,THROAT SWELLING documented as of this encounter (statuses as of 08/04/2023) Medications Medication Sig Dispensed Refills Start Date [...] 0.1 % Nasal Solution (Astelin) Administer 1 [place] into nostril in the morning and 1 [place] before bedtime. 30 mL 12 02/24/2023 Active [...] dose. 60 Tablet 0 05/14/2023 Active Nystatin 438455 UNIT/GM External Powder (Nystop)Indication s:Skin irritation Apply [...] as of this encounter (statuses as of 08/04/2023) Active Problems Problem Noted Date Diagnosed Date [...] as of this encounter (statuses as of 08/04/2023) Resolved Problems Problem Noted Date Diagnosed Date [...] as of this encounter (statuses as of 08/04/2023) Immunizations Name Administration Dates Next Due COVID-19 mRNA, LNP-s, No Pre serve, 2-Dose Series (Moderna) 08/29/2020,07/31/2020 COVID-19, mRNA, LNP-s, PF, B ooster, 100mcg/0.5mg (Moderna) 12/03/2021,04/29/2021 Covid-19, Mrna, Lnp-s, Pf, B ivalent, 30 Mcg, IM, 12 yrs and above (Toutpost) 04/23/2022 H1N1 2009 Influenza, IM 07/07/2009 Hepatitis [...] encounter Miscellaneous Notes * Telephone Encounter - Lyndsay Mccarty RN - 08/04/2023 8:49 AM EST Fax sent to [facility] at [phone] to contact Ophthalmology for refills of Trusopt as this is not Rx by Neurology * Telephone Encounter - Cathy Allen CRNP - 08/03/2023 4:31 PM EST Truspot is not a medication we manage in Neurology. It's an eye drop used for glaucoma and that prescription will need to come from her plant culture manager. * Telephone Encounter - Brandy Quinonez OSA - 08/02/2023 4:28 PM EST Neuroscience Phone Call Form- Clinic has 24-48 hours to respond to caller If caller is calling back before that timeframe- There is no need to send another message to the pool, update current TE [facility] Neurology Pool- All messages go through the [facility] Neuro Dry Drug Worker- [id number] Neurology Pool Numbers- [place] and [facility] patients - follow normal process Ops [facility] Neurology ([id number] [facility]- [facility] and [facility] Only)- [id number] Neurosurgery Pool Numbers- [place] patients- follow normal process Ops re Neurosurgery [facility] ([place])- [id number] Ops req Neurosurgery [facility] ([place] Only) [id number] Requested Information from caller: Who [...] back: Please fax all above info to [phone] Please make sure you verify pharmacy for anything medication related. Form to be used for established patients only (not new patients) documented in this encounter Plan of Treatment Upcoming Encounters Date Type Department Care Team (Late st Contact Info) Description 09/20/2023 1:20 PM EDT Office Visit [facility] [address] [place] [phone] Lauren Varela PA-C [address] [place] [address] 11/17/2023 11:30 AM EDT Office Visit Dermatology [facility] [address] [place] [address] Inga Maki MD [address] [place] [address] 02/03/2024 2:40 PM EDT Office Visit Neurology [facility] [address] [place] [address] Cathy Allen, JEFFREY [address] [place] [address] Scheduled Procedures Name Priority Associated [...] D LEVEL ONCE IN A LIFETIME-USE SMARTSET# [id number] Completed 11/26/2022, 11/20/2021, 05/11/2021, Additional history exists [...] filedocumented as of this encounter Care Teams Trimming Press Operator Relationship Specialty Start Date End Date Lauren Varela PA-C [address] [facility] [place] [address] PCP - General Physician Wheel Borer 05/11/21 documented as of this encounter
[2023-08-06] MEDS: LORATADINE 10 MG TAB PO SCH (09:05)
[2023-08-06] MEDS: CALCIUM 600MG + VIT D 400 IU TAB PO SCH (09:06)
[2023-08-06] MEDS: FUROSEMIDE 20 MG TAB PO SCH (09:06)
[2023-08-06] MEDS: MONTELUKAST SODIUM 10 MG TABLET PO SCH (09:07)
--- OUTSIDE RECORDS SUMMARY | 2023-08-06 09:09 | External Medical Summary | Summary of Care ---
Author Name Unknown Organization [facility] Address [address] [place] [address] Phone [phone] Care Team Providers Care Care Connector Name Role Phone Lauren Varela PA-C Primary Care Provider [phone] Reason for Visit * Reason Onset Date Comments Encounter Created in Error 08/05/2023 Encounter Details Date Type Department Care Team (Late st Contact Info) Description 08/05/2023 Telephone [facility] [address] [place] [address] Lauren Varela PA-C [address] [place] [address] Encounter Created in Error Allergies Active Allergy Reactions Criticality Noted Date Comments Oxycodone High 11/26/2020 Other Reaction(s): DROWSY, ITCHING/DROWSY Oxycodone-Acetaminophen Itching 11/10/2007 Propoxyphene Hcl High 11/26/2020 Other Reaction(s): ITCHING,THROAT SWELLING documented as of this encounter (statuses as of 08/05/2023) Medications Medication Sig Dispensed Refills Start Date [...] 0.1 % Nasal Solution (Astelin) Administer 1 [place] into nostril in the morning and 1 [place] before bedtime. 30 mL 12 02/24/2023 Active [...] dose. 60 Tablet 0 05/14/2023 Active Nystatin 234372 UNIT/GM External Powder (Nystop)Indication s:Skin irritation Apply [...] as of this encounter (statuses as of 08/05/2023) Active Problems Problem Noted Date Diagnosed Date [...] as of this encounter (statuses as of 08/05/2023) Resolved Problems Problem Noted Date Diagnosed Date Resolved Date Dementia without behavioral disturbance 12/24/2021 08/19/2022 Mild cognitive impairment 01/15/2021 History of nonmelanoma skin cancer 11/01/2017 09/19/2019 Overview: BCC right upper arm 2003 BCC left forearm 12/12 KA left forearm 12/13 Historical. Unspecified glaucoma 06/14/2016 0318/ 020 Overview: More specific code in use. [...] as of this encounter (statuses as of 08/05/2023) Immunizations Name Administration Dates Next Due COVID-19 [...] Upcoming Encounters Date Type Department Care Team ([facility] st Contact Info) Description 08/10/2023 2:40 PM EST Office Visit [address] [place] [address] Lauren Varela PA-C [address] [place] [facility] [place] [address] 09/20/2023 1:20 PM EDT Office Visit [facility] [place] [address] [place] [phone] Lauren Varela PA-C [address] [place] [address] 11/17/2023 11:30 AM EDT Office Visit Dermatology [facility] [address] [place] [address] Inga Maki MD [address] [place] [address] 02/03/2024 2:40 PM EDT Office Visit Neurology [facility] [address] [place] [address] Cathy Allen CRNP [address] [place] [address] Scheduled Procedures Name Priority Associated Diagnoses Date/Ti [...] D LEVEL ONCE IN A LIFETIME-USE SMARTSET# [id number] Completed 11/26/2022, 11/20/2021, 05/11/2021, Additional history exists [...] filedocumented as of this encounter Care Teams Care Connector Relationship Specialty Start Date End Date Lauren Varela PA-C [address] [facility] [place] [place] [id number] PCP - General Physician Marketing Forecaster 05/11/21 documented as of this encounter
[2023-08-06 12:25] LABS: Appearance Urine Clear (Clear); Bacteria Urine Automated Negative (Negative); Bilirubin Urine Negative (Negative); Blood Urine Trace (Negative); Color Urine Yellow; Glucose Urine UA Negative (Negative); Ketones Urine Negative (Negative); Leukocyte Esterase Urine Negative (Negative); Nitrite Urine Negative (Negative); Protein Urine Negative (Negative); RBC Urine Automated 0-4 /hpf (0-4); Specific Gravity Urine 1.014 (1.000-1.030); Urobilinogen Urine Negative (Negative)
--- NOTE | 2023-08-06 14:42 | Hospitalist Progress Note ---
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 Patient was admitted couple of days ago with the same confusion improved with the fluids and discharged back today to [facility] was brought in because she is agitated and she was found wandering out of the facility. Patient had follow-up with neurology recently on July 29, 2023. Patient used to take Seroquel 25 mg at bedtime which was stopped. Abilify was increased to twice a day from only in AM. Daughter reports that patient's behavior disturbances had increased since the change the medication. 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 Recently admitted for the same. She was found wandering outside of the facility. Recent medication changes as per neurology as outlined above CBC, BMP within normal limits CT head done on August 03no acute finding EKG personally reviewed; normal sinus rhythm; QTc of 449 Discussed with patient's daughter. Over the phone. Patient's behavioral changes have significantly increased with change in the medications. Will restart Seroquel 25 mg at bedtime and decrease the dose of Abilify to once a day Will appreciate neurology recommendation for any further changes/workup Continue frequent reorientation One-to-one as needed History of bilateral DVT On Eliquis, continue Alzheimer's dementia with psychotic disturbance On donezepil, memantine and Ativan as needed. Ativan discontinued Lower extremity edema On Lasix DVT prophylaxis On Eliquis Disposition Med/tele CODE STATUS DNR/DNI Time spent evaluating patient, direct bedside care, chart review, placing orders, interpretation of diagnostic studies, discussion with consultants, arianna dove, and family members, as well as other required patient management activities is 50 minutes Please note the above document was generated using voice recognition software. It may contain grammatical, syntax or spelling errors. Any formal questions or concerns about the content, text or information contained within the body of this dictation should be directly addressed to the provider for clarification Admission and Anticipated Discharge Date Admission Date: August 05, 2023 Subjective Patient seen and examined at bedside. She is comfortable lying on the bed; not in distress. She is oriented to self. She denies any pain or discomfort. No significant overnight events. Review of Systems Review of Systems: All systems reviewed & are unremarkable except as noted in Subjective Physical Exam Physical Exam: General- Not in distress Lungs- clear to auscultation no wheezing or crackles. Heart- regular rhythm; no murmur, no gallop. Abdomen- normal bowel sounds, soft, nontender, no distension. Extremities- b/l lower extremity edema present, no erythema seen. Neuro-alert, oriented to self. PERRL, no facial palsy; no dysarthria; moves extremities. Skin- warm & dry Results & Data Results & Data Vital Signs (Past 12 Hours) Vital Signs Temp Pulse Resp BP Pulse Ox O2 Del Method 08/06/23 07:21 36.4 C L 72 18 150/92 H 94 Room Air
--- NOTE | 2023-08-06 14:59 | Neurology Consultation ---
Date of Consultation August 06, 2023 Assessment & Plan (1) Dementia: Recommend continue to monitor mentation Agree with continued aripiprazole in AM and resume previous dosing of quetiapine in PM Monitor EKG for prolonged QTc Continue memantine and donepezil Recommend continue to avoid anticholinergic/antimuscarinic medications Monitor for incontinence and intolerance of oral secretions Continue to monitor for s/s of infection Monitor renal and hepatic function Keep euvolemic Provide fall precautions- as patient remains fully anticoagulated Continue to monitor neurological assessments Obtain stat CT brain without contrast for any acute neurological decline Will benefit from therapy evaluations and treatment Telehealth Consultation Telehealth Information Telehealth Information: I performed this visit using a real-time telehealth connection between my location and the patients location ([facility]). After connecting through interactive tele-video, patient was identified by name and date of and/or wristband check.Patient (or authorized healthcare order entry representative) was informed that this was a telemedicine visit and it was being conducted confidentially over secure lines. My office door was closed and no one else was present in the room with me.Patient (or authorized healthcare order entry representative) provided consent to proceed with the visit, expressed an understanding of privacy and security of the telemedicine visit, and gave permission to have a hospital order entry representative in the room in order to assist with the visit and to conduct portions of the visit, as needed. I informed the patient (or authorized healthcare order entry representative) that I reviewed their record and presented the opportunity for them to ask any questions regarding the visit today. The patient agreed to participate. History of Present Illness Reason for Consultation: Dementia Requesting Physician: Dr Lea Attending Physician: Nato Lea MD History of Present Illness 78yo female with history of dementia unfortunately was found to have eloped from her assisted living facility after being discharged home from [facility] the same day. She was recently hospitalized due to changes in mentation and incontinence. She was reportedly drooling and incontinent after medication changes recently by outpatient neurology who suggested discontinuation of anticholinergic med ications. Notably also recommended discontinuation of quetiapine QHS in favor of aripiprazole twice daily as she has significant dementia with psychotic features. She appears to be tolerating donepezil and memantine. I have performed televideo consultation. at bedside able to provide some history. He also phoned daughter, and placed on speakerphone for further discussion, who is concerned about recent medication changes and believes all of the recent behavior disturbances are secondary to most recent medication changes. I have explained that we can restart quetiapine QHS and continue to monitor for side effects. I have recommend to continue to avoid anticholinergic medications in setting of current treatment with acetylcholinesterase inhibitor- donepezil as well as agree with recommendations to continue to avoid this class of medications in this age/demographic. I also explained I will discuss with primary/hospitalist team as unfortunately she reports that her current assisted living facility may be unwilling to accept the patient to return there. I have discussed medication recommendations with primary/hospitalist team Dr. Lea. She has a hx of DVT and remains on full anticoagulation. During televideo consultation patient appears in no distress or discomfort. She is able to answer some questions appropriately and will follow simple commands without difficulty. She is able to move all extremities spontaneously and antigravity without evidence of asymmetry. She denies pain and appears in no apparent distress or discomfort. Allergies Allergy/AdvReac Type Severity Reaction Status Date / Time propoxyphene Allergy Severe ITCHING,THROAT Verified 08/05/23 20:56 SWELLING oxycodone AdvReac Intermediate ITCHING/ARIA Verified 08/05/23 20:56 WSY Home Medications Medication Instructions Recorded Confirmed Type apixaban 5 mg tablet (Eliquis) 5 mg PO BID 08/05/23 08/05/23 History aripiprazole 2 mg tablet 2 mg PO BID 08/05/23 08/05/23 History azelastine 137 mcg (0.1 %) nasal 1 spray intranasal BID 08/05/23 08/05/23 History spray aerosol benzonatate 100 mg capsule 200 mg PO TID PRN Cough 08/05/23 08/05/23 History calcium carbonate 600 mg-vitamin 1 tab PO DAILY 08/05/23 08/05/23 History D3 20 mcg (800 unit) tablet donepezil 10 mg tablet 10 mg PO HS 08/05/23 08/05/23 History dorzolamide 22.3 mg-timolol 6.8 1 drp OPB BID 08/05/23 08/05/23 History mg/mL eye drops furosemide 20 mg tablet 20 mg PO DAILY 08/05/23 08/05/23 History loperamide 2 mg capsule 2 mg PO DAILY PRN Diarrhea 08/05/23 08/05/23 History loratadine 10 mg tablet 10 mg PO DAILY 08/05/23 08/05/23 History lorazepam 0.5 mg tablet 0.5 mg PO TID PRN Agitation 08/05/23 08/05/23 History memantine 10 mg tablet 10 mg PO BID 08/05/23 08/05/23 History montelukast 10 mg tablet 10 mg PO DAILY 08/05/23 08/05/23 History Patient History Medical History Ambulatory dysfunction Urinary tract infection HX Pancreatitis HX Diverticulitis HX Surgical History History of right cataract surgery History of esophagogastroduodenoscopy (EGD) History of colonoscopy History of cholecystectomy S/P tubal ligation Family History Mother Colon cancer Social History Smoking Status: Never smoker Second Hand Exposure: No; Do You Dip or Chew Tobacco: No; Hx Alcohol Use: No Hx Substance Use: No Preferred Language: Latvian Communication Ability: Effective Hydrate Thickener Operator Required: No Beliefs That Will Affect Care: None Current Living Situation: [facility] Care Facility [facility] Comment[facility] Other Information That Helps Us Care for You: No Feels Safe at Home: Yes Safety Concerns: Feels Safe At This Time Assistive Devices: None Physical Exam Neurological Examination: Mental Status: Awake and alert to self. Cannot describe events leading up to hospitalization She is fluent and able to name objects and repeat phrases Smiles, affect appears appropriate. There is apparent hypoacusis Able to answer most questions and follow most simple commands CN testing: I: Difficult to reliably assess II:Reports no changes in visual acuity III/IV/: No evidence of gaze preference, hippus, nystagmus or roving eye movements V: Facial sensation is difficult to reliably assess VII: Facial movements appear without evidence of asymmetry VIII: Hearing -chronic hypoacusis IX/X: Palate is unable to be accurately assessed XI: Shoulder shrug appears symmetric/ grossly intact bilaterally XII: Tongue protrudes midline without evidence of biting Motor exam: Strength appears grossly intact/symmetric in all extremities Sensory: Difficult to reliably assess Coordination: Deferred Reflexes: Deferred Gait: Deferred Results & Data Vital Signs (Past 12 Hours) Vital Signs Temp Pulse Resp BP Pulse Ox O2 Del Method 08/06/23 07:21 36.4 C L 72 18 150/92 H 94 Room Air Laboratory Results Abnormal lab results 08/05/23 08/06/23 08/06/23 Range/Units 18:56 06:04 12:00 Chloride 108 H 109 H (98-107) mmol/L BUN/Creatinine Ratio 25.0 H (10-20) Glucose 101 H 101 H (70-99(Fasting)) mg/dl Urine Blood Trace H (Negative) U Epithel Cells (Auto) 5-10 H (0-5) /lpf Medications Administered Home Medications Medication Instructions Recorded Confirmed Last Taken apixaban 5 mg tablet (Eliquis) 5 mg PO BID 08/05/23 08/05/23 Unknown aripiprazole 2 mg tablet 2 mg PO BID 08/05/23 08/05/23 Unknown azelastine 137 mcg (0.1 %) nasal 1 spray intranasal BID 08/05/23 08/05/23 Unknown spray aerosol benzonatate 100 mg capsule 200 mg PO TID PRN Cough 08/05/23 08/05/23 Unknown calcium carbonate 600 mg-vitamin 1 tab PO DAILY 08/05/23 08/05/23 Unknown D3 20 mcg (800 unit) tablet donepezil 10 mg tablet 10 mg PO HS 08/05/23 08/05/23 Unknown dorzolamide 22.3 mg-timolol 6.8 1 drp OPB BID 08/05/23 08/05/23 Unknown mg/mL eye drops furosemide 20 mg tablet 20 mg PO DAILY 08/05/23 08/05/23 Unknown loperamide 2 mg capsule 2 mg PO DAILY PRN Diarrhea 08/05/23 08/05/23 Unknown loratadine 10 mg tablet 10 mg PO DAILY 08/05/23 08/05/23 Unknown lorazepam 0.5 mg tablet 0.5 mg PO TID PRN Agitation 08/05/23 08/05/23 Unknown memantine 10 mg tablet 10 mg PO BID 08/05/23 08/05/23 Unknown montelukast 10 mg tablet 10 mg PO DAILY 08/05/23 08/05/23 Unknown Active Medications Generic Name Dose Route Start Last Admin Trade Name Freq PRN Reason Stop Dose Admin Apixaban 5 mg 08/05/23 23:07 08/06/23 09:06 Apixaban 5 Mg Tablet PO 09/04/23 23:06 5 mg BID ABRAHAM Administration Azelastine HCl 1 sprays 08/05/23 23:07 08/06/23 09:07 Azelastine Hcl 0.1% Nasal 200 Sprays/27,400 Mcg Btl NA 09/04/23 23:06 1 sprays BID ABRAHAM Administration Calcium/Vitamin D 1 tab 08/06/23 09:00 08/06/23 09:06 Calcium 600mg + Vit D 400 Iu Tab PO 09/05/23 08:59 1 tab DAILY ABRAHAM Administration Donepezil HCl 10 mg 08/05/23 23:07 08/06/23 00:25 Donepezil Hcl 10 Mg Tab PO 09/04/23 23:06 10 mg HS ABRAHAM Administration Dorzolamide/Timolol 1 drops 08/05/23 23:07 08/06/23 09:07 Dorzolamide/Timolol 22.3/6.8mg/Ml 10 Ml Btl OPB 09/04/23 23:06 1 drops BID ABRAHAM Administration Furosemide 20 mg 08/06/23 09:00 08/06/23 09:06 Furosemide 20 Mg Tab PO 09/05/23 08:59 20 mg DAILY ABRAHAM Administration Loratadine 10 mg 08/06/23 09:00 08/06/23 09:05 Loratadine 10 Mg Tab PO 09/05/23 08:59 10 mg DAILY ABRAHAM Administration Memantine 10 mg 08/05/23 23:07 08/06/23 09:06 Memantine Hcl 10 Mg Tab PO 09/04/23 23:06 10 mg BID ABRAHAM Administration Montelukast Sodium 10 mg 08/06/23 09:00 08/06/23 09:07 Montelukast Sodium 10 Mg Tablet PO 09/05/23 08:59 10 mg DAILY ABRAHAM Administration Oxybutynin Chloride 5 mg 08/06/23 16:30 08/06/23 17:36 Oxybutynin Chloride Xl 5 Mg Tabcr PO 09/05/23 16:29 5 mg QAM ABRAHAM Administration
[2023-08-06] MEDS: OXYBUTYNIN CHLORIDE XL 5 MG TABCR PO SCH (17:36)
[2023-08-06] MEDS: QUEtiapine FUMARATE 25 MG TABLET PO SCH (20:00)
--- NOTE | 2023-08-06 22:32 | Electrocardiogram Report ---
Test Reason : Blood Pressure : / mmHG Vent. Rate : 086 BPM Atrial Rate : 086 BPM P-R Int : 182 ms QRS Dur : 080 ms QT Int : 376 ms P-R-T Axes : 067 079 042 degrees QTc Int : 449 ms Sinus rhythm with occasional Premature ventricular complexes Nonspecific T wave abnormality When compared with ECG of 03-AUG-2023 20:35, Premature ventricular complexes are now Present Questionable change in QRS axis Confirmed by Kwasi Foley ([id number]) on 08/06/2023 10:31:50 PM Referred By: REFERRED SELF Confirmed By:Kwasi Foley
[2023-08-07] MEDS: ARIPIprazole 1 MG/ML ORAL SOLN 150 ML BTL PO SCH (09:26)
--- NOTE | 2023-08-07 13:07 | Hospitalist Progress Note ---
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 Patient was admitted couple of days ago with the same confusion improved with the fluids and discharged back today to [facility] was brought in because she is agitated and she was found wandering out of the facility. Patient had follow-up with neurology recently on July 29, 2023. Patient used to take Seroquel 25 mg at bedtime which was stopped. Abilify was increased to twice a day from only in AM. Daughter reports that patient's behavior disturbances had increased since the change the medication. 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 Recently admitted for the same. She was found wandering outside of the facility. Recent medication changes as per neurology as outlined above CBC, BMP within normal limits CT head done on August 03no acute finding EKG personally reviewed; normal sinus rhythm; QTc of 449 TSH and vitamin B12 within normal limits. Discussed with patient's daughter. Over the phone. Patient's behavioral changes have significantly increased with change in the medications. Will restart Seroquel 25 mg at bedtime and decrease the dose of Abilify to once a day Dressed with neurology; no other additional recommendation Continue frequent reorientation History of bilateral DVT On Eliquis, continue Alzheimer's dementia with psychotic disturbance On donezepil, memantine and Ativan as needed. Ativan discontinued Lower extremity edema On Lasix DVT prophylaxis On Eliquis Disposition Med/tele CODE STATUS DNR/DNI Discussed with daughter over the phone on August 06, 2023. Answer questions/queries. Please note the above document was generated using voice recognition software. It may contain grammatical, syntax or spelling errors. Any formal questions or concerns about the content, text or information contained within the body of this dictation should be directly addressed to the provider for clarification Admission and Anticipated Discharge Date Admission Date: August 05, 2023 Subjective Patient seen and examined at bedside. She is undergoing PT OT evaluation. She was walking on the hallways with a walker. Denies any pain or discomfort. Review of Systems Review of Systems: All systems reviewed & are unremarkable except as noted in Subjective Physical Exam Physical Exam: General- Not in distress Lungs- clear to auscultation no wheezing or crackles. Heart- regular rhythm; no murmur, no gallop. Abdomen- normal bowel sounds, soft, nontender, no distension. Extremities- b/l lower extremity edema present, no erythema seen. Neuro-alert, oriented to self. PERRL, no facial palsy; no dysarthria; moves extremities. Skin- warm & dry Results & Data Results & Data Vital Signs (Past 12 Hours) Vital Signs Temp Pulse Resp BP Pulse Ox O2 Del Method 08/07/23 07:07 36.6 C 72 17 146/84 H 92 Room Air
[2023-08-08 07:10] LABS: Basophils # (auto) 0.03 K/uL (0.00-0.20); Basophils % (auto) 0.5 %; Eosinophils # (auto) 0.05 K/uL (0.00-0.50); Eosinophils % (auto) 0.9 %; Hematocrit (blood only) 45.5 % (37.0-47.0); Hemoglobin 14.8 g/dl (12.0-16.0); Immature Granulocytes # (auto) 0.02 K/uL (0.01-0.20); Immature Granulocytes % (auto) 0.4 %; Lymphocytes # (auto) 2.03 K/uL (1.20-3.40); Lymphocytes % (auto) 35.6 %; Mean Corpuscular Hemoglobin 28.5 pg (25.0-34.0); Mean Corpuscular Hgb Conc 32.5 g/dL (32.0-36.0); Mean Corpuscular Volume 87.7 fL (80.0-100.0); Monocytes # (auto) 0.53 K/uL (0.11-0.59); Monocytes % (auto) 9.3 %; Neutrophils # (auto) 3.04 K/uL (1.40-6.50); Neutrophils % (auto) 53.3 %; Platelet Count 174 K/uL (130-400); RDW Coefficient of Variation 13.9 % (11.5-14.5); RDW Standard Deviation 44.5 fL (36.4-46.3); Red Blood Count 5.19 M/uL (4.20-5.40)
[2023-08-08 07:23] LABS: BUN Creatinine Ratio 26.3 (10-20); Calcium 8.9 mg/dl (8.6-10.3); Creatinine Clr Calc Pharmacy 49.9 ml/min; Est GFR (African American) 63.3 ml/min; Est GFR (Non-African American) 54.6 ml/min; Potassium 3.7 mmol/L (3.5-5.1)
--- NOTE | 2023-08-08 16:17 | Hospitalist Progress Note ---
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 Patient was admitted couple of days ago with the same confusion improved with the fluids and discharged back today to [facility] was brought in because she is agitated and she was found wandering out of the facility. Patient had follow-up with neurology recently on July 29, 2023. Patient used to take Seroquel 25 mg at bedtime which was stopped. Abilify was increased to twice a day from only in AM. Daughter reports that patient's behavior disturbances had increased since the change the medication. 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 Recently admitted for the same. She was found wandering outside of the facility. Recent medication changes as per neurology as outlined above CBC, BMP within normal limits CT head done on August 03no acute finding EKG personally reviewed; normal sinus rhythm; QTc of 449 TSH and vitamin B12 within normal limits. Discussed with patient's daughter. Over the phone. Patient's behavioral changes have significantly increased with change in the medications. Will restart Seroquel 25 mg at bedtime and decrease the dose of Abilify to once a day Discussed with neurology; no other additional recommendation Continue frequent reorientation History of bilateral DVT On Eliquis, continue Alzheimer's dementia with psychotic disturbance On donezepil, memantine and Ativan as needed. Ativan discontinued Lower extremity edema On Lasix DVT prophylaxis On Eliquis Disposition Med/tele CODE STATUS DNR/DNI Discussed with daughter over the phone on August 06, 2023. Answer questions/queries. Please note the above document was generated using voice recognition software. It may contain grammatical, syntax or spelling errors. Any formal questions or concerns about the content, text or information contained within the body of this dictation should be directly addressed to the provider for clarification Admission and Anticipated Discharge Date Admission Date: August 05, 2023 Subjective Patient seen and examined at bedside. Comfortable; not in distress. Denies fever, chills, chest pain, shortness of breath, abdominal pain or urinary symptoms. No significant overnight events Review of Systems Review of Systems: All systems reviewed & are unremarkable except as noted in Subjective Physical Exam Physical Exam: General- Not in distress Lungs- clear to auscultation no wheezing or crackles. Heart- regular rhythm; no murmur, no gallop. Abdomen- normal bowel sounds, soft, nontender, no distension. Extremities- b/l lower extremity edema present, no erythema seen. Neuro-alert, oriented to self. PERRL, no facial palsy; no dysarthria; moves extremities. Skin- warm & dry Results & Data Results & Data Vital Signs (Past 12 Hours) Vital Signs Temp Pulse Resp BP Pulse Ox O2 Del Method 08/08/23 13:57 36.5 C 76 18 137/81 95 Room Air 08/08/23 07:14 36.4 C L 73 18 151/83 H 96 Room Air
--- NOTE | 2023-08-09 16:48 | Hospitalist Progress Note ---
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 Patient was admitted couple of days ago with the same confusion improved with the fluids and discharged back today to [facility] was brought in because she is agitated and she was found wandering out of the facility. Patient had follow-up with neurology recently on July 29, 2023. Patient used to take Seroquel 25 mg at bedtime which was stopped. Abilify was increased to twice a day from only in AM. Daughter reports that patient's behavior disturbances had increased since the change the medication. 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 Recently admitted for the same. She was found wandering outside of the facility. Recent medication changes as per neurology as outlined above CBC, BMP within normal limits CT head done on August 03no acute finding EKG personally reviewed; normal sinus rhythm; QTc of 449 TSH and vitamin B12 within normal limits. Discussed with patient's daughter. Over the phone. Patient's behavioral changes have significantly increased with change in the medications. Will restart Seroquel 25 mg at bedtime and decrease the dose of Abilify to once a day Discussed with neurology; no other additional recommendation Continue frequent reorientation History of bilateral DVT On Eliquis, continue Alzheimer's dementia with psychotic disturbance On donezepil, memantine and Ativan as needed. Ativan discontinued Lower extremity edema On Lasix DVT prophylaxis On Eliquis Disposition Med/tele CODE STATUS DNR/DNI Discussed with daughter over the phone on August 06, 2023. Answer questions/queries. Please note the above document was generated using voice recognition software. It may contain grammatical, syntax or spelling errors. Any formal questions or concerns about the content, text or information contained within the body of this dictation should be directly addressed to the provider for clarification Admission and Anticipated Discharge Date Admission Date: August 05, 2023 Subjective Patient seen and examined at bedside. Comfortable; not in distress. Denies fever, chills, chest pain, shortness of breath, abdominal pain or urinary symptoms. No significant overnight events Physical Exam Physical Exam: General- Not in distress Lungs- clear to auscultation no wheezing or crackles. Heart- regular rhythm; no murmur, no gallop. Abdomen- normal bowel sounds, soft, nontender, no distension. Extremities- b/l lower extremity edema present, no erythema seen. Neuro-alert, oriented to self. PERRL, no facial palsy; no dysarthria; moves extremities. Skin- warm & dry Results & Data Results & Data Vital Signs (Past 12 Hours) Vital Signs Temp Pulse Resp BP Pulse Ox O2 Del Method 08/09/23 15:29 36.5 C 71 16 144/88 H 96 Room Air 08/09/23 07:33 36.6 C 87 17 166/93 H 95 Room Air
--- NOTE | 2023-08-10 22:30 | Hospitalist Progress Note ---
Date of Service August 10, 2023 Assessment & Plan (1) AMS (altered mental status): Plan: 78-year-old female with past med history significant for hypertension, vitamin D deficiency, history of diverticulitis, osteoporosis, severe late onset Alzheimer's dementia with psychotic disturbance, depression, currently living at [facility] was brought in because of confusion. Currently awaiting placement. 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 Recently admitted for the same. She was found wandering outside of the facility. Recent medication changes as per neurology CBC, BMP within normal limits CT head done on August 03no acute finding EKG normal sinus rhythm; QTc of 449 TSH and vitamin B12 within normal limits. Medications decreased (abilify) and restarted (seroquel) On donezepil, memantine and Ativan as needed. Ativan was discontinued Delirium precautions. Frequent reorientation, avoid sedating medications History of bilateral DVT On Eliquis, continue Lower extremity edema On Lasix DVT prophylaxis: On Eliquis Disposition: currently awaiting placement CODE STATUS DNR/DNI Admission and Anticipated Discharge Date Admission Date: August 05, 2023 Subjective Pt was seen sitting at bedside. AAox2. Denied acute concerns. Review of Systems Review of Systems: All systems reviewed & are unremarkable except as noted in Subjective Physical Exam Physical Exam: General: Alert, oriented. No acute distress Skin: No noted rashes or bruises Psych: Appropriate mood and affect Neuro: No gross deficits HEENT: NC/AT Chest: Nontender to palpation. CV: RRR Resp: Breath sounds clear bilaterally, no increased effort of breathing. Abdomen: Soft, nontender Extremities: edema in lower extremities bilaterally. Results & Data Results & Data Vital Signs (Past 12 Hours) Vital Signs Temp Pulse Resp BP Pulse Ox O2 Del Method 08/10/23 07:13 36.7 C 78 17 158/91 H 93 Room Air
[2023-08-11 06:17] LABS: Hematocrit (blood only) 44.7 % (37.0-47.0); Hemoglobin 14.9 g/dl (12.0-16.0); Mean Corpuscular Hemoglobin 28.8 pg (25.0-34.0); Mean Corpuscular Hgb Conc 33.3 g/dL (32.0-36.0); Mean Corpuscular Volume 86.3 fL (80.0-100.0); Mean Platelet Volume 10.5 fL (9.4-12.4); Platelet Count 190 K/uL (130-400); RDW Standard Deviation 44.7 fL (36.4-46.3); Red Blood Count 5.18 M/uL (4.20-5.40); White Blood Count 6.07 K/ul (4.8-10.8)
[2023-08-11 06:33] LABS: BUN Creatinine Ratio 24.1 (10-20); Creatinine Clr Calc Pharmacy 45.8 ml/min; Est GFR (African American) 56.9 ml/min; Est GFR (Non-African American) 49.1 ml/min; Potassium 3.8 mmol/L (3.5-5.1)
--- NOTE | 2023-08-12 06:32 | Hospitalist Progress Note ---
Date of Service August 11, 2023 Assessment & Plan (1) AMS (altered mental status): Plan: 78-year-old female with past med history significant for hypertension, vitamin D deficiency, history of diverticulitis, osteoporosis, severe late onset Alzheimer's dementia with psychotic disturbance, depression, currently living at [place] was brought in because of confusion. Currently awaiting placement. 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 Recently admitted for the same. She was found wandering outside of the facility. Recent medication changes as per neurology CBC, BMP within normal limits CT head done on August 03no acute finding EKG normal sinus rhythm; QTc of 449 TSH and vitamin B12 within normal limits. Medications decreased (abilify) and restarted (seroquel) On donezepil, memantine and Ativan as needed. Ativan was discontinued Delirium precautions. Frequent reorientation, avoid sedating medications History of bilateral DVT On Eliquis, continue Lower extremity edema On Lasix DVT prophylaxis: On Eliquis Disposition: currently awaiting placement CODE STATUS DNR/DNI Admission and Anticipated Discharge Date Admission Date: August 05, 2023 Subjective Pt was seen with sitting at bedside. She was laying in bed. Denied acute concerns. Review of Systems Review of Systems: All systems reviewed & are unremarkable except as noted in Subjective Physical Exam Physical Exam: General: Alert, oriented. No acute distress Skin: No noted rashes or bruises Psych: Appropriate mood and affect Neuro: No gross deficits HEENT: NC/AT Chest: Nontender to palpation. CV: RRR Resp: Breath sounds clear bilaterally, no increased effort of breathing. Abdomen: Soft, nontender Extremities: edema in lower extremities bilaterally. Results & Data Results & Data Vital Signs (Past 12 Hours) Vital Signs Temp Pulse Resp BP Pulse Ox O2 Del Method 08/11/23 14:18 36.5 C 71 17 133/80 92 Room Air 08/11/23 07:13 36.5 C 94 H 17 150/90 H 96 Room Air
--- NOTE | 2023-08-12 17:46 | Hospitalist Progress Note ---
Date of Service August 12, 2023 Assessment & Plan (1) AMS (altered mental status): Plan 78-year-old female with past med history significant for hypertension, vitamin D deficiency, history of diverticulitis, osteoporosis, severe late onset Alzheimer's dementia with psychotic disturbance, depression, currently living at [place] was brought in because of confusion. Currently awaiting placement. 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 Recently admitted for the same. She was found wandering outside of the facility. Recent medication changes as per neurology CBC, BMP within normal limits CT head done on August 03no acute finding EKG normal sinus rhythm; QTc of 449 TSH and vitamin B12 within normal limits. Medications decreased (abilify) and restarted (seroquel) On donezepil, memantine and Ativan as needed. Ativan was discontinued Delirium precautions. Frequent reorientation, avoid sedating medications History of bilateral DVT On Eliquis, continue Lower extremity edema On Lasix DVT prophylaxis: On Eliquis Disposition: currently awaiting placement CODE STATUS DNR/DNI Admission and Anticipated Discharge Date Admission Date: August 05, 2023 Subjective Pt was seen sitting in a chair at bedside flipping through a magazine. Denied acute concerns. Review of Systems Review of Systems: All systems reviewed & are unremarkable except as noted in Subjective Physical Exam Physical Exam: General: Alert. No acute distress Skin: No noted rashes or bruises Psych: Appropriate mood and affect Neuro: No gross deficits HEENT: NC/AT Chest: Nontender to palpation. CV: RRR Resp: Breath sounds clear bilaterally, no increased effort of breathing. Abdomen: Soft, nontender Extremities: edema in lower extremities bilaterally. Results & Data Results & Data Vital Signs (Past 12 Hours) Vital Signs Temp Pulse Pulse Resp BP Pulse Ox O2 Del Method 08/12/23 15:26 36.8 C 68 18 135/84 94 Room Air 08/12/23 11:26 36.6 C 71 16 124/82 96 Room Air 08/12/23 07:03 36.6 C 65 18 157/97 H 92 Room Air
--- NOTE | 2023-08-13 09:12 | Hospitalist Progress Note ---
Date of Service August 13, 2023 Assessment & Plan (1) AMS (altered mental status): Plan 78-year-old female with past med history significant for hypertension, vitamin D deficiency, history of diverticulitis, osteoporosis, severe late onset Alzheimer's dementia with psychotic disturbance, depression, currently living at [place] was brought in because of confusion. Currently awaiting placement. 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 Recently admitted for the same. She was found wandering outside of the facility. Recent medication changes as per neurology CBC, BMP within normal limits CT head done on August 03no acute finding EKG normal sinus rhythm; QTc of 449 TSH and vitamin B12 within normal limits. Medications decreased (abilify) and restarted (seroquel) On donezepil, memantine and Ativan as needed. Ativan was discontinued Delirium precautions. Frequent reorientation, avoid sedating medications History of bilateral DVT On Eliquis, continue Lower extremity edema On Lasix DVT prophylaxis: On Eliquis Disposition: currently awaiting placement CODE STATUS DNR/DNI Admission and Anticipated Discharge Date Admission Date: August 05, 2023 Subjective Pt was seen in the AM, walking back from using the bathroom. Denied acute concerns. Review of Systems Review of Systems: All systems reviewed & are unremarkable except as noted in Subjective Physical Exam Physical Exam: General: Alert. No acute distress Skin: No noted rashes or bruises Psych: Appropriate mood and affect Neuro: No gross deficits HEENT: NC/AT Chest: Nontender to palpation. CV: RRR Resp: Breath sounds clear bilaterally, no increased effort of breathing. Abdomen: Soft, nontender Extremities: edema in lower extremities bilaterally. Results & Data Results & Data Vital Signs (Past 12 Hours) Vital Signs Temp Pulse Resp BP Pulse Ox O2 Del Method 08/13/23 07:46 36.7 C 83 16 152/77 H 96 Room Air
[2023-08-13 10:29] LABS: Hematocrit (blood only) 46.3 % (37.0-47.0); Hemoglobin 15.9 g/dl (12.0-16.0); Mean Corpuscular Hemoglobin 29.4 pg (25.0-34.0); Mean Corpuscular Hgb Conc 34.3 g/dL (32.0-36.0); Mean Corpuscular Volume 85.7 fL (80.0-100.0); Platelet Count 205 K/uL (130-400); RDW Coefficient of Variation 13.8 % (11.5-14.5); RDW Standard Deviation 43.2 fL (36.4-46.3); White Blood Count 5.34 K/ul (4.8-10.8)
[2023-08-13 10:41] LABS: BUN Creatinine Ratio 22.1 (10-20); Calcium 9.1 mg/dl (8.6-10.3); Creatinine Clr Calc Pharmacy 43.7 ml/min; Est GFR (African American) 53.9 ml/min; Est GFR (Non-African American) 46.5 ml/min; Potassium 3.6 mmol/L (3.5-5.1)
--- NOTE | 2023-08-14 11:58 | Hospitalist Progress Note ---
Date of Service August 14, 2023 Assessment & Plan (1) AMS (altered mental status): Plan 78-year-old female with past med history significant for hypertension, vitamin D deficiency, history of diverticulitis, osteoporosis, severe late onset Alzheimer's dementia with psychotic disturbance, depression, currently living at [facility] was brought in because of confusion. Currently awaiting placement. 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 Recently admitted for the same. She was found wandering outside of the facility. Recent medication changes as per neurology CBC, BMP within normal limits CT head done on August 03no acute finding EKG normal sinus rhythm; QTc of 449 TSH and vitamin B12 within normal limits. Medications decreased (abilify) and restarted (seroquel) On donezepil, memantine and Ativan as needed. Ativan was discontinued Delirium precautions. Frequent reorientation, avoid sedating medications History of bilateral DVT On Eliquis, continue Lower extremity edema On Lasix DVT prophylaxis: On Eliquis Disposition: currently awaiting placement CODE STATUS DNR/DNI Admission and Anticipated Discharge Date Admission Date: August 05, 2023 Subjective Pt was seen laying in bed and watching tv. Denied acute concerns. Review of Systems Review of Systems: All systems reviewed & are unremarkable except as noted in Subjective Physical Exam Physical Exam: General: Alert. No acute distress Skin: No noted rashes or bruises Psych: Appropriate mood and affect Neuro: No gross deficits HEENT: NC/AT Chest: Nontender to palpation. CV: RRR Resp: Breath sounds clear bilaterally, no increased effort of breathing. Abdomen: Soft, nontender Extremities: edema in lower extremities bilaterally. Results & Data Results & Data Vital Signs (Past 12 Hours) Vital Signs Temp Pulse Resp BP Pulse Ox O2 Del Method 08/14/23 07:41 36.5 C 71 16 161/87 H 91 Room Air
[2023-08-15 07:10] LABS: Hematocrit (blood only) 46.3 % (37.0-47.0); Hemoglobin 15.7 g/dl (12.0-16.0); Mean Corpuscular Hemoglobin 29.1 pg (25.0-34.0); Mean Corpuscular Hgb Conc 33.9 g/dL (32.0-36.0); Mean Corpuscular Volume 85.9 fL (80.0-100.0); Mean Platelet Volume 10.7 fL (9.4-12.4); Platelet Count 185 K/uL (130-400); RDW Coefficient of Variation 13.7 % (11.5-14.5); RDW Standard Deviation 42.5 fL (36.4-46.3); Red Blood Count 5.39 M/uL (4.20-5.40); White Blood Count 5.57 K/ul (4.8-10.8)
[2023-08-15 07:32] LABS: BUN Creatinine Ratio 22.1 (10-20); Calcium 9.4 mg/dl (8.6-10.3); Creatinine Clr Calc Pharmacy 47.5 ml/min; Est GFR (African American) 59.6 ml/min; Est GFR (Non-African American) 51.4 ml/min; Potassium 3.9 mmol/L (3.5-5.1)
--- NOTE | 2023-08-15 16:43 | Hospitalist Progress Note ---
Date of Service August 15, 2023 Assessment & Plan (1) AMS (altered mental status): Plan 78-year-old female with past med history significant for hypertension, vitamin D deficiency, history of diverticulitis, osteoporosis, severe late onset Alzheimer's dementia with psychotic disturbance, depression, currently living at [place] was brought in because of confusion. Currently awaiting placement. 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 Recently admitted for the same. She was found wandering outside of the facility. Recent medication changes as per neurology CBC, BMP within normal limits CT head done on August 03no acute finding EKG normal sinus rhythm; QTc of 449 TSH and vitamin B12 within normal limits. Medications decreased (abilify) and restarted (seroquel) On donezepil, memantine and Ativan as needed. Ativan was discontinued Delirium precautions. Frequent reorientation, avoid sedating medications History of bilateral DVT On Eliquis, continue Lower extremity edema On Lasix DVT prophylaxis: On Eliquis Disposition: currently awaiting placement CODE STATUS DNR/DNI Admission and Anticipated Discharge Date Admission Date: August 05, 2023 Subjective Pt was seen sitting at bedside. Trying to get into chair at bedside. Denied acute concerns. Review of Systems Review of Systems: All systems reviewed & are unremarkable except as noted in Subjective Physical Exam Physical Exam: General: Alert. No acute distress Skin: No noted rashes or bruises Psych: Appropriate mood and affect Neuro: No gross deficits HEENT: NC/AT Chest: Nontender to palpation. CV: RRR Resp: Breath sounds clear bilaterally, no increased effort of breathing. Abdomen: Soft, nontender Extremities: edema in lower extremities bilaterally. Results & Data Results & Data Vital Signs (Past 12 Hours) Vital Signs Temp Pulse Pulse Resp BP Pulse Ox O2 Del Method 08/15/23 14:53 36.7 C 63 19 130/84 96 Room Air 08/15/23 11:47 36.4 C L 77 18 122/74 94 Room Air 08/15/23 08:11 36.4 C L 79 17 135/85 92 Room Air
--- NOTE | 2023-08-16 15:46 | Hospitalist Progress Note ---
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 Currently awaiting placement- per reports, daughter is working with cilnical scientist, the [facility] to determine final placement. 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 Recently admitted for the same. She was found wandering outside of the facility. Recent medication changes as per neurology CBC, BMP within normal limits CT head done on August 03no acute finding EKG normal sinus rhythm; QTc of 449 TSH and vitamin B12 within normal limits. Medications decreased (abilify) and restarted (seroquel) On donezepil, memantine and Ativan as needed. Ativan was discontinued Delirium precautions. Frequent reorientation, avoid sedating medications History of bilateral DVT On Eliquis, continue Lower extremity edema On Lasix DVT prophylaxis: On Eliquis Disposition: currently awaiting placement CODE STATUS DNR/DNI Admission and Anticipated Discharge Date Admission Date: August 05, 2023 Subjective Pt was seen laying in bed. Denied acute concerns. Review of Systems Review of Systems: All systems reviewed & are unremarkable except as noted in Subjective Physical Exam Physical Exam: General: Alert. No acute distress Skin: No noted rashes or bruises Psych: Appropriate mood and affect Neuro: No gross deficits HEENT: NC/AT Chest: Nontender to palpation. CV: RRR Resp: Breath sounds clear bilaterally, no increased effort of breathing. Abdomen: Soft, nontender Extremities: edema in lower extremities bilaterally. Results & Data Results & Data Vital Signs (Past 12 Hours) Vital Signs Temp Pulse Resp BP Pulse Ox O2 Del Method 08/16/23 07:25 36.3 C L 72 16 128/81 94 Room Air
--- NOTE | 2023-08-17 13:04 | Hospitalist Progress Note ---
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 Currently awaiting placement- per reports, daughter is working with military lawyer, the [facility] to determine final placement. Altered mental status Severe late onset Alzheimer's dementia with psychotic disturbance Patient presented with confusion. Recently admitted for the same. She was found wandering outside of the facility. Recent medication changes as per neurology CBC, BMP within normal limits CT head done on August 03no acute finding EKG normal sinus rhythm; QTc of 449 TSH and vitamin B12 within normal limits. Medications decreased (abilify) and restarted (seroquel) On donezepil, memantine and Ativan as needed. Ativan was discontinued Delirium precautions. Frequent reorientation, avoid sedating medications History of bilateral DVT On Eliquis, continue Lower extremity edema On Lasix DVT prophylaxis: On Eliquis CODE STATUS DNR/DNI Disposition: currently awaiting placement I discussed with CM who notified me about the challenges with placement process I called daughter. She noted that she wants a [facility] place for her, does not want her to go back to [facility]. She stated that she called [facility] and they do not have beds at this time She would have preferred center care. However, I elucidated the challenges CM noted regarding Center care. She stated she is not able to follow up with other facilities today due to work/audit She may be able to follow up with [facility] tomorrow or Tuesday with her father We agreed that I will call her again tomorrow to find out where she has gotten to with respect to her calling the facilities CM notified I spent a total of 55 minutes coordinating, documenting and providing care for this patient excluding time spent in performance of separately billed services Admission and Anticipated Discharge Date Admission Date: August 05, 2023 Subjective Patient seen and examined Denied any complaints on ROS Physical Exam Constitutional: + well hydrated; no acute distress Eyes: PERRL, conjunctivae normal, anicteric sclerae ENMT: external ear and nose normal, oropharynx normal Respiratory: normal respiratory effort, lungs clear to auscultation Cardiovascular: Rate/Rhythm: regular rate and regular rhythm S1 S2 Gastrointestinal (Abdomen): normal bowel sounds, soft, nontender, no hepatosplenomegaly Musculoskeletal: + pedal edema Neurologic: PERRL, EOMI, accommodation nl, no face palsy, no dysarthria Psychiatric: Orientation: alert, oriented to person, oriented to place and cooperative; + not oriented to time Results & Data Results & Data Vital Signs (Past 12 Hours) Vital Signs Temp Pulse Resp BP Pulse Ox O2 Del Method 08/17/23 07:07 36.4 C L 75 16 142/83 H 91 Room Air
[2023-08-18 08:35] LABS: Hematocrit (blood only) 46.1 % (37.0-47.0); Hemoglobin 15.1 g/dl (12.0-16.0); Mean Corpuscular Hemoglobin 28.5 pg (25.0-34.0); Mean Corpuscular Hgb Conc 32.8 g/dL (32.0-36.0); Mean Corpuscular Volume 87.1 fL (80.0-100.0); Mean Platelet Volume 11.1 fL (9.4-12.4); Platelet Count 182 K/uL (130-400); RDW Coefficient of Variation 13.8 % (11.5-14.5); RDW Standard Deviation 43.9 fL (36.4-46.3); Red Blood Count 5.29 M/uL (4.20-5.40); White Blood Count 6.27 K/ul (4.8-10.8)
[2023-08-18 08:51] LABS: Calcium 9.2 mg/dl (8.6-10.3); Creatinine Clr Calc Pharmacy 49.4 ml/min; Est GFR (African American) 62.5 ml/min; Est GFR (Non-African American) 53.9 ml/min; Potassium 3.6 mmol/L (3.5-5.1)
--- NOTE | 2023-08-18 13:31 | Hospitalist Progress Note ---
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 Currently awaiting placement- per reports, daughter is working with deportation officer, the [facility] to determine final placement. Altered mental status Severe late onset Alzheimer's dementia with psychotic disturbance Patient presented with confusion. Recently admitted for the same. She was found wandering outside of the facility. Recent medication changes as per neurology CBC, BMP within normal limits CT head done on August 03no acute finding TSH and vitamin B12 within normal limits. Medications decreased (abilify) and restarted (seroquel) On donezepil, memantine Delirium precautions. Frequent reorientation, avoid sedating medications History of bilateral DVT On Eliquis, continue Lower extremity edema On Lasix DVT prophylaxis: On Eliquis CODE STATUS DNR/DNI Disposition: currently awaiting placement. I called daughter and updated her CM had noted that someone from [facility] tried to call on tue and texted yesterday but has not gotten any response from daughter. Daughter (Florencia Isbell) reported that she did not get any calls or text when I asked her about getting call/text from [facility] She stated that she plans to visit some places including [facility] this weekend to decide and let us know, that we should stop making referrals. That she will handle that. I explained that the hospital CM are involved in any placement that happens from the hospital. That she needs to communicate with the facilities as well to facilitate the process. I also explained that her plans to visit the facilities prior to making a decision does not preclude her communicating with them so they can start the preplacement evaluation to even determine if they can take patient and that even if she changes her mind about a specific facility, that will be changed as well. However, delaying communication delays the process and keeps patient in the hospital longer when she has been medically stable for discharge now. I also notified her that I will let CM know she did not get the calls/text reported earlier in case the person has a wrong number. She requested that patient get a shower. RN communication placed for patient to get a shower while sitted with fall precautions. CM notified of my conversation with daughter I spent a total of 45 minutes coordinating, documenting and providing care for this patient excluding time spent in performance of separately billed services Admission and Anticipated Discharge Date Admission Date: August 05, 2023 Subjective Patient seen and examined Denied any complaints on ROS No overnight event per RN Physical Exam Constitutional: + well hydrated; no acute distress Eyes: PERRL, conjunctivae normal, anicteric sclerae ENMT: external ear and nose normal, oropharynx normal Respiratory: normal respiratory effort, lungs clear to auscultation Cardiovascular: Rate/Rhythm: regular rate and regular rhythm S1 S2 Gastrointestinal (Abdomen): normal bowel sounds, soft, nontender, no hepatosplenomegaly Musculoskeletal: No pedal edema Neurologic: PERRL, EOMI, accommodation nl, no face palsy, no dysarthria Psychiatric: Orientation: alert, oriented to person, oriented to place and cooperative; + not oriented to time Results & Data Results & Data Vital Signs (Past 12 Hours) Vital Signs Temp Pulse Resp BP Pulse Ox O2 Del Method 08/18/23 07:28 36.3 C L 66 16 147/93 H 96 Room Air Laboratory Results Abnormal lab results 08/18/23 Range/Units 07:30 BUN 24 H (6-23) mg/dl BUN/Creatinine Ratio 24.0 H (10-20)
--- NOTE | 2023-08-19 11:08 | Hospitalist Progress Note ---
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 Currently awaiting placement- per reports, daughter is working with roll form operator, the [facility] to determine final placement. Altered mental status Severe late onset Alzheimer's dementia with psychotic disturbance Patient presented with confusion. Recently admitted for the same. She was found wandering outside of the facility. Recent medication changes as per neurology CBC, BMP within normal limits CT head done on August 03no acute finding TSH and vitamin B12 within normal limits. Medications decreased (abilify) and restarted (seroquel) On donezepil, memantine Delirium precautions. Frequent reorientation, avoid sedating medications History of bilateral DVT On Eliquis, continue Lower extremity edema On Lasix DVT prophylaxis: On Eliquis CODE STATUS DNR/DNI Disposition: currently awaiting placement. Patient has been medically stable for discharge CM working with daughter regarding placement I spent a total of 30 minutes coordinating, documenting and providing care for this patient excluding time spent in performance of separately billed services Admission and Anticipated Discharge Date Admission Date: August 05, 2023 Subjective Patient seen and examined Denied any complaints on ROS No overnight event per RN Physical Exam Constitutional: + well hydrated; no acute distress Eyes: PERRL, conjunctivae normal, anicteric sclerae ENMT: external ear and nose normal, oropharynx normal Respiratory: normal respiratory effort, lungs clear to auscultation Cardiovascular: Rate/Rhythm: regular rate and regular rhythm S1 S2 Gastrointestinal (Abdomen): normal bowel sounds, soft, nontender, no hepatosplenomegaly Musculoskeletal: No pedal edema Neurologic: PERRL, EOMI, accommodation nl, no face palsy, no dysarthria Psychiatric: Orientation: alert, oriented to person, oriented to place and cooperative; + not oriented to time Results & Data Results & Data Vital Signs (Past 12 Hours) Vital Signs Temp Pulse Resp BP Pulse Ox O2 Del Method 08/19/23 07:21 36.3 C L 70 16 130/79 95 Room Air 08/19/23 01:10 Room Air
--- NOTE | 2023-08-20 14:57 | Hospitalist Progress Note ---
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 Currently awaiting placement- per reports, daughter is working with technician plant and maintenance, the [facility] to determine final placement. Altered mental status Severe late onset Alzheimer's dementia with psychotic disturbance Patient presented with confusion. Recently admitted for the same. She was found wandering outside of the facility. Recent medication changes as per neurology CBC, BMP within normal limits CT head done on August 03no acute finding TSH and vitamin B12 within normal limits. Medications decreased (abilify) and restarted (seroquel) On donezepil, memantine Delirium precautions. Frequent reorientation, avoid sedating medications History of bilateral DVT On Eliquis, continue Lower extremity edema On Lasix DVT prophylaxis: On Eliquis CODE STATUS DNR/DNI Disposition: currently awaiting placement. Patient has been medically stable for discharge CM working with daughter regarding placement Updated who was at bedside today I spent a total of 30 minutes coordinating, documenting and providing care for this patient excluding time spent in performance of separately billed services Admission and Anticipated Discharge Date Admission Date: August 05, 2023 Subjective Patient seen and examined Denied any complaints on ROS Physical Exam Constitutional: + well hydrated; no acute distress Eyes: PERRL, conjunctivae normal, anicteric sclerae ENMT: external ear and nose normal, oropharynx normal Respiratory: normal respiratory effort, lungs clear to auscultation Cardiovascular: Rate/Rhythm: regular rate and regular rhythm S1 S2 Gastrointestinal (Abdomen): normal bowel sounds, soft, nontender, no hepatosplenomegaly Neurologic: PERRL, EOMI, accommodation nl, no face palsy, no dysarthria Psychiatric: Orientation: alert, oriented to person, oriented to place (Knows she is in the hospital, does not recall name) and cooperative; + not oriented to time Results & Data Results & Data Vital Signs (Past 12 Hours) Vital Signs Temp Pulse Resp BP Pulse Ox O2 Del Method 08/20/23 14:29 36.6 C 69 16 119/79 94 Room Air 08/20/23 07:22 36.3 C L 66 16 157/78 H 95 Room Air
--- NOTE | 2023-08-21 09:55 | Hospitalist Progress Note ---
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 Currently awaiting placement- per reports, daughter is working with collection systems technician, the [facility] to determine final placement. Altered mental status Severe late onset Alzheimer's dementia with psychotic disturbance Patient presented with confusion. Recently admitted for the same. She was found wandering outside of the facility. Recent medication changes as per neurology CBC, BMP within normal limits CT head done on August 03no acute finding TSH and vitamin B12 within normal limits. Medications decreased (abilify) and restarted (seroquel) On donezepil, memantine Delirium precautions. Frequent reorientation, avoid sedating medications History of bilateral DVT On Eliquis, continue Lower extremity edema On Lasix DVT prophylaxis: On Eliquis CODE STATUS DNR/DNI Disposition: currently awaiting placement. Patient has been medically stable for discharge CM working with daughter regarding placement I spent a total of 30 minutes coordinating, documenting and providing care for this patient excluding time spent in performance of separately billed services Admission and Anticipated Discharge Date Admission Date: August 05, 2023 Subjective Patient seen and examined Denied any complaints on ROS Physical Exam Constitutional: + well hydrated; no acute distress Eyes: PERRL, conjunctivae normal, anicteric sclerae ENMT: external ear and nose normal, oropharynx normal Respiratory: normal respiratory effort, lungs clear to auscultation Cardiovascular: Rate/Rhythm: regular rate and regular rhythm S1 S2 Gastrointestinal (Abdomen): normal bowel sounds, soft, nontender, no hepatosplenomegaly Musculoskeletal: No pedal edema Neurologic: PERRL, EOMI, accommodation nl, no face palsy, no dysarthria Psychiatric: Orientation: alert, oriented to person, oriented to place and cooperative; + not oriented to time Results & Data Results & Data Vital Signs (Past 12 Hours) Vital Signs Temp Pulse Resp BP Pulse Ox O2 Del Method 08/21/23 07:16 36.5 C 82 16 145/98 H 94 Room Air
--- NOTE | 2023-08-22 15:17 | Hospitalist Progress Note ---
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 Currently awaiting placement- per reports, daughter is working with warehouse shipper, the [facility] to determine final placement. Altered mental status Severe late onset Alzheimer's dementia with psychotic disturbance Patient presented with confusion. Recently admitted for the same. She was found wandering outside of the facility. Recent medication changes as per neurology CBC, BMP within normal limits CT head done on August 03no acute finding TSH and vitamin B12 within normal limits. Medications decreased (abilify) and restarted (seroquel) On donezepil, memantine Delirium precautions. Frequent reorientation, avoid sedating medications History of bilateral DVT On Eliquis, continue Lower extremity edema On Lasix DVT prophylaxis: On Eliquis CODE STATUS DNR/DNI Disposition: currently awaiting placement. Patient has been medically stable for discharge CM working with daughter regarding placement I spent a total of 30 minutes coordinating, documenting and providing care for this patient excluding time spent in performance of separately billed services Admission and Anticipated Discharge Date Admission Date: August 05, 2023 Subjective Patient seen and examined Denied any complaints on ROS Physical Exam Constitutional: + well hydrated; no acute distress Eyes: PERRL, conjunctivae normal, anicteric sclerae ENMT: external ear and nose normal, oropharynx normal Respiratory: normal respiratory effort, lungs clear to auscultation Cardiovascular: Rate/Rhythm: regular rate and regular rhythm S1 S2 Gastrointestinal (Abdomen): normal bowel sounds, soft, nontender, no hepatosplenomegaly Musculoskeletal: No pedal edema Neurologic: PERRL, EOMI, accommodation nl, no face palsy, no dysarthria Psychiatric: Orientation: alert, oriented to person, oriented to place and cooperative; + not oriented to time Results & Data Results & Data Vital Signs (Past 12 Hours) Vital Signs Temp Pulse Resp BP Pulse Ox O2 Del Method 08/22/23 15:08 36.8 C 74 18 129/75 95 Room Air 08/22/23 07:28 36.3 C L 76 18 128/77 94 Room Air
--- NOTE | 2023-08-23 12:29 | Hospitalist Progress Note ---
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 Currently awaiting placement- per reports, daughter is working with order puller, the [facility] to determine final placement. Altered mental status Severe late onset Alzheimer's dementia with psychotic disturbance Patient presented with confusion. Recently admitted for the same. She was found wandering outside of the facility. Recent medication changes as per neurology CBC, BMP within normal limits CT head done on August 03no acute finding TSH and vitamin B12 within normal limits. Medications decreased (abilify) and restarted (seroquel) On donezepil, memantine Delirium precautions. Frequent reorientation, avoid sedating medications History of bilateral DVT On Eliquis, continue Lower extremity edema On Lasix DVT prophylaxis: On Eliquis CODE STATUS DNR/DNI Disposition: currently awaiting placement. Patient has been medically stable for discharge CM working with daughter regarding placement I spent a total of 30 minutes coordinating, documenting and providing care for this patient excluding time spent in performance of separately billed services Admission and Anticipated Discharge Date Admission Date: August 05, 2023 Subjective Patient seen and examined Denied any complaints on ROS Physical Exam Constitutional: + well hydrated; no acute distress Eyes: PERRL, conjunctivae normal, anicteric sclerae ENMT: external ear and nose normal, oropharynx normal Respiratory: normal respiratory effort, lungs clear to auscultation Cardiovascular: Rate/Rhythm: regular rate and regular rhythm S1 S2 Gastrointestinal (Abdomen): normal bowel sounds, soft, nontender, no hepatosplenomegaly Musculoskeletal: No pedal edema Neurologic: PERRL, EOMI, accommodation nl, no face palsy, no dysarthria Psychiatric: Orientation: alert, oriented to person, oriented to place and cooperative; + not oriented to time Results & Data Results & Data Vital Signs (Past 12 Hours) Vital Signs Temp Pulse BP Pulse Ox O2 Del Method 08/23/23 11:42 36.8 C 69 120/78 94 Room Air 08/23/23 08:30 36.6 C 88 128/81 96 Room Air
--- NOTE | 2023-08-24 13:32 | Hospitalist Progress Note ---
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 Currently awaiting placement- per reports, daughter is working with insurance law specialist, the [facility] to determine final placement. Altered mental status Severe late onset Alzheimer's dementia with psychotic disturbance Patient presented with confusion. Recently admitted for the same. She was found wandering outside of the facility. Recent medication changes as per neurology CBC, BMP within normal limits CT head done on August 03no acute finding TSH and vitamin B12 within normal limits. Medications decreased (abilify) and restarted (seroquel) On donezepil, memantine Delirium precautions. Frequent reorientation, avoid sedating medications History of bilateral DVT On Eliquis, continue Lower extremity edema On Lasix DVT prophylaxis: On Eliquis CODE STATUS DNR/DNI Disposition: currently awaiting placement. Patient has been medically stable for discharge CM working with daughter regarding placement Admission and Anticipated Discharge Date Admission Date: August 05, 2023 Subjective Pt seen while sitting in chair at bedside. Was eating lunch. Denied acute concerns. Review of Systems Review of Systems: All systems reviewed & are unremarkable except as noted in Subjective Physical Exam Physical Exam: General: Alert. No acute distress Skin: No noted rashes or bruises Psych: Appropriate mood and affect Neuro: No gross deficits HEENT: NC/AT Chest: Nontender to palpation. CV: RRR Resp: Breath sounds clear bilaterally, no increased effort of breathing. Abdomen: Soft, nontender Extremities: edema in lower extremities bilaterally. Results & Data Results & Data Vital Signs (Past 12 Hours) Vital Signs Temp Pulse Resp BP Pulse Ox O2 Del Method 08/24/23 07:25 36.7 C 69 16 134/81 95 Room Air
--- NOTE | 2023-08-25 12:11 | Hospitalist Progress Note ---
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 Currently awaiting placement- per reports, daughter is working with network lead, the [facility] to determine final placement. Due to go to [facility] on 08/26. Daughter will transport. Altered mental status Severe late onset Alzheimer's dementia with psychotic disturbance Patient presented with confusion. Recently admitted for the same. She was found wandering outside of the facility. Recent medication changes as per neurology CBC, BMP within normal limits CT head done on August 03no acute finding TSH and vitamin B12 within normal limits. Medications decreased (abilify) and restarted (seroquel) On donezepil, memantine Delirium precautions. Frequent reorientation, avoid sedating medications History of bilateral DVT On Eliquis, continue Lower extremity edema On Lasix DVT prophylaxis: On Eliquis CODE STATUS DNR/DNI Disposition: currently awaiting placement. Patient has been medically stable for discharge CM working with daughter regarding placement- due to go to [facility] on 08/26. daughter will transport. Admission and Anticipated Discharge Date Admission Date: August 05, 2023 Subjective Pt seen while sitting in chair at bedside. Denied acute concerns. Review of Systems Review of Systems: All systems reviewed & are unremarkable except as noted in Subjective Physical Exam Physical Exam: General: Alert. No acute distress Skin: No noted rashes or bruises Psych: Appropriate mood and affect Neuro: No gross deficits HEENT: NC/AT Chest: Nontender to palpation. CV: RRR Resp: Breath sounds clear bilaterally, no increased effort of breathing. Abdomen: Soft, nontender Extremities: edema in lower extremities bilaterally. Results & Data Results & Data Vital Signs (Past 12 Hours) Vital Signs Temp Pulse Resp BP Pulse Ox O2 Del Method 08/25/23 07:20 36.7 C 76 17 152/93 H 95 Room Air
--- NOTE | 2023-08-26 13:31 | Discharge Summary ---
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 Patient was admitted couple of days ago with the same confusion improved with the fluids and discharged back today to [facility] was brought in because she is agitated and she was found wandering out of the facility. Daughter and in the room. Currently patient is able to tell her name, knows that she is in the hospital but does not know the name of the hospital ,knows current month and year. No fevers. States has some headache. Denies any chest pain or shortness of breath. No cough. No nausea. No abdominal pain. Not eating much per family. Hemodynamically stable. Daughter is concerned that recent change of her medications may be having effect on her as recently she was seen by neurology and her medications have been adjusted , her Seroquel has been discontinued and Abilify dose was increased and to reduce polypharmacy oxybutynin was DC'd and neurology recommended to avoid lorazepam. Daughter is concerned about patient wandering today Past medical history. As mentioned above. Past surgical history. Colonoscopy. EGD with endoscopic ultrasound. Laparoscopic cholecystectomy. Ligation of the oviduct. Right punctured breast cyst drainage. Social history. . No smoking. No alcohol. No drug use. Family history. Father had nasopharyngeal cancer. Heart disorder. Lung cancer. Mother had colon cancer. Admission Exam Per Admitting Provider General- Not in distress Head- atraumatic Eyes- PERRL. ENT- oropharynx clear Neck- supple, no JVD. Lungs- clear to auscultation no wheezing or crackles. Heart- regular rhythm; no murmur, no gallop. Abdomen- normal bowel sounds, soft, nontender, no distension. Extremities- b/l lower extremity edema present, no erythema seen. Neuro- alert, oriented x 3; PERRL, no facial palsy; no dysarthria; moves extremities. 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 Initial workup included CT head from August 03 without acute findings, CBC, BMP, TSH and B12 within normal limits. 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 Abilify dose decreased and Seroquel restarted. Ativan discontinued. Continue delirium precautions with frequent reorientation. Also started on oxybutynin for overactive bladder symptoms. Continue all other medications as prescribed. Will be transported by family to [facility]. Patient comfortable and hemodynamically stable at time of discharge. Discharge Exam Gen: WD/WN, NAD, sitting in bedside chair, A&Ox2 HEENT: Normocephalic, atraumatic, mucous membranes moist Lung: Breath sounds clear bilaterally, no increased effort of breathing Heart: Regular rate, regular rhythm Abdomen: Soft, NT Extremities: BLE edema, unchanged Skin: Warm, no rash Updated Medication List Medication Instructions Recorded Confirmed Type apixaban 5 mg tablet (Eliquis) 5 mg PO BID 08/05/23 08/05/23 History azelastine 137 mcg (0.1 %) nasal 1 spray intranasal BID 08/05/23 08/05/23 History spray aerosol benzonatate 100 mg capsule 200 mg PO TID PRN Cough 08/05/23 08/05/23 History calcium carbonate 600 mg-vitamin 1 tab PO DAILY 08/05/23 08/05/23 History D3 20 mcg (800 unit) tablet donepezil 10 mg tablet 10 mg PO HS 08/05/23 08/05/23 History dorzolamide 22.3 mg-timolol 6.8 1 drp OPB BID 08/05/23 08/05/23 History mg/mL eye drops furosemide 20 mg tablet 20 mg PO DAILY 08/05/23 08/05/23 History loperamide 2 mg capsule 2 mg PO DAILY PRN Diarrhea 08/05/23 08/05/23 History loratadine 10 mg tablet 10 mg PO DAILY 08/05/23 08/05/23 History memantine 10 mg tablet 10 mg PO BID 08/05/23 08/05/23 History montelukast 10 mg tablet 10 mg PO DAILY 08/05/23 08/05/23 History aripiprazole 1 mg/mL oral solution 2 mg (2 mL) PO DAILY #150 mL 08/25/23 Rx oxybutynin chloride 5 mg 5 mg PO QAM #30 tabs 08/25/23 Rx tablet,extended release 24 hr quetiapine 25 mg tablet 25 mg PO HS #30 tabs 08/25/23 Rx Hospital Stay Data Consultations 08/05/23 19:45 ED Decision to Admit Stat 08/06/23 08:00 Consult Neurology Routine 08/19/23 03:36 Consult Patient Rep [Consult Patient Services] Routine Pending Results Patient Have Any Pending Studies at Discharge: No Discharge Instructions Given to Patient (Per Discharging Provider) MEDICATION CHANGES: Abilify decreased to 2mg PO daily Seroquel restarted at 25mg Po at bedtime Oxybutynin 5mg daily for overactive bladder Ativan discontinued PENDING TEST RESULTS: None RECOMMENDATIONS FOR FOLLOW-UP: Follow up with PCP as scheduled. Continue medication regimen as scheduled aside from changes noted above. OTHER INSTRUCTIONS: Seek medical attention if you have: * temperature above 101 * chest pain or trouble breathing * abdominal pain, nausea, vomiting * diarrhea, dark stools or bloody stools * any unanswered questions or concerns Call 911 if symptoms are severe. Please take good care of yourself. Call if you have any questions or problems. You can reach a [facility] hospitalist on duty at [facility] 24 hours a day by calling [phone]. Total Time Total Time Spent Total Time Spent (In Minutes): 60 Supervising Physician Co-Signing Physician Notes Pt seen and examined by myself, Cailin Thurston MD on the day of service. Care was coordinated with , EVERET[facility]/JEFFREY. I spent a total [id number] coordinating, documenting, and providing care for this patient excluding time spent in the performance of separately billed services
== END 2023-08-26 15:22 | disposition home or self-care (01) | DRG 57 ==
LOC: ED 18:21 → SUATTDRO 20:29 → 3W 20:29

== ENCOUNTER 2024-07-14 16:49 | Inpatient (IN) ==
--- NOTE | 2024-07-14 17:14 | Emergency Department Note ---
Impression & Plan Acute confusion, Influenza A, Acute hypoxemic respiratory failure ED Provider Note HISTORY OF PRESENT ILLNESS: Patient is a 79-year-old female presenting with confusion. Patient's at bedside provides most of history. Reports the patient lives at [facility]. States that he tried to call the patient multiple times today and when she finally picked up she seemed "very slow and not her normal self." He states that he then called the desk sergeant at [place] and asked them to go check on the patient and they thought she seemed abnormal. Unknown last known well. On arrival to the ER, the patient is reportedly "more lethargic than normal." states that the patient normally is conversant and oriented. No reported fevers. Patient denies any chest pain or shortness of breath. Denies any abdominal pain, nausea or vomiting. ROS: as above PHYSICAL EXAM: Constitutional: Patient appears in no acute distress. HENT: Head: Normocephalic and atraumatic. Eyes: EOMI, PERRL Mouth/Throat: Mucous membranes moist. Neck: Trachea midline. Neck supple. Cardiovascular: RRR, No murmurs, rubs or gallops. Intact distal pulses. Pulmonary/Chest: No respiratory distress. Breath sounds clear and equal bilaterally. No wheezes or rales. Abdominal: Abdomen soft, no tenderness, rebound or guarding. Musculoskeletal: No edema, tenderness or deformity noted. Skin: Warm and dry. No rash, erythema, pallor or cyanosis Neurological: Alert to self and place. CN II-XII grossly intact, moving all extremities equally and fully. MDM: - Vitals signs showed hypertension - History obtained via patient's , given patient's confusion. History as above. - Unknown last known well. Patient has no focal neurological deficits on examination. Not a TNK candidate. - Chronic conditions affecting care: dementia; HTN; depression - Differential diagnoses include, but are not limited to: CVA; intracranial hemorrhage; ACS; pneumonia; viral syndrome; electrolyte abnormality; UTI - Order placed for continuous cardiac monitoring. At this time, monitor showed rate of 88 bpm with normal sinus rhythm, per my interpretation. - External medical records reviewed. Discharge summary dated 08/26/2023 was reviewed. Patient was admitted that time for altered mental status and dementia with agitation. - EKG interpreted by myself showed normal sinus rhythm. Rate 90 bpm. QT 374. No acute ischemic changes. - Laboratory workup interpreted by myself showed normal WBC; normal PT/INR; stable electrolytes; normal troponin; normal TSH - CXR negative for pneumonia, per my interpretation - Viral respiratory panel positive for influenza A - CT head wo contrast negative for acute pathology - Patient's saturations down to 80% on reassessment. Started on 2L NC. - Discussed results with patient's family at bedside. They are concerned that she is not at her baseline and did not feel comfortable taking her back to [place]. - Discussion was had with mental health case manager about patient's case and need for admission - Hospitalist, Dr. Cates, consulted for admission - [facility] ASSESSMENT AND PLAN: Diagnosis: acute confusion; influenza A; acute hypoxic respiratory failure Plan: Admit Past Med/Surg History Problem List (Updated 07/14/24 @ 19:17 by Shantle Knox MD) Acute hypoxemic respiratory failure (Acute) Influenza A (Acute) Acute confusion (Acute) Dementia with agitation (Acute) Hypokalemia (Acute) Dementia (Acute) AMS (altered mental status) (Acute) Ambulatory dysfunction Nausea vomiting and diarrhea (Acute) Acute confusion (Acute) Hypoxia (Acute) COVID-19 vaccine administered Diverticulitis (Acute) Encounter for pre-operative examination Diverticulitis (Acute) HX Pancreatitis (Acute) HX Urinary tract infection (Acute) HX Medical History Dehydration Surgical History History of right cataract surgery History of esophagogastroduodenoscopy (EGD) History of colonoscopy History of cholecystectomy Family History Mother Colon cancer Social History Smoking Status: Never smoker Second Hand Exposure: No; Do You Dip or Chew Tobacco: No; Hx Alcohol Use: No Hx Substance Use: No Preferred Language: Danish Communication Ability: Effective Board Turner Required: No Beliefs That Will Affect Care: None Current Living Situation: Personal Care Facility Current Living Situation Comment: [facility] Feels Safe at Home: Yes Assistive Devices: None Allergies Allergies Allergy/AdvReac Type Severity Reaction Status Date / Time propoxyphene Allergy Severe ITCHING,THROAT Verified 08/05/23 20:56 SWELLING oxycodone AdvReac Intermediate ITCHING/ARIA Verified 08/05/23 20:56 WSY Home Meds Home Medications Medication Instructions Recorded Confirmed apixaban 5 mg tablet (Eliquis) 5 mg PO BID 08/05/23 07/14/24 azelastine 137 mcg (0.1 %) nasal 1 spray intranasal BID 08/05/23 07/14/24 spray calcium 600 mg (as 1 tab PO DAILY 08/05/23 07/14/24 carbonate)-vitamin D3 20 mcg (800 unit) tablet donepezil 10 mg tablet 10 mg PO HS 08/05/23 07/14/24 dorzolamide 22.3 mg-timolol 6.8 1 drp OPB BID 08/05/23 07/14/24 mg/mL eye drops furosemide 20 mg tablet 20 mg PO DAILY 08/05/23 07/14/24 memantine 10 mg tablet 10 mg PO BID 08/05/23 07/14/24 montelukast 10 mg tablet 10 mg PO DAILY 08/05/23 07/14/24 aripiprazole 2 mg tablet 2 mg PO DAILY 07/14/24 07/14/24 fluoride (sodium) 1.1 % dental 1 applic PO UD 07/14/24 07/14/24 paste (Sodium Fluoride 5000 Dry Mouth) loratadine 10 mg tablet 10 mg PO DAILY 07/14/24 07/14/24 oxybutynin chloride 5 mg 5 mg PO DAILY 07/14/24 07/14/24 tablet,extended release 24 hr quetiapine 25 mg tablet 25 mg PO HS 07/14/24 07/14/24 Results & Data (ED) Vital Signs Vital Signs - 24 hr 07/14/24 16:55 07/14/24 16:55 07/14/24 17:15 Temperature 37.1 C Temperature Source Oral Pulse Rate 88 90 Pulse Rate [Apical] Pulse Rate from SpO2 Sensor 90 Respiratory Rate 21 19 Respiratory Effort / Characteristics Non-Labored Spontaneous Respiratory Depth Normal Respiratory Pattern Regular Blood Pressure 149/105 H Blood Pressure [Right Arm] Blood Pressure Mean 119 Blood Pressure Mean [Right Arm] Blood Pressure Position Semi-fowlers Pulse Oximetry 92 91 Oxygen Delivery Method Room Air Room Air Oxygen Flow Rate Sepsis Recent Fever Within 48 Hours No Sepsis New/Unexplained Change in Mental Status No Sepsis Action Taken by Nursing No Action Required 07/14/24 17:28 07/14/24 17:30 07/14/24 17:45 Temperature Temperature Source Pulse Rate 86 88 Pulse Rate [Apical] Pulse Rate from SpO2 Sensor 89 Respiratory Rate 20 Respiratory Effort / Characteristics Respiratory Depth Respiratory Pattern Blood Pressure 159/91 H Blood Pressure [Right Arm] Blood Pressure Mean 102 Blood Pressure Mean [Right Arm] Blood Pressure Position Pulse Oximetry 90 Oxygen Delivery Method Oxygen Flow Rate Sepsis Recent Fever Within 48 Hours Sepsis New/Unexplained Change in Mental Status Sepsis Action Taken by Nursing 07/14/24 17:57 07/14/24 19:13 07/14/24 19:13 Temperature 37.0 C Temperature Source Oral Pulse Rate 91 H Pulse Rate [Apical] 84 Pulse Rate from SpO2 Sensor Respiratory Rate 21 20 24 Respiratory Effort / Characteristics Non-Labored Spontaneous Non-Labored Spontaneous Respiratory Depth Normal Normal Respiratory Pattern Regular Blood Pressure Blood Pressure [Right Arm] 151/80 H Blood Pressure Mean Blood Pressure Mean [Right Arm] 103 Blood Pressure Position Pulse Oximetry 92 94 Oxygen Delivery Method Room Air Nasal Cannula Oxygen Flow Rate 2 Sepsis Recent Fever Within 48 Hours Sepsis New/Unexplained Change in Mental Status Sepsis Action Taken by Nursing Laboratory Data 07/14/24 17:05 07/14/24 17:05 Lab Results 07/14/24 07/14/24 07/14/24 Range/Units 17:05 17:58 18:00 WBC 6.67 (4.8-10.8) K/ul RBC 5.14 (4.20-5.40) M/uL Hgb 15.4 (12.0-16.0) g/dl Hct 45.6 (37.0-47.0) % MCV 88.7 (80.0-100.0) fL MCH 30.0 (25.0-34.0) pg MCHC 33.8 (32.0-36.0) g/dL RDW Std Deviation 45.4 (36.4-46.3) fL RDW Coeff of Adán 14.0 (11.5-14.5) % Plt Count 184 (130-400) K/uL MPV 10.7 (9.4-12.4) fL Immature Gran % (Auto) 0.4 % Neut % (Auto) 71.8 % Lymph % (Auto) 14.7 % [place] % (Auto) 12.7 % Eos % (Auto) 0.0 % Baso % (Auto) 0.4 % Neut # (Auto) 4.78 (1.40-6.50) K/uL Lymph # (Auto) 0.98 L (1.20-3.40) K/uL [place]ham # (Auto) 0.85 H (0.11-0.59) K/uL Eos # (Auto) 0.00 (0.00-0.50) K/uL Baso # (Auto) 0.03 (0.00-0.20) K/uL Immature Gran # (Auto) 0.03 (0.01-0.20) K/uL PT 10.9 (9.0-12.0) Seconds INR 1.0 (0.9-1.1) Sodium 140 (136-145) mmol/L Potassium 3.7 (3.5-5.1) mmol/L Chloride 103 (98-107) mmol/L Carbon Dioxide 29 (21-32) mmol/L Anion Gap 8 (3-11) BUN 19 (6-23) mg/dl Creatinine 1.14 (0.6-1.2) mg/dl Est Cr Clr Drug Dosing Not Reportable eGFR 48.97 BUN/Creatinine Ratio 16.7 (10-20) Glucose 107 H (70-99(Fasting)) mg/dl Lactate 1.3 (0.4-2.0) mmol/L Calcium 9.6 (8.6-10.3) mg/dl Magnesium 2.1 (1.7-2.4) mg/dl Total Bilirubin 1.0 (0.2-1.0) mg/dl AST 19 (13-39) U/L ALT 14 (7-52) U/L Alkaline Phosphatase 59 (34-104) U/L Troponin I High Sens 7.3 (0-14) pg/ml Total Protein 7.5 (6.0-8.3) gm/dl Albumin 4.2 (3.4-5.0) gm/dl Globulin 3.3 (2.5-4.0) gm/dl Albumin/Globulin Ratio 1.3 (0.9-2) TSH 0.921 (0.300-4.500) uIu/ml Adenovirus (PCR) Not Detected (NotDetected) B. pertussis DNA (PCR) Not Detected (NotDetected) B.parapertussis DNA PCR Not Detected (NotDetected) C. pneumoniae DNA (PCR) Not Detected (NotDetected) Coronavirus OC43 (PCR) Not Detected (NotDetected) Coronavirus HKU1 (PCR) Not Detected (NotDetected) Coronavirus 229E (PCR) Not Detected (NotDetected) SARS-CoV-2 (PCR) Not Detected (NotDetected) Coronavirus NL63 (PCR) Not Detected (NotDetected) Human Metapneumovir PCR Not Detected (NotDetected) Influenza A (H3) PCR DETECTED A (NotDetected) Influenza Type B (PCR) Not Detected (NotDetected) M. pneumoniae (PCR) Not Detected (NotDetected) Parainfluenza 1 (PCR) Not Detected (NotDetected) Parainfluenza 2 (PCR) Not Detected (NotDetected) Parainfluenza 3 (PCR) Not Detected (NotDetected) Parainfluenza 4 (PCR) Not Detected (NotDetected) RSV (PCR) Not Detected (NotDetected) Entero/Rhino (PCR) Not Detected (NotDetected) Imaging Data Radiologist's Impression: Chest X-Ray 07/14/24 17:14 EXAM: Radiograph of the Chest 1 View INDICATION: Weakness. TECHNIQUE: Frontal view of the chest. COMPARISON: 03/18/2024 FINDINGS: Lungs and pleural spaces: Shallow inspiration. Linear scarring left base. No consolidation or pulmonary edema. No pleural effusion or pneumothorax. Heart: Stable prominent cardiac shadow accentuated by technique. Mediastinum: Normal contour. Bones/joints: Degenerative changes noted throughout the spine. No acute osseous abnormality seen. Soft tissues: No abnormality noted. No radiopaque foreign body noted. Upper abdomen: No abnormality noted. IMPRESSION: Left basilar scarring and/or atelectasis. ACT 112: Negative or not required by law. Electronically signed by Sonia Fraser 07-14-2024 5:[address] 07/14/24 17:15 EXAM: CT Head Without Intravenous Contrast INDICATION: Confusion. TECHNIQUE: Axial computed tomography images of the head/brain without intravenous contrast. Sagittal and/or coronal reformats are provided. Sagittal and coronal reformatted images were created and reviewed. This CT exam was performed using one or more of the following dose reduction techniques: automated exposure control, adjustment of the mA and/or kV according to patient size, and/or use of iterative reconstruction technique. COMPARISON: 03/18/2024 FINDINGS: Limitations: None. Brain and extra-axial spaces: There is age appropriate cortical atrophy and chronic ischemic periventricular white matter hypodensity. No acute infarct, hemorrhage or mass noted. Bones/joints: No acute changes. Soft tissues: No significant abnormality noted. Vasculature: Intracranial atherosclerotic calcification noted. Sinuses: No layering fluid in the visualized portions of the paranasal sinuses. Mastoid air cells: No mastoid effusion. Orbits: No significant abnormality noted. IMPRESSION: Cerebral atrophy. No acute changes. ACT 112: Negative or not required by law. Electronically signed by Sonia Fraser 07-14-2024 6:22 PM Discharge Plan Visit Data Chief Complaint: Lethargic ED Provider: Shantel Knox Discharge Problem: Acute confusion, Influenza A, Acute hypoxemic respiratory failure Forms Stand Alone Forms: [facility] Prescriptions Prescriptions: No Action donepezil 10 mg tablet 10 mg PO HS dorzolamide-timolol 22.3-6.8 mg/mL drops 1 drp OPB BID montelukast 10 mg tablet 10 mg PO DAILY furosemide 20 mg tablet 20 mg PO DAILY azelastine 137 mcg (0.1 %) aerosol,spray 1 spray INTRANASAL BID memantine 10 mg tablet 10 mg PO BID calcium carbonate-vitamin D3 600 mg-20 mcg (800 unit) tablet 1 tab PO DAILY Eliquis 5 mg tablet 5 mg PO BID aripiprazole 2 mg tablet 2 mg PO DAILY fluoride (sodium) [Sodium Fluoride 5000 Dry Mouth] 1.1 % paste 1 applic PO UD quetiapine 25 mg tablet 25 mg PO HS oxybutynin chloride 5 mg tablet extended release 24hr 5 mg PO DAILY loratadine 10 mg Tablet 10 mg PO DAILY Referrals Referrals: Lauren Varela PA-C [Primary Care Provider] -
[2024-07-14 17:30] LABS: Basophils # (auto) 0.03 K/uL (0.00-0.20); Basophils % (auto) 0.4 %; Hematocrit (blood only) 45.6 % (37.0-47.0); Hemoglobin 15.4 g/dl (12.0-16.0); Immature Granulocytes # (auto) 0.03 K/uL (0.01-0.20); Immature Granulocytes % (auto) 0.4 %; Lymphocytes # (auto) 0.98 K/uL (1.20-3.40); Lymphocytes % (auto) 14.7 %; Mean Corpuscular Hgb Conc 33.8 g/dL (32.0-36.0); Mean Corpuscular Volume 88.7 fL (80.0-100.0); Mean Platelet Volume 10.7 fL (9.4-12.4); Monocytes # (auto) 0.85 K/uL (0.11-0.59); Monocytes % (auto) 12.7 %; Neutrophils # (auto) 4.78 K/uL (1.40-6.50); Neutrophils % (auto) 71.8 %; Platelet Count 184 K/uL (130-400); RDW Standard Deviation 45.4 fL (36.4-46.3); Red Blood Count 5.14 M/uL (4.20-5.40); White Blood Count 6.67 K/ul (4.8-10.8)
--- NOTE | 2024-07-14 17:41 | XRay Report ---
EXAM: Radiograph of the Chest 1 View INDICATION: Weakness. TECHNIQUE: Frontal view of the chest. COMPARISON: 03/18/2024 FINDINGS: Lungs and pleural spaces: Shallow inspiration. Linear scarring left base. No consolidation or pulmonary edema. No pleural effusion or pneumothorax. Heart: Stable prominent cardiac shadow accentuated by technique. Mediastinum: Normal contour. Bones/joints: Degenerative changes noted throughout the spine. No acute osseous abnormality seen. Soft tissues: No abnormality noted. No radiopaque foreign body noted. Upper abdomen: No abnormality noted. IMPRESSION: Left basilar scarring and/or atelectasis. ACT 112: Negative or not required by law. Electronically signed by Sonia Fraser 07-14-2024 5:41 PM
[2024-07-14 17:48] LABS: Alanine Aminotransferase 14 U/L (7-52); Albumin Globulin Ratio 1.3 (0.9-2); Albumin Level 4.2 gm/dl (3.4-5.0); Alkaline Phosphatase 59 U/L (34-104); Anion Gap 8 (3-11); Aspartate Aminotransferase 19 U/L (13-39); BUN Creatinine Ratio 16.7 (10-20); Blood Urea Nitrogen 19 mg/dl (6-23); Calcium 9.6 mg/dl (8.6-10.3); Carbon Dioxide 29 mmol/L (21-32); Chloride 103 mmol/L (98-107); Globulin 3.3 gm/dl (2.5-4.0); Glucose 107 mg/dl (70-99(Fasting)); Magnesium 2.1 mg/dl (1.7-2.4); Potassium 3.7 mmol/L (3.5-5.1); Sodium 140 mmol/L (136-145); Total Protein 7.5 gm/dl (6.0-8.3)
[2024-07-14 17:55] LABS: Troponin I High Sensitivity 7.3 pg/ml (0-14)
[2024-07-14 18:04] LABS: Thyroid Stimulating Hormone 0.921 uIu/ml (0.300-4.500)
[2024-07-14 18:06] LABS: Prothrombin Time 10.9 Seconds (9.0-12.0)
--- NOTE | 2024-07-14 18:22 | CT Scan Report ---
EXAM: CT Head Without Intravenous Contrast INDICATION: Confusion. TECHNIQUE: Axial computed tomography images of the head/brain without intravenous contrast. Sagittal and/or coronal reformats are provided. Sagittal and coronal reformatted images were created and reviewed. This CT exam was performed using one or more of the following dose reduction techniques: automated exposure control, adjustment of the mA and/or kV according to patient size, and/or use of iterative reconstruction technique. COMPARISON: 03/18/2024 FINDINGS: Limitations: None. Brain and extra-axial spaces: There is age appropriate cortical atrophy and chronic ischemic periventricular white matter hypodensity. No acute infarct, hemorrhage or mass noted. Bones/joints: No acute changes. Soft tissues: No significant abnormality noted. Vasculature: Intracranial atherosclerotic calcification noted. Sinuses: No layering fluid in the visualized portions of the paranasal sinuses. Mastoid air cells: No mastoid effusion. Orbits: No significant abnormality noted. IMPRESSION: Cerebral atrophy. No acute changes. ACT 112: Negative or not required by law. Electronically signed by Sonia Fraser 07-14-2024 6:22 PM
[2024-07-14 18:56] LABS: Adenovirus PCR Not Detected (NotDetected); Bordetella parapertussis PCR Not Detected (NotDetected); Bordetella pertussis PCR Not Detected (NotDetected); Chlamydia pneumoniae PCR Not Detected (NotDetected); Coronavirus 229E PCR Not Detected (NotDetected); Coronavirus CoV-2 (COVID19)PCR Not Detected (NotDetected); Coronavirus HKU1 PCR Not Detected (NotDetected); Coronavirus NL63 PCR Not Detected (NotDetected); Coronavirus OC43PCR Not Detected (NotDetected); Human Metapneumovirus PCR Not Detected (NotDetected); Influenza A (H3) PCR DETECTED (NotDetected); Influenza B PCR Not Detected (NotDetected); Mycoplasma pneumoniae PCR Not Detected (NotDetected); Parainfluenza Virus 1 PCR Not Detected (NotDetected); Parainfluenza Virus 2 PCR Not Detected (NotDetected); Parainfluenza Virus 3 PCR Not Detected (NotDetected); Parainfluenza Virus 4 PCR Not Detected (NotDetected); Respiratory Syncytial VirusPCR Not Detected (NotDetected); Rhinovirus/Enterovirus PCR Not Detected (NotDetected)
--- NOTE | 2024-07-14 19:29 | History & Physical Report ---
Date of Service July 14, 2024 Assessment & Plan (1) Encephalopathy: Plan: Encephalopathy Delirium on dementia Multifactorial: Hypoxemic respiratory failure secondary to influenza illness Complicated UTI, no sepsis for now chronic diastolic heart failure (EF 55 to 60%, TTE 2022), patient on the dry side hypertension, stable recurrent DVT on Eliquis mood disorder Medical telemetry Supplemental O2 Baseline VBG Tamiflu Urine CS, Ceftriaxone DVT prophylaxis. Eliquis DNR as per patient prior directives as per family. Patient daughter requesting updates providers. Ms. Florencia Isbell, contact #[phone]. Text document was generated using [employer] voice recognition software. It may contain grammatical or spelling errors. Kindly contact undersigned for clarification of any documentation item in question. History of Present Illness Chief Complaint: Weakness, confusion Primary Care Provider: Lauren Varela PA-C History obtained from patient, family, and records. Medical history significant for chronic diastolic heart failure (EF 55 to 60%, TTE 2022), hypertension, recurrent DVT on Eliquis, mood disorder, dementia, skin cancer as per records. Patient noted to be confused over the phone by yesterday. Dry cough symptoms without chest pain or SOB. Patient denies headache, abdominal pain. O2 sats 80s at custodial. Patient brought to ER for evaluation. 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 Allergies Allergy/AdvReac Type Severity Reaction Status Date / Time propoxyphene Allergy Severe ITCHING,THROAT Verified 08/05/23 20:56 SWELLING oxycodone AdvReac Intermediate ITCHING/ARIA Verified 08/05/23 20:56 WSY Home Medications Medication Instructions Recorded Confirmed Type apixaban 5 mg tablet (Eliquis) 5 mg PO BID 08/05/23 07/14/24 History azelastine 137 mcg (0.1 %) nasal 1 spray intranasal BID 08/05/23 07/14/24 History spray calcium 600 mg (as 1 tab PO DAILY 08/05/23 07/14/24 History carbonate)-vitamin D3 20 mcg (800 unit) tablet donepezil 10 mg tablet 10 mg PO HS 08/05/23 07/14/24 History dorzolamide 22.3 mg-timolol 6.8 1 drp OPB BID 08/05/23 07/14/24 History mg/mL eye drops furosemide 20 mg tablet 20 mg PO DAILY 08/05/23 07/14/24 History memantine 10 mg tablet 10 mg PO BID 08/05/23 07/14/24 History montelukast 10 mg tablet 10 mg PO DAILY 08/05/23 07/14/24 History Lactobacillus acidophilus 1 tab PO DAILY 07/14/24 07/14/24 History aripiprazole 2 mg tablet 2 mg PO DAILY 07/14/24 07/14/24 History fluoride (sodium) 1.1 % dental 1 applic PO UD 07/14/24 07/14/24 History paste (Sodium Fluoride 5000 Dry Mouth) loratadine 10 mg tablet 10 mg PO DAILY 07/14/24 07/14/24 History oxybutynin chloride 5 mg 5 mg PO DAILY 07/14/24 07/14/24 History tablet,extended release 24 hr quetiapine 25 mg tablet 25 mg PO HS 07/14/24 07/14/24 History Past Med/Surg History Problem List (Updated 07/15/24 @ 09:23 by Ottoniel Parekh MD) Advanced dementia Burnout of caregiver Encephalopathy Acute hypoxemic respiratory failure (Acute) Influenza A (Acute) Acute confusion (Acute) Dementia with agitation (Acute) Hypokalemia (Acute) Dementia (Acute) AMS (altered mental status) (Acute) Ambulatory dysfunction Nausea vomiting and diarrhea (Acute) Acute confusion (Acute) Hypoxia (Acute) COVID-19 vaccine administered Diverticulitis (Acute) Encounter for pre-operative examination Diverticulitis (Acute) HX Pancreatitis (Acute) HX Urinary tract infection (Acute) HX Medical History Dehydration Surgical History History of right cataract surgery History of esophagogastroduodenoscopy (EGD) History of colonoscopy History of cholecystectomy Family History Mother Colon cancer Social History Smoking Status: Never smoker Second Hand Exposure: No; Do You Dip or Chew Tobacco: No; Hx Alcohol Use: No Hx Substance Use: No Preferred Language: Hebrew Communication Ability: Effective Delivery Supervisor Required: No Beliefs That Will Affect Care: None Current Living Situation: Personal Care Facility Current Living Situation Comment: [facility] Feels Safe at Home: Yes Assistive Devices: None Review of Systems Review of Systems: As per HPI, all other systems reviewed and negative Physical Exam Physical Exam: GENERAL: Oriented to month, obese, no respiratory distress SKIN: Normal color, warm HEENT: [place] palpebral conjunctivae, no ptosis, dry buccal mucosa, nasal cannula in place NECK : Supple, no tenderness CHEST : Decreased breath sounds, occasional expiratory wheezes, no tenderness HEART : RRR, no obvious murmurs ABDOMEN: Some distention, nontender EXTREMITIES : No LE swelling/tenderness, no other conspicuous deformities noted NEUROLOGIC : Oriented to , no facial asymmetry, mild hearing impairment, gait and stance not assessed Results & Data Results & Data Vital Signs (Past 12 Hours) Vital Signs Temp Pulse Pulse Resp BP BP Pulse Ox 07/14/24 19:13 37.0 C 84 24 151/80 H 94 07/14/24 19:13 91 H 20 92 07/14/24 17:57 21 07/14/24 17:45 88 20 90 07/14/24 17:30 159/91 H 07/14/24 17:28 86 07/14/24 17:15 90 19 91 07/14/24 16:55 07/14/24 16:55 37.1 C 88 21 149/105 H 92 O2 Del Method O2 Flow Rate 07/14/24 19:13 Nasal Cannula 2 07/14/24 19:13 Room Air 07/14/24 17:57 07/14/24 17:45 07/14/24 17:30 07/14/24 17:28 07/14/24 17:15 07/14/24 16:55 Room Air 07/14/24 16:55 Room Air Laboratory Results Laboratory Results WBC 6.67 K/ul (4.8-10.8) 07/14/24 17:05 RBC 5.14 M/uL (4.20-5.40) 07/14/24 17:05 Hgb 15.4 g/dl (12.0-16.0) 07/14/24 17:05 Hct 45.6 % (37.0-47.0) 07/14/24 17:05 MCV 88.7 fL (80.0-100.0) 07/14/24 17:05 MCH 30.0 pg (25.0-34.0) 07/14/24 17:05 MCHC 33.8 g/dL (32.0-36.0) 07/14/24 17:05 RDW Std Deviation 45.4 fL (36.4-46.3) 07/14/24 17:05 RDW Coeff of Adán 14.0 % (11.5-14.5) 07/14/24 17:05 Plt Count 184 K/uL (130-400) 07/14/24 17:05 MPV 10.7 fL (9.4-12.4) 07/14/24 17:05 Immature Gran % (Auto) 0.4 % 07/14/24 17:05 Neut % (Auto) 71.8 % 07/14/24 17:05 Lymph % (Auto) 14.7 % 07/14/24 17:05 [place] % (Auto) 12.7 % 07/14/24 17:05 Eos % (Auto) 0.0 % 07/14/24 17:05 Baso % (Auto) 0.4 % 07/14/24 17:05 Neut # (Auto) 4.78 K/uL (1.40-6.50) 07/14/24 17:05 Lymph # (Auto) 0.98 K/uL (1.20-3.40) L 07/14/24 17:05 [place] # (Auto) 0.85 K/uL (0.11-0.59) H 07/14/24 17:05 Eos # (Auto) 0.00 K/uL (0.00-0.50) 07/14/24 17:05 Baso # (Auto) 0.03 K/uL (0.00-0.20) 07/14/24 17:05 Immature Gran # (Auto) 0.03 K/uL (0.01-0.20) 07/14/24 17:05 PT 10.9 Seconds (9.0-12.0) 07/14/24 17:05 INR 1.0 (0.9-1.1) 07/14/24 17:05 Sodium 140 mmol/L (136-145) 07/14/24 17:05 Potassium 3.7 mmol/L (3.5-5.1) 07/14/24 17:05 Chloride 103 mmol/L (98-107) 07/14/24 17:05 Carbon Dioxide 29 mmol/L (21-32) 07/14/24 17:05 Anion Gap 8 (3-11) 07/14/24 17:05 BUN 19 mg/dl (6-23) 07/14/24 17:05 Creatinine 1.14 mg/dl (0.6-1.2) 07/14/24 17:05 Est Cr Clr Drug Dosing Not Reportable 07/14/24 17:05 eGFR 48.97 07/14/24 17:05 BUN/Creatinine Ratio 16.7 (10-20) 07/14/24 17:05 Glucose 107 mg/dl (70-99(Fasting)) H 07/14/24 17:05 Lactate 1.3 mmol/L (0.4-2.0) 07/14/24 18:00 Calcium 9.6 mg/dl (8.6-10.3) 07/14/24 17:05 Magnesium 2.1 mg/dl (1.7-2.4) 07/14/24 17:05 Total Bilirubin 1.0 mg/dl (0.2-1.0) 07/14/24 17:05 AST 19 U/L (13-39) 07/14/24 17:05 ALT 14 U/L (7-52) 07/14/24 17:05 Alkaline Phosphatase 59 U/L (34-104) 07/14/24 17:05 Troponin I High Sens 7.3 pg/ml (0-14) 07/14/24 17:05 Total Protein 7.5 gm/dl (6.0-8.3) 07/14/24 17:05 Albumin 4.2 gm/dl (3.4-5.0) 07/14/24 17:05 Globulin 3.3 gm/dl (2.5-4.0) 07/14/24 17:05 Albumin/Globulin Ratio 1.3 (0.9-2) 07/14/24 17:05 TSH 0.921 uIu/ml (0.300-4.500) 07/14/24 17:05 Adenovirus (PCR) Not Detected (NotDetected) 07/14/24 17:58 B. pertussis DNA (PCR) Not Detected (NotDetected) 07/14/24 17:58 B.parapertussis DNA PCR Not Detected (NotDetected) 07/14/24 17:58 C. pneumoniae DNA (PCR) Not Detected (NotDetected) 07/14/24 17:58 Coronavirus OC43 (PCR) Not Detected (NotDetected) 07/14/24 17:58 Coronavirus HKU1 (PCR) Not Detected (NotDetected) 07/14/24 17:58 Coronavirus 229E (PCR) Not Detected (NotDetected) 07/14/24 17:58 SARS-CoV-2 (PCR) Not Detected (NotDetected) 07/14/24 17:58 Coronavirus NL63 (PCR) Not Detected (NotDetected) 07/14/24 17:58 Human Metapneumovir PCR Not Detected (NotDetected) 07/14/24 17:58 Influenza A (H3) PCR DETECTED (NotDetected) A 07/14/24 17:58 Influenza Type B (PCR) Not Detected (NotDetected) 07/14/24 17:58 M. pneumoniae (PCR) Not Detected (NotDetected) 07/14/24 17:58 Parainfluenza 1 (PCR) Not Detected (NotDetected) 07/14/24 17:58 Parainfluenza 2 (PCR) Not Detected (NotDetected) 07/14/24 17:58 Parainfluenza 3 (PCR) Not Detected (NotDetected) 07/14/24 17:58 Parainfluenza 4 (PCR) Not Detected (NotDetected) 07/14/24 17:58 RSV (PCR) Not Detected (NotDetected) 07/14/24 17:58 Entero/Rhino (PCR) Not Detected (NotDetected) 07/14/24 17:58 Impressions Chest X-Ray 07/14/24 17:14 EXAM: Radiograph of the Chest 1 View INDICATION: Weakness. TECHNIQUE: Frontal view of the chest. COMPARISON: 03/18/2024 FINDINGS: Lungs and pleural spaces: Shallow inspiration. Linear scarring left base. No consolidation or pulmonary edema. No pleural effusion or pneumothorax. Heart: Stable prominent cardiac shadow accentuated by technique. Mediastinum: Normal contour. Bones/joints: Degenerative changes noted throughout the spine. No acute osseous abnormality seen. Soft tissues: No abnormality noted. No radiopaque foreign body noted. Upper abdomen: No abnormality noted. IMPRESSION: Left basilar scarring and/or atelectasis. ACT 112: Negative or not required by law. Electronically signed by Sonia Fraser 07-14-2024 5:[address] 07/14/24 17:15 EXAM: CT Head Without Intravenous Contrast INDICATION: Confusion. TECHNIQUE: Axial computed tomography images of the head/brain without intravenous contrast. Sagittal and/or coronal reformats are provided. Sagittal and coronal reformatted images were created and reviewed. This CT exam was performed using one or more of the following dose reduction techniques: automated exposure control, adjustment of the mA and/or kV according to patient size, and/or use of iterative reconstruction technique. COMPARISON: 03/18/2024 FINDINGS: Limitations: None. Brain and extra-axial spaces: There is age appropriate cortical atrophy and chronic ischemic periventricular white matter hypodensity. No acute infarct, hemorrhage or mass noted. Bones/joints: No acute changes. Soft tissues: No significant abnormality noted. Vasculature: Intracranial atherosclerotic calcification noted. Sinuses: No layering fluid in the visualized portions of the paranasal sinuses. Mastoid air cells: No mastoid effusion. Orbits: No significant abnormality noted. IMPRESSION: Cerebral atrophy. No acute changes. ACT 112: Negative or not required by law. Electronically signed by Sonia Fraser 07-14-2024 6:22 PM Diagnostic Findings EKG as per my interpretation :Rate 90, NSR, normal axis, nonspecific T wave abnormalities, multiple artifacts
[2024-07-14 19:57] LABS: Base Excess VBG 4.8 mEq/L; HCO3 VBG 30 mmol/L; Oxygen Saturation VBG < 60.0 %; PCO2 VBG 48 mmHg (38-50); PO2 VBG 33 mmHg; pH VBG 7.41 (7.36-7.41)
[2024-07-14] MEDS ORDERED: SODIUM CHLORIDE 0.65% NA SOLN 45 ML (OCEAN) PRN (20:08)
[2024-07-14 21:31] LABS: Appearance Urine Clear (Clear); Bacteria Urine Automated 4+ (None Seen); Bilirubin Urine Negative (Negative); Blood Urine 2+ (Negative); Cast Urine Automated 0-2 /lpf (0-2); Color Urine Yellow; Epithelial Cell Urine Auto 0-2 /hpf (0-2); Glucose Urine UA Negative (Negative); Ketones Urine Negative (Negative); Leukocyte Esterase Urine Trace (Negative); Nitrite Urine Positive (Negative); Protein Urine Negative (Negative); RBC Urine Automated 0-2 /hpf (0-2); Specific Gravity Urine 1.017 (1.000-1.030); Urobilinogen Urine Negative (Negative); WBC Urine Automated 0-5 /hpf (0-5); pH Urine 5.5 (4.5-7.5)
[2024-07-14] MEDS: APIXABAN 5 MG TABLET PO SCH (22:19)
[2024-07-14] MEDS: SODIUM CHLORIDE 0.65% NA SOLN 45 ML (OCEAN) ONE (22:19)
[2024-07-14] MEDS: DONEPEZIL HCL 10 MG TAB PO SCH (22:24)
[2024-07-14] MEDS: MEMANTINE HCL 10 MG TAB PO SCH (22:25)
[2024-07-14] MEDS: QUEtiapine FUMARATE 25 MG TABLET PO SCH (22:25)
[2024-07-14] MEDS: AZELASTINE HCL 0.1% NASAL 200 SPRAYS/27,400 MCG BTL SCH (22:26)
[2024-07-14] MEDS: DORZOLAMIDE/TIMOLOL 22.3/6.8MG/ML 10 ML BTL OPB SCH (22:26)
[2024-07-14] MEDS: ALBUT/IPRATROP 3MG/0.5MG NEB 3 ML VIAL NEB STA (22:29)
[2024-07-14] MEDS: OSELTAMIVIR PHOSPHATE 75 MG CAP PO STA (22:32)
[2024-07-15] MEDS: Patient's HEIGHT &/or WEIGHT Needed STA (00:34)
[2024-07-15] MEDS: cefTRIAXone SODIUM 2,000 MG/50 ML BAG IV SCH (08:30)
--- NOTE | 2024-07-15 09:25 | Hospitalist Progress Note ---
Date of Service July 15, 2024 Assessment & Plan (1) Burnout of caregiver: Plan: At this time may continue with the same treatment at home, case management is aware and will coordinate with patient's to arrange for transfer to personal-skilled nursing (2) Advanced dementia: Plan: Patient does seem to be taking Aricept and Namenda which can be continued (3) Influenza A: Plan: I do not see any clinical indication of treating this, I do not know if this explains any change. I do not know how long she has been positive for influenza A, I do not recommend Tamiflu Plan With her status being hospice, I do not know if she needs to be on all these medications, await further decision between case management and patient's . The goal is for patient to go to personal-skilled nursing. Admission and Anticipated Discharge Date Admission Date: July 14, 2024 Subjective Patient is a 79-year-old female with obesity, chronic diastolic CHF, advanced dementia who was sent to the hospital because of some concern about her breathing. The information that I received are confusing, I was given the information that patient had respiratory issues but I never saw that patient was documented to have been hypoxemic, her chest x-ray is negative, my examination today did not show that patient was in any respiratory distress, lung examination were just fine. I had a conversation with patient's , it seems to me that this is solely due to caregiver burnout. Patient is DNR/DNI on hospice, she used to be at personal hospice care facility but eventually was sent home and was managed by personal care at home. At this time would like patient to be placed. This was communicated with case management Physical Exam Physical Exam: VITALS: Reviewed. WEIGHT/BMI reviewed. GEN: Arousable, a little obtunded, completely disoriented and confused, In no respiratory distress CV: RRR, no m/r/g. LUNGS: CTAB, no w/r/c. ABD: Obese, soft, NT/ND, NBS, no masses or organomegaly. EXT: No clubbing, cyanosis, or edema. NEURO: Unable to further examine Results & Data Results & Data Vital Signs (Past 12 Hours) Vital Signs Temp Pulse Pulse Pulse Resp BP BP 07/15/24 08:08 37.3 C 77 19 07/15/24 07:24 83 07/14/24 23:11 37.6 C H 75 18 07/14/24 23:10 80 07/14/24 23:10 37.2 C 82 16 159/77 H 07/14/24 23:10 07/14/24 22:36 79 21 148/87 H 07/14/24 22:00 36.6 C 79 24 07/14/24 21:48 92 H 23 07/14/24 21:33 86 19 07/14/24 21:24 90 19 BP Pulse Ox O2 Del Method 07/15/24 08:08 149/80 H 91 Room Air 07/15/24 07:24 07/14/24 23:11 138/85 91 Room Air 07/14/24 23:10 07/14/24 23:10 94 Room Air 07/14/24 23:10 Room Air 07/14/24 22:36 93 Room Air 07/14/24 22:00 159/88 H 94 Room Air 07/14/24 21:48 07/14/24 21:33 07/14/24 21:24 Laboratory Results Laboratory Results - last 24 hr 07/14/24 07/14/24 07/14/24 17:05 17:58 18:00 WBC 6.67 RBC 5.14 Hgb 15.4 Hct 45.6 MCV 88.7 MCH 30.0 MCHC 33.8 RDW Std Deviation 45.4 RDW Coeff of Adán 14.0 Plt Count 184 MPV 10.7 Immature Gran % (Auto) 0.4 Neut % (Auto) 71.8 Lymph % (Auto) 14.7 [place] % (Auto) 12.7 Eos % (Auto) 0.0 Baso % (Auto) 0.4 Neut # (Auto) 4.78 Lymph # (Auto) 0.98 L [place] # (Auto) 0.85 H Eos # (Auto) 0.00 Baso # (Auto) 0.03 Immature Gran # (Auto) 0.03 PT 10.9 INR 1.0 VBG pH VBG pCO2 VBG pO2 VBG HCO3 VBG O2 Saturation VBG Base Excess Sodium 140 Potassium 3.7 Chloride 103 Carbon Dioxide 29 Anion Gap 8 BUN 19 Creatinine 1.14 Est Cr Clr Drug Dosing Not Reportable eGFR 48.97 BUN/Creatinine Ratio 16.7 Glucose 107 H Lactate 1.3 Calcium 9.6 Magnesium 2.1 Total Bilirubin 1.0 AST 19 ALT 14 Alkaline Phosphatase 59 Ammonia Troponin I High Sens 7.3 Total Protein 7.5 Albumin 4.2 Globulin 3.3 Albumin/Globulin Ratio 1.3 TSH 0.921 Urine Color Urine Appearance Urine pH Ur Specific [place] Urine Protein Urine Glucose (UA) Urine Ketones Urine Blood Urine Nitrite Urine Bilirubin Urine Urobilinogen Ur Leukocyte Esterase Urine WBC (Auto) Urine RBC (Auto) U Hyaline Cast (Auto) U Epithel Cells (Auto) Urine Bacteria (Auto) Adenovirus (PCR) Not Detected B. pertussis DNA (PCR) Not Detected B.parapertussis DNA PCR Not Detected C. pneumoniae DNA (PCR) Not Detected Coronavirus OC43 (PCR) Not Detected Coronavirus HKU1 (PCR) Not Detected Coronavirus 229E (PCR) Not Detected SARS-CoV-2 (PCR) Not Detected Coronavirus NL63 (PCR) Not Detected Human Metapneumovir PCR Not Detected Influenza A (H3) PCR DETECTED A Influenza Type B (PCR) Not Detected M. pneumoniae (PCR) Not Detected Parainfluenza 1 (PCR) Not Detected Parainfluenza 2 (PCR) Not Detected Parainfluenza 3 (PCR) Not Detected Parainfluenza 4 (PCR) Not Detected RSV (PCR) Not Detected Entero/Rhino (PCR) Not Detected 07/14/24 07/14/24 19:51 20:40 WBC RBC Hgb Hct MCV MCH MCHC RDW Std Deviation RDW Coeff of Adán Plt Count MPV Immature Gran % (Auto) Neut % (Auto) Lymph % (Auto) [place] % (Auto) Eos % (Auto) Baso % (Auto) Neut # (Auto) Lymph # (Auto) [place] # (Auto) Eos # (Auto) Baso # (Auto) Immature Gran # (Auto) PT INR VBG pH 7.41 VBG pCO2 48 VBG pO2 33 VBG HCO3 30 VBG O2 Saturation < 60.0 VBG Base Excess 4.8 Sodium Potassium Chloride Carbon Dioxide Anion Gap BUN Creatinine Est Cr Clr Drug Dosing eGFR BUN/Creatinine Ratio Glucose Lactate Calcium Magnesium Total Bilirubin AST ALT Alkaline Phosphatase Ammonia 14.0 L Troponin I High Sens Total Protein Albumin Globulin Albumin/Globulin Ratio TSH Urine Color Yellow Urine Appearance Clear Urine pH 5.5 Ur Specific [place] 1.017 Urine Protein Negative Urine Glucose (UA) Negative Urine Ketones Negative Urine Blood 2+ H Urine Nitrite Positive A Urine Bilirubin Negative Urine Urobilinogen Negative Ur Leukocyte Esterase Trace H Urine WBC (Auto) 0-5 Urine RBC (Auto) 0-2 U Hyaline Cast (Auto) 0-2 U Epithel Cells (Auto) 0-2 Urine Bacteria (Auto) 4+ H Adenovirus (PCR) B. pertussis DNA (PCR) B.parapertussis DNA PCR C. pneumoniae DNA (PCR) Coronavirus OC43 (PCR) Coronavirus HKU1 (PCR) Coronavirus 229E (PCR) SARS-CoV-2 (PCR) Coronavirus NL63 (PCR) Human Metapneumovir PCR Influenza A (H3) PCR Influenza Type B (PCR) M. pneumoniae (PCR) Parainfluenza 1 (PCR) Parainfluenza 2 (PCR) Parainfluenza 3 (PCR) Parainfluenza 4 (PCR) RSV (PCR) Entero/Rhino (PCR) Diagnostic Findings Chest X-Ray 07/14/24 17:14 EXAM: Radiograph of the Chest 1 View INDICATION: Weakness. TECHNIQUE: Frontal view of the chest. COMPARISON: 03/18/2024 FINDINGS: Lungs and pleural spaces: Shallow inspiration. Linear scarring left base. No consolidation or pulmonary edema. No pleural effusion or pneumothorax. Heart: Stable prominent cardiac shadow accentuated by technique. Mediastinum: Normal contour. Bones/joints: Degenerative changes noted throughout the spine. No acute osseous abnormality seen. Soft tissues: No abnormality noted. No radiopaque foreign body noted. Upper abdomen: No abnormality noted. IMPRESSION: Left basilar scarring and/or atelectasis. ACT 112: Negative or not required by law. Electronically signed by Sonia Fraser 07-14-2024 5:[address] 07/14/24 17:15 EXAM: CT Head Without Intravenous Contrast INDICATION: Confusion. TECHNIQUE: Axial computed tomography images of the head/brain without intravenous contrast. Sagittal and/or coronal reformats are provided. Sagittal and coronal reformatted images were created and reviewed. This CT exam was performed using one or more of the following dose reduction techniques: automated exposure control, adjustment of the mA and/or kV according to patient size, and/or use of iterative reconstruction technique. COMPARISON: 03/18/2024 FINDINGS: Limitations: None. Brain and extra-axial spaces: There is age appropriate cortical atrophy and chronic ischemic periventricular white matter hypodensity. No acute infarct, hemorrhage or mass noted. Bones/joints: No acute changes. Soft tissues: No significant abnormality noted. Vasculature: Intracranial atherosclerotic calcification noted. Sinuses: No layering fluid in the visualized portions of the paranasal sinuses. Mastoid air cells: No mastoid effusion. Orbits: No significant abnormality noted. IMPRESSION: Cerebral atrophy. No acute changes. ACT 112: Negative or not required by law. Electronically signed by Sonia Fraser 07-14-2024 6:22 PM Medications Administered Current Inpatient Medications Apixaban (Apixaban 5 Mg Tablet) 5 mg PO BID ABRAHAM Stop: 08/13/24 20:59 Last Admin: 07/14/24 22:19 Dose: 5 mg Aripiprazole (Aripiprazole 1 Mg/Ml Oral Soln 150 Ml Btl) 2 mg PO DAILY ABRAHAM Stop: 08/14/24 08:59 Azelastine HCl (Azelastine Hcl 0.1% Nasal 200 Sprays/27,400 Mcg Btl) 1 sprays NA BID ABRAHAM Stop: 08/13/24 20:59 Last Admin: 07/14/24 22:26 Dose: Not Given Donepezil HCl (Donepezil Hcl 10 Mg Tab) 10 mg PO HS ABRAHAM Stop: 08/13/24 20:59 Last Admin: 07/14/24 22:24 Dose: 10 mg Dorzolamide/Timolol (Dorzolamide/Timolol 22.3/6.8mg/Ml 10 Ml Btl) 1 drops OPB BID ABRAHAM Stop: 08/13/24 20:59 Last Admin: 07/14/24 22:26 Dose: 1 drops Ceftriaxone Sodium (Rocephin) 2,000 mg in 50 mls @ 100 mls/hr IV Q24H ABRAHAM Stop: 07/25/24 08:59 Lactobacillus Acidophilus (Advanced Probiotic 625 Mg Capsule) 1,250 mg PO DAILY ABRAHAM Stop: 08/14/24 08:59 Loratadine (Loratadine 10 Mg Tab) 10 mg PO DAILY ABRAHAM Stop: 08/14/24 08:59 Memantine (Memantine Hcl 10 Mg Tab) 10 mg PO BID ABRAHAM Stop: 08/13/24 20:59 Last Admin: 07/14/24 22:25 Dose: 10 mg Montelukast Sodium (Montelukast Sodium 10 Mg Tablet) 10 mg PO DAILY ABRAHAM Stop: 08/14/24 08:59 Oseltamivir Phosphate (Oseltamivir Phosphate Susp 30 Mg/5 Ml Udp) 30 mg PO BID ABRAHAM; Protocol Stop: 07/19/24 09:01 Oxybutynin Chloride (Oxybutynin Chloride Xl 5 Mg Tabcr) 5 mg PO DAILY ABRAHAM Stop: 08/14/24 08:59 Quetiapine Fumarate (Quetiapine Fumarate 25 Mg Tablet) 25 mg PO HS ABRAHAM Stop: 08/13/24 20:59 Last Admin: 07/14/24 22:25 Dose: 25 mg Sodium Chloride (Sodium Chloride 0.65% Na Soln 45 Ml ([place])) 2 sprays NA TID PRN PRN Reason: Nasal Congestion Stop: 08/13/24 20:07 (2) Advanced dementia Dementia type: Alzheimer's Alzheimer's disease onset: late onset Dementia behavioral or psychological symptom: with other behavioral disturbance Qualified Code(s): G30.1 - Alzheimer's disease with late onset; F02.C18 - Dementia in other diseases classified elsewhere, severe, with other behavioral disturbance
[2024-07-15] MEDS: ARIPIprazole 1 MG/ML ORAL SOLN 150 ML BTL PO SCH (15:48)
[2024-07-15] MEDS: LORATADINE 10 MG TAB PO SCH (15:49)
[2024-07-15] MEDS: ADVANCED PROBIOTIC 625 MG CAPSULE PO SCH (15:49)
[2024-07-15] MEDS: OXYBUTYNIN CHLORIDE XL 5 MG TABCR PO SCH (15:49)
[2024-07-15] MEDS: MONTELUKAST SODIUM 10 MG TABLET PO SCH (15:49)
[2024-07-15] MEDS: OSELTAMIVIR PHOSPHATE SUSP 30 MG/5 ML UDP PO SCH (18:40)
[2024-07-15 19:21] VITALS: RESP 18
[2024-07-15] MEDS: ACETAMINOPHEN 325 MG TAB PO PRN (20:41)
[2024-07-15] MEDS: SODIUM CHLORIDE 0.9% 1,000 ML IV ONE (20:41)
--- NOTE | 2024-07-15 21:21 | Electrocardiogram Report ---
Test Reason : Blood Pressure : */* mmHG Vent. Rate : 90 BPM Atrial Rate : 90 BPM P-R Int : 184 ms QRS Dur : 86 ms QT Int : 374 ms P-R-T Axes : 31 -5 25 degrees QTcB Int : 457 ms Poor data quality, interpretation may be adversely affected Normal sinus rhythm Cannot rule out Inferior infarct , age undetermined Cannot rule out Anterior infarct (cited on or before 18-Mar-2024) Nonspecific T wave abnormality Abnormal ECG When compared with ECG of 18-Mar-2024 20:46, No significant change Confirmed by Kwasi Foley ([id number]) on 07/15/2024 9:21:02 PM Referred By: REFERRED SELF Confirmed By: Kwasi Foley
[2024-07-16 07:19] VITALS: TEMP 97.9; O2SAT 92
--- NOTE | 2024-07-16 08:39 | Discharge Summary ---
Discharge Summary Date of Service July 16, 2024 Principal Dx & Hospital Course #1 = Principal Diagnosis (1) Burnout of caregiver: (2) Acute metabolic encephalopathy: (3) Acute cystitis: (4) Influenza A: Notes For Next Care Provider Medication Changes From Visit Cefdinir 300 mg twice daily for 7 days Tamiflu 75 mg twice daily for 4 days Admission HPI Per Admitting Provider Patient is a 79-year-old female with obesity, chronic diastolic CHF, advanced dementia who was sent to the hospital because of some concern about her breathing. The information that I received are confusing, I was given the information that patient had respiratory issues but I never saw that patient was documented to have been hypoxemic, her chest x-ray is negative, my examination today did not show that patient was in any respiratory distress, lung examination were just fine. I had a conversation with patient's , it seems to me that this is solely due to caregiver burnout. Patient is DNR/DNI on hospice, she used to be at personal hospice care facility but eventually was sent home and was managed by personal care at home. During this hospitalization patient was found to have abnormal urinalysis, cultures grew E. coli sensitive to third-generation cephalosporins. Case was extensively discussed with case management about plan of placement, patient was seen and examined today, on my examination I feel that she is a little better today, it could be either due to the fact that she was started on ceftriaxone yesterday for supposedly UTI and likely the impression of coexisting acute metabolic encephalopathy or it could be within day-to-day variation of her dementia symptoms. I met her at the bedside today and we sorted the plan. Will place her on 7 days of cefdinir based on culture and sensitivity for the UTI and also to complete 4 more days of Tamiflu. Overall I feel that even though patient is a case of hospice but she would benefit from staying on current medications as I think this would make her more comfortable and less confused. Discharge Exam VITALS: Reviewed. WEIGHT/BMI reviewed. GEN: Looks sharper than yesterday. Updated Medication List Medication Instructions Recorded Confirmed Type apixaban 5 mg tablet (Eliquis) 5 mg PO BID 08/05/23 07/14/24 History azelastine 137 mcg (0.1 %) nasal 1 spray intranasal BID 08/05/23 07/14/24 History spray calcium 600 mg (as 1 tab PO DAILY 08/05/23 07/14/24 History carbonate)-vitamin D3 20 mcg (800 unit) tablet donepezil 10 mg tablet 10 mg PO HS 08/05/23 07/14/24 History dorzolamide 22.3 mg-timolol 6.8 1 drp OPB BID 08/05/23 07/14/24 History mg/mL eye drops furosemide 20 mg tablet 20 mg PO DAILY 08/05/23 07/14/24 History memantine 10 mg tablet 10 mg PO BID 08/05/23 07/14/24 History montelukast 10 mg tablet 10 mg PO DAILY 08/05/23 07/14/24 History Lactobacillus acidophilus 1 tab PO DAILY 07/14/24 07/14/24 History aripiprazole 2 mg tablet 2 mg PO DAILY 07/14/24 07/14/24 History fluoride (sodium) 1.1 % dental 1 applic PO UD 07/14/24 07/14/24 History paste (Sodium Fluoride 5000 Dry Mouth) loratadine 10 mg tablet 10 mg PO DAILY 07/14/24 07/14/24 History oxybutynin chloride 5 mg 5 mg PO DAILY 07/14/24 07/14/24 History tablet,extended release 24 hr quetiapine 25 mg tablet 25 mg PO HS 07/14/24 07/14/24 History cefdinir 300 mg capsule 300 mg PO BID 10 days #14 caps 07/16/24 Rx Hospital Stay Data Consultations 07/14/24 19:15 ED Decision to Admit Stat Diagnostic Imagining Performed 07/14/24 17:15 CT head/brain wo con Stat Pending Results Patient Have Any Pending Studies at Discharge: No Discharge Instructions Given to Patient (Per Discharging Provider) Continue taking your current treatment Total Time Total Time Spent Total Time Spent (In Minutes): More than 35 minutes
[2024-07-16] MEDS: cefTRIAXone SODIUM 2,000 MG/50 ML BAG IV SCH (08:49)
[2024-07-16] MEDS: INFLUENZA VACC TS2024-25(65y+)/PF (IIV3) 0.5mL Syr IM ONE (08:54)
[2024-07-16] MEDS: PNEUMOCOCCAL VACCINE (PCV20) 20-VAL CONJ-DIP CRM/PF 0.5 ML SYR IM ONE (08:57)
[2024-07-16 13:44] VITALS: BP 151/76; PULSE 79
== END 2024-07-16 15:17 | disposition hospice, inpatient (51) | DRG 689 ==
LOC: ED 16:49 → 2W 19:29